=== PATIENT | male | born 1955 | race Caucasian/White ===

== ENCOUNTER 2024-01-09 15:38 | Emergency (ER) | payer MEDICARE, SELFPAY ==
[2024-01-09 15:48] VITALS: BP 173/91; PULSE 86; RESP 16; TEMP 36.6; O2SAT 95; BMI 34.7
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
[2024-01-09 16:01] VITALS: BP 124/60; PULSE 89; O2SAT 100
[2024-01-09] MEDS: MUPIROCIN 2% OINTMENT 22GM TUBE TP (16:15)
[2024-01-09] MEDS: cephALEXin 500MG CAPSULE 500 MG PO (16:15)
[2024-01-09 16:34] VITALS: BP 124/60; PULSE 80; RESP 16; TEMP 36.6; O2SAT 100
== END 2024-01-09 16:34 | disposition home or self-care (01) ==
PROVIDERS: Emergency Provider Emergency Medicine; PCP Nurse Practitioner
DX: T25.331A Burn of third degree of right toe(s) (nail), initial encounter (principal); T25.332A Burn of third degree of left toe(s) (nail), initial encounter; M79.674 Pain in right toe(s); M79.675 Pain in left toe(s); X16.XXXA Contact with hot heating appliances, radiators and pipes, initial encounter; Y93.89 Activity, other specified; Y92.009 Unspecified place in unspecified non-institutional (private) residence as the place of occurrence of the external cause
CPT/HCPCS: 99283

== ENCOUNTER 2024-01-15 15:09 | Outpatient (CLI) | payer MEDICARE, SELFPAY ==
--- NOTE | 2024-01-15 15:20 | XR_ITS ---
PROCEDURE INFORMATION: Exam: XR Left Foot Complete; Alignment Exam date and time: 01/15/2024 3:42 PM Age: 68 years old Clinical indication: Other: Ulcer; Additional info: Diabectic foot ulcer TECHNIQUE: Imaging protocol: Radiologic exam of the left foot. Views: 3 or more views. COMPARISON: No relevant prior studies available. FINDINGS: Bones/joints: No fractures or dislocations. No cortical bone destruction or periosteal reaction. Bone hypertrophy along the dorsum of the tarsal metatarsal joints. Small plantar and Achilles heel spurs, and bone hypertrophy in the tibiotalar joint. Soft tissues: Soft tissue swelling in the great toe. IMPRESSION: 1. No radiographic evidence of osteomyelitis in the great toe. Consider MRI of the left forefoot without and with contrast if clinically warranted. 2. 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
--- NOTE | 2024-01-15 15:20 | XR_ITS ---
PROCEDURE INFORMATION: Exam: XR Right Foot Complete; Alignment Exam date and time: 01/15/2024 3:42 PM Age: 68 years old Clinical indication: Other: Ulcer; Additional info: Diabetic foot ulcer TECHNIQUE: Imaging protocol: Radiologic exam of the right foot. Views: 3 or more views. COMPARISON: No relevant prior studies available. FINDINGS: Bones/joints: Distal Achilles tendon is slightly thickened and has calcifications. No fractures or dislocations. No cortical bone destruction or periosteal reaction. Mild degenerative changes in the midfoot and in the tibiotalar joint. Achilles heel spur. Soft tissues: Soft tissue swelling in the great toe. IMPRESSION: 1. No radiographic evidence of osteomyelitis in the right foot. MRI without and with contrast may be useful if clinically warranted. 2. Mild osteoarthritis in the right midfoot and ankle. 3. Right Achilles heel spur and evidence Achilles calcific tendinosis.
[2024-01-15 15:28] LABS: Basophils # 0.1 K/mm3 (0-0.2); Basophils % 1.2 % (0.1-2.0); Eosinophils # 0.7 K/mm3 (0.0-0.4); Hematocrit 39.9 % (42.0-52.0); Hemoglobin 13.8 g/dL (14.1-18.0); Lymphocytes # 2.7 K/mm3 (0.7-4.5); Lymphocytes % 27.5 % (10-50); Mean Corpuscular HGB Conc 34.6 g/dL (31.8-35.4); Mean Corpuscular Hemoglobin 31.9 pg (27.0-31.2); Mean Corpuscular Volume 92.1 fl (80-94); Mean Platelet Volume 7.8 fl (7.4-10.4); Monocytes # 0.6 K/mm3 (0.1-1.0); Monocytes % 5.7 % (1.7-9.3); Neutrophils # 5.7 K/mm3 (1.8-7.8); Neutrophils % 58.6 % (37.0-80.0); Platelet Count 264 K/mm3 (142-424); Red Blood Count 4.33 M/mm3 (4.60-6.20); Red Cell Distribution Width 13.7 % (11.5-17.5); White Blood Count 9.7 K/mm3 (4.8-10.8)
[2024-01-15 16:05] LABS: Alanine Aminotransferase 26 U/L (12-78); Albumin Level 4.2 g/dl (3.5-5.0); Albumin/Globulin Ratio 1.1 (1.1-1.8); Alkaline Phosphatase 99 U/L (38-126); Anion Gap 14.5 mEq/L (5-15); Aspartate Amino Transferase 34 U/L (17-59); Bilirubin,Total 0.7 mg/dl (0.2-1.3); Blood Urea Nitrogen 19 mg/dl (9-20); Calcium 9.4 mg/dl (8.4-10.2); Carbon Dioxide 24 mmol/L (22.0-30.0); Chloride 102 mmol/L (98-107); Estimated Glomerular Filt Rate 83 ml/min (>60); GFR (African American) 101 ML/MIN (>60); Globulin 3.7 g/dL (1.3-3.2); Glucose 231 mg/dl (74-100); Potassium 4.5 mmoL/L (3.5-5.1); Sodium 136 mmol/L (136-145); Total Protein,Serum 7.9 g/dl (6.3-8.2)
[2024-01-15 16:10] LABS: C-Reactive Protein 8.2 mg/L (0-4)
[2024-01-15 16:43] LABS: Erythrocyte Sedimentation Rate 67 mm/hr (0-20)
[2024-01-15 17:35] LABS: Hemoglobin A1C 7.6 % (4.0-6.0)
== END 2024-01-15 23:59 | disposition home or self-care (01) ==
PROVIDERS: PCP Nurse Practitioner; Visit Provider Podiatrist
DX: T25.331A Burn of third degree of right toe(s) (nail), initial encounter (principal); T25.332A Burn of third degree of left toe(s) (nail), initial encounter; L97.509 Non-pressure chronic ulcer of other part of unspecified foot with unspecified severity; E11.621 Type 2 diabetes mellitus with foot ulcer; M79.671 Pain in right foot; M79.672 Pain in left foot; E11.40 Type 2 diabetes mellitus with diabetic neuropathy, unspecified; Z79.4 Long term (current) use of insulin; E66.812 Obesity, class 2; Z68.34 Body mass index [BMI] 34.0-34.9, adult
CPT/HCPCS: 36415; 73630; 80053; 83036; 85025; 85651; 86140; 87070; 87077; 87186; 87205

== ENCOUNTER 2024-01-16 09:06 | Outpatient (CLI) | payer MEDICARE, SELFPAY | END 2024-01-16 23:59 | disposition home or self-care (01) | LOC: LAB.DROPOF 01-20 09:07 | PROVIDERS: PCP Nurse Practitioner; Visit Provider Podiatrist | DX: E11.621 Type 2 diabetes mellitus with foot ulcer (principal); L97.519 Non-pressure chronic ulcer of other part of right foot with unspecified severity; T25.332A Burn of third degree of left toe(s) (nail), initial encounter | CPT/HCPCS: 87070; 87077; 87186; 87205 ==

== ENCOUNTER 2024-01-26 10:54 | Outpatient (CLI) | payer MEDICARE, SELFPAY ==
--- NOTE | 2024-01-26 10:59 | US_ITS ---
FINAL REPORT CLINICAL HISTORY: Decreased Pedal Pulses, HLD, HTN, DM, ex smoker, claudication, ulcers bilateral FINDINGS: ANKLE-BRACHIAL PRESSURE INDICES Pressure indices are as follows: RIGHT LOWER EXTREMITY: Ankle-brachial pressure index: 1.1 Comments: Normal LEFT LOWER EXTREMITY: Ankle-brachial pressure index: 1.0 Comments: Normal IMPRESSION: No evidence of significant obstructive peripheral vascular disease of the lower extremities Reviewed, Interpreted and Dictated by Scott Clemons III, MD Transcribed by Peggy Hollis Authenticated and . [facility]
== END 2024-01-26 23:59 | disposition home or self-care (01) ==
LOC: RT 10:55
PROVIDERS: PCP Nurse Practitioner; Visit Provider Podiatrist
DX: R09.89 Other specified symptoms and signs involving the circulatory and respiratory systems (principal)
CPT/HCPCS: 93923

== ENCOUNTER 2024-01-29 08:57 | Outpatient (POV) | payer MEDICARE, SELFPAY ==
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
[2024-01-29 09:23] VITALS: BP 144/63; PULSE 86; RESP 18; O2SAT 95; BMI 33.7
== END 2024-01-29 23:59 | disposition home or self-care (01) ==
LOC: SC.PAIN 08:58
PROVIDERS: PCP Nurse Practitioner; Visit Provider Nurse Practitioner Family
DX: M54.2 Cervicalgia (principal); M54.50 Low back pain, unspecified; M54.16 Radiculopathy, lumbar region; M25.561 Pain in right knee; M25.562 Pain in left knee; M54.12 Radiculopathy, cervical region; Z73.89 Other problems related to life management difficulty; Z79.899 Other long term (current) drug therapy
CPT/HCPCS: 99202; G0463

== ENCOUNTER 2024-02-03 09:48 | Outpatient (CLI) | payer MEDICARE, SELFPAY ==
--- NOTE | 2024-02-03 10:01 | XR_ITS ---
PROCEDURE INFORMATION: Exam: XR Left Foot Complete; Alignment Exam date and time: 02/03/2024 10:02 AM Age: 68 years old Clinical indication: Pain; Foot; Left; Additional info: B/l foot ulcers TECHNIQUE: Imaging protocol: Radiologic exam of the left foot. Views: 3 or more views. COMPARISON: CR XR FOOT WT BEARING LT 3V 01/15/2024 3:42 PM FINDINGS: Bones/joints: Interval infiltration/cortical erosion of the great toe distal phalanx at the tuft. Heel spur Achilles tendon enthesophyte. Diffuse degenerative change of the visualized osseous structures. Soft tissues: Interval reduction in soft tissue swelling of the great toe. IMPRESSION: 1. Erosions of the great toe tuft, concerning for osteomyelitis. 2. Interval reduction yet residual soft tissue swelling of the great toe. 3. Degenerative changes of the foot.
--- NOTE | 2024-02-03 10:01 | XR_ITS ---
PROCEDURE INFORMATION: Exam: XR Right Foot Complete; Alignment Exam date and time: 02/03/2024 10:02 AM Age: 68 years old Clinical indication: Pain; Foot; Right; Additional info: B/l foot ulcers TECHNIQUE: Imaging protocol: Radiologic exam of the right foot. Views: 3 or more views. COMPARISON: CR XR FOOT WT BEARING RT 3V 02/03/2024 10:02 AM FINDINGS: Bones/joints: Stable degenerative changes of the foot. Stable Achilles tendon enthesophyte formation. Soft tissues: Mild right great toe swelling, stable. IMPRESSION: 1. No interval appearance of aggressive or acute osseous abnormality. 2. Stable right soft tissue swelling of the great toe. 3. Degenerative changes of the foot.
[2024-02-03 10:11] LABS: Basophils # 0.1 K/mm3 (0-0.2); Basophils % 0.9 % (0.1-2.0); Eosinophils # 0.8 K/mm3 (0.0-0.4); Hematocrit 39.4 % (42.0-52.0); Hemoglobin 13.9 g/dL (14.1-18.0); Lymphocytes # 2.6 K/mm3 (0.7-4.5); Mean Corpuscular HGB Conc 35.2 g/dL (31.8-35.4); Mean Corpuscular Hemoglobin 32.1 pg (27.0-31.2); Mean Platelet Volume 7.5 fl (7.4-10.4); Monocytes # 0.6 K/mm3 (0.1-1.0); Monocytes % 5.7 % (1.7-9.3); Neutrophils # 5.8 K/mm3 (1.8-7.8); Neutrophils % 59.5 % (37.0-80.0); Platelet Count 227 K/mm3 (142-424); Red Blood Count 4.33 M/mm3 (4.60-6.20); White Blood Count 9.8 K/mm3 (4.8-10.8)
[2024-02-03 10:34] LABS: Alanine Aminotransferase 24 U/L (12-78); Albumin Level 4.3 g/dl (3.5-5.0); Albumin/Globulin Ratio 1.1 (1.1-1.8); Alkaline Phosphatase 99 U/L (38-126); Aspartate Amino Transferase 31 U/L (17-59); Bilirubin,Total 0.8 mg/dl (0.2-1.3); Blood Urea Nitrogen 19 mg/dl (9-20); Calcium 9.3 mg/dl (8.4-10.2); Carbon Dioxide 25 mmol/L (22.0-30.0); Chloride 102 mmol/L (98-107); Estimated Glomerular Filt Rate 66 ml/min (>60); GFR (African American) 80 ML/MIN (>60); Globulin 3.8 g/dL (1.3-3.2); Glucose 189 mg/dl (74-100); Sodium 137 mmol/L (136-145); Total Protein,Serum 8.1 g/dl (6.3-8.2)
[2024-02-03 11:35] LABS: Erythrocyte Sedimentation Rate 42 mm/hr (0-20)
== END 2024-02-03 23:59 | disposition home or self-care (01) ==
LOC: LAB 09:49
PROVIDERS: PCP Nurse Practitioner; Visit Provider Podiatrist
DX: E11.621 Type 2 diabetes mellitus with foot ulcer (principal); L97.519 Non-pressure chronic ulcer of other part of right foot with unspecified severity; T25.331A Burn of third degree of right toe(s) (nail), initial encounter; E11.40 Type 2 diabetes mellitus with diabetic neuropathy, unspecified; Z79.4 Long term (current) use of insulin; L97.524 Non-pressure chronic ulcer of other part of left foot with necrosis of bone; E66.812 Obesity, class 2; Z68.35 Body mass index [BMI] 35.0-35.9, adult
CPT/HCPCS: 36415; 73630; 80053; 85025; 85651; 86140; 87070; 87077; 87186; 87205

== ENCOUNTER 2024-02-06 06:57 | Outpatient (CLI) | payer MEDICARE, SELFPAY ==
--- NOTE | 2024-02-06 07:02 | CT_ITS ---
FINAL REPORT TECHNIQUE: Thin section axial CT images of the left foot with coronal and sagittal reformats were performed. This study was performed with techniques to keep radiation doses as low as reasonably achievable (ALARA). Individualized dose reduction techniques using automated exposure control or adjustment of mA and/or kV according to the patient''s size were employed. CLINICAL HISTORY: Evaluate osteomyelitis FINDINGS: There is soft tissue ulceration and subcutaneous emphysema at the distal portion of the first digit of the left foot. There is underlying bony erosion and sclerosis consistent with osteomyelitis. There are hammertoe deformities of the 2nd through 5th digits. There is a large os perineum which is also sclerotic. IMPRESSION: Subcutaneous emphysema and bony destruction in the first digit phalange system with acute osteomyelitis. Reviewed, Interpreted and Dictated by Leon Solomon MD Transcribed by Peggy Hollis Authenticated and [facility]
== END 2024-02-06 23:59 | disposition home or self-care (01) ==
LOC: RAD 06:58
PROVIDERS: PCP Nurse Practitioner; Visit Provider Podiatrist
DX: E11.621 Type 2 diabetes mellitus with foot ulcer (principal); L97.529 Non-pressure chronic ulcer of other part of left foot with unspecified severity; T25.332A Burn of third degree of left toe(s) (nail), initial encounter
CPT/HCPCS: 73700

== ENCOUNTER 2024-02-10 17:12 | Outpatient (CLI) | payer MEDICARE, SELFPAY ==
--- NOTE | 2024-02-10 17:20 | XR_ITS ---
PROCEDURE INFORMATION: Exam: XR Chest Exam date and time: 02/10/2024 5:22 PM Age: 68 years old Clinical indication: Wheezing; Patient HX: Diabetic; Additional info: Preoperative testing, PT wheezing when doing xray TECHNIQUE: Imaging protocol: Radiologic exam of the chest. Views: 2 views. COMPARISON: No relevant prior studies available. FINDINGS: Lungs: There is increased interstitial opacity in the left mid and lower lung echavarria which may reflect developing infection. Pleural spaces: No large effusion or pneumothorax. Heart/Mediastinum: No evidence of mediastinal widening or cardiac silhouette enlargement; the mediastinum and heart appear within normal limits for contour and size. Bones/joints: No evidence of acute osseous abnormalities within the visualized portions of the thoracic spine and ribs. Osseous structures appear appropriate for patient age. IMPRESSION: There is increased interstitial opacity in the left mid and lower lung echavarria which may reflect developing infection.
--- NOTE | 2024-02-10 17:32 | ECG_ITS ---
APPROVED REPORT Exam: Resting ECG HR:82 bpm ECG Measurements Heart Rate 82 AXES AR 196 P 39 QRSd 107 QRS -29 QT 358 T 51 QTc 396 Conclusion SINUS RHYTHM BORDERLINE LEFT AXIS DEVIATION [QRS AXIS < -20] BORDERLINE ECG UNCONFIRMED REPORT Electronically signed by : Presley Garcia MD 02/10/2024 20:55:32
== END 2024-02-10 23:59 | disposition home or self-care (01) ==
LOC: RAD 17:15
PROVIDERS: PCP Nurse Practitioner; Visit Provider Podiatrist
DX: Z01.818 Encounter for other preprocedural examination (principal); E11.621 Type 2 diabetes mellitus with foot ulcer; L97.529 Non-pressure chronic ulcer of other part of left foot with unspecified severity; L97.519 Non-pressure chronic ulcer of other part of right foot with unspecified severity
CPT/HCPCS: 71046; 93005

== ENCOUNTER 2024-02-17 14:19 | Observation (INO) | payer MEDICARE, SELFPAY ==
[2024-02-17] VITALS (11 sets, daily range): BP systolic 125–154; BP diastolic 64–82; PULSE 69–78; RESP 16–18; TEMP 36.6–36.7; O2SAT 94–98; BMI 33.9; BMI 33.8
--- NOTE | 2024-02-17 14:38 | CT_ITS ---
PROCEDURE INFORMATION: Exam: CT Chest Without Contrast; Diagnostic Exam date and time: 02/17/2024 2:50 PM Age: 68 years old Clinical indication: Screening exam; Other screening; Patient HX: R/O pna vs other; Additional info: Xrays with equivocal findings, R/O pna vs other TECHNIQUE: Imaging protocol: Diagnostic computed tomography of the chest without contrast. Total images: 417 Radiation optimization: All CT scans at this facility use at least one of these dose optimization techniques: automated exposure control; mA and/or kV adjustment per patient size (includes targeted exams where dose is matched to clinical indication); or iterative reconstruction. COMPARISON: CR XR CHEST 2V 02/10/2024 5:22 PM FINDINGS: Limitations: Examination limited by the lack of IV contrast. Lungs: Granulomatous calcification noted bilaterally. Atelectatic changes noted within both lung bases. Bronchiectatic changes noted within both lung bases. Pleural spaces: Unremarkable. No pneumothorax. No pleural effusion. Heart: The heart is not enlarged. Coronary arteries: There is mild atherosclerotic calcification of the coronary arteries. Lymph nodes: No mediastinal or axillary lymphadenopathy. Vasculature: Unremarkable. No aortic aneurysm. Diaphragm: Small hiatal hernia. There is nonspecific elevation of the right hemidiaphragm. Bones/joints: Compression deformity of a midthoracic vertebrae present. Soft tissues: Unremarkable. Other findings: Sclerotic density overlies the gallbladder. IMPRESSION: 1. No mediastinal or axillary lymphadenopathy. 2. Atelectatic changes noted within both lung bases. 3. Bronchiectatic changes noted within both lung bases. 4. Compression deformity of a midthoracic vertebrae present.
--- NOTE | 2024-02-17 14:41 | HMH.EDGENADL ---
Discharge Plan Disposition Patient Disposition: Admitted Condition: Good Prescriptions Prescriptions: No Action amitriptyline 50 mg tablet 50 mg PO DAILY aspirin [Adult Low Dose Aspirin] 81 mg tablet,delayed release (DR/EC) 81 mg PO DAILY atenolol 25 mg tablet 25 mg PO DAILY atorvastatin 40 mg tablet 40 mg PO DAILY budesonide-formoterol [Symbicort] 160-4.5 mcg/actuation HFA aerosol inhaler 1 puff inhalation QID PRN (Reason: shortness of breath or wheezing) 90 Days Qty: 10.2 3RF fluticasone propionate [Flonase Allergy Relief] 50 mcg/actuation spray,suspension 2 spray intranasal DAILY 90 Days Qty: 16 2RF Rx Instructions: administer into each nostril gabapentin 600 mg tablet 600 mg PO TID glipizide 10 mg tablet 10 mg PO BID lisinopril 5 mg tablet 5 mg PO DAILY meloxicam 15 mg tablet 15 mg PO DAILY metformin 1,000 mg tablet 1,000 mg PO BID triamcinolone acetonide 0.1 % cream 1 applic topical TID Trulicity 4.5 mg/0.5 mL pen injector 4.5 mg SQ WEEKLY Mounjaro 5 mg/0.5 mL pen injector SQ Patient Comments: INJECT THE CONTENTS OF 1 PEN 1 TIME EACH WEEK UNDER THE SKIN gentamicin 0.1 % cream 1 applic topical DAILY 14 Days Qty: 30 2RF linezolid [Zyvox] 600 mg tablet 600 mg PO BID 14 Days Qty: 28 0RF levofloxacin 500 mg tablet 500 mg PO Q24H 14 Days Qty: 14 0RF mupirocin 2 % ointment 1 applic topical DAILY Qty: 22 0RF Referrals Follow up/Referrals: Taina Flores, WHEELCHAIR RENTAL CLERK [Primary Care Provider] - See instructions Clinical Impressions Clinical Impression: Bronchiectasis, Osteomyelitis of both feet Print Language Print Language: Slovenian Discharge ED Provider: Darrin Terry General Adult HPI <Darrin Terry MD - Last Filed: 02/17/24 15:10> General Chief complaint: Recheck/Abnormal Lab/Rx Stated complaint: congestion cough Time Seen by Provider: 02/17/24 14:32 Mode of Arrival: Ambulatory Source of Information: Patient Limitations: No Limitations Description of Symptoms (Recalled from ER Triage Doc. by RN): pt was seen by his PCP, Taina Flores yesterday, and had a chest xray. Stone called the pt today reporting he has bilateral PNA. Pt states he was told to come to the ER and get admitted for IV antibiotics. pt c/o a productive cough x1wk with a clear sputum. pt states he is SOA, but it is the same SOA that he has at baseline. pt reports he would not have came in had he not been called by his provider. pt is scheduled to have a partial L great toe amputation tomorrow by Dr. Loza. pt has been on antibiotics x2wks for his feet. History of Present Illness HPI narrative: Please note that above description of symptoms, in this electronic medical record under categorization of recalled from ER triage doctor by RN are reflective of an initial nursing assessment, however, is not reflective of my full history and physical exam that was personally taken and clarified. Consequentially, this preceding description of symptoms, which may include the patient's categorized chief complaint in the EMR, do not reflect my personal clinical impression, and the ultimate description of history of present illness and patient stated complaints should be deferred to this section of the note. Unless stated otherwise or congruent with this section of the note, additional signs, symptoms, or incongruence should be interpreted as inaccurate with my clinical impression. Related Data Home Medications ?Medication ?Instructions ?Recorded ?Confirmed amitriptyline 50 mg tablet 50 mg PO DAILY 07/23/22 02/10/24 aspirin 81 mg tablet,delayed 81 mg PO DAILY 07/23/22 02/10/24 release (Adult Low Dose Aspirin) atenolol 25 mg tablet 25 mg PO DAILY 07/23/22 02/10/24 atorvastatin 40 mg tablet 40 mg PO DAILY 07/23/22 02/10/24 dulaglutide 4.5 mg/0.5 mL 4.5 mg SQ WEEKLY 07/23/22 02/10/24 subcutaneous pen injector (Trulicity) gabapentin 600 mg tablet 600 mg PO TID 07/23/22 02/10/24 glipizide 10 mg tablet 10 mg PO BID 07/23/22 02/10/24 lisinopril 5 mg tablet 5 mg PO DAILY 07/23/22 02/10/24 meloxicam 15 mg tablet 15 mg PO DAILY 07/23/22 02/10/24 metformin 1,000 mg tablet 1,000 mg PO BID 07/23/22 02/10/24 triamcinolone acetonide 0.1 % 1 applic topical TID 07/23/22 02/10/24 topical cream tirzepatide 5 mg/0.5 mL mg SQ 02/03/24 02/10/24 subcutaneous pen injector (Tanika) Previous Rx's ?Medication ?Instructions ?Recorded budesonide-formoterol HFA 160 1 puff inhalation QID PRN 07/23/22 mcg-4.5 mcg/actuation aerosol shortness of breath or wheezing 90 inhaler (Symbicort) days #10.2 grams fluticasone propionate 50 2 spray intranasal DAILY 90 days 07/23/22 mcg/actuation nasal #16 grams spray,suspension (Flonase Allergy Relief) mupirocin 2 % topical ointment 1 applic topical DAILY #22 grams 01/09/24 gentamicin 0.1 % topical cream 1 applic topical DAILY MRSA, DFU 2 02/03/24 weeks #30 grams levofloxacin 500 mg tablet 500 mg PO Q24H infection 14 days 02/10/24 #14 tabs linezolid 600 mg tablet (Zyvox) 600 mg PO BID 14 days #28 tabs 02/10/24 Allergies Allergy/AdvReac Type Severity Reaction Status Date / Time No Known Allergies Allergy Verified 02/17/24 14:56 [facility] <Darrin Terry MD - Last Filed: 02/17/24 15:10> [facility] Disclaimer: The information contained in this section may have been updated after the patient was seen, as this information can be updated by other users. Medical History Allergic rhinitis Family history of asthma History of COPD Stopped smoking with greater than 30 pack year history Eosinophilia Dyspnea on exertion Surgical History History of pancreatic surgery History of cholecystectomy Family History Other Asthma COPD (chronic obstructive pulmonary disease) Diabetes Emphysema of lung Hypertension Social History Smoking Status: Never smoker smoking status stop date: 1994 alcohol intake: never current occupational status: retired Travel in the last 8 weeks: None Other Medical History Have you received the Flu Vaccine for this season: No Have you received the Pneumonia Vaccine: No <Darrin Terry MD - Last Filed: 02/17/24 15:10> ROS Obtained: Yes All systems reviewed & no additional complaints except as documented Physical Exam <Darrin Terry MD - Last Filed: 02/17/24 15:10> General General appearance: alert and in no apparent distress Head Head exam: atraumatic and normocephalic Eye Eye exam: Present normal appearance, PERRL and EOMI ENT ENT exam: Present other (edentulous) Neck Neck exam: Present normal inspection, full ROM and trachea midline Respiratory Respiratory exam: Present normal lung sounds bilaterally; Absent respiratory distress, wheezes, stridor, accessory muscle use or prolonged expiratory phase Cardiovascular Cardiovascular exam: Present regular rate, normal rhythm and other (Pulses equal symmetric in upper and lower extremities) Abdominal Exam Abdominal exam: Present soft; Absent distention, tenderness or pulsatile mass Extremities Exam Extremities exam: Absent edema Neurological Exam Neurological exam: Present alert, oriented X3 and CN II-XII intact; Absent motor sensory deficit Skin Skin exam: Present warm and dry; Absent diaphoresis or erythema Medical Decision Making <Darrin Terry MD - Last Filed: 02/17/24 15:10> Medical Records Medical records reviewed: Yes I reviewed the patient's medical records. Screening: Per USPSTF and CDC recommendations, given the prevalence of disease in our region, it is our hospital?s policy to screen for HIV and viral Hepatitis for all patients aged 18 and over and those with ongoing risk factors. Conner Inquiry Pt receiving controlled substance: No Conner was queried for this patient: No Vital Signs: 02/17/24 14:25 02/17/24 14:30 02/17/24 14:31 Temperature 97.8 F Temperature Source Oral Pulse Rate 78 78 Pulse Rate [Left] 78 Respiratory Rate 18 Blood Pressure 154/81 H 149/81 H Blood Pressure [Right Arm] 154/81 H Blood Pressure Mean [Right Arm] 105 Blood Pressure Source [Right Arm] Automatic Cuff Blood Pressure Position [Right Arm] Sitting 02 Sat by Pulse Oximetry 97 97 97 Oxygen Delivery Method Room Air 02/17/24 15:00 02/17/24 15:30 02/17/24 16:00 Temperature Temperature Source Pulse Rate 71 75 69 Pulse Rate [Left] Respiratory Rate Blood Pressure 137/71 126/71 125/64 Blood Pressure [Right Arm] Blood Pressure Mean [Right Arm] Blood Pressure Source [Right Arm] Blood Pressure Position [Right Arm] 02 Sat by Pulse Oximetry 96 97 96 Oxygen Delivery Method Room Air Room Air Room Air 02/17/24 16:30 Temperature Temperature Source Pulse Rate 74 Pulse Rate [Left] Respiratory Rate Blood Pressure 135/72 Blood Pressure [Right Arm] Blood Pressure Mean [Right Arm] Blood Pressure Source [Right Arm] Blood Pressure Position [Right Arm] 02 Sat by Pulse Oximetry 95 Oxygen Delivery Method Room Air Lab Data Lab Results 02/17/24 14:30: WBC 9.9, RBC 5.02, Hgb 15.5, Hct 46.3, MCV 92.3, MCH 30.8, MCHC 33.4, RDW 14.0, Plt Count 188, MPV 7.4, Neut % (Auto) 50.6, Lymph % (Auto) 35.0, [place] % (Auto) 5.2, Eos % (Auto) 7.7, Baso % (Auto) 1.4, Neut # (Auto) 5.0, Lymph # (Auto) 3.5, [place] # (Auto) 0.5, Eos # (Auto) 0.8 H, Baso # (Auto) 0.1, PT 10.9, INR 0.97, APTT 25.6, Sodium 138, Potassium 4.6, Chloride 101, Carbon Dioxide 32 H, Anion Gap 9.6, BUN 18, Creatinine 1.10, Estimated Creat Clear 100, Estimated GFR 66, Est GFR ( Amer) 80, Glucose 93, Calcium 9.6, Magnesium 1.6, Total Bilirubin 0.5, AST 42, ALT 32, Alkaline Phosphatase 94, Troponin I < 0.01, NT-Pro-B Natriuret Pep 36.4, Total Protein 9.1 H, Albumin 4.8, Globulin 4.3 H, Albumin/Globulin Ratio 1.1, Procalcitonin 0.080 02/17/24 14:58: VBG pH 7.35, VBG pCO2 48.1, VBG pO2 54.8 H, VBG HCO3 25.9, VBG Total CO2 27.4 H, VBG O2 Saturation 87.9 H, VBG Base Excess 0.3, VBG Lactic Acid 1.8 12/03/24 14:30 02/17/24 14:30 Orders (Tests/Meds): ED MEDICATIONS Generic Name Dose Route Start Last Admin Trade Name Flori PRN Reason Stop Dose Admin Cefepime HCl 2 gm/ Sodium 100 mls @ 200 mls/hr 02/17/24 17:00 Chloride IV 02/17/24 17:29 ONCE ONE Miscellaneous 1 each 02/17/24 17:00 Vancomycin Consult Request NOTAPPLIC 03/18/24 16:59 [facility] ORD[facility] Category Date Time Status CT chest wo con Stat Cat Scan 02/17/24 14:38 Completed Complete Blood Count Auto Diff Stat Lab 02/17/24 14:30 Completed Comprehensive Metabolic Panel Stat Lab 02/17/24 14:30 Completed Magnesium Stat Lab 02/17/24 14:30 Completed NT Pro Brain Natriuretic Pep. Stat Lab 02/17/24 14:30 Completed PT INR [Prothrombin Time INR] Stat Lab 02/17/24 14:30 Completed PTT [Activated Partial Thrombo Time] Stat Lab 02/17/24 14:30 Completed Procalcitonin Stat Lab 02/17/24 14:30 Completed Troponin I Q3H Lab 02/17/24 17:45 Ordered Troponin I Q3H Lab 02/17/24 20:45 Ordered Troponin I Stat Lab 02/17/24 14:30 Completed Venous Blood Gas Stat RT 02/17/24 14:58 Completed Medical Decision Narrative: This is a 68-year-old male history of hypertension, hyperlipidemia, diabetes with neuropathy, lower extremity infections including osteomyelitis currently on antibiotics presenting with concern for pneumonia. Patient states that he has been on antibiotics for about 4 weeks in order to treat osteomyelitis of his great toe. Was supposed to have surgery for partial amputation tomorrow, 02/17. Patient states that he had preoperative clearance labs and chest x-ray done yesterday, 02/15 and was called back telling him he has double pneumonia, and to go to the emergency department to be admitted for having failed outpatient therapy. Patient states that he would not of come to the emergency department if he had not been instructed to do so he is not having cough, fevers, chills, nausea, vomiting, chest pain, shortness of breath more than his typical, or any other concerning signs. Tolerating antibiotics without issue. History obtained the patient and family. On arrival, patient very well-appearing, GCS 15, neurologically intact. Cardiopulmonary exam within normal limits without wheezes or adventitious lung sounds. Differential includes typical versus atypical pneumonia, viral pneumonia, CHF, PE, pneumothorax, among others. Independent interpretation of workup no leukocytosis, nonactionable CBC, chemistry, troponin, BNP. CT of the chest without acute airspace disease concerning for pneumonia. Emphysematous change. Prior to workup and evaluation, care handed off to oncoming physician. Motion Study Engineer disclaimer Much of this encounter note is an electronic sales market leader spoken language to printed text. Electronic sales market leader of the spoken language may permit errors. Although I have reviewed the note, some errors may still exist. <Keesha Dobson, DO - Last Filed: 02/17/24 17:05> Vital Signs: 02/17/24 14:25 02/17/24 14:30 02/17/24 14:31 Temperature 97.8 F Temperature Source Oral Pulse Rate 78 78 Pulse Rate [Left] 78 Respiratory Rate 18 Blood Pressure 154/81 H 149/81 H Blood Pressure [Right Arm] 154/81 H Blood Pressure Mean [Right Arm] 105 Blood Pressure Source [Right Arm] Automatic Cuff Blood Pressure Position [Right Arm] Sitting 02 Sat by Pulse Oximetry 97 97 97 Oxygen Delivery Method Room Air 02/17/24 15:00 02/17/24 15:30 02/17/24 16:00 Temperature Temperature Source Pulse Rate 71 75 69 Pulse Rate [Left] Respiratory Rate Blood Pressure 137/71 126/71 125/64 Blood Pressure [Right Arm] Blood Pressure Mean [Right Arm] Blood Pressure Source [Right Arm] Blood Pressure Position [Right Arm] 02 Sat by Pulse Oximetry 96 97 96 Oxygen Delivery Method Room Air Room Air Room Air 02/17/24 16:30 Temperature Temperature Source Pulse Rate 74 Pulse Rate [Left] Respiratory Rate Blood Pressure 135/72 Blood Pressure [Right Arm] Blood Pressure Mean [Right Arm] Blood Pressure Source [Right Arm] Blood Pressure Position [Right Arm] 02 Sat by Pulse Oximetry 95 Oxygen Delivery Method Room Air Lab Data Lab Results 02/17/24 14:30: WBC 9.9, RBC 5.02, Hgb 15.5, Hct 46.3, MCV 92.3, MCH 30.8, MCHC 33.4, RDW 14.0, Plt Count 188, MPV 7.4, Neut % (Auto) 50.6, Lymph % (Auto) 35.0, [place] % (Auto) 5.2, Eos % (Auto) 7.7, Baso % (Auto) 1.4, Neut # (Auto) 5.0, Lymph # (Auto) 3.5, [place] # (Auto) 0.5, Eos # (Auto) 0.8 H, Baso # (Auto) 0.1, PT 10.9, INR 0.97, APTT 25.6, Sodium 138, Potassium 4.6, Chloride 101, Carbon Dioxide 32 H, Anion Gap 9.6, BUN 18, Creatinine 1.10, Estimated Creat Clear 100, Estimated GFR 66, Est GFR ( Amer) 80, Glucose 93, Calcium 9.6, Magnesium 1.6, Total Bilirubin 0.5, AST 42, ALT 32, Alkaline Phosphatase 94, Troponin I < 0.01, NT-Pro-B Natriuret Pep 36.4, Total Protein 9.1 H, Albumin 4.8, Globulin 4.3 H, Albumin/Globulin Ratio 1.1, Procalcitonin 0.080 02/17/24 14:58: VBG pH 7.35, VBG pCO2 48.1, VBG pO2 54.8 H, VBG HCO3 25.9, VBG Total CO2 27.4 H, VBG O2 Saturation 87.9 H, VBG Base Excess 0.3, VBG Lactic Acid 1.8 Orders (Tests/Meds): ED MEDICATIONS Generic Name Dose Route Start Last Admin Trade Name Freq PRN Reason Stop Dose Admin Cefepime HCl 2 gm/ Sodium 100 mls @ 200 mls/hr 02/17/24 17:00 Chloride IV 02/17/24 17:29 ONCE ONE Miscellaneous 1 each 02/17/24 17:00 Vancomycin Consult Request NOTAPPLIC 03/18/24 16:59 [facility] Category Date Time Status CT chest wo con Stat Cat Scan 02/17/24 14:38 Completed Complete Blood Count Auto Diff Stat Lab 02/17/24 14:30 Completed Comprehensive Metabolic Panel Stat Lab 02/17/24 14:30 Completed Magnesium Stat Lab 02/17/24 14:30 Completed NT Pro Brain Natriuretic Pep. Stat Lab 02/17/24 14:30 Completed PT INR [Prothrombin Time INR] Stat Lab 02/17/24 14:30 Completed PTT [Activated Partial Thrombo Time] Stat Lab 02/17/24 14:30 Completed Procalcitonin Stat Lab 02/17/24 14:30 Completed Troponin I Q3H Lab 02/17/24 17:45 Ordered Troponin I Q3H Lab 02/17/24 20:45 Ordered Troponin I Stat Lab 02/17/24 14:30 Completed Venous Blood Gas Stat RT 02/17/24 14:58 Completed Medical Decision Narrative: This is a 68-year-old male history of hypertension, hyperlipidemia, diabetes with neuropathy, lower extremity infections including osteomyelitis currently on antibiotics presenting with concern for pneumonia. Patient states that he has been on antibiotics for about 4 weeks in order to treat osteomyelitis of his great toe. Was supposed to have surgery for partial amputation tomorrow, 02/17. Patient states that he had preoperative clearance labs and chest x-ray done yesterday, 02/15 and was called back telling him he has double pneumonia, and to go to the emergency department to be admitted for having failed outpatient therapy. Patient states that he would not of come to the emergency department if he had not been instructed to do so he is not having cough, fevers, chills, nausea, vomiting, chest pain, shortness of breath more than his typical, or any other concerning signs. Tolerating antibiotics without issue. History obtained the patient and family. On arrival, patient very well-appearing, GCS 15, neurologically intact. Cardiopulmonary exam within normal limits without wheezes or adventitious lung sounds. Differential includes typical versus atypical pneumonia, viral pneumonia, CHF, PE, pneumothorax, among others. Independent interpretation of workup no leukocytosis, nonactionable CBC, chemistry, troponin, BNP. CT of the chest without acute airspace disease concerning for pneumonia. Emphysematous change. Prior to workup and evaluation, care handed off to oncoming physician. Motion Study Engineer disclaimer Much of this encounter note is an electronic sales market leader spoken language to printed text. Electronic sales market leader of the spoken language may permit errors. Although I have reviewed the note, some errors may still exist. DO Bronson: On my assessment of the patient, he is sitting upright in no acute distress. CT scan shows bronchiectatic and atelectatic changes with granulomatous changes as well, but I do not see acute infection. Labs reassuring. Vitals reassuring on cardiac telemetry. I had an interactive discussion with Dr. Loza with podiatry who advised that she would prefer the patient be admitted for IV antibiotics for treatment of osteomyelitis given unclear when he will be able to undergo surgery. I had an interactive discussion with the hospitalist who accepted patient for admission. Per recommendations from Dr. Loza, patient started on IV vancomycin and cefepime. Critical Care <Darrin Terry MD - Last Filed: 02/17/24 15:10> Critical Care Time Critical Care Time: No
[2024-02-17 14:45] LABS: Basophils # 0.1 K/mm3 (0-0.2); Basophils % 1.4 % (0.1-2.0); Eosinophils # 0.8 K/mm3 (0.0-0.4); Eosinophils % 7.7 % (0.1-12.0); Hematocrit 46.3 % (42.0-52.0); Hemoglobin 15.5 g/dL (14.1-18.0); Lymphocytes # 3.5 K/mm3 (0.7-4.5); Mean Corpuscular HGB Conc 33.4 g/dL (31.8-35.4); Mean Corpuscular Hemoglobin 30.8 pg (27.0-31.2); Mean Corpuscular Volume 92.3 fl (80-94); Mean Platelet Volume 7.4 fl (7.4-10.4); Monocytes # 0.5 K/mm3 (0.1-1.0); Monocytes % 5.2 % (1.7-9.3); Neutrophils % 50.6 % (37.0-80.0); Platelet Count 188 K/mm3 (142-424); Red Blood Count 5.02 M/mm3 (4.60-6.20); White Blood Count 9.9 K/mm3 (4.8-10.8)
[2024-02-17 14:48] LABS: Albumin Level 4.8 g/dl (3.5-5.0); Chloride 101 mmol/L (98-107); Sodium 138 mmol/L (136-145)
[2024-02-17 14:49] LABS: Potassium 4.6 mmoL/L (3.5-5.1)
[2024-02-17 14:51] LABS: Activated Partial Thrombo Time 25.6 seconds (22.8-30.6); Alanine Aminotransferase 32 U/L (12-78); Albumin/Globulin Ratio 1.1 (1.1-1.8); Alkaline Phosphatase 94 U/L (38-126); Anion Gap 9.6 mEq/L (5-15); Aspartate Amino Transferase 42 U/L (17-59); Bilirubin,Total 0.5 mg/dl (0.2-1.3); Blood Urea Nitrogen 18 mg/dl (9-20); Carbon Dioxide 32 mmol/L (22.0-30.0); Creatinine Clearance Estimated 100 mL/min (50-200); Estimated Glomerular Filt Rate 66 ml/min (>60); GFR (African American) 80 ML/MIN (>60); Globulin 4.3 g/dL (1.3-3.2); Total Protein,Serum 9.1 g/dl (6.3-8.2)
[2024-02-17 14:52] LABS: Calcium 9.6 mg/dl (8.4-10.2); Glucose 93 mg/dl (74-100); Magnesium 1.6 mg/dl (1.6-2.3)
[2024-02-17 15:01] LABS: INR 0.97 (0.9-1.1); NT Pro Brain Natriuretic Pep. 36.4 pg/mL (0-125); Prothrombin Time 10.9 seconds (10.1-12.5)
[2024-02-17 15:07] LABS: Troponin I < 0.01 ng/ml (0.00-0.034)
[2024-02-17 15:11] LABS: Lactate Venous 1.8 mmol/L (0.4-2.0); VBG Base Excess 0.3 mmol/L (-2.4-2.3); VBG HCO3 25.9 mmol/L (23-30); VBG Oxygen Saturation 87.9 % (50-70); VBG PCO2 48.1 mmol/L (35-51); VBG PH 7.35 mmol/L (7.31-7.41); VBG PO2 54.8 mmol/L (28-40); VBG Total CO2 27.4 mmol/L (23-27)
--- NOTE | 2024-02-17 16:04 | PC.NURSE ---
pt resting in bed no needs at this time, at bs and call light in reach
[2024-02-17] MEDS: VANCOMYCIN CONSULT REQUEST 1 EACH NOTAPPLIC (17:06)
--- NOTE | 2024-02-17 17:18 | XR_ITS ---
PROCEDURE INFORMATION: Exam: XR Left Foot Exam date and time: 02/17/2024 5:30 PM Age: 68 years old Clinical indication: Other: L hallux om, dfu TECHNIQUE: Imaging protocol: Radiologic exam of the left foot. Views: 3 or more views. COMPARISON: CT FOOT LT WO CON 02/06/2024 7:06 AM FINDINGS: Bones/joints: Bony destruction involving the distal tuft of the great toe. No acute fracture. Hammertoe deformity 2nd through 5th digits. Soft tissues: There is adjacent soft tissue swelling. Findings suspicious for osteomyelitis. IMPRESSION: 1. Bony destruction involving the distal tuft of the great toe. There is adjacent soft tissue swelling. Findings suspicious for osteomyelitis. 2. No evidence for acute fracture. 3. Hammertoe deformity 2nd through 5th digits.
--- NOTE | 2024-02-17 17:18 | XR_ITS ---
PROCEDURE INFORMATION: Exam: XR Right Foot Exam date and time: 02/17/2024 5:30 PM Age: 68 years old Clinical indication: Other: R hallux dfu TECHNIQUE: Imaging protocol: Radiologic exam of the right foot. Views: 3 or more views. COMPARISON: CR XR FOOT WT BEARING RT 3V 02/03/2024 10:02 AM FINDINGS: Bones/joints: No acute fracture. Soft tissues: Soft tissue swelling distal soft tissues of the great toe. IMPRESSION: 1. Soft tissue swelling distal soft tissues of the great toe. No evidence for soft tissue gas. 2. No evidence for bony destruction
[2024-02-17] MEDS: CEFEPIME HCL 2 GM in 0.9 % SODIUM CHLORIDE 100 ML IV (17:27)
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
--- NOTE | 2024-02-17 18:27 | PC.WOUNDNOTE ---
Left great toe
--- NOTE | 2024-02-17 18:29 | PC.WOUNDNOTE ---
Right great toe
--- NOTE | 2024-02-17 18:33 | PC.NURSE ---
called krystin abel) to verify the correct vanc dose. vanc dose changed to 2250mg in 500ml bag ns
[2024-02-17] MEDS: VANCOMYCIN HCL 2,250 MG in 0.9 % SODIUM CHLORIDE 500 ML 166 MG IV (19:03)
[2024-02-17 19:11] LABS: Troponin I < 0.01 ng/ml (0.00-0.034)
[2024-02-17] MEDS: ATORVASTATIN 40MG TABLET 40 MG PO (20:43)
[2024-02-17] MEDS: ATENOLOL 25MG TABLET 25 MG PO (20:43)
[2024-02-17] MEDS: GABAPENTIN 600MG TABLET 600 MG PO (20:43)
[2024-02-17] MEDS: GLIPIZIDE 10 MG 10 EACH PO (20:44)
[2024-02-17] MEDS: PATIENT'S OWN HOME MEDICATION (Metformin 1,000 mg tablet) 1000 EACH PO (20:45)
[2024-02-17] MEDS: AMITRIPTYLINE 50MG TABLET 50 MG PO (20:46)
[2024-02-17] MEDS: ACETAMINOPHEN 500MG TAB 1000 MG PO (20:53)
[2024-02-17] MEDS: NYSTATIN SUSP 500,000 UNITS/5ML UDC 500000 UNIT PO (20:53)
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
[2024-02-17 21:05] LABS: POC Glucose,Bedside 146 (70-110)
[2024-02-17 21:59] LABS: Troponin I < 0.01 ng/ml (0.00-0.034)
[2024-02-18] VITALS (19 sets, daily range): BP systolic 102–135; BP diastolic 52–70; PULSE 71–104; RESP 12–18; TEMP 36.1–36.8; O2SAT 94–98; BMI 34.0
[2024-02-18 06:20] LABS: Basophils # 0.1 K/mm3 (0-0.2); Eosinophils # 0.7 K/mm3 (0.0-0.4); Hematocrit 38.4 % (42.0-52.0); Lymphocytes # 2.8 K/mm3 (0.7-4.5); Lymphocytes % 36.3 % (10-50); Mean Corpuscular HGB Conc 34.5 g/dL (31.8-35.4); Mean Corpuscular Hemoglobin 31.8 pg (27.0-31.2); Mean Corpuscular Volume 92.1 fl (80-94); Mean Platelet Volume 7.4 fl (7.4-10.4); Monocytes # 0.5 K/mm3 (0.1-1.0); Neutrophils # 3.7 K/mm3 (1.8-7.8); Neutrophils % 47.8 % (37.0-80.0); Platelet Count 156 K/mm3 (142-424); Red Blood Count 4.17 M/mm3 (4.60-6.20); Red Cell Distribution Width 14.2 % (11.5-17.5); White Blood Count 7.7 K/mm3 (4.8-10.8)
[2024-02-18 06:20] LABS: POC Glucose,Bedside 79 (70-110)
[2024-02-18 06:27] LABS: Hemoglobin 13.4 g/dL (14.1-18.0)
[2024-02-18] MEDS: CEFEPIME HCL 2 GM in 0.9 % SODIUM CHLORIDE 100 ML IV ×2 (06:27→18:23)
[2024-02-18 06:29] LABS: Albumin Level 3.7 g/dl (3.5-5.0); Chloride 106 mmol/L (98-107); Potassium 4.1 mmoL/L (3.5-5.1); Sodium 138 mmol/L (136-145)
[2024-02-18 06:31] LABS: Blood Urea Nitrogen 19 mg/dl (9-20); Creatinine Clearance Estimated 111 mL/min (50-200); Estimated Glomerular Filt Rate 74 ml/min (>60); GFR (African American) 89 ML/MIN (>60)
[2024-02-18 06:32] LABS: Alanine Aminotransferase 27 U/L (12-78); Albumin/Globulin Ratio 1.1 (1.1-1.8); Alkaline Phosphatase 81 U/L (38-126); Anion Gap 7.1 mEq/L (5-15); Aspartate Amino Transferase 40 U/L (17-59); Bilirubin,Total 0.4 mg/dl (0.2-1.3); Calcium 8.7 mg/dl (8.4-10.2); Carbon Dioxide 29 mmol/L (22.0-30.0); Globulin 3.3 g/dL (1.3-3.2); Glucose 70 mg/dl (74-100); Magnesium 1.6 mg/dl (1.6-2.3)
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
[2024-02-18 07:43] LABS: C-Reactive Protein 3.3 mg/L (0-4)
[2024-02-18 08:02] LABS: Erythrocyte Sedimentation Rate 30 mm/hr (0-20)
[2024-02-18] MEDS: NYSTATIN SUSP 500,000 UNITS/5ML UDC 500000 UNIT PO ×3 (08:05→20:17)
[2024-02-18] MEDS: MAGNESIUM SULFATE IN WATER 2 GM/50 ML PIGGYBACK IV ×2 (08:05→08:48)
[2024-02-18] MEDS: METFORMIN 500MG TABLET 1000 MG PO ×2 (08:05→17:24)
[2024-02-18] MEDS: LISINOPRIL 5MG TABLET 5 MG PO (08:06)
[2024-02-18] MEDS: GABAPENTIN 600MG TABLET 600 MG PO ×3 (08:06→20:17)
[2024-02-18] MEDS: ATENOLOL 25MG TABLET 25 MG PO (08:06)
[2024-02-18] MEDS: ENOXAPARIN 40MG/0.4ML SYRINGE 40 MG SUBCUT (08:06)
--- NOTE | 2024-02-18 08:15 | HMH.PHAINT1 ---
Pharmacy Intervention Comments: HOME MEDICATIONS VERIFIED VIA OUTPATIENT PHARMACY AND PATIENT INTERVIEW
--- NOTE | 2024-02-18 09:38 | EXP.PULM.CON ---
History of Present Illness History of present illness: Mr. Hodges is a 76-year-old male greater than [id number] smoking/smoked around 1999 with reported history of diabetes COPD hypertension foot osteomyelitis managed as an outpatient basis with debridements presented to ER with questionable worsening respiratory distress and pneumonia and pulmonary was called for further evaluation and management. Patient denies minimal respiratory symptoms at baseline but using albuterol inhaler on as-needed basis, needing around 2-3 times per month. No recent exacerbations needing antibiotics or steroids. [facility] Disclaimer: The information contained in this section may have been updated after the patient was seen, as this information can be updated by other users. Medical History (Updated 02/18/24 @ 10:46 by Manpreet Bird MD) Pulmonary emphysema History of smoking 30 or more pack years Allergic rhinitis Family history of asthma History of COPD Stopped smoking with greater than 30 pack year history Eosinophilia Dyspnea on exertion Surgical History History of pancreatic surgery History of cholecystectomy Family History Other Asthma COPD (chronic obstructive pulmonary disease) Diabetes Emphysema of lung Hypertension Social History Smoking Status: Never smoker smoking status stop date: 1994 alcohol intake: never current occupational status: retired Travel in the last 8 weeks: None Review of Systems Constitutional Constitutional: Denies anorexia, Denies body ache(s) and Denies fatigue Eyes Eyes: Denies eye discharge, Denies dry eyes, Denies irritation and Denies itchy eyes ENT Ears, Nose, Mouth, and Throat: Denies epistaxis, Denies facial pain, Denies lip swelling and Denies throat swelling *Cardiovascular Cardiovascular: Denies dyspnea and Reports dyspnea on exertion *Respiratory Respiratory: Denies change in phlegm color, Reports chest congestion, Reports cough, Denies dyspnea, Reports dyspnea on exertion, Denies excessive phlegm production, Denies hemoptysis, Denies pain on inspiration, Denies pain with cough and Denies wheezing *Gastrointestinal Gastrointestinal: Denies abdominal pain, Denies belching and Denies cramping *Musculoskeletal Musculoskeletal: Reports back pain Comments: Foot pain *Neurologic Neurologic: Reports system reviewed and no additional complaints, except as documented and Reports paresthesias Psychiatric Psychiatric: Denies homicidal ideation and Denies suicidal ideation Endocrine Endocrine: Denies fatigue and Denies heat intolerance Hematologic/Lymphatic Hematologic/Lymphatic: Denies easy bleeding and Denies lymphadenopathy Allergic/Immunologic Allergic/Immunologic: Denies itchy eyes, Denies lip swelling, Denies throat swelling and Denies wheezing Pulmonology Exam Inpatient Vital signs and Labs for Last 24 Hours: Temp Pulse Resp BP Pulse Ox O2 Del Method 98.1 F 81 16 128/68 97 Room Air 02/18/24 08:00 02/18/24 08:00 02/18/24 08:00 02/18/24 08:00 02/18/24 08:00 02/18/24 09:00 Laboratory Results - last 24 hr 02/17/24 14:30: WBC 9.9, RBC 5.02, Hgb 15.5, Hct 46.3, MCV 92.3, MCH 30.8, MCHC 33.4, RDW 14.0, Plt Count 188, MPV 7.4, Neut % (Auto) 50.6, Lymph % (Auto) 35.0, Campbell % (Auto) 5.2, Eos % (Auto) 7.7, Baso % (Auto) 1.4, Neut # (Auto) 5.0, Lymph # (Auto) 3.5, Campbell # (Auto) 0.5, Eos # (Auto) 0.8 H, Baso # (Auto) 0.1, PT 10.9, INR 0.97, APTT 25.6, Sodium 138, Potassium 4.6, Chloride 101, Carbon Dioxide 32 H, Anion Gap 9.6, BUN 18, Creatinine 1.10, Estimated Creat Clear 100, Estimated GFR 66, Est GFR ( Amer) 80, Glucose 93, Calcium 9.6, Magnesium 1.6, Total Bilirubin 0.5, AST 42, ALT 32, Alkaline Phosphatase 94, Troponin I < 0.01, NT-Pro-B Natriuret Pep 36.4, Total Protein 9.1 H, Albumin 4.8, Globulin 4.3 H, Albumin/Globulin Ratio 1.1, Procalcitonin 0.080 02/17/24 14:58: VBG pH 7.35, VBG pCO2 48.1, VBG pO2 54.8 H, VBG HCO3 25.9, VBG Total CO2 27.4 H, VBG O2 Saturation 87.9 H, VBG Base Excess 0.3, VBG Lactic Acid 1.8 02/17/24 18:29: Troponin I < 0.01 02/17/24 20:42: POC Glucose 146 H 02/17/24 21:22: Troponin I < 0.01 02/18/24 05:38: WBC 7.7, RBC 4.17 L, Hgb 13.4 L D, Hct 38.4 L, MCV 92.1, MCH 31.8 H, MCHC 34.5, RDW 14.2, Plt Count 156, MPV 7.4, Neut % (Auto) 47.8, Lymph % (Auto) 36.3, Campbell % (Auto) 6.0, Eos % (Auto) 9.0, Baso % (Auto) 1.0, Neut # (Auto) 3.7, Lymph # (Auto) 2.8, Campbell # (Auto) 0.5, Eos # (Auto) 0.7 H, Baso # (Auto) 0.1, ESR 30 H, Sodium 138, Potassium 4.1, Chloride 106, Carbon Dioxide 29, Anion Gap 7.1, BUN 19, Creatinine 1.00, Estimated Creat Clear 111, Estimated GFR 74, Est GFR ( Amer) 89, Glucose 70 L D, Calcium 8.7, Magnesium 1.6, Total Bilirubin 0.4, AST 40, ALT 27, Alkaline Phosphatase 81, C-Reactive Protein 3.3, Total Protein 7.0, Albumin 3.7 D, Globulin 3.3 H, Albumin/Globulin Ratio 1.1 02/18/24 06:09: POC Glucose 79 I & O for Labs for Last 24 Hours: Intake & Output 02/15/24 02/16/24 02/17/24 02/18/24 23:59 23:59 23:59 23:59 Intake Total 400 / 1140 790 / 790 Output Total 0 / 0 Balance 400 / 1140 790 / 790 Weight 249 lb 15.997 oz 251 lb Constitutional: Present mild distress Head: Present normocephalic and atraumatic ENT: Present normal exam, normal oropharynx and mucous membranes moist Neck: Present normal inspection and full ROM Respiratory: Present normal respiratory effort and able to speak in complete sentences; Absent prolonged expiratory phase, respiratory distress, wheezes or diminished air movement Cardiac: Present S1/S2, Tachycardia and radial pulses present GI: Present soft and distention; Absent tenderness or guarding Skin: Present intact; Absent cyanosis or jaundice Neuro: Present alert, awake and oriented x 3 Extremities: Present normal inspection; Absent clubbing or cyanosis Psychiatric: Present normal affect and cooperative Meds Home Medications and Allergies Home Medications ?Medication ?Instructions ?Recorded ?Confirmed ?Type amitriptyline 50 mg tablet 50 mg PO HS 07/23/22 02/18/24 History aspirin 81 mg tablet,delayed 81 mg PO DAILY 07/23/22 02/17/24 History release (Adult Low Dose Aspirin) atorvastatin 40 mg tablet 40 mg PO DAILY 07/23/22 02/17/24 History fluticasone propionate 50 2 spray intranasal DAILY 90 days 07/23/22 02/18/24 Rx mcg/actuation nasal #16 grams spray,suspension (Flonase Allergy Relief) gabapentin 600 mg tablet 600 mg PO TID 07/23/22 02/18/24 History glipizide 10 mg tablet 10 mg PO BID 07/23/22 02/18/24 History meloxicam 15 mg tablet 15 mg PO DAILY 07/23/22 02/18/24 History metformin 1,000 mg tablet 1,000 mg PO BID 07/23/22 02/18/24 History tirzepatide 5 mg/0.5 mL 5 mg SQ WEEKLY 02/03/24 02/17/24 History subcutaneous pen injector (Tanika) levofloxacin 500 mg tablet 500 mg PO Q24H infection 14 days 02/10/24 02/17/24 Rx #14 tabs linezolid 600 mg tablet (Zyvox) 600 mg PO BID 14 days #28 tabs 02/10/24 02/17/24 Rx atenolol 50 mg tablet 25 mg PO DAILY 02/18/24 02/18/24 History blood sugar diagnostic (True 02/18/24 02/18/24 History Metrix Glucose Test Strip) blood-glucose meter (True Metrix 02/18/24 02/18/24 History Glucose Meter) lancets 33 gauge (TRUEplus Lancets) 02/18/24 02/18/24 History lisinopril 10 mg tablet 5 mg PO DAILY 02/18/24 02/18/24 History New Prescriptions to Start Prescriptions: Allergies Allergy/AdvReac Type Severity Reaction Status Date / Time No Known Allergies Allergy Verified 02/17/24 14:56 Results Laboratory Findings 02/18/24 05:38 02/18/24 05:38 PT/INR, D-dimer PT 10.9 seconds (10.1-12.5) 02/17/24 14:30 INR 0.97 (0.9-1.1) 02/17/24 14:30 Abnormal lab findings: Abnormal Labs 02/17/24 02/17/24 02/17/24 14:30 14:58 20:42 RBC Hgb Hct MCH Eos # (Auto) 0.8 H ESR VBG pO2 54.8 H VBG Total CO2 27.4 H VBG O2 Saturation 87.9 H Carbon Dioxide 32 H Glucose POC Glucose 146 H Total Protein 9.1 H Globulin 4.3 H 02/18/24 05:38 RBC 4.17 L Hgb 13.4 L D Hct 38.4 L MCH 31.8 H Eos # (Auto) 0.7 H ESR 30 H VBG pO2 VBG Total CO2 VBG O2 Saturation Carbon Dioxide Glucose 70 L D POC Glucose Total Protein Globulin 3.3 H Assessment and Plan *Assessment and plan (1) History of smoking 30 or more pack years: Status: Acute Category: Social Hx Code(s): Z87.891 - Personal history of nicotine dependence (2) Pulmonary emphysema: Status: Acute Category: Medical Code(s): J43.9 - Emphysema, unspecified (3) Dyspnea on exertion: Status: Acute Category: Medical Code(s): R06.09 - Other forms of dyspnea Plan Mr. Hodges is a 76-year-old male greater than [id number] smoking/smoked around 1999 with reported history of diabetes COPD hypertension foot osteomyelitis managed as an outpatient basis with debridements presented to ER with questionable worsening respiratory distress and pneumonia and pulmonary was called for further evaluation and management. Patient denies minimal respiratory symptoms at baseline but using albuterol inhaler on as-needed basis, needing around 2-3 times per month. No recent exacerbations needing antibiotics or steroids. Afebrile. Hemodynamically stable. No evidence of leukocytosis. Chest CT chest upon admission no dense airspace disease/consolidative changes noted. Bilateral subpleural interstitial changes with minimal lower lobe predominantly bronchiectasis noted, likely from traction. Upper lobe emphysematous changes noted. On initial examination patient does not appear to be in any respiratory distress. On room air saturating 95% and above. Plan: -Albuterol/DuoNebs 4 times daily as needed Follow as an outpatient basis with a full PFT and walk test No need for antibiotics or steroids from pulmonary standpoint for presumed pneumonia. Patient will be mild to intermediate risk for perioperative pulmonary complications for general anesthesia. No absolute contraindications from pulmonary standpoint. Thank you for involving pulmonary in this patient care. Will continue to follow.
[2024-02-18 10:55] LABS: POC Glucose,Bedside 95 (70-110)
--- OUTSIDE RECORDS SUMMARY | 2024-02-18 11:33 | XMS_ITS | Clinical Summary ---
Author Organization [facility] Address [address] [place] [address] Care Team Providers Care Port Cdl A Driver Name Role Phone Taina Flores BETHANY Primary Care Provider [phone] Allergies Active Allergy Reactions Criticality Noted Date Comments Cephalexin Other - please docum ent in the comment field Low 07/18/2022 Medications amitriptyline (Elavil) 50 MG tablet amitriptyline 50 mg tablet TAKE 1 TABLET 1 TIME EACH DAY AT BEDTIME Activ e aspirin 81 MG EC tablet aspirin 81 mg tablet,delayed release Take 1 tablet(s) by mouth daily 10/19/19 17 Active atenolol (Tenormin) 50 MG tablet atenolol 50 mg tablet TAKE 1 TABLET 1 TIME EACH DAY 10/19/19 17 Active Blood Glucose Monitoring Suppl (ONE TOUCH ULTRA 2) w/Device kit device kit USE TO TEST BLOOD SUGAR DIRECTED 12/22/19 22 Active atorvastatin (Lipitor) 40 MG tablet atorvastatin 40 mg tablet TAKE 1 TABLET 1 TIME EACH DAY AT BEDTIME 11/03/19 18 Active gabapentin (Neurontin) 600 MG tablet gabapentin 600 mg tablet TAKE 1 TABLET 3 TIMES EACH DAY Active hydroCHLOROth iazide (HYDRODiuril) 25 MG tablet hydrochlorothiazide 25 mg tablet TAKE 1 TABLET 1 TIME EACH DAY 11/14/19 17 Active BD Pen Needle Leila U/F 32G X 4 MM misc USE TO INJECT INSULIN IN THE MORNING AND IN THE EVENING 05/19/19 23 Active Lancets (OneTouch Delica Plus [id number]) misc USE TO TEST BLOOD SUGAR 3 TIMES EACH DAY 03/19/19 23 Active lisinopril 10 MG tablet lisinopril 10 mg tablet TAKE 1 TABLET 1 TIME EACH DAY 11/14/19 17 Active meloxicam (Mobic) 15 MG tablet meloxicam 15 mg tablet TAKE 1 TABLET 1 TIME EACH DAY NEEDED 11/14/19 17 Active metFORMIN (Glucophage) 1000 MG tabletIndicat ions:Type 2 diabetes mellitus with other specified complication, with long-term current use of insulin (CMS/HCC) Take 1 tablet (1,000 mg total) by mouth 2 (two) times a day with meals. 60 tablet 11 07/19/19 23 Active glipiZIDE (Glucotrol) 10 MG tabletIndicat ions:Type 2 diabetes mellitus with other specified complication, with long-term current use of insulin (CMS/HCC) Take 1 tablet (10 mg) by mouth 2 (two) times a day before meals. 60 tablet 11 11/07/19 23 Active glucose blood (Karisma Kidz Ultra) test stripIndicati ons:Type 2 diabetes mellitus with other specified complication, with long-term current use of insulin (CMS/HCC) USE TO CHECK BLOOD SUGAR 2 TIMES EACH DAY BEFORE MEALS 100 strip 2 10/22/19 24 Active Insulin Pen Needle (BD Pen Needle Leila U/F) 32G X 4 MM miscIndicatio ns:Type 2 diabetes mellitus with other specified complication, with long-term current use of insulin (CMS/HCC) USE TO INJECT INSULIN 2 TIMES EACH DAY BEFORE MEALS 100 each 2 10/22/19 24 Active insulin aspart protamine-ins ulin aspart (NovoLOG MIX 70/30 FLEXPEN) (70-30) 100 UNIT/ML injection penIndication s:Type 2 diabetes mellitus with other specified complication, with long-term current use of insulin (CMS/[facility]) INJECT 70 UNITS BEFORE BREAKFAST AND DINNER. INCREASE DOSE DIRECTED. DO NOT INJECT MORE THAN 160 UNITS EACH DAY. 60 mL 2 10/22/19 24 Active Active Problems Problem Noted Date Diagnosed Date Type 2 diabetes mellitus, wi th long-term current use of insulin 06/18/2021 Obesity with body mass index 30 or greater 03/16 Testicular hypofunction 09/18/2018 Primary insomnia 07/21/2018 Secondary diabetes mellitus 05/21/2018 Mixed hyperlipidemia 02/19/2018 Hypertension 01/22/2018 Thoracic compression fracture 04/08/2017 Mononeuropathy due to type 2 diabetes mellitus 0 10/17/2016 Family History Medical History Relation Name Comments Emphysema Other 1 Hypertension Other 2 Other cancer Other 3 Breast cancer Other 4 Relation Name Status Comments Other 1 Other 2 Other 3 Other 4 Social History Tobacco Use Types Packs/Day Years Used Date Smoking Tobacco: Former Cigarettes Q uit: 1992 Smokeless Tobacco: Never Tobacco Cessation:Counseling Given: Not Answered Alcohol Use Standard Drinks/Week Comments Not Currently 0 (1 standard drink = 0.6 oz pur e alcohol) PHQ-2 Answer Date Recorded Patient Health Questionnaire-2 Score 1 11/06/2022 PHQ-2A Answer Date Recorded Patient Health Questionnaire-2 Score 1 11/06/2022 Sex and Gender Information Value Date Recorded Sex Assigned at Male 07/17/2022 12:33 PM EDT Legal Sex Male 8:53 PM EDT Gender Identity Male 07/17/2022 12:33 PM EDT Sexual Orientation Not on file Last Filed Vital Signs Vital Sign Reading Time Taken Comments Blood Pressure 155/68 02/13/2023 3:48 PM EST Pulse 93 02/13/2023 3:48 PM EST Temperature - - Respiratory Rate - - Oxygen Saturation - - Inhaled Oxygen Concentration - - Weight 125 kg (276 lb 3.8 oz) 02/13/2023 3:48 PM EST Height 185.4 cm (6' 1 ) 11/06/2022 2:59 PM EDT Body Mass Index 36.44 11/06/2022 2:59 PM EDT Plan of Treatment Health Maintenance Due Date Last Done Comments [facility]-Hepatitis C Screening 1955 [facility] Annual Wellness (AWV) 1955 [facility]-/Child/Adol SDOH Screenings 1955 [id number] Vaccine (#1) 1958 [facility]-Pneumococcal Vaccine: 65+ Years (1 of 2 - PCV) 11/28/1959 Diabetes: Dental Exam 11/28/1963 [facility]- SDOH Screenings 11/28/1971 [facility]-Adult SDOH Screenings 11/28/1971 [facility]-DTaP,Tdap,and Td Vaccines (1 - Tdap) 1972 [facility]-Zoster Vaccines (1 of 2) 1972 CT Colonography 1998 Colonoscopy 1998 [facility]-DNA 1998 FIT 1998 FOBT 1998 Sigmoidoscopy 1998 [facility]-Colorectal Cancer Screening 1998 [facility]-RSV Vaccine: 60+ Years or (1 - Risk 60-74 years 1-dose series) 2013 [facility]-Diabetes: Hemoglobin A1C 08/13/2023, 11/06/2022, 07/18/2022 [facility]-Depression Screening 11/07/2023 11/06/2022 [facility]-Influenza Vaccine (#1) 2023 [facility]-Obesity Intervention Completed 023, 02/13/2023, 02/13/2023, Additional history exists [facility]-HIB Vaccines Aged Out No longer e ligible based on patient's age to complete this topic [facility]-HPV Vaccines Aged Out No longer e ligible based on patient's age to complete this topic [facility]-Hepatitis A Vaccines Aged Out No longer eligible based on patient's age to complete this topic [facility]-IPV Vaccines Aged Out No longer e ligible based on patient's age to complete this topic [facility]-Rotavirus Vaccines Aged Out No lo nger eligible based on patient's age to complete this topic Procedures Procedure Name Priority Date/Time Associated Diagnosis Comments POCT GLYCOSYLATED HEMOGLOBIN (HGB A1C) Routine 02/13/2023 3:56 PM EST Type 2 diabetes mellitus with other specified complication, with long-term current use of insulin ([facility]) from Last 3 Months or Most Recently Relevant to Health Maintenance Results * POCT glycosylated hemoglobin (Hb A1C) docked device (02/13/2023 3:56 PM EST) POCT Hemoglobin A1C 8.9 <5.7% Non-Diabet ic [facility] Kit Lot Number [id number] [facility] Kit Expiration Date 45354 [facility] Blood Venous blood specimen / Unknown 02/13/2023 3:56 PM EST Sara FERNANDEZ POINT OF CARE TEST EN TER/EDIT ORDERABLES Final Result [facility] [address] [place] [id number] from Last 3 Months or Most Recently Relevant to Health Maintenance Insurance [employer] Care Teams Port Cdl A Driver Relationship Specialty Start Date End Date Taina Flores, BETHANY [address] [place] [address] PCP - General 11/06/22
--- OUTSIDE RECORDS SUMMARY | 2024-02-18 11:34 | XMS_ITS | Encounter Summary ---
Author Organization Healthcare Address [address] [place] [address] Care Team Providers Care Program Schedule Clerk Name Role Phone Unavailable Primary Care Provider Unavailabl e Encounter Details Date Type Department Care Team (Late st Contact Info) Description 07/31/2017 [facility] Vitals Encounter [facility] OUTPATIENT CONVERSIONS [address] [place] [address] ProviderRavi MD [address] [place] [address] Social History Tobacco Use Types Packs/Day Years Used Date Smoking Tobacco: Never Assessed Sex and Gender Information Value Date Recorded Sex Assigned at Male 07/17/2022 12:33 PM EDT Legal Sex Male 8:53 PM EDT Gender Identity Male 07/17/2022 12:33 PM EDT Sexual Orientation Not on file documented as of this encounter Last Filed Vital Signs Vital Sign Reading Time Taken Comments Blood Pressure 145/86 07/31/2017 8:49 AM EDT Pulse 76 07/31/2017 8:49 AM EDT Temperature - - Respiratory Rate - - Oxygen Saturation - - Inhaled Oxygen Concentration - - Weight 117 kg (258 lb 13.1 oz) 07/31/2017 8:49 A M EDT Height 184.2 cm (6' 0.5 ) 07/31/2017 8:49 AM EDT Body Mass Index 34.62 07/31/2017 8:49 AM EDT documented in this encounter Plan of Treatment Not on file documented as of this encounter Visit Diagnoses Not on filedocumented in this encounter
--- OUTSIDE RECORDS SUMMARY | 2024-02-18 11:34 | XMS_ITS | Encounter Summary ---
Author Organization Healthcare Address [address] [place] [address] Care Team Providers Care Lead Level Designer Name Role Phone Taina Flores APRN Primary Care Provider [phone]- [phone] Reason for Visit * Reason Comments Med Refill Encounter Details Date Type Department Care Team (Late st Contact Info) Description 10/21/2023 Refill [facility] [address] [facility], [address] [place] [address] Sara Joe PA [address] [facility] [address] [place] [address] Type 2 diabetes mellitus with other specified complication, with long-term current use of insulin ([facility]) Social History Tobacco Use Types Packs/Day Years Used Date Smoking Tobacco: Former Cigarettes Q uit: 1992 Smokeless Tobacco: Never Alcohol Use Standard Drinks/Week Comments Not Currently [...] on file documented as of this encounter Miscellaneous Notes * Telephone Encounter - Nain Akers, PharmD - 10/22/2023 8:49 AM EDT 3 medication(s) has been approved per protocol. Patient must schedule an appointment and be seen in clinic for additional refills documented in this encounter Plan of Treatment Not on file documented as of this encounter Visit Diagnoses Diagnosis Type 2 diabetes mellitus with other specified complication, with long-term current use of insulin ([facility]) documented in this encounter Additional Health Concerns Assessment Noted Time A fall risk assessment has been complete d for the patient 02/13/2023 3:51 PM EST A Body Mass Index follow-up plan has been documented for the patient 02/13/2023 4:39 PM EST documented as of this encounter Care Teams Lead Level Designer Relationship Specialty Start Date End Date Taina Flores, LOCOMOTIVE SWITCH OPERATOR [address] [place] [address] PCP - General 11/06/22 documented as of this encounter
--- OUTSIDE RECORDS SUMMARY | 2024-02-18 11:34 | XMS_ITS | Encounter Summary ---
Author Organization [facility] Address [address] [place] [address] Care Team Providers Care Oracle Scm Consultant Name Role Phone Ashley March Janel OPTICIAN MANAGER Primary Care Provider [phone] Reason for Visit * Reason Comments Diabetes * Consultation (Routine) - Closed Specialty Diagnoses / Procedures Referred By Mohinder t Referred To Contact Endocrinology Diagnoses Diabetes mellitus without complication (CMS/HCC) Taina Flores, OPTICIAN MANAGER [address] [place] [address] Phone: tel: fax: [facility] [address], [address] [place] [address] Phone: tel: fax: Referral ID Status Reason Start Date Expiration Date V isits Requested Visits Authorized [id number] Closed Specialty Services Required 07/17/2022 01/16/2024 1 1 Encounter Details Date Type Department Care Team (Late st Contact Info) Description 07/18/2022 1:40 PM EDT Office Visit [facility] [address], [address] [place] [address] Sara Joe PA [address] [place] [address] Type 2 diabetes mellitus with other specified complication, with long-term current use of insulin (CMS/HCC) (Primary Dx); Class 2 severe obesity with serious comorbidity and body mass index (BMI) of 35.0 to 35.9 in adult, unspecified obesity type (CMS/HCC); Hypertension, unspecified type; Neuropathy; Mixed hyperlipidemia Social History Tobacco Use Types Packs/Day Years Used Date Smoking Tobacco: Former Smokeless Tobacco: Never Alcohol Use Standard Drinks/Week Comments Not Currently 0 (1 standard drink = 0.6 oz pur e alcohol) Sex and Gender Information Value Date Recorded Sex Assigned at Male 07/17/2022 12:33 PM EDT Legal Sex Male 8:53 PM EDT Gender Identity Male 07/17/2022 12:33 PM EDT Sexual Orientation Not on file documented as of this encounter Last Filed Vital Signs Vital Sign Reading Time Taken Comments Blood Pressure 136/71 07/18/2022 1:55 PM EDT Pulse 94 07/18/2022 1:55 PM EDT Temperature - - Respiratory Rate - - Oxygen Saturation - - Inhaled Oxygen Concentration - - Weight 122 kg (268 lb 4.8 oz) 07/18/2022 1:55 PM EDT Height 184.2 cm (6' 0.5 ) 07/18/2022 1:55 PM EDT Body Mass Index 35.89 07/18/2022 1:55 PM EDT documented in this encounter Miscellaneous Notes * Clinician Note - Sylvia Wong CDE, GRICEL - 07/18/2022 1:40 PM EDT initial evaluation for Endocrinology. 66 y.o. male with Diabetes Mellitus Type 2 . Current medication regimen includes trulcity, tresiba, glipizide, metformin patient indicates SMBG once or twice perday. Medication- Reviewed new insulin regimen with Stephen Hodges This regimen is Aspart mixture 70 units BID. Further reviewed titration instructions to separately increase morning and evening doses in 2unit increments every 3 days. Adjust morning dose based upon the evening blood glucose levels. Adjust the evening dose based upon the morning blood glucose level. Target blood glucose is < 150 mg/dl. Discussed the value of consistent meal and injection timing and testing of BG prior to the meal and injection. Provided [facility] logbook and recommended record pre breakfast and pre dinner BG levels. Stephen Hodges successfully taught back instructions with the assistance of the instructional handout provided. Provided CDE contact information and discussed procedure for leaving a message and expectations concerning phone call returns. * Patient Instructions - Sara Fair PA - 07/18/2022 1:40 PM EDT -Call the diabetes education team with any questions or concerns [phone] -Bring your blood glucose meter and readings to next visit * Progress Notes - Sara Fair PA - 07/18/2022 1:40 PM EDT Subjective Stephen Hodges is a 66 y.o. male who presents for an initial evaluation of Diabetes Mellitis Type 2. Patient was diagnosed >10 years ago. Current symptoms/problems include hyperglycemia. HPI Today A1C 8.2% Current treatment includes oral agents, insulin injections, and GLP1 -Tresiba U200 42 units twice daily, Metformin 1000 mg twice daily, glipizide 10 mg 1 tab twice daily, Trulicity 4.5 mg weekly Known diabetic complications: peripheral neuropathy Compliance at present is estimated to be good. Cardiovascular risk factors: advanced age (older than 55 for men, 65 for women), diabetes mellitus,dyslipidemia, hypertension, male gender, microalbuminuria, obesity (BMI >= 30 kg/m2), sedentary lifestyle, and smoking/ tobacco exposure Is he on CARA inhibitor or angiotensin II receptor devendra? Yes Is he on a StatinYes Current diet: {diet habits:on average, 2 meals per day breakfast and dinner, not usually lunch Current exercise: {exercise types:no regular exercise Home blood sugar records: none to review today, reports checking fasting every AM Date of Last Eye Exam: 2021 Date of Last Foot Exam: doesnt see dr for feet What current meter are you using?: doesnt recall What pump type do you have?: doesnt use What type of sensor do you have?: doesnt use When was your last flu shot?: doesnt take When did you have labs last?: none recent The following portions of the chart were reviewed this encounter and updated as appropriate: Tobacco Allergies Meds Problems Med Hx Surg Hx Fam Hx Review of Systems Constitutional: Negative. HENT: Negative. Eyes: Negative. Respiratory: Negative. Cardiovascular: Negative. Gastrointestinal: Negative. Endocrine: Positive for polydipsia. See hpi Musculoskeletal: Negative. Skin: Negative. Neurological: Positive for numbness (BLE paresthesias; BLE and bilateral hands radiculopathy). Psychiatric/Behavioral: Negative. Objective Physical Exam Constitutional: Appearance: Normal appearance. He is obese. HENT: Head: Normocephalic. Right Ear: External ear normal. Left Ear: External ear normal. Nose: Nose normal. Cardiovascular: Rate and Rhythm: Normal rate. Pulmonary: Effort: Pulmonary effort is normal. Musculoskeletal: General: Normal range of motion. Cervical back: Normal range of motion. Skin: General: Skin is warm and dry. Neurological: Mental Status: He is alert and oriented to person, place, and time. Psychiatric: Mood and Affect: Mood normal. Behavior: Behavior normal. Thought Content: Thought content normal. Judgment: Judgment normal. Lab Review Glucose, Plasma (mg/dL) Date Value 03/24/2017 259 (H) POCT Hemoglobin A1C (%) Date Value 07/18/2022 8.2 CO2, Plasma (mmol/L) Date Value 03/24/2017 21 (L) BUN, Plasma (mg/dL) Date Value 03/24/2017 18 Creatinine, Plasma (mg/dL) Date Value 03/24/2017 0.93 GFR and LFT's within normal limits Assessment/Plan Diabetes Mellitis Type 2, is uncontrolled. Rx changes: adjust to premixed insulin, Novolog 70/30 pen 70 units twice daily before meals with titration, consulted CDE to educate patient on new insulin regimen and titration with sheet provided ,discussed premix mechanism of action compared to current basal insulin, discussed need for three times daily if only snack mid-day to prevent hypoglycemia, patient understanding and agreeable -Continue Metformin 1000 mg twice daily, glipizide 10 mg twice daily, Trulicity 4.5 mg weekly -Start checking blood glucose twice daily before meals to inform titration and insulin dosing -Routine care up to date -Follow up 3 months The following Diabetes education was reviewed: [x]SBGM to evaluate dose needs [x]Insulin coverage with carbohydrate intake []Site rotation [x] Exercise impact on glucose levels []Driving safety related to diabetes []Sick day management []Ketone testing []Over treatment of hypoglycemia [x] Hypoglycemia management [x]Call-in line use []Insulin pump pros and cons []Sensor home use []Pump class offerings []Sandra phenomena []Somogyi effect [] Alcohol related to diabetes [x]Benefits of written records [x]Pre-meal Bolusing [x]Daily foot care [x] Healthy diet and regular exercise [x]Long-term complications related to poor diabetes management [] Injection timing related to changes in activity/exercise #Obesity, BMI>30 The patient received dietary education because they have an above normal BMI., The patient receiveda feeding regime because they have an above normal BMI., The patient received exercise education because they have an above normal BMI., and Pharmacotherapy was ordered because the patient hasan above normal BMI. #HTN - stable, controlled, today: 136/71 -continue antihypertensives per PCP #Neuropathy -recommend daily foot checks -reviewed at length with patient the impact that glycemic control has on neuropathy #HLD -Stable on statin, no myalgias, continue per PCP I personally spent a total of 40 minutes on this encounter. This time includes face to face with patient, counseling and discussion and/or coordination of care. Electronically signed by: JIM Dobson [facility] [address] [place] [address]. [address] [place]. [address] PHONE [phone] FAX: [phone] documented in this encounter Plan of Treatment Not on file documented as of this encounter Procedures Procedure Name Priority Date/Time Associated Diagnosis Comments POCT GLYCOSYLATED HEMOGLOBIN (HGB A1C) Routine 07/18/2022 2:13 PM EDT Type 2 diabetes mellitus with other specified complication, with long-term current use of insulin ([facility]) documented in this encounter Results * POCT glycosylated hemoglobin (Hb A1C) docked device (07/18/2022 2:13 PM EDT) POCT Hemoglobin A1C 8.2 4.4-6.6 % % [employer] [facility] Kit Lot Number na [facility] Kit Expiration Date na [employer] [facility] Blood Venous blood specimen / Unknown 07/18/2022 2:13 PM EDT us Sara FERNANDEZ POINT OF CARE TEST EN TER/EDIT ORDERABLES Final Result [facility] [address] [place] [address] documented in this encounter Visit Diagnoses Diagnosis Type 2 diabetes mellitus with other specified complication, with long-term current use of insulin (CMS/HCC)- Primary Class 2 severe obesity with serious comorbidity and body mass index (BMI) of 35.0 to 35.9 in adult, unspecified obesity type (CMS/HCC) Hypertension, unspecified type Neuropathy Mononeuritis of unspecified site Mixed hyperlipidemia documented in this encounter Additional Health Concerns Assessment Noted Time A Body Mass Index follow-up plan has been documented for the patient 07/18/2022 4:44 PM EDT documented as of this encounter Care Teams Oracle Scm Consultant Relationship Specialty Start Date End Date Ashley March APRN [address] [place] [address] PCP - General 07/28/20 11/05/22 documented as of this encounter
--- OUTSIDE RECORDS SUMMARY | 2024-02-18 11:34 | XMS_ITS | Clinical Summary ---
Author Organization [facility] Address [address] [place] [address] Care Team Providers Care Mountain Or Glacier Guide Name Role Phone Taina Flores Primary Care Provider + [phone] Allergies No known active allergies Medications atenolol (TENORMIN) 50 MG tablet Take 1 tablet by mouth Daily. 1 Active meloxicam (MOBIC) 15 MG tablet Take 1 tablet by mouth Daily. 1 Active hydroCHLOROthia zide (HYDRODIURIL) 25 MG tablet Take 1 tablet by mouth Every Night. 1 Active amitriptyline (ELAVIL) 50 MG tablet Take 1 tablet by mouth Every Night. 1 Active metFORMIN (GLUCOPHAGE) 1000 MG tablet Take 1 tablet by mouth 2 (two) times a day. 1 Active lisinopril (PRINIVIL,ZESTR IL) 10 MG tablet Take 1 tablet by mouth Every Morning. 1 Active gabapentin (NEURONTIN) 600 MG tablet Take 1 tablet by mouth 3 (Three) Times a Day. 1 Active atorvastatin (LIPITOR) 40 MG tablet Take 40 mg by mouth Daily. Active Dulaglutide (Trulicity) 4.5 MG/0.5ML solution pen-injector Inject 0.5 mL under the skin into the appropriate area as directed 1 (One) Time Per Week. 6 mL 1 2 Active glucose blood test strip Use to check glucose 3 times daily 200 each 5 2 Active Insulin Degludec (Tresiba FlexTouch) 200 UNIT/ML solution pen-injector pen injection Inject 42 Units under the skin into the appropriate area as directed 2 (Two) Times a Day. 90 mL 1 2 Active glipizide (GLUCOTROL) 10 MG tablet Take 2 tablets by mouth 2 (Two) Times a Day Before Meals. 120 tablet 5 Active Active Problems No known active problems Family History Medical History Relation Name Comments Cancer Father Cancer Mother Liver cancer Mother Relation Name Status Comments Father Mother Social History Tobacco Use Types Packs/Day Years Used Date Smoking Tobacco: Former Cigarettes 2 30 Smokeless Tobacco: Never Alcohol Use Standard Drinks/Week Comments Never 0 (1 standard drink = 0.6 oz pur e alcohol) AUDIT-C Answer Date Recorded Q1: How often do you have a drink containing alc ohol? Never 10/06/2020 Average Number of Drinks Not on file 021 Frequency of Binge Drinking Not on file 09/15 Abuse Screen Answer Date Recorded Unsafe at Home or Work/School Not on file Feels Threatened by Someone? Not on file 02/2023 Does Anyone Keep You from Co ntacting Others or Doint Things Outside the Home? Not on file 12/26/2022 Physical Sign of Abuse Present Not on file 1 Housing Stability Answer Date Recorded Current Living Arrangements Not on file 12/15 Potentially Unsafe Housing Conditions Not on chantal e 12/26/2022 Family and Community Support Answer Carlos e Recorded Help with Day-to-Day Activities Not on file 12/26/2022 Lonely or Isolated Not on file 12/26/2022 Employment Answer Date Recorded Do you want help finding or keeping work or a ana b? Not on file 12/26/2022 Disabilities Answer Date Recorded Concentrating, Remembering, or Making Decisions Difficulty Not on file 12/26/2022 Doing Errands Independently Difficulty Not on fi le 12/26/2022 Education Answer Date Recorded Help with school or training? Not on file Preferred Language Not on file 12/26/2022 Sex and Gender Information Value Date Recorded Sex Assigned at Not on file Legal Sex Male 4:29 PM EDT Gender Identity Not on file Sexual Orientation Not on file Last Filed Vital Signs Vital Sign Reading Time Taken Comments Blood Pressure 130/80 12/21/2021 10:46 AM EDT Pulse 80 12/21/2021 10:46 AM EDT Temperature - - Respiratory Rate - - Oxygen Saturation 98% 12/21/2021 10:46 AM EDT Inhaled Oxygen Concentration - - Weight 122 kg (268 lb) 12/21/2021 10:46 AM EDT Height 185.4 cm (6' 1 ) 12/21/2021 10:46 AM EDT Body Mass Index 35.36 12/21/2021 10:46 AM EDT Plan of Treatment Health Maintenance Due Date Last Done Comments COLOGUARD 1955 COLON CANCER SCREENING 5 YEA R SIGMOIDOSCOPY 1955 COLONOSCOPY 1953 COL[address]AL CANCER SCREENING [address] CT COLONOGRAPHY 1953 FECAL OCCULT BLOOD TEST 1953 FIT Testing (1 year) 1953 TDAP/TD VACCINES (1 - Tdap) 1972 ZOSTER VACCINE (1 of 2) 11/28/2003 Pneumococcal Vaccine 65+ (1 of 1 - PCV) 2018 ANNUAL WELLNESS VISIT 07/04/2020 HEPATITIS C SCREENING 07/04/2020 LIPID PANEL 12/21/2022 12/21/2021, 10/06/2020 INFLUENZA VACCINE 09/15/2023 COVID-19 Vaccine (1 - 2023-2 5 season) 2023 URINE MICROALBUMIN Discontinued 09/18/2021, 10/06/2020 HEMOGLOBIN A1C Discontinued 02/13/2023, 10/16, 12/21/2021, Additional history exists Procedures Procedure Name Priority Date/Time Associated Diagnosis Comments LIPID PANEL Routine 12/21/2021 11:20 AM EDT Type 2 diabetes mellitus with hyperglycemia, with long-term current use of insulin POCT GLYCOSYLATED HEMOGLOBIN (HGB A1C) Routine 12/21/2021 10:54 AM EDT Type 2 diabetes mellitus with hyperglycemia, with long-term current use of insulin MICROALBUMIN / CREATININE URINE RATIO Routine 09/18/2021 8:28 AM EDT Type 2 diabetes mellitus with hyperglycemia, with long-term current use of insulin from Last 3 Months or Most Recently Relevant to Health Maintenance Results * (ABNORMAL) Lipid Panel (12/21/2021 11:20 AM EDT) Total Cholesterol 157 0 - 200 mg/dL 12/21/2021 9:18 PM EDT [facility] Triglycerides 142 0 - 150 mg/dL 12/21/2021 9:18 PM EDT [facility] HDL Cholesterol 36(L) 40 - 60 mg/dL 12/21/2021 9:18 PM EDT [facility] LDL Cholesterol 96 0 - 100 mg/dL 12/21/2021 9:18 PM EDT [facility] VLDL Cholesterol 25 5 - 40 mg/dL 12/21/2021 9:18 PM T [facility] LDL/HDL Ratio 2.57 12/21/2021 9:18 PM T [facility] Blood Venipuncture / Unknown 12/21/2021 11:20 AM EDT 12/21/2021 11:20 AM EDT [facility] - 12/21/2021 9:18 PM EDT Cholesterol Reference Ranges (U.S. Department of Health and Human Services ATP III Classifications) Desirable ?<200 mg/dL Borderline High ?200-239 mg/dL High Risk ?>240 mg/dL Triglyceride Reference Ranges (U.S. Department of Health and Human Services ATP III Classifications) Normal ? <150 mg/dL Borderline High ??150-199 mg/dL High ? 200-499 mg/dL Very High ?>500 mg/dL HDL Reference Ranges (U.S. Department of Health and Human Services ATP III Classifications) Low ? <40 mg/dl (major risk factor for CHD) High ?>60 mg/dl ('negative' risk factor for CHD) LDL Reference Ranges (U.S. Department of Health and Human Services ATP III Classifications) Optimal ?<100 mg/dL Near Optimal ? 100-129 mg/dL Borderline High ??130-159 mg/dL High ? 160-189 mg/dL Very High ?>189 mg/dL us Cookie Fortune MD LAB BLOOD ORDERABLES Final Resu lt Performing Organization Address [facility]/ZIP Co de Phone Number [facility]
[address] [place] [address], [place] [phone] * POC Glycosylated Hemoglobin (Hb A1C) (12/21/2021 10:54 AM EDT) Hemoglobin A1C 8.6 % [facility] Lot Number [id number] [facility] Expiration Date 07-17-23 [facility] Blood 12/21/2021 10:5 4 AM EDT us Cookie Fortune MD POINT OF CARE TEST ORDERABLES F inal Result Performing Organization Address [facility] Co de Phone Number [facility]
[address] [place] [address], [place] [phone] * Microalbumin / Creatinine Urine Ratio - Urine, Clean Catch (09/18/2021 8:28 AM EDT) Microalbumin/C reatinine Ratio 10.3 mg/g 09/18/2021 6:54 PM EDT [facility] Creatinine, Urine 174.4 mg/dL 09/18/2021 6:54 PM EDT [facility] Microalbumin, Urine 1.8 mg/dL 09/18/2021 6:54 PM EDT [facility] Urine Urine specimen obtained by clean catch procedure / Unknown Collection / Unknown 09/18/2021 8:28 AM EDT 09/18/2021 8:28 AM EDT us Cookie Fortune MD URINE ORDERABLES Final Result Performing Organization Address [facility] Co de Phone Number [facility]
[address] [place] [address], [place] [phone] from Last 3 Months or Most Recently Relevant to Health Maintenance Insurance Care Teams Mountain Or Glacier Guide Relationship Specialty Start Date End Date Taina Flores [address] [place] [address] PCP - General Nurse Practitioner 01/16/21
--- OUTSIDE RECORDS SUMMARY | 2024-02-18 11:34 | XMS_ITS | Encounter Summary ---
Author Organization [facility] Address [address] [place] [address] Care Team Providers Care Cutting Tool Sharpener Name Role Phone Taina Flores Primary Care Provider + [phone] Reason for Visit * Reason Comments Diabetes Encounter Details Date Type Department Care Team (Late st Contact Info) Description 09/18/2021 8:00 AM EDT Office Visit [facility] END[facility]Y [address] [phone] Cookie Fortune MD [address] [phone] Type 2 diabetes mellitus with hyperglycemia, with long-term current use of insulin (Primary Dx); Hyperlipidemia, unspecified hyperlipidemia type Social History Tobacco Use Types Packs/Day Years [...] of Binge Drinking Not on file 09/15 Sex and Gender Information Value Date Recorded Sex Assigned at Not on file Legal Sex Male 4:29 PM EDT Gender Identity Not on file Sexual Orientation Not on file documented as of this encounter Last Filed Vital Signs Vital Sign Reading Time Taken Comments Blood Pressure 130/76 09/18/2021 8:06 AM EDT Pulse 84 09/18/2021 8:06 AM EDT Temperature - - Respiratory Rate - - Oxygen Saturation 98% 09/18/2021 8:06 AM EDT Inhaled Oxygen Concentration - - Weight 124 kg (273 lb) 09/18/2021 8:06 AM EDT Height 185.4 cm (6' 1 ) 09/18/2021 8:06 AM EDT Body Mass Index 36.02 09/18/2021 8:06 AM EDT documented in this encounter Progress Notes * Cookie Fortune MD - 09/18/2021 8:00 AM EDT Chief Complaint Patient presents with ??? Diabetes HPI Stephen Hodges is a 65 y.o. male had concerns including Diabetes. Patient presents for follow-up of diabetes, last seen April 2021. He is monitoring blood sugars approximately once daily. Values per download of glucometer ranging 118-239 fasting in the past week. Patient does report he had recent labs with primary care that revealed high triglycerides and low sodium. He reports no medication changes were made. He denies any issues since increasing dose of Trulicity. Denies hypoglycemia. He does report that he has been less active over the past several months. Current diabetes medications include the following: Tresiba 40 units twice daily Trulicity 3 mg weekly Glipizide 10 mg twice daily Metformin 1000 mg twice daily Patient continues on atorvastatin 40 mg daily for hyperlipidemia. He denies myalgias or abdominal pain. The following portions of the patient's history were reviewed and updated as appropriate: allergies, current medications and past social history. Review of Systems Gastrointestinal: Negative for nausea and vomiting. Endocrine: Negative for polydipsia and polyuria. Musculoskeletal: Negative for arthralgias and myalgias. BP 130/76 (BP Location: Right arm, Patient Position: Sitting, Cuff Size: Adult) Pulse 84 Ht 185.4 cm (73 ) Wt 124 kg (273 lb) SpO2 98% BMI 36.02 kg/m?? Physical Exam Constitutional: well developed; well nourished no acute distress obese - Body mass index is 36.02 kg/m??. ENT/Thyroid: not examined Eyes: Conjunctiva: clear Respiratory: breathing is unlabored clear to auscultation bilaterally Cardiovascular: regular rate and rhythm Chest: Not performed. Abdomen: soft, non-tender; no masses : Not performed. Musculoskeletal: Not performed Skin: dry and warm Neuro: mental status, speech normal Psych: mood and affect are within normal limits Labs/Imaging Latest Reference Range & Units 09/18/21 08:14 09/18/21 08:15 Glucose 70 - 130 mg/dL 234 ! Hemoglobin A1C % 9.8 !: Data is abnormal Diagnoses and all orders for this visit: 1. Type 2 diabetes mellitus with hyperglycemia, with long-term current use of insulin (HCC) (Primary) -Uncontrolled with hemoglobin A1c 9.8%, worsened from prior -Home glucose data reveals hyperglycemia -Plan to increase Tresiba to 44 units twice daily -Plan to increase Trulicity 1.5 mg weekly -Patient to continue glipizide 10 mg twice daily Patient to continue metformin 1000 mg twice daily Discussed that if glucose control does not improve on above regimen, will likely need to consider addition of mealtime insulin next visit. Patient was advised to monitor blood sugar 3 times daily. Patient was instructed to bring glucometer to all future appointments. Patient should contact the clinic between appointments with hypoglycemia or persistent hyperglycemia. Discussed signs and symptoms of hypoglycemia as well as hypoglycemia management via the rule of 15's. Discussed potential for long-term complications with uncontrolled diabetes including nephropathy, neuropathy, retinopathy, increased risk for cardiac disease. Discussed the role of diet and exercise in the management of diabetes. Patient reports recent screening labs with PCP, will request copy - POC Glucose, Blood - POC Glycosylated Hemoglobin (Hb A1C) - Microalbumin / Creatinine Urine Ratio - Urine, Clean Catch 2. Hyperlipidemia, unspecified hyperlipidemia type Patient reports recent lipid panel with PCP, requesting copy, continue atorvastatin Return in about 3 months (around 12/19/2021) for Next scheduled follow up. The patient was instructed to contact the clinic with any interval questions or concerns. Cookie Fortune MD Corporation Officer Dictated Utilizing Dragon Dictation documented in this encounter Plan of Treatment Not on file documented as of this encounter Procedures Procedure Name Priority Date/Time Associated Diagnosis Comments MICROALBUMIN / CREATININE URINE RATIO Routine 09/18/2021 8:28 AM EDT Type 2 diabetes mellitus with hyperglycemia, with long-term current use of insulin POCT GLYCOSYLATED HEMOGLOBIN (HGB A1C) Routine 09/18/2021 8:15 AM EDT Type 2 diabetes mellitus with hyperglycemia, with long-term current use of insulin POCT GLUCOSE, BLD (NON STRIP) Routine 09/18/2021 8:14 AM EDT Type 2 diabetes mellitus with hyperglycemia, with long-term current use of insulin documented in this encounter Results * Microalbumin / Creatinine Urine Ratio - Urine, Clean Catch (09/18/2021 8:28 AM EDT) Microalbumin/C reatinine Ratio 10.3 mg/g 09/18/2021 6:54 PM EDT [facility] Creatinine, Urine 174.4 mg/dL 09/18/2021 6:54 PM EDT [facility] Microalbumin, Urine 1.8 mg/dL 09/18/2021 6:54 PM EDT [facility] Urine Urine specimen obtained by clean catch procedure / Unknown Collection / Unknown 09/18/2021 8:28 AM EDT 09/18/2021 8:28 AM EDT us Cookie Fortune MD URINE ORDERABLES Final Result [facility]
[address] [place] [id number], [place] [phone] * POC Glycosylated Hemoglobin (Hb A1C) (09/18/2021 8:15 AM EDT) Pathologist [facility] Hemoglobin A1C 9.8 % [facility] Lot Number [id number] [facility] Expiration Date 05-16-23 [facility] Blood 09/18/2021 8:15 AM EDT us Cookie Fortune MD POINT OF CARE TEST ORDERABLES F inal Result [facility]
[address] [place] [address], [place] [phone] * (ABNORMAL) POC Glucose, Blood (09/18/2021 8:14 AM EDT) Glucose 234(A) 70 - 130 mg/dL Lot Number [id number] Expiration Date 03-29-22 Blood 09/18/2021 8:14 AM EDT Cookie Fortune MD POINT OF CARE TEST ORDERABLES F inal Result documented in this encounter Visit Diagnoses Diagnosis Type 2 diabetes mellitus with hyperglycemia, with long-term current use of insulin- Primary Hyperlipidemia, unspecified hyperlipidemia type documented in this encounter Care Teams Cutting Tool Sharpener Relationship Specialty Start Date End Date Taina Flores [address] [place] [address] PCP - General Nurse Practitioner 01/16/21 documented as of this encounter
--- OUTSIDE RECORDS SUMMARY | 2024-02-18 11:34 | XMS_ITS | Encounter Summary ---
Author Organization [facility] Address [address] [place] [address] Care Team Providers Care Manager Of Financial Name Role Phone Taina Flores Primary Care Provider [phone] Encounter Details Date Type Department Care Team (Late st Contact Info) Description 09/18/2021 Telephone [facility] [address] [facility] [address] [place] [address] Cookie Fortune MD [address] [facility] [address] [place] [address] Social History Tobacco Use Types Packs/Day Years [...] encounter Miscellaneous Notes * Telephone Encounter - Val Moseley MA - 09/20/2021 9:17 AM EDT Mailbox was full. Letter was mailed to the pt * Telephone Encounter - Val Moseley MA - 09/19/2021 8:13 AM EDT Mailbox full * Telephone Encounter - Val Moseley MA - 09/18/2021 1:59 PM EDT I called the office of Dr Flores and requested labs and they do not have a pt by that name. I attempted to contact pt and the mail box is full. I was needing to know who his PCP is. * Telephone Encounter - Val Moseley MA - 09/18/2021 1:55 PM EDT ----- Message from Cookie Fortune MD sent at 09/18/2021 8:28 AM EDT ----- Can you request recent CMP, Lipids from PCP? documented in this encounter Plan of Treatment Not on file documented as of this encounter Visit Diagnoses Not on filedocumented in this encounter Care Teams Manager Of Financial Relationship Specialty Start Date End Date Taina Flores [address] [place] [address] PCP - General Nurse Practitioner 01/16/21 documented as of this encounter
--- OUTSIDE RECORDS SUMMARY | 2024-02-18 11:34 | XMS_ITS | Encounter Summary ---
Author Organization Healthcare Address [address] [place] [address] Care Team Providers Care Stretcher And Drier Name Role Phone Ashley March APRN Primary Care Provider [phone] Encounter Details Date Type Department Care Team (Latest Contact Info) Description 07/18/2022 Travel Social History Tobacco Use Types Packs/Day Years [...] on file documented as of this encounter Plan of Treatment Not on file documented as of this encounter Visit Diagnoses Not on filedocumented in this encounter Additional Health Concerns Assessment Noted Time A Body Mass Index follow-up plan has been documented for the patient 07/18/2022 4:44 PM EDT documented as of this encounter Care Teams Stretcher And Drier Relationship Specialty Start Date End Date Ashley March APRN [address] [id number] PCP - General 07/28/20 11/05/22 documented as of this encounter
--- OUTSIDE RECORDS SUMMARY | 2024-02-18 11:34 | XMS_ITS | Encounter Summary ---
Author Organization Healthcare Address [address] [place] [address] Care Team Providers Care Field Mechanical Meter Tester Name Role Phone Taina Flores APRN Primary Care Provider [phone] Reason for Visit * Reason Comments Diabetes Encounter Details Date Type Department Care Team (Late st Contact Info) Description 02/13/2023 3:40 PM EST Office Visit [facility] [address], [address] [place] [address] Sara Joe PA [address] [facility] [address] [place] [address] Type 2 diabetes mellitus with other specified complication, with long-term current use of insulin (CMS/HCC) (Primary Dx); Obesity with body mass index 30 or greater; Hypertension, unspecified type; 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) Social History Tobacco Use Types Packs/Day Years [...] 3.8 oz) 02/13/2023 3:48 PM EST Height - - Body Mass Index 36.44 11/06/2022 2:59 PM EDT documented in this encounter Miscellaneous Notes * Patient Instructions - Sara Fair PA - 02/13/2023 3:40 PM EST -Please call the diabetes education team with any questions or concerns [phone] * Progress Notes - Sara Fair PA - 02/13/2023 3:40 PM EST Subjective Stephen Hodges is a 67 y.o. male who presents for an follow up evaluation of Diabetes Mellitis Type2. Patient was diagnosed >10 years ago. Current symptoms/problems include hyperglycemia. HPI Today A1C 8.9% from 7.4% last office visit from 8.2% 07/2022 Current treatment includes oral agents, insulin injections, and GLP1 -Novolog 70/30 insulin 70 units twice daily, splits injection 35/35 in two difference sites, still sometimes injecting after meals. -He notes more blood glucose variability since last office visit, often waking with FBG AM anywherebetween 80-250. -Metformin 1000 mg twice daily -glipizide 10 mg 1 tab twice daily -Trulicity 4.5 mg weekly Known diabetic complications: peripheral [...] 2 meals per day breakfast and dinner, light lunch Current exercise: {exercise types:no regular exercise Home blood sugar records: no data to review today, now checking twice daily but not always before meals, reports hypoglycemia occurring approx. 1x per week usually related to missed meal. Date of Last Eye Exam: 11/06 Date of Last Foot Exam: 11/06 What current meter are you using?: one touch When was your last flu shot?: na When did you have labs last?: 11/06 The following portions of the chart were reviewed this encounter and updated as appropriate: Tobacco Allergies Meds Problems Med Hx Surg Hx Fam Hx Review of Systems Constitutional: Positive for fatigue. HENT: Negative. Eyes: Negative. Respiratory: Negative. Cardiovascular: Negative. Gastrointestinal: Negative. Endocrine: Negative. See hpi Musculoskeletal: Negative. Skin: Negative. Neurological: [...] Value 03/24/2017 259 (H) POCT Hemoglobin A1C Date Value 02/13/2023 8.9 11/06/2022 7.4 07/18/2022 8.2 % CO2, Plasma (mmol/L) Date Value 03/24/2017 21 (L) BUN, Plasma (mg/dL) Date Value 03/24/2017 18 Creatinine, Plasma (mg/dL) Date Value 03/24/2017 0.93 GFR and LFT's within normal limits Assessment/Plan Diabetes Mellitis Type 2, is uncontrolled. Rx changes: none as he was near goal at last office visit and with reported lows and near lows. Unable to make significant changes to diabetes regimen with limited to no blood glucose data to review today. Discussed that his reported variability is most likely tied to diet choices, and would recommend thinking backward to his last meal when observing AM or pre-meal blood glucose readings that areelevated, patient understanding. Discussed impact of dinner postprandial hyperglycemia continuing overnight and how this alone can impact A1C. -Consulted CINTIAE Sylvia to discuss healthy diet and consistent CHO meals. -Continue current premix dosing, reviewed need for pre-meal bolusing for short acting benefit. -Continue checking blood glucose twice daily and always before meals. Recommended coupling his blood glucose check with insulin injection to form habit of doing both before meals, patient understanding and agreeable. -Discussed benefits and use of CGM, he defers at this time but agrees to reassess at next visit. -Continue Metformin 1000 mg twice daily, glipizide 10 mg twice daily -Continue Trulicity 4.5 mg weekly, will assess adjusting to another GLP1 at next visit for potentially better blood glucose and weight management results - Routine care up to date -Follow up 3 months The following Diabetes education was reviewed: [x]SBGM to evaluate dose needs [x]Insulin coverage with carbohydrate intake []Site rotation [] Exercise impact on glucose levels []Driving safety related to diabetes []Sick day management []Ketone testing [x]Over treatment of hypoglycemia [x] Hypoglycemia management [x]Call-in [...] hasan above normal BMI. #HTN - stable, uncontrolled, today: 155/68, last office visit 137/82. Asymptomatic, reports was anticipating elevated A1C today and was anxious. -continue antihypertensives/CARA per PCP #Neuropathy -stable on gabapentin and amitriptyline per PCP -recommend daily foot checks -reviewed at length with patient the impact that glycemic control has on neuropathy I personally spent a total of 20 minutes on this encounter. This time includes face to face with patient, counseling and discussion and/or coordination of care. Electronically signed by: JIM Dobson [facility] [address] [place]. [address] PHONE [phone] FAX: [phone] documented in this encounter Plan of Treatment Not on file documented as of this encounter Procedures Procedure Name Priority Date/Time Associated Diagnosis Comments POCT GLYCOSYLATED HEMOGLOBIN (HGB A1C) Routine 02/13/2023 3:56 PM EST Type 2 diabetes mellitus with other specified complication, with long-term current use of insulin (CMS/HCC) documented in this encounter Results * POCT glycosylated hemoglobin (Hb A1C) docked device (02/13/2023 3:56 PM EST) POCT Hemoglobin A1C 8.9 <5.7% Non-Diabet ic [facility] Kit Lot Number [id number] [facility] Kit Expiration Date [facility] Blood Venous blood specimen / Unknown 02/13/2023 3:56 PM EST us Sara Fair-Myron FERNANDEZ POINT OF CARE TEST EN TER/EDIT ORDERABLES Final Result [facility] [address] [place] [address] documented in this encounter Visit Diagnoses Diagnosis Type 2 diabetes mellitus with other specified complication, with long-term current use of insulin (CMS/HCC)- Primary Obesity with body mass index 30 or greater Hypertension, unspecified type 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
--- OUTSIDE RECORDS SUMMARY | 2024-02-18 11:34 | XMS_ITS | Encounter Summary ---
Author Organization [facility] Address [address] [place] [address] Care Team Providers Care Bellstand Attendant Name Role Phone Taina Flores Sandra Primary Care Provider [phone] Encounter Details Date Type Department Care Team (Late st Contact Info) Description 09/18/2021 8:30 AM EDT Lab [facility] [address] [facility] [address] [place] [address] Social History Tobacco Use Types Packs/Day Years [...] on filedocumented in this encounter Care Teams Bellstand Attendant Relationship Specialty Start Date End Date Taina Flores Sandra [address] [place] [address] PCP - General Nurse Practitioner 01/16/21 documented as of this encounter
--- OUTSIDE RECORDS SUMMARY | 2024-02-18 11:34 | XMS_ITS | Encounter Summary ---
Author Organization [facility] Address [address] [place] [address] Care Team Providers Care Memorial Adviser Name Role Phone Taina Flores Primary Care Provider + [phone] Reason for Visit * Reason Comments Diabetes Encounter Details Date Type Department Care Team (Late st Contact Info) Description 04/27/2021 3:30 PM EST Office Visit [facility] [address] [address] Cookie Fortune MD [address] [address] Type 2 diabetes mellitus with [...] Sign Reading Time Taken Comments Blood Pressure 130/84 04/27/2021 3:37 PM EST Pulse 90 04/27/2021 3:37 PM EST Temperature - - Respiratory Rate - - Oxygen Saturation 94% 04/27/2021 3:37 PM EST Inhaled Oxygen Concentration - - Weight 124 kg (273 lb) 04/27/2021 3:37 PM EST Height 185.4 cm (6' 1 ) 04/27/2021 3:37 PM EST Body Mass Index 36.02 04/27/2021 3:37 PM EST documented in this encounter Progress Notes * Cookie Fortune MD - 04/27/2021 3:30 PM EST Chief Complaint Patient presents with ??? Diabetes HPI Stephen Rich is a 65 y.o. male had concerns including Diabetes. Patient denies any significant health changes in the interim since his last visit. He denies any worsening GI side effects since increasing dose of Trulicity. He reports he has not been monitoring blood glucose routinely. He reports that he gets frustrated when he notices elevated values and this di scourages him from checking regularly. He denies any symptoms concerning for hypoglycemia. He denies any missed doses of medication. He does report he received documentation from his insurance that states Lantus is no longer covered on their formulary. Current diabetes medications include the following: Trulicity 1.5 mg weekly, Lantus 40 units in the morning, 30 units in the evening, glipizide 10 mg twice daily, Metformin 1000 mg twice daily Patient continues on atorvastatin 40 mg daily for hyperlipidemia. He denies myalgias or abdominal pain The following portions of the patient's history were reviewed and updated as appropriate: allergies, current medications and past social history. Review of Systems Gastrointestinal: Negative for abdominal pain, nausea and vomiting. Endocrine: Negative for polydipsia and polyuria. Musculoskeletal: Negative for myalgias. BP 130/84 (BP Location: Right arm, Patient Position: Sitting, Cuff Size: Adult) Pulse 90 Ht 185.4 cm (73 ) Wt 124 kg (273 lb) SpO2 94% BMI 36.02 kg/m?? Physical Exam Constitutional: well [...] and affect are within normal limits Labs/Imaging Results for STEPHEN RICH ( ) as of 04/27/2021 17:00 Ref. Range 04/27/2021 15:47 04/27/2021 15:47 Glucose Latest Ref Range: 70 - 130 mg/dL 160 (A) Hemoglobin A1C Latest Units: % 9.2 Diagnoses and all orders for this visit: 1. Type 2 diabetes mellitus with hyperglycemia, with long-term current use of insulin (HCC) (Primary) -uncontrolled with hemoglobin a1C 9.2 %, no home glycemic data available for review. Reviewed importance of routine glycemic monitoring -plan to increase basal insulin to 40 units twice daily -plan to increase Trulicity to 3 mg weekly -continue glipizide 10 mg twice -continue Metformin 1000 mg twice daily Patient was advised to monitor blood sugar [...] and exercise in the management of diabetes. Screening labs up-to-date from September 2020 - POC Glucose, Blood - POC Glycosylated Hemoglobin (Hb A1C) 2. Hyperlipidemia, unspecified hyperlipidemia type -continue atorvastatin 40 mg daily Other orders - Insulin Degludec (Tresiba FlexTouch) 200 UNIT/ML solution pen-injector pen injection; Inject 40 Units under the skin into the appropriate area as directed 2 (Two) Times a Day. Dispense: 45 mL; Refill: 1 - Dulaglutide (Trulicity) 3 MG/0.5ML solution pen-injector; Inject 0.5 mL under the skin into the appropriate area as directed 1 (One) Time Per Week. Dispense: 6 mL; Refill: 1 Return in about 3 months (around 07/25/2021) for Next scheduled follow up. The patient was instructed to contact the clinic with any interval questions or concerns. Cookie Fortune MD Air Traffic Systems Technician Dictated Utilizing [employer] Dictation documented in this encounter Plan of Treatment Not on file documented as of this encounter Procedures Procedure Name Priority Date/Time Associated Diagnosis Comments POCT GLUCOSE, BLD (NON STRIP) Routine 04/27/2021 3:47 PM EST Type 2 diabetes mellitus with hyperglycemia, with long-term current use of insulin POCT GLYCOSYLATED HEMOGLOBIN (HGB A1C) Routine 04/27/2021 3:47 PM EST Type 2 diabetes mellitus with hyperglycemia, with long-term current use of insulin documented in this encounter Results * POC Glycosylated Hemoglobin (Hb A1C) (04/27/2021 3:47 PM EST) Hemoglobin A1C 9.2 % [facility] Lot Number [id number] [facility] Expiration Date 12-12-22 [facility] Blood 04/27/2021 3:47 PM EST us Cookie Fortune MD POINT OF CARE TEST ORDERABLES F inal Result [facility]
[address] [place] [address], * (ABNORMAL) POC Glucose, Blood (04/27/2021 3:47 PM EST) Glucose 160(A) 70 - 130 mg/dL Lot Number [id number] Expiration Date 10-04-21 Blood 04/27/2021 3:47 PM EST us Cookie Fortune MD POINT OF CARE TEST ORDERABLES F inal Result documented in this encounter Visit Diagnoses Diagnosis Type 2 diabetes mellitus with hyperglycemia, with long-term current use of insulin- Primary Hyperlipidemia, unspecified hyperlipidemia type documented in this encounter Care Teams Memorial Adviser Relationship Specialty Start Date End Date Taina [place] [address] PCP - General Nurse Practitioner 01/16/21 documented as of this encounter
--- OUTSIDE RECORDS SUMMARY | 2024-02-18 11:34 | XMS_ITS | Encounter Summary ---
Author Organization [facility] Address [address] [place] [address] Care Team Providers Care Construction Teacher Name Role Phone Unavailable Primary Care Provider Unavailabl e Reason for Visit * Reason Onset Date Comments Request recent labs 10/06/2020 Left message for Medical Record to fax recent labs for pt, including A1C. [facility] Encounter Details Date Type Department Care Team (Late st Contact Info) Description 10/06/2020 Telephone [facility] [address] [address] Cookie Fortune MD [address] [address] Request recent labs (Left message for Medical Record to fax recent labs for pt, including A1C. [facility]) Social History Tobacco Use Types Packs/Day Years [...] encounter Miscellaneous Notes * Telephone Encounter - Clarisse Gomez MA - 10/09/2020 1:48 PM EDT Received A1C from [facility]. Forward record to Dr. Fortune for review. * Telephone Encounter - Clarisse Gomez MA - 10/06/2020 1:07 PM EDT Left message for Medical Record to fax recent labs for pt, including A1C. [facility] documented in this encounter Plan of Treatment Not on file documented as of this encounter Visit Diagnoses Not on filedocumented in this encounter
--- OUTSIDE RECORDS SUMMARY | 2024-02-18 11:34 | XMS_ITS | Encounter Summary ---
Author Organization [facility] Address [address] [place] [address] Care Team Providers Care International Operations Manager Name Role Phone Unavailable Primary Care Provider Unavailabl e Reason for Visit * Reason Comments Establish Care Diabetes A1C of 8.8 done at P CP. Patient did not bring meter * Consultation (Routine) - Closed Specialty Diagnoses / Procedures Referred By Contasher t Referred To Contact Endocrinology Diagnoses DM2 (diabetes mellitus, type 2) Taina Flores [address] [place] [address] Phone: tel: fax: [facility] [address] [address] Phone: tel: fax: Referral ID Status Reason Start Date Expiration Date Visits Re quested Visits Authorized [id number] Closed 06/26/2020 06/26/2021 1 1 Encounter Details Date Type Department Care Team (Late st Contact Info) Description 10/06/2020 1:00 PM EDT Office Visit [facility] [address] [facility] [place] [address] [place] [phone] Cookie Fortune MD [address] [facility] [address] [place] [phone] Type 2 diabetes mellitus with hyperglycemia, with long-term current use of insulin (Primary Dx) Social History Tobacco Use Types Packs/Day Years [...] Sign Reading Time Taken Comments Blood Pressure 142/68 10/06/2020 12:43 PM EDT Pulse 73 10/06/2020 12:43 PM EDT Temperature - - Respiratory Rate - - Oxygen Saturation 96% 10/06/2020 12:43 PM EDT Inhaled Oxygen Concentration - - Weight 126 kg (277 lb) 10/06/2020 12:43 PM EDT Height 185.4 cm (6' 1 ) 10/06/2020 12:43 PM EDT Body Mass Index 36.55 10/06/2020 12:43 PM EDT documented in this encounter Progress Notes * Cookie Fortune MD - 10/06/2020 1:00 PM EDTAddended by: COOKIE FORTUNE on: 10/09/2020 08:10 AM Modules accepted: Orders * Cookie Fortune MD - 10/06/2020 1:00 PM EDT Chief Complaint Patient presents with ??? Establish Care ??? Diabetes A1C of 8.8 done at PCP. Patient did not bring meter New patient who is being seen in consultation regarding type 2 diabetes at the request of Taina Flores A* HPI Stephen Rich is a 64 y.o. male who presents for evaluation of uncontrolled type 2 diabetes Patient has a history of type 2 diabetes. This was initially diagnosed in approximately 20 years ago. Patient was initially started on Metformin. Patient is currently taking Metformin 1000 mg twice daily, glipizide 10 mg twice daily, Lantus 40 units in the morning and 30 units in the evening. This regimen was last changed several weeks ago when patient self reduce Lantus to manager financial reporting hypoglycemia. Patient believes that glycemic control is variable. Patient reports most recent A1c was approximately 9. Patient reports good adherence to medications. Patient reports hypoglycemia awareness. Patient with manager financial reporting hypoglycemia to the sixties several weeks ago prompting reduction in insulin dose Patient monitors blood glucose generally 1-2 times daily. No home glycemic data available for review today. Patient reports glucose generally higher later in the day. Patient attempts to follow a diabetic diet. Patient does not exercise regularly. Patient denies foot related concerns such as numbness, tingling, or pain. History of dyslipidemia: Yes, taking atorvastatin History of renal dysfunction: No History of Hypertension: Yes, taking lisinopril Patient does report recent hospitalization for pancreatitis secondary to gallstones. He subsequently underwent cholecystectomy. Past Medical History: Diagnosis Date ??? Arthritis ??? Hypernatremia ??? Hypertension ??? Pancreatic abnormality ??? Type 2 diabetes mellitus (CMS/HCC) Past Surgical History: Procedure Laterality Date ??? CHOLECYSTECTOMY ??? TOOTH EXTRACTION Family History Problem Relation Age of Onset ??? Cancer Mother ??? Liver cancer Mother ??? Cancer Father Social History Socioeconomic History ??? Marital status: Spouse name: Not on file ??? Number of children: Not on file ??? Years of education: Not on file ??? Highest education level: Not on file Tobacco Use ??? Smoking status: Former Smoker Packs/day: 2.00 Years: 30.00 Pack years: 60.00 ??? Smokeless tobacco: Never Used Vaping Use ??? Vaping Use: Never used Substance and Sexual Activity ??? Alcohol use: Never ??? Drug use: Never ??? Sexual activity: Defer No Known Allergies Current Outpatient Medications on File Prior to Visit Medication Sig Dispense Refill ??? amitriptyline (ELAVIL) 50 MG tablet Take 1 tablet by mouth Every Night. ??? atenolol (TENORMIN) 50 MG tablet Take 1 tablet by mouth Daily. ??? gabapentin (NEURONTIN) 600 MG tablet Take 1 tablet by mouth 3 (Three) Times a Day. ??? glipizide (GLUCOTROL) 10 MG tablet Take 1 tablet by mouth 2 (two) times a day. ??? hydroCHLOROthiazide (HYDRODIURIL) 25 MG tablet Take 1 tablet by mouth Every Night. ??? Lantus SoloStar 100 UNIT/ML injection pen Inject 70 Units under the skin into the appropriate area as directed 2 (two) times a day. 40 units in the morning and 30 units at night. ??? lisinopril (PRINIVIL,ZESTRIL) 10 MG tablet Take 1 tablet by mouth Every Morning. ??? meloxicam (MOBIC) 15 MG tablet Take 1 tablet by mouth Daily. ??? metFORMIN (GLUCOPHAGE) 1000 MG tablet Take 1 tablet by mouth 2 (two) times a day. No current facility-administered medications on file prior to visit. Review of Systems Constitutional: Negative for unexpected weight gain and unexpected weight loss. HENT: Negative for trouble swallowing and voice change. Eyes: Negative for pain and visual disturbance. Respiratory: Negative for cough and shortness of breath. Cardiovascular: Negative for palpitations and leg swelling. Gastrointestinal: Negative for abdominal pain, nausea and vomiting. Endocrine: Negative for polydipsia and polyuria. Musculoskeletal: Positive for arthralgias. Negative for myalgias. Skin: Negative for dry skin and rash. Neurological: Negative for tremors and headache. Psychiatric/Behavioral: Negative for sleep disturbance. The patient is not nervous/anxious. Vitals: 10/06/20 1243 BP: 142/68 Pulse: 73 SpO2: 96% Weight: 126 kg (277 lb) Height: 185.4 cm (73 ) Body mass index is 36.55 kg/m??. Physical Exam Vitals reviewed. Constitutional: General: He is not in acute distress. HENT: Head: Normocephalic and atraumatic. Right Ear: Hearing normal. Left Ear: Hearing normal. Nose: Nose normal. Eyes: General: Lids are normal. Conjunctiva/sclera: Conjunctivae normal. Neck: Thyroid: No thyromegaly or thyroid tenderness. Cardiovascular: Rate and Rhythm: Normal rate and regular rhythm. Heart sounds: No murmur heard. Pulmonary: Effort: Pulmonary effort is normal. Breath sounds: Normal breath sounds and air entry. Abdominal: General: Bowel sounds are normal. Palpations: Abdomen is soft. Tenderness: There is no abdominal tenderness. Lymphadenopathy: Head: Right side of head: No submandibular adenopathy. Left side of head: No submandibular adenopathy. Cervical: No cervical adenopathy. Skin: General: Skin is warm and dry. Findings: No rash. Neurological: General: No focal deficit present. Mental Status: He is alert. Deep Tendon Reflexes: Reflexes are normal and symmetric. Psychiatric: Mood and Affect: Mood and affect normal. Behavior: Behavior is cooperative. Labs/Imaging Results for STEPHEN RICH ( ) as of 10/06/2020 13:01 Ref. Range 10/06/2020 12:59 Glucose Latest Ref Range: 70 - 130 mg/dL 120 Labs dated 06/23/2020 Hemoglobin A1c 9% Labs dated 08/24/2019 eGFR 50 AST 256 ALT 206 Alkaline phosphatase 121 Assessment and Plan Diagnoses and all orders for this visit: 1. Type 2 diabetes mellitus with hyperglycemia, with long-term current use of insulin ([facility]) (Primary) -Patient reports recent hemoglobin A1c 8.8%, requesting copy of result from PCP office -Patient reports he is generally hyperglycemic, glucose rising throughout the day -Patient on basal heavy regimen, suspects he needs improvement in prandial coverage -Discussed potential options for improving prandial coverage including SGLT2 inhibitor, GLP-1 receptor agonist, addition of prandial insulin. Patient does report desire for weight loss. Favor use of GLP-1 but given history of pancreatitis would like to check lipid panel and CMP prior to making decision. Discussed potential risks of pancreatitis, nausea, vomiting, abdominal pain as well as data regarding medullary thyroid cancer. If unable to start GLP-1, will plan for addition of SGLT2 inhibitor. Discussed risk of dehydration, infections. -Patient to continue Metformin 1000 mg twice -Patient to continue glipizide 10 mg twice daily -Patient continue Lantus 40 units in the morning, 30 units at night. -Patient was advised to monitor blood sugar 2 times daily. Patient was instructed to bring [...] and exercise in the management of diabetes. -Update screening labs today - POC Glucose, Blood - Comprehensive Metabolic Panel - Lipid Panel - Microalbumin / Creatinine Urine Ratio - Urine, Clean Catch Addendum dated 10/12/2020 Received results hemoglobin A1c is dated 09/22/2020, 8.8% Return in about 3 months (around 01/06/2021). The patient was instructed to contact the clinic withany interval questions or concerns. Cookie Fortune MD Please note that portions of this document were completed using a voice recognition program. Efforts were made to edit the dictations, but occasionally words are mis-transcribed. documented in this encounter Plan of Treatment Not on file documented as of this encounter Procedures Procedure Name Priority Date/Time Associated Diagnosis Comments MICROALBUMIN / CREATININE URINE RATIO Routine 10/06/2020 1:34 PM EDT Type 2 diabetes mellitus with hyperglycemia, with long-term current use of insulin LIPID PANEL Routine 10/06/2020 1:34 PM EDT Type 2 diabetes mellitus with hyperglycemia, with long-term current use of insulin COMPREHENSIVE METABOLIC PANEL Routine 10/06/2020 1:34 PM EDT Type 2 diabetes mellitus with hyperglycemia, with long-term current use of insulin POCT GLUCOSE, BLD (NON STRIP) Routine 10/06/2020 12:59 PM EDT Type 2 diabetes mellitus with hyperglycemia, with long-term current use of insulin documented in this encounter Results * Microalbumin / Creatinine Urine Ratio - Urine, Clean Catch (10/06/2020 1:34 PM EDT) Creatinine, Urine 211.1 Not Estab. mg/dL [facility] Microalbumin, Urine 19.7 Not Estab. ug/mL [facility] Microalbumin/Cre atinine Ratio 9 0 - 29 mg/g creat [facility] Comment: ? Normal: ?0 - ??29 ? Moderately increased: 30 - 300 ? Severely increased: ? >300 Urine Urine specimen collection, clean catch / Unknown 10/06/2020 1:34 PM EDT 10/07/2020 Comment:URINE RELEASE TO [facility] (AMBULATORY) - 10/07/2020 9:36 AM EDT Performed at: ??01 - [address] ??[id number] Typewriters Functional Tester: Mikie Hernandez PhD, Phone: ??[phone] us Cookie Fortune MD URINE ORDERABLES Final Result Performing Organization Address City/[facility]/ZIP Co de Phone Number [facility] (AMBULATORY) [address] [place] [address], [place] [phone] [facility] [address] [place] [address], [place] [phone] * (ABNORMAL) Lipid Panel (10/06/2020 1:34 PM EDT) Total Cholesterol 138 100 - 199 mg/dL [facility] Triglycerides 213(H) 0 - 149 mg/dL [facility] HDL Cholesterol 34(L) >39 mg/dL [facility] VLDL Cholesterol Bryant 35 5 - 40 mg/dL [facility] LDL Chol Calc (NIH) 69 0 - 99 mg/dL [facility] Blood 10/06/2020 1:34 PM EDT 10/07/2020 Comment:BLOOD RELEASE TO [facility] (AMBULATORY) - 10/07/2020 8:36 AM EDT Performed at: ??01 - [facility] [address] [place] [address] ??[id number] [employer] Functional Tester: Mikie Hernandez PhD, Phone: ??[phone] us Cookie Fortune MD LAB BLOOD ORDERABLES Final Resu lt Performing Organization Address City/[facility]/ZIP Co de Phone Number [facility] (AMBULATORY) [address] [place] [address], [place] [phone] [facility] [address] [place] [address], [place] [phone] * Comprehensive Metabolic Panel (10/06/2020 1:34 PM EDT) Glucose 95 65 - 99 mg/dL [facility] BUN 21 8 - 27 mg/dL [facility] Creatinine 1.00 0.76 - 1.27 mg/dL [facility] eGFR Non Am 78 >59 mL/min/1.7 3 [facility] eGFR Am 90 >59 mL/min/1.7 3 [facility] Comment: [facility] currently reports eGFR in compliance with the current ??recommendations of the National Kidney Foundation. [facility] will ??update reporting as new guidelines are published from the NKF-ASN ??Task force. BUN/Creatinine Ratio 21 10 - 24 [facility] Sodium 139 134 - 144 mmol/L [facility] Potassium 4.9 3.5 - 5.2 mmol/L [facility] Chloride 100 96 - 106 mmol/L [facility] Total CO2 21 20 - 29 mmol/L [facility] Calcium 9.6 8.6 - 10.2 mg/dL [facility] Total Protein 7.1 6.0 - 8.5 g/dL [facility] Albumin 4.3 3.8 - 4.8 g/dL [facility] Globulin 2.8 1.5 - 4.5 g/dL [facility] A/G Ratio 1.5 1.2 - 2.2 [facility] Total Bilirubin 0.5 0.0 - 1.2 mg/dL [facility] Alkaline Phosphatase 65 48 - 121 IU/L [facility] AST (SGOT) 34 0 - 40 IU/L [facility] ALT (SGPT) 33 0 - 44 IU/L [facility] Blood 10/06/2020 1:34 PM EDT 10/07/2020 Comment:BLOOD RELEASE TO [facility] W[facility] (AMBULATORY) - 10/07/2020 8:36 AM EDT Performed at: ??01 - [facility] [address] ??[id number] Typewriters Functional Tester: Mikie Hernandez PhD, Phone: ??[phone] us Cookie Fortune MD LAB BLOOD ORDERABLES Final Resu lt [facility] (AMBULATORY) [address] [place] [address], [place] [phone] [facility] [address] [place] [address], [place] [phone] * POC Glucose, Blood (10/06/2020 12:59 PM EDT) [facility] Signature Glucose 120 70 - 130 mg/dL Lot Number [id number] Expiration Date 07/16/21 Blood 10/06/2020 12:5 9 PM EDT us Cookie Fortune MD POINT OF CARE TEST ORDERABLES F inal Result documented in this encounter Visit Diagnoses Diagnosis Type 2 diabetes mellitus with hyperglycemia, with long-term current use of insulin- Primary documented in this encounter
--- OUTSIDE RECORDS SUMMARY | 2024-02-18 11:34 | XMS_ITS | Encounter Summary ---
Author Organization Healthcare Address [address] [place] [address] Care Team Providers Care Electrician Second Name Role Phone Taina Flores APRN Primary Care Provider [phone] Reason for Visit * Reason Comments Diabetes Encounter Details Date Type Department Care Team (Late st Contact Info) Description 11/06/2022 2:20 PM EDT Office Visit [facility] [address], [address] [place] [address] Sara Joe PA [address] [facility] [address] [place] [address] Type 2 diabetes mellitus with other specified complication, with long-term current use of insulin (CMS/HCC) (Primary Dx); Obesity with body mass index 30 or greater; Hypertension, unspecified type; 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); Mixed hyperlipidemia Social History Tobacco Use Types Packs/Day Years Used Date Smoking Tobacco: Former Cigarettes Smokeless Tobacco: Never Tobacco Cessation:Counseling Given: Not [...] Sign Reading Time Taken Comments Blood Pressure 137/82 11/06/2022 2:59 PM EDT Pulse 86 11/06/2022 2:59 PM EDT Temperature - - Respiratory Rate - - Oxygen Saturation - - Inhaled Oxygen Concentration - - Weight 127 kg (280 lb 10.3 oz) 11/06/2022 2:59 P M EDT Height 185.4 cm (6' 1 ) 11/06/2022 2:59 PM EDT Body Mass Index 37.03 11/06/2022 2:59 PM EDT documented in this encounter Miscellaneous Notes * Patient Instructions - Sara Fair PA - 11/06/2022 2:20 PM EDT -Please call the diabetes education team with any questions or concerns [phone] * Progress Notes - Sara Fair PA - 11/06/2022 2:20 PM EDT Subjective Stephen Hodges is a 66 y.o. male who presents for an follow up evaluation of Diabetes Mellitis Type2. Patient was diagnosed >10 years ago. Current symptoms/problems include hyperglycemia. HPI Today A1C 7.4% from 8.2% last office visit Current treatment includes oral agents, insulin injections, and GLP1 -Novolog 70/30 insulin 70 units twice daily, splits injection 35/35 in two difference sites, admitsPM shot is usually after dinner -Metformin 1000 mg twice daily, -glipizide 10 mg 1 tab twice daily [...] types:no regular exercise Home blood sugar records: has not been checking for past 2 months, denies hypoglycemia; has blood glucose log as started after last office visit up to September 08: AM range 100-209, PM range 122-164 . Log copy to be scanned into chart Date of Last Eye Exam: 10/06 Date of Last Foot Exam: 10/06 What current meter are you using?: onetouch When was your last flu shot?: n/a When did you have labs last?: 08/06 The following portions of the chart were [...] 259 (H) POCT Hemoglobin A1C Date Value 11/06/2022 7.4 07/18/2022 8.2 % CO2, Plasma (mmol/L) Date Value 03/24/2017 21 (L) BUN, Plasma (mg/dL) Date Value 03/24/2017 18 Creatinine, Plasma (mg/dL) Date Value 03/24/2017 0.93 GFR and LFT's within normal limits Assessment/Plan Diabetes Mellitis Type 2, is uncontrolled. A1C much improved since last office visit, near goal. Rx changes: none -Continue current premix dosing, start injecting PM dose before dinner -Restart checking blood glucose twice daily before meals to assess current blood glucose control and with adjusting timing of PM injection, patient understanding and agreeable. Reviewed blood glucosegoal average 150 with range 70-180. -Continue Metformin 1000 mg twice daily, reviewed mechanism of action and benefits of this medication -Continue glipizide 10 mg twice daily, if hypoglycemia occurs can decrease and/or discontinue -Continue Trulicity 4.5 mg weekly, will assess adjusting to another GLP1 at next visit for potentially better blood glucose and weight management results -Advised with continued blood glucose control, his fatigue may improved. 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 -Routine care up to date -Follow up [...] normal BMI. #HTN - stable, controlled, today: 137/82 -continue antihypertensives/CARA per PCP #Neuropathy -stable on gabapentin and amitriptyline per PCP -recommend daily foot checks -reviewed at length with patient the impact that glycemic control has on neuropathy #HLD -Stable on statin, no myalgias, continue per PCP I personally spent a total of 20 minutes on this encounter. This time includes face to face with patient, counseling and discussion and/or coordination of care. Electronically signed by: JIM Dobson [facility] [address] [place] [address]. [address] [place]. [address] PHONE [phone] FAX: [phone] documented in this encounter Plan of Treatment Not on file documented as of this encounter Procedures Procedure Name Priority Date/Time Associated Diagnosis Comments POCT GLYCOSYLATED HEMOGLOBIN (HGB A1C) Routine 11/06/2022 3:08 PM EDT Type 2 diabetes mellitus with other specified complication, with long-term current use of insulin (CMS/HCC) documented in this encounter Results * POCT glycosylated hemoglobin (Hb A1C) docked device (11/06/2022 3:08 PM EDT) POCT Hemoglobin A1C 7.4 <5.7% Non-Diabet ic [facility] Kit Lot Number [id number] [facility] Kit Expiration Date 09/13/24 [employer] 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
--- OUTSIDE RECORDS SUMMARY | 2024-02-18 11:34 | XMS_ITS | Encounter Summary ---
Author Organization Healthcare Address [address] [place] [address] Care Team Providers Care Equip Maint Eng Name Role Phone Taina Flores APRN Primary Care Provider [phone]- [phone] Encounter Details Date Type Department Care Team (Latest Contact Info) Description 11/06/2022 Travel Social History Tobacco Use Types Packs/Day Years Used Date Smoking Tobacco: Former Cigarettes Smokeless Tobacco: Never Alcohol Use Standard Drinks/Week [...] documented as of this encounter Care Teams Equip Maint Eng Relationship Specialty Start Date End Date Taina Flores APRN [address] [place] [id number] PCP - General 11/06/22 documented as of this encounter
--- OUTSIDE RECORDS SUMMARY | 2024-02-18 11:34 | XMS_ITS | Encounter Summary ---
Author Organization [facility] Address [address] [place] [address] Care Team Providers Care Process Developer Name Role Phone Ashley March APRN Primary Care Provider [phone] Taina Flores WIRE MACHINE CUTTER Primary Care Provider [phone]- [phone] Reason for Referral * Consultation (Routine) - Closed Specialty Diagnoses / Procedures Referred By Contac t Referred To Contact Endocrinology Diagnoses Diabetes mellitus without complication (CMS/HCC) Taina Flores, WIRE MACHINE CUTTER [address] [place] [address] Phone: tel: fax: [facility] [address], [address] [place] [address] Phone: tel: fax: Referral ID Status Reason Start Date Expiration Date V isits Requested Visits Authorized [id number] Closed Specialty Services Required 07/17/2022 01/16/2024 1 1 Encounter Details Date Type Department Care Team (Late st Contact Info) Description 07/17/2022 [facility] [address] [place] [address] Taina Flores, WIRE MACHINE CUTTER [address] [place], [place] [id number] Diabetes mellitus without complication (CMS/HCC) (Primary Dx) Social History Tobacco Use Types Packs/Day Years Used Date Smoking Tobacco: Former Sex and Gender Information Value Date Recorded Sex Assigned at Male 07/17/2022 12:33 PM EDT Legal Sex Male 8:53 PM EDT Gender Identity Male 07/17/2022 12:33 PM EDT Sexual Orientation Not on file documented as of this encounter Plan of Treatment Scheduled Referrals Name Type Priority Associated Diagnoses Orde r Schedule Ambulatory referral to Endocrinology Outpatient Referral Routine Diabetes mellitus without complication ([facility]) Expected: 08/17/2022, Expires: 01/18/2024 documented as of this encounter Visit Diagnoses Diagnosis Diabetes mellitus without complication ([facility])- Primary Type II or unspecified type diabetes mellitus without mention of complication, not stated as uncontrolled documented in this encounter Care Teams Process Developer Relationship Specialty Start Date End Date Ashley March, WIRE MACHINE CUTTER [address] [place] [id number] PCP - General 07/28/20 11/05/22 Taina Flores APRN [address] [place], [place] [id number] PCP - General 11/06/22 documented as of this encounter
--- OUTSIDE RECORDS SUMMARY | 2024-02-18 11:34 | XMS_ITS | Encounter Summary ---
Author Organization [facility] Address [address] [place] [address] Care Team Providers Care Plate Stacker Hand Name Role Phone Taina Flores Sandra Primary Care Provider Encounter Details Date Type Department Care Team (Late st Contact Info) Description 12/21/2021 11:20 AM EDT Lab [facility] [address] [facility] [address] [place] [address] Social History Tobacco Use Types Packs/Day Years [...] on filedocumented in this encounter Care Teams Plate Stacker Hand Relationship Specialty Start Date End Date Taina Flores Sandra [address] [place] [address] PCP - General Nurse Practitioner 01/16/21 documented as of this encounter
--- OUTSIDE RECORDS SUMMARY | 2024-02-18 11:34 | XMS_ITS | Encounter Summary ---
Author Organization Healthcare Address [address] [place] [address] Care Team Providers Care Excelsior Machine Operator Name Role Phone Taina Flores MINE PROMOTOR Primary Care Provider [phone]- [phone] Encounter Details Date Type Department Care Team (Latest Contact Info) Description 02/13/2023 Travel Social History Tobacco Use Types Packs/Day [...] documented as of this encounter Care Teams Excelsior Machine Operator Relationship Specialty Start Date End Date Taina Flores APRN [address] [place] [id number] PCP - General 11/06/22 documented as of this encounter
--- OUTSIDE RECORDS SUMMARY | 2024-02-18 11:34 | XMS_ITS | Encounter Summary ---
Author Organization [facility] Address [address] [place] [address] Care Team Providers Care Sample Sewer Name Role Phone Taina Flores Primary Care Provider + [phone] Reason for Visit * Reason Comments Diabetes Encounter Details Date Type Department Care Team (Late st Contact Info) Description 12/21/2021 10:45 AM EDT Office Visit [facility] ENDOCR[facility]OLOG[facility] [address] [address] Cookie Fortune MD [address] [id number] Type 2 diabetes mellitus with [...] Mass Index 35.36 12/21/2021 10:46 AM EDT documented in this encounter Progress Notes * Cookie Fortune MD - 12/21/2021 10:45 AM EDT Chief Complaint Patient presents with ??? Diabetes Pain HPI Stephen Hodges is a 66 y.o. male had concerns including Diabetes. Patient reports he has been doing generally well in the interim since last visit. He denies any notable adverse effects since increasing dose of Trulicity. He is monitoring glucose intermittently, values in the past 2 weeks ranging 85- 240. He rarely states that mild morning hypoglycemia with valuesin the 60s. He does report he is usually symptomatic when this occurs. Current medications include the following Metformin 1000 mg twice daily, Tresiba 44 units twice daily, glipizide 10 mg twice daily, Trulicity 4.5 mg weekly Patient continues on atorvastatin 40 mg daily for hyperlipidemia. He denies myalgias or abdominal pain. The following portions of the patient's history were reviewed and updated as appropriate: allergies, current medications and past social history. Review of Systems Constitutional: Negative for unexpected weight gain. Cardiovascular: Negative for palpitations. Gastrointestinal: Negative for constipation, diarrhea, nausea and vomiting. Endocrine: Negative for polyuria. Musculoskeletal: Negative for myalgias. BP 130/80 (BP Location: Left arm, Patient Position: Sitting, Cuff Size: Adult) Pulse 80 Ht 185.4 cm (73 ) Wt 122 kg (268 lb) SpO2 98% BMI 35.36 kg/m?? Physical Exam Constitutional: well developed; well nourished no acute distress ENT/Thyroid: not examined Eyes: Conjunctiva: clear Respiratory: breathing is unlabored clear to auscultation bilaterally Cardiovascular: regular rate and rhythm Chest: Not performed. Abdomen: soft, non-tender; no masses : Not performed. Musculoskeletal: Not performed Skin: not performed. Neuro: mental status, speech normal Psych: mood and affect are within normal limits Labs/Imaging Latest Reference Range & Units 09/18/21 08:28 12/21/21 10:54 Glucose 70 - 130 mg/dL 126 Hemoglobin A1C % 8.6 Creatinine, Urine mg/dL 174.4 Microalbumin, Urine mg/dL 1.8 Microalbumin/Creatinine Ratio mg/g 10.3 Diagnoses and all orders for this visit: 1. Type 2 diabetes mellitus with hyperglycemia, with long-term current use of insulin (HCC) (Primary) Uncontrolled with hemoglobin A1c 8.6%, improved from prior Patient with occasional mild fasting hyperglycemia, plan to reduce Tresiba to 42 units twice daily. Reviewed options for improving mealtime coverage. Increase glipizide to 20 mg twice daily Continue Trulicity 1.5 mg weekly Continue metformin 1000 mg twice daily Discussed importance of dietary changes Patient was advised to monitor blood sugar 2 [...] and exercise in the management of diabetes. Update screening labs today - POC Glucose, Blood - POC Glycosylated Hemoglobin (Hb A1C) - Lipid Panel - Comprehensive Metabolic Panel 2. Hyperlipidemia, unspecified hyperlipidemia type Updating lipid panel today Patient taking atorvastatin 40 mg daily Other orders - glucose blood test strip; Use to check glucose 3 times daily Dispense: 200 each; Refill: 5 Return in about 3 months (around 03/23/2022) for Labs before next appointment. The patient was instructed to contact the clinic with any interval questions or concerns. Cookie Fortune MD Music Composer Dictated Utilizing Ard[employer] Dictation documented in this encounter Plan of Treatment Not on file documented as of this encounter Procedures Procedure Name Priority Date/Time Associated Diagnosis Comments LIPID PANEL Routine 12/21/2021 11:20 AM EDT Type 2 diabetes mellitus with hyperglycemia, with long-term current use of insulin COMPREHENSIVE METABOLIC PANEL Routine 12/21/2021 11:20 AM EDT Type 2 diabetes mellitus with hyperglycemia, with long-term current use of insulin POCT GLUCOSE, BLD (NON STRIP) Routine 12/21/2021 10:54 AM EDT Type 2 diabetes mellitus with hyperglycemia, with long-term current use of insulin POCT GLYCOSYLATED HEMOGLOBIN (HGB A1C) Routine 12/21/2021 10:54 AM EDT Type 2 diabetes mellitus with hyperglycemia, with long-term current use of insulin documented in this encounter Results * (ABNORMAL) Comprehensive Metabolic Panel (12/21/2021 11:20 AM EDT) Glucose 126(H) 65 - 99 mg/dL 12/21/2021 9:18 PM EDT [facility] BUN 18 8 - 23 mg/dL 12/21/2021 9:18 PM T [facility] Creatinine 0.99 0.76 - 1.27 mg/dL 12/21/2021 9:18 PM EDT [facility] Sodium 136 136 - 145 mmol/L 12/21/2021 9:18 PM T [facility] Potassium 4.6 3.5 - 5.2 mmol/L 12/21/2021 9:18 PM EDT [facility] Chloride 101 98 - 107 mmol/L 12/21/2021 9:18 PM T [facility] CO2 26.6 22.0 - 29.0 mmol/L 12/21/2021 9:18 PM EDT [facility] Calcium 9.9 8.6 - 10.5 mg/dL 12/21/2021 9:18 PM T [facility] Total Protein 7.7 6.0 - 8.5 g/dL 12/21/2021 9:18 PM EDT [facility] Albumin 3.80 3.50 - 5.20 g/dL 12/21/2021 9:18 PM T [facility] ALT (SGPT) 32 1 - 41 U/L 12/21/2021 9:18 PM EDT [facility] AST (SGOT) 35 1 - 40 U/L 12/21/2021 9:18 PM EDT [facility] Alkaline Phosphatase 126(H) 39 - 117 U/L 12/21/2021 9:18 PM EDT [facility] Total Bilirubin 0.4 0.0 - 1.2 mg/dL 12/21/2021 9:18 PM EDT [facility] Globulin 3.9 gm/dL 12/21/2021 9:18 PM EDT [facility] A/G Ratio 1.0 g/dL 12/21/2021 9:18 PM EDT [facility] BUN/Creatinine Ratio 18.2 7.0 - 25.0 12/21/2021 9:18 PM EDT [facility] Anion Gap 8.4 5.0 - 15.0 mmol/L 12/21/2021 9:18 PM EDT [facility] eGFR 83.0 >60.0 mL/min/1. 73 12/21/2021 9:18 PM EDT [facility] Comment:National Kidney Foun dation and [place] Society of Nephrology (ASN) Task Force recommended calculation based on the Chronic Kidney Disease Epidemiology Collaboration (CKD-EPI) equation refit without adjustment for race. Blood Venipuncture / Unknown 12/21/2021 11:20 AM EDT 12/21/2021 11:20 AM EDT [facility] - 12/21/2021 9:18 PM EDT GFR Normal >60 Chronic Kidney Disease <60 Kidney Failure <15 us Cookie Fortune MD LAB BLOOD ORDERABLES Final Resu lt [facility]
[address] [place] [address], * (ABNORMAL) Lipid Panel (12/21/2021 11:20 AM EDT) Total Cholesterol 157 0 - 200 mg/dL 12/21/2021 9:18 PM EDT [facility] Triglycerides 142 0 - 150 mg/dL 12/21/2021 9:18 PM EDT [facility] HDL Cholesterol 36(L) 40 - 60 mg/dL 12/21/2021 9:18 PM EDT [facility] LDL Cholesterol 96 0 - 100 mg/dL 12/21/2021 9:18 PM EDT [facility] VLDL Cholesterol 25 5 - 40 mg/dL 12/21/2021 9:18 PM EDT [facility] LDL/HDL Ratio 2.57 12/21/2021 9:18 PM EDT [facility] Blood Venipuncture / Unknown 12/21/2021 11:20 AM EDT 12/21/2021 11:20 AM EDT Narrative [facility] - 12/21/2021 9:18 PM EDT Cholesterol [...] MD LAB BLOOD ORDERABLES Final Resu lt [facility]
[address] [place] [address], * POC Glycosylated Hemoglobin (Hb A1C) (12/21/2021 10:54 AM EDT) Hemoglobin A1C 8.6 % [facility] Lot Number [id number] [facility] Expiration Date 07-17-23 [facility] Blood 12/21/2021 10:5 4 AM EDT us Cookie Fortune MD POINT OF CARE TEST ORDERABLES F inal Result [facility]
[address] [place] [address], * POC Glucose, Blood (12/21/2021 10:54 AM EDT) Glucose 126 70 - 130 mg/dL Lot Number [id number] Expiration Date 06-12-22 Blood 12/21/2021 10:5 4 AM EDT us Cookie Fortune MD POINT OF CARE TEST ORDERABLES F inal Result documented in this encounter Visit Diagnoses Diagnosis Type 2 diabetes mellitus with hyperglycemia, with long-term current use of insulin- Primary Hyperlipidemia, unspecified hyperlipidemia type documented in this encounter Care Teams Sample Sewer Relationship Specialty Start Date End Date Taina Flores [place] [address] PCP - General Nurse Practitioner 01/16/21 documented as of this encounter
--- OUTSIDE RECORDS SUMMARY | 2024-02-18 11:34 | XMS_ITS | Encounter Summary ---
Author Organization [facility] Address [address] [place] [address] Care Team Providers Care Color Strainer Name Role Phone Taina Flores Primary Care Provider + [phone] Reason for Visit * Reason Comments Diabetes Encounter Details Date Type Department Care Team (Late st Contact Info) Description 01/16/2021 3:15 PM EDT Office Visit [facility]CR[facility] [address] [phone] Cookie Fortune MD [address] [phone] Type 2 diabetes mellitus with [...] Sign Reading Time Taken Comments Blood Pressure 136/74 01/16/2021 2:50 PM EDT Pulse 70 01/16/2021 2:50 PM EDT Temperature - - Respiratory Rate - - Oxygen Saturation 95% 01/16/2021 2:50 PM EDT Inhaled Oxygen Concentration - - Weight 128 kg (283 lb) 01/16/2021 2:50 PM EDT Height 185.4 cm (6' 1 ) 01/16/2021 2:50 PM EDT Body Mass Index 37.34 01/16/2021 2:50 PM EDT documented in this encounter Progress Notes * Cookie Fortune MD - 01/16/2021 3:15 PM EDT Chief Complaint Patient presents with ??? Diabetes HPI Stephen Rich is a 65 y.o. male had concerns including Diabetes. Patient reports no significant health changes in the interim since his last visit. He denies any issues since initiating Trulicity. Specifically, no nausea or vomiting. He does report concerns for numbness and tingling in his fingers and toes, he is taking gabapentin as prescribed by his PCP. He reports that his PCP is considering referring him to pain management clinic. He denies any known hypoglycemia. No home glucose data available for review during appointment. Current diabetes medications include the following: Metformin 1000 mg twice daily, glipizide 10 mg twice daily, Trulicity 0.75 mg weekly, Lantus 40 units in the morning and 30 units at night. Patientdenies missed doses of medications Note that atorvastatin is not listed on patient's medication list, he does report that he continueson cholesterol medication. He will confirm dosage. He denies any myalgias or abdominal pain. The following portions of the patient's history were reviewed and updated as appropriate: allergies, current medications and past social history. Review of Systems Gastrointestinal: Negative for abdominal pain, nausea and vomiting. Endocrine: Negative for polydipsia and polyuria. Musculoskeletal: Negative for myalgias. Neurological: Positive for numbness. BP 136/74 (BP Location: Left arm, Patient Position: Sitting, Cuff Size: Adult) Pulse 70 Ht 185.4 cm (73 ) Wt 128 kg (283 lb) SpO2 95% BMI 37.34 kg/m?? Physical Exam Constitutional: well developed; well nourished no acute distress obese - Body mass index is 37.34 kg/m??. ENT/Thyroid: not examined Eyes: Conjunctiva: clear Respiratory: breathing is unlabored clear to auscultation bilaterally Cardiovascular: regular rate and rhythm Chest: Not performed. Abdomen: soft, non-tender; no masses : Not performed. Musculoskeletal: Not performed Skin: dry and warm Neuro: mental status, speech normal Psych: mood and affect are within normal limits Labs/Imaging Results for STEPHEN RICH ( ) as of 01/16/2021 16:01 Ref. Range 01/16/2021 15:00 Glucose Latest Ref Range: 70 - 130 mg/dL 233 (A) Received hemoglobin A1c from PCP dated 12/21/2020, 8.4% Diagnoses and all orders for this visit: 1. Type 2 diabetes mellitus with hyperglycemia, with long-term current use of insulin (HCC) (Primary) -Uncontrolled with most recent hemoglobin A1c 8.4%, too soon to repeat -Hyperglycemic during office visit, no home glycemic data available for review -Plan to increase Trulicity to 1.5 mg weekly -Plan to continue Lantus 40 units in the morning, 30 units in the evening -Plan to continue glipizide 10 mg twice daily -Plan to continue Metformin 1000 mg twice daily -Patient was advised to monitor blood sugar [...] from September 2020 - POC Glucose, Blood 2. Hyperlipidemia, unspecified hyperlipidemia type Lipid panel up-to-date from September 2020, triglycerides 213, LDL 69 Plan to continue statin therapy Other orders - Dulaglutide (Trulicity) 1.5 MG/0.5ML solution pen-injector; Inject 1.5 mg under the skin into theappropriate area as directed 1 (One) Time Per Week. Dispense: 6 mL; Refill: 1 Return in about 3 months (around 04/18/2021) for Next scheduled follow up. The patient was instructedto contact the clinic with any interval questions or concerns. Cookie Fortune MD Mineral Wool Insulation Supervisor Please note that portions of this document were completed with a voice recognition program. Effortswere made to edit the dictations, but occasionally words are mis-transcribed. documented in this encounter Plan of Treatment Not on file documented as of this encounter Procedures Procedure Name Priority Date/Time Associated Diagnosis Comments POCT GLUCOSE, BLD (NON STRIP) Routine 01/16/2021 3:00 PM EDT Type 2 diabetes mellitus with hyperglycemia, with long-term current use of insulin documented in this encounter Results * (ABNORMAL) POC Glucose, Blood (01/16/2021 3:00 PM EDT) Glucose 233(A) 70 - 130 mg/dL Lot Number [id number] Expiration Date 06-21-21 Blood 01/16/2021 3:00 PM EDT Cookie Fortune MD POINT OF CARE TEST ORDERABLES F inal Result documented in this encounter Visit Diagnoses Diagnosis Type 2 diabetes mellitus with hyperglycemia, with long-term current use of insulin- Primary Hyperlipidemia, unspecified hyperlipidemia type documented in this encounter Care Teams Color Strainer Relationship Specialty Start Date End Date Taina Flores [address] [place] [address] PCP - General Nurse Practitioner 01/16/21 documented as of this encounter
--- OUTSIDE RECORDS SUMMARY | 2024-02-18 11:35 | XMS_ITS | Data Portability ---
Author Organization [employer] [facility] Address [address] [place] [address] Care Team Providers Care Jeep Mechanic Name Role Phone MARILEE FRANCE Community Action Worker Assessment Encounter Date Assessment Date Assessment LastModified by Organization Details LastModified Time 07/10/2023 07/10/2023 Patient presente d to office today for their Medicare Annual Wellness Visit. Education was provided on healthy nutrition, including a diet rich in fruits and vegetables, minimizing simple carbohydrates, salt, and saturated fats. Encouraged regular cardiovascular exercise such as walking at least 30 minutes daily, 5 times per week. Emphasized preventive health measures and educated pt on fall prevention and community-based lifestyle interventions to help reduce health risks and promote healthy living. Not available 07/10/2023 09:36:36 10/20/2023 10/20/2023 Patient presente d for medication refill. Patient tolerating medication well at current dose without adverse effects. Refilled as below. Discussed plan with patient and family, who expressed understanding. Follow up as noted below. [email or web address] Not available 10/20/2023 17:56:52 01/09/2024 01/09/[address] Phill Moore at [facility] ED regarding case. After discussion, he agrees further workup in emergency department would be warranted, I discussed this with patient and he is agreeable. I advised that I did speak with the physician at [facility], but that I would be happy to call the ED of his choice and provide report. He chooses to go to [facility] ER. He plans to drive himself. He is going to call his daughter to let her know he is proceeding to ER. I provided a sample as packaged per sales operations associate of diclofenac 1 % gel to patient to try on his hands for the pain at a later date. He will call back if he would like RX. Follow up with PCP after evaluation. [email or web address] Not available 01/09/2024 15:28:46 Plan of Treatment Reminders Order Date Submit Date Provider Last Modified By Organization Details Last Modified Time Details Appointments FOLLOW UP 15 2024 01:45P M SandhyaBilly Flores, BRAINER Not available Not available Not available Lab CBC w/ auto diff 2023 [email or web address] [facility], [address], [place], [address], 07/11/2023 05:05:33 CMP, serum or plasma 2023 [email or web address] [facility], [address], [place], [address], 07/11/2023 05:05:32 lipid panel, blood 2023 024 [email or web address] [facility], [address], [place], [address], 07/11/2023 05:05:32 HbA1c (hemoglob in A1c), blood [address], [address], 07/10/2023 17:24:36 microalbu min/creat inine, mass ratio, urine [address], [address], 07/10/2023 17:24:36 urinalysi s, dipstick [address], [address], 10/20/2023 18:11:42 noninvasi ve colorecta l cancer DNA + occult blood screening , QL, stool 2023 [facility] (Cologuard Orders Only), [address], [address], [place], [address], 11/22/2023 12:30:00 HbA1c (hemoglob in A1c), blood [address], [address], 10/20/2023 18:11:42 HbA1c (hemoglob in A1c), blood [address], [address] [place] [address], [address], 01/20/2024 18:13:22 Referral pain managemen t referral - first available appt 2023 [facility], [address], [address], [place], [address], 01/29/2024 09:40:41 Procedures None recorded. Surgeries None recorded. Imaging XR, chest, 2 view 2023 [facility], [address] [place] [address], [phone], 02/16/2024 17:06:24 Medication Orders fluticaso ne propionat e 50 mcg/actua tion nasal spray,juliet pension 2023 [facility], [address] [place] [address], [id number], 07/10/2023 16:54:03 metformin 1,000 mg tablet 2023 [facility] [facility], [address] [place] [address], [id number], 07/10/2023 16:54:04 amitripty line 50 mg tablet 2023 [place] [facility], [address] [place] [address], [id number], 07/10/2023 16:53:58 meloxicam 15 mg tablet 2023 [place] [facility], [address] [place] [address], [id number], 07/10/2023 16:54:02 budesonid e-formote rol HFA 160 mcg-4.5 mcg/actua tion aerosol inhaler 2023 [place] [facility], [address] [place] [address], [id number], 07/11/2023 11:56:09 atorvasta tin 40 mg tablet 2023 024 [place] [facility], [address] [place] [address], [id number], 07/10/2023 16:54:01 aspirin 81 mg tablet,de layed release 2023 024 [place] [facility], [address] [place] [address], [id number], 07/10/2023 10:57:58 atenolol 50 mg tablet 2023 024 [place] [facility], [address] [place] [address], [id number], 07/10/2023 16:53:58 hydrochlo rothiazid e 25 mg tablet 2023 024 [place] [facility], [address] [place] [address], [id number], 07/10/2023 16:54:02 lisinopri l 10 mg tablet 2023 024 [place] [facility], [address] [place] [address], [id number], 07/10/2023 16:54:00 Trulicity 0.75 mg/0.5 mL subcutane ous pen injector 2023 [place] [facility], [address] [place] [address], [id number], 01/09/2024 14:26:02 gabapenti n 600 mg tablet 2023 024 [place] [facility], [address] [place] [address], [id number], 09/13/2023 15:00:23 glipizide 10 mg tablet 2023 024 [place] [facility], [address] [place] [address], [id number], 07/10/2023 16:54:02 Bactrim DS 800 mg-160 mg tablet 2023 024 [place] [facility], [address] [place] [address], [id number], 01/09/2024 14:26:01 ceftriaxo ne 1 gram solution for injection 2023 Not available 01/20/2024 16:16:44 amitripty line 50 mg tablet 2023 [place] [facility], [address] [place] [address], [id number], 10/21/2023 16:18:47 metformin 1,000 mg tablet 2023 024 [place] [employer], [address] [place] [address], [id number], 10/21/2023 16:18:37 meloxicam 15 mg tablet 2023 024 [place] [employer], [address] [place] [address], [id number], 10/21/2023 16:18:44 Advair Diskus 250 mcg-50 mcg/dose powder for inhalatio n 2023 [place] [facility], [address] [place] [address], [id number], 11/04/2023 17:46:58 atorvasta tin 40 mg tablet 2023 [place] [facility], [address] [place] [address], [id number], 10/21/2023 16:18:47 aspirin 81 mg tablet,de layed release 2023 [place] [facility], [address] [place] [address], [id number], 10/20/2023 20:06:03 atenolol 50 mg tablet 2023 024 [place] [facility], [address] [place] [address], [id number], 10/21/2023 16:18:47 hydrochlo rothiazid e 25 mg tablet 2023 024 [place] [facility], [address] [place] [address], [id number], 10/21/2023 16:18:46 lisinopri l 10 mg tablet 2023 024 [place] [facility], [address] [place] [address], [id number], 10/21/2023 16:18:40 Mounjaro 2.5 mg/0.5 mL subcutane ous pen injector 2023 [place] [facility], [address] [place] [address], [id number], 12/08/2023 17:50:56 gabapenti n 600 mg tablet 2023 024 [place] [facility], [address] [place] [address], [id number], 12/22/2023 16:22:52 glipizide 10 mg tablet 2023 [place] [facility], [address] [place] [address], [id number], 10/21/2023 16:18:49 atorvasta tin 40 mg tablet 2023 [place] [facility], [address] [place] [address], [id number], 01/20/2024 18:43:05 fluticaso ne propionat e 50 mcg/actua tion nasal spray,juliet pension 2023 [place] [facility], [address] [place] [address], [id number], 01/20/2024 18:43:07 aspirin 81 mg tablet,de layed release 2023 [place] [facility], [address] [place] [address], [id number], 01/20/2024 18:43:05 atenolol 50 mg tablet 2023 [place] [facility], [address] [place] [address], [id number], 01/20/2024 18:43:05 hydrochlo rothiazid e 25 mg tablet 2023 [place] [facility], [address] [place] [address], [id number], 01/20/2024 18:43:00 lisinopri l 10 mg tablet 2023 [place] [facility], [address] [place] [address], [id number], 01/20/2024 18:43:01 metformin 1,000 mg tablet 2023 [facility], [address] [place] [address], [id number], 01/20/2024 18:43:06 amitripty line 50 mg tablet 2023 [facility], [address] [place] [address], [id number], 01/20/2024 18:43:00 meloxicam 15 mg tablet 2023 [facility] [facility], [address] [place] [address], [id number], 01/20/2024 18:43:07 Advair Diskus 250 mcg-50 mcg/dose powder for inhalatio n 2023 [facility] [facility], [address] [place] [address], [id number], 01/20/2024 18:43:06 Mounjaro 5 mg/0.5 mL subcutane ous pen injector 2023 [employer], [address] [place] [address], [id number], 01/22/2024 17:18:54 gabapenti n 600 mg tablet 2023 [facility], [address] [place] [address], [id number], 01/20/2024 18:43:07 glipizide 10 mg tablet 2023 [facility], [address] [place] [address], [id number], 01/20/2024 18:43:07 Patient TargetsNo targets recorded. Patient Instructions Encounter Date Encounter Id Patient Instructions Last Modified By Organization Details Last Modified Time 07/10/2023 [id number] advance care planning: care instructions [email or web address] Not available 07/10/2023 17:24:36 learning about colonoscopy [email or web address] Not available 07/10/2023 17:24:36 learning about colon cancer [email or web address] Not available 07/10/2023 17:24:36 Discussed and explained advance directives such as standard forms to the {{patient caregiv er patient and caregiver}}. Face to face discussion lasted for a duration of ___ minutes. Not available 07/10/2023 09:36:36 10/20/2023 [id number] diabetic foot exam* Not available 10/20/2023 17:57:03 diabetes foot health: care instructions Not available 10/20/2023 18:11:42 learning about healthy weight Not available 10/20/2023 18:11:42 Reason for Referral Pain Management Referral for Chronic pain first available appt Referring Physician: Taina Flores, Family Medicine, Encounter Date: 01/20/2024 Results Created Date Observation Date Name Description Value Unit Range Abnormal Flag Note LastModifiedBy Organization Detail LastModifiedTime 07/10/1907/11/2023 LIPID PANEL , NONFA STING W/O TRIGL YCERI JACQUELINE cholesterol, total 132 mg/dL <200 normal Not Available [facility] [place] [facility] [address] [place], [address], 07/11/2023 08:28:40 07/10/19 24 07/11/2023 LIPID PANEL , NONFA STING W/O TRIGL YCERI JACQUELINE HDL cholesterol 38 mg/dL > or = 40 low Not Available [facility] [place] [facility] [address] [facility] [place], [address], 07/11/2023 08:28:40 07/10/19 24 07/11/2023 LIPID PANEL , NONFA STING W/O TRIGL YCERI JACQUELINE chol/HDLC ratio 3.5 (calc ) <5.0 normal Not Available [facility] [place] [facility] [address] [employer], [place], [address], 07/11/2023 08:28:40 07/10/19 24 07/11/2023 LIPID PANEL , NONFA STING W/O TRIGL YCERI JACQUELINE non HDL cholesterol 94 mg/dL _(mg c) <130 normal For patie nts with diabe chapo plus 1 major ASCVD risk facto r, treat ing to a non-H DL-C goal of <100 mg/dL (LDL- C of <70 mg/dL ) is consi gina beck optio n. Not Available [facility] [place] [facility] [address] [place], [address], 07/11/2023 08:28:40 07/10/19 24 07/11/2023 COMPR EHENS PEDRO METAB OLIC PANEL glucose 128 mg/dL 65-99 high Fasti ng refer ence inter maria del carmen For someo ne witho ut known diabe chapo, a gluco se value >125 mg/dL indic ates that they may have diabe chapo and this shoul d be confi rmed with a follo w-up test. Not Available [facility] [place] [facility] [address] [place], [address], 07/11/2023 08:28:41 07/10/19 24 07/11/2023 COMPR EHENS PEDRO METAB OLIC PANEL urea nitrogen (BUN) 17 mg/dL 7-25 normal Not Available [facility] [place] [facility] [address] [place], [address], 07/11/2023 08:28:41 07/10/19 24 07/11/2023 COMPR EHENS PEDRO METAB OLIC PANEL creatinine 0.93 mg/dL 0.70-1 .35 normal Not Available [facility] [place] [facility] [address] [place], [address], 07/11/2023 08:28:41 07/10/19 24 07/11/2023 COMPR EHENS PEDRO METAB OLIC PANEL eGFR 89 mL/mi n/1.7 3m2 > or = 60 normal Not Available [facility] [place] [facility] [address] [place], [address], 07/11/2023 08:28:41 07/10/19 24 07/11/2023 COMPR EHENS PEDRO METAB OLIC PANEL BUN/creatini ne ratio SEE NOTE: (calc ) 6-22 Not Repor hugh: BUN and Creat inine are withi n refer ence range . Not Available [facility] [address] [facility] [place], [address], 07/11/2023 08:28:41 07/10/19 24 07/11/2023 COMPR EHENS EPDRO METAB OLIC PANEL sodium 136 mmol/ L 135-14 6 normal Not Available [facility] [address] [place], [address], 07/11/2023 08:28:41 07/10/19 24 07/11/2023 COMPR EHENS PEDRO METAB OLIC PANEL potassium 4.4 mmol/ L 3.5-5. 3 normal Not Available [facility] [address] [place], [address], 07/11/2023 08:28:41 07/10/19 24 07/11/2023 COMPR EHENS PEDRO METAB OLIC PANEL chloride 101 mmol/ L 98-110 normal Not Available [employer] [facility] [address] [place], [address], 07/11/2023 08:28:41 07/10/19 24 07/11/2023 COMPR EHENS PEDRO METAB OLIC PANEL carbon dioxide 29 mmol/ L 20-32 normal Not Available [facility] [address] [place], [address], 07/11/2023 08:28:41 07/10/19 24 07/11/2023 COMPR EHENS PEDRO METAB OLIC PANEL calcium 9.7 mg/dL 8.6-10 .3 normal Not Available [employer] [facility] [address] [place], [address], 07/11/2023 08:28:41 07/10/19 24 07/11/2023 COMPR EHENS PEDRO METAB OLIC PANEL protein, total 8.3 g/dL 6.1-8. 1 high Not Available [facility] [place] [facility] [address] [facility] [place], [address], 07/11/2023 08:28:41 07/10/19 24 07/11/2023 COMPR EHENS PEDRO METAB OLIC PANEL albumin 4.0 g/dL 3.6-5. 1 normal Not Available [facility] [address] [facility], [address], 07/11/2023 08:28:41 07/10/19 24 07/11/2023 COMPR EHENS PEDRO METAB OLIC PANEL globulin 4.3 g/dL_ (calc ) 1.9-3. 7 high Not Available [facility] [address] [facility] [place], [address], 07/11/2023 08:28:41 07/10/19 24 07/11/2023 COMPR EHENS PEDRO METAB OLIC PANEL albumin/glob ulin ratio 0.9 (calc ) 1.0-2. 5 low Not Available [employer] [facility] [address] [facility] [place], [address], 07/11/2023 08:28:41 07/10/19 24 07/11/2023 COMPR EHENS PEDRO METAB OLIC PANEL bilirubin, total 0.5 mg/dL 0.2-1. 2 normal Not Available [facility] [address] [facility] [place], [address], 07/11/2023 08:28:41 07/10/19 24 07/11/2023 COMPR EHENS PEDRO METAB OLIC PANEL alkaline phosphatase 139 U/L 35-144 normal Not Available [facility] [address] [place], [address], 07/11/2023 08:28:41 07/10/19 24 07/11/2023 COMPR EHENS PEDRO METAB OLIC PANEL AST 25 U/L 10-35 normal Not Available [facility] [place] [facility] [address] [place], [address], 07/11/2023 08:28:41 07/10/19 24 07/11/2023 COMPR EHENS PEDRO METAB OLIC PANEL ALT 17 U/L 9-46 normal Not Available [facility] [place] [facility] [address], [place], [address], 07/11/2023 08:28:41 07/10/19 24 07/11/2023 CBC (INCL UDES DIFF/ PLT) white blood cell count 7.7 thous and/u L 3.8-10 .8 normal Not Available [facility] [address], [place], [address], 07/11/2023 05:05:33 07/10/19 24 07/11/2023 CBC (INCL UDES DIFF/ PLT) red blood cell count 4.49 ralph on/uL 4.20-5 .80 normal Not Available [facility] [place] [facility] [address], [place], [address], 07/11/2023 05:05:33 07/10/19 24 07/11/2023 CBC (INCL UDES DIFF/ PLT) hemoglobin 13.3 g/dL 13.2-1 7.1 normal Not Available [facility] [place] [facility] [address], [place], [address], 07/11/2023 05:05:33 07/10/19 24 07/11/2023 CBC (INCL UDES DIFF/ PLT) hematocrit 41.0 % 38.5-5 0.0 normal Not Available [facility] [address], [place], [address], 07/11/2023 05:05:33 07/10/19 24 07/11/2023 CBC (INCL UDES DIFF/ PLT) MCV 91.3 fL 80.0-1 00.0 normal Not Available [facility] [place] [facility] [address] [facility] [place], [address], 07/11/2023 05:05:33 07/10/19 24 07/11/2023 CBC (INCL UDES DIFF/ PLT) MCH 29.6 pg 27.0-3 3.0 normal Not Available [facility] [place] [facility] [address] [facility] [place], [address], 07/11/2023 05:05:33 07/10/19 24 07/11/2023 CBC (INCL UDES DIFF/ PLT) MCHC 32.4 g/dL 32.0-3 6.0 normal Not Available [facility] [address] [facility] [place], [address], 07/11/2023 05:05:33 07/10/19 24 07/11/2023 CBC (INCL UDES DIFF/ PLT) RDW 13.6 % 11.0-1 5.0 normal Not Available [facility] [place] [facility] [address] [facility] [place], [address], 07/11/2023 05:05:33 07/10/19 24 07/11/2023 CBC (INCL UDES DIFF/ PLT) platelet count 218 thous and/u L 140-40 0 normal Not Available [facility] [address] [facility] [place], [address], 07/11/2023 05:05:33 07/10/19 24 07/11/2023 CBC (INCL UDES DIFF/ PLT) MPV 9.6 fL 7.5-12 .5 normal Not Available [facility] [address] [facility] [place], [address], 07/11/2023 05:05:33 07/10/19 24 07/11/2023 CBC (INCL UDES DIFF/ PLT) absolute neutrophils 4250 cells /uL 1500-7 800 normal Not Available [facility] [place] [facility] [address], [place], [address], 07/11/2023 05:05:33 07/10/19 24 07/11/2023 CBC (INCL UDES DIFF/ PLT) absolute lymphocytes 2156 cells /uL 850-39 00 normal Not Available [facility] [place] [facility] [address], [place], [address], 07/11/2023 05:05:33 07/10/19 24 07/11/2023 CBC (INCL UDES DIFF/ PLT) absolute monocytes 585 cells /uL 200-95 0 normal Not Available [facility] [place] [facility] [address], [place], [address], 07/11/2023 05:05:33 07/10/19 24 07/11/2023 CBC (INCL UDES DIFF/ PLT) absolute eosinophils 616 cells /uL 15-500 high Not Available [facility] [place] [facility] [address], [place], [address], 07/11/2023 05:05:33 07/10/19 24 07/11/2023 CBC (INCL UDES DIFF/ PLT) absolute basophils 92 cells /uL 0-200 normal Not Available [facility] [place] [facility] [address], [place], [address], 07/11/2023 05:05:33 07/10/19 24 07/11/2023 CBC (INCL UDES DIFF/ PLT) neutrophils 55.2 % normal Not Available [facility] [place] [facility] [address], [place], [address], 07/11/2023 05:05:33 07/10/19 24 07/11/2023 CBC (INCL UDES DIFF/ PLT) lymphocytes 28.0 % normal Not Available [facility] [place] [facility] [address], [place], [address], 07/11/2023 05:05:33 07/10/19 24 07/11/2023 CBC (INCL UDES DIFF/ PLT) monocytes 7.6 % normal Not Available [facility] [place] [facility] [address] [place], [address], 07/11/2023 05:05:33 07/10/19 24 07/11/2023 CBC (INCL UDES DIFF/ PLT) eosinophils 8.0 % normal Not Available [facility] [place] [facility] [address] [facility] [place], [address], 07/11/2023 05:05:33 07/10/19 24 07/11/2023 CBC (INCL UDES DIFF/ PLT) basophils 1.2 % normal Not Available [facility] [place] [facility] [address] [place], [address], 07/11/2023 05:05:33 07/10/19 24 07/10/2023 HbA1c (hemo globi n A1c), blood HbA1c 9.2 Not Available [address], [address], 07/10/2023 09:59:01 07/10/19 24 07/10/2023 micro album in/cr eatin ine, mass ratio , urine Microalbumin 150 Not Available [address], [address], 07/10/2023 09:59:02 07/10/19 24 07/10/2023 micro album in/cr eatin ine, mass ratio , urine Creatinine 200 Not Available [address], [address], 07/10/2023 09:59:02 07/10/19 24 07/10/2023 micro album in/cr eatin ine, mass ratio , urine Ratio 30-300 Not Available [address], [address], 07/10/2023 09:59:02 10/20/19 24 10/20/2023 urina lysis , dipst ick Leukocytes Large Not Available [address], [address], 10/20/2023 16:57:08 10/20/19 24 10/20/2023 urina lysis , dipst ick Nitrite positi ve Not Available [address], [address], 10/20/2023 16:57:08 10/20/19 24 10/20/2023 urina lysis , dipst ick Urobilinogen 1 Not Available [address], [address], 10/20/2023 16:57:08 10/20/19 24 10/20/2023 urina lysis , dipst ick Protein 2000+ Not Available [address], [address], 10/20/2023 16:57:08 10/20/19 24 10/20/2023 urina lysis , dipst ick pH 5.0 Not Available [address], [address], 10/20/2023 16:57:08 10/20/19 24 10/20/2023 urina lysis , dipst ick Blood Large Not Available [address], [address], 10/20/2023 16:57:08 10/20/19 24 10/20/2023 urina lysis , dipst ick Specific Pearsall 1.030 Not Available [facility] [address], [address], 10/20/2023 16:57:08 10/20/19 24 10/20/2023 urina lysis , dipst ick Ketone Small Not Available [address], [address], 10/20/2023 16:57:08 10/20/19 24 10/20/2023 urina lysis , dipst ick Bilirubin Modera te Not Available [address], [address], 10/20/2023 16:57:08 10/20/19 24 10/20/2023 urina lysis , dipst ick Glucose 100 Not Available [address], [address], 10/20/2023 16:57:08 10/20/19 24 10/20/2023 urina lysis , dipst ick Appearance Cloudy Not Available [address], [address], 10/20/2023 16:57:08 10/20/19 24 10/20/2023 urina lysis , dipst ick Color Dark Yellow Not Available [address], [address], 10/20/2023 16:57:08 10/20/19 24 10/20/2023 HbA1c (hemo globi n A1c), blood HbA1c 9.0 Not Available [address], [address], 10/20/2023 16:56:49 01/20/20 24 01/20/2024 HbA1c (hemo globi n A1c), blood HbA1c 8.0 Not Available [address] [place], [address], 01/20/2024 16:04:06 01/15/20 24 01/15/2024 imagi ng/di agnos tic resul t No observ ation record ed. [address], [place], [address], 01/15/2024 16:37:14 01/15/20 24 01/15/2024 imagi ng/di agnos tic resul t No observ ation record ed. [place] [id number], [place], [address], 01/15/2024 16:41:55 01/26/20 24 01/26/2024 imagi ng/di agnos tic resul t No observ ation record ed. [address], [place], [address], 01/26/2024 14:43:32 02/04/20 24 02/03/2024 imagi ng/di agnos tic resul t No observ ation record ed. [address], [place], [id number], 02/04/2024 08:17:04 02/04/20 24 02/03/2024 imagi ng/di agnos tic resul t No observ ation record ed. [place] [id number], [place], [id number], 02/04/2024 08:22:12 02/04/20 24 02/03/2024 imagi ng/di agnos tic resul t No observ ation record ed. [place] [id number], [place], [id number], 02/04/2024 08:50:15 02/06/20 24 02/06/2024 imagi ng/di agnos tic resul t No observ ation record ed. [place] [id number], [place], [address], 02/06/2024 09:53:10 02/10/20 24 02/10/2024 XR, chest , 2 view No observ ation record ed. [email or web address] [facility] [address], [place], [address], 02/16/2024 15:13:11 02/10/20 24 02/10/2024 imagi ng/di agnos tic resul t No observ ation record ed. [address], [place], [address], 02/10/2024 20:57:45 02/16/20 XR, chest , 2 view No observ ation record ed. [address], [place], [address], 02/17/2024 10:14:26 02/17/20 24 02/17/2024 imagi ng/di agnos tic resul t No observ ation record ed. [facility] [address], [place], [address], 02/17/2024 16:25:32 02/17/20 24 02/17/2024 imagi ng/di agnos tic resul t No observ ation record ed. [place] [id number], [place], [address], 02/17/2024 18:24:25 02/17/20 24 02/17/2024 imagi ng/di agnos tic resul t No observ ation record ed. [place] [id number], [place], [address], 02/17/2024 18:25:45 Result Notes None recorded. Problems Name Problem SNOMED Code Status Onset Date Resolution Date Notes Provider Name and Address Organization Details Recorded Time Full thicknes s burn of foot 04558517 Active 2023 JENIFFER LARES, EQUIPMENT VALIDATION SPECIALIST [address] [place], [address] , [employer] 4 15:26:03 Cellulit is of right foot [id number] 363271 Active 2023 JENIFFER LARES, EQUIPMENT VALIDATION SPECIALIST [address] [place], [address] , [employer] 4 15:26:18 Cellulit is of left foot 82416769903 743945 Active 2023 JENIFFER LARES, EQUIPMENT VALIDATION SPECIALIST [address] [place], [address] , [employer] 4 15:26:28 Pain of bilatera l hands 00132019616 546026 Active 2023 JENIFFER LARES, CLAUDIA [address] [place], [address] , [employer] 4 15:31:39 Benign neoplasm of skin of ear 12389573 Completed 201912/17/2021 JAMAL dwyer, [employer] 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 3 08:24:02 Uncontro lled type 2 diabetes mellitus 562743547 Completed 201711/25/2017 JAMAL dwyer, [employer] 2 13:43:02 Secondar y diabetes mellitus 9314125 Active 2018 Problem Code: E08.65; Problem Code Type: ICD-10; Not Available [facility] 3 08:24:02 Type 2 diabetes mellitus without complica tion 077108495 Active 2021 [facility] Available [facility] 3 08:24:01 Testicul ar hypofunc tion 898883450 Active 2018 Problem Code: E29.1; Problem Code Type: ICD-10; Not Available [facility] 3 08:24:01 Testicul ar hypofunc tion 403913403 Completed 201701/08/2018 Problem Code: E29.1; Problem Code Type: ICD-10; Not Available [facility] 2 22:40:20 Mixed hyperlip idemia 862503206 Active 2017 Problem Code: E78.2; Problem Code Type: ICD-10; Not Available [facility] 3 08:24:01 Uncontro lled type 2 diabetes mellitus 303278951 Completed 201912/17/2021 [employer]AMAL [employer] 2 13:43:02 Primary insomnia 1003075 Active 2018 Problem Code: F51.01; Problem Code Type: ICD-10; Not Available [facility] 3 08:24:01 Hypo-osm olality and or hyponatr emia 106759375 Active 2021 Problem Code: E87.1; Problem Code Type: ICD-10; Not Available [facility] 3 08:24:01 Hyperten sive disorder 08553763 Completed 201610/23/2017 Problem Code: I10; Problem Code Type: ICD-10; Not Available [facility] 2 22:40:21 Hyperten sive disorder 38498421 Active 2017 Problem Code: I10; Problem Code Type: ICD-10; Not Available [facility] 3 08:24:01 Acute pharyngi tis 243318814 Completed 201803/27/2020 Not Available [facility] 2 22:40:21 Acute pancreat itis 231984223 Completed 201912/17/2021 Problem Code: K85.90; Problem Code Type: ICD-10; JAMAL dwyer [employer] 2 13:43:02 Large prostate 467541412 Completed 201703/13/2018 Problem Code: N40.0; Problem Code Type: ICD-10; Not Available [facility] 2 22:40:21 Tingling of skin 337182245 Completed 201704/20/2018 Problem Code: R20.2; Problem Code Type: ICD-10; Not Available [facility] 2 22:40:22 Chronic fatigue syndrome 91902824 Active 2020 Problem Code: R53.82; Problem Code Type: ICD-10; Not Available [facility] 3 08:24:02 General examinat ion of patient Completed 202012/17/2021 JAMAL dwyer, [employer] 2 13:43:02 Screenin g for malignan t neoplasm of colon Completed 201812/17/2021 JAMAL dwyer, [employer] 2 13:43:02 Body mass index 30+ - obesity 899307193 Completed 201803/27/2020 Problem Code: Z68.35; Problem Code Type: ICD-10; Not Available [facility] 2 22:40:23 Body mass index 30+ - obesity 417003001 Active 2018 Problem Code: Z68.36; Problem Code Type: ICD-10; Not Available [facility] 3 08:24:01 Body mass index 30+ - obesity 516128418 Completed 201903/27/2020 Problem Code: Z68.37; Problem Code Type: ICD-10; Not Available [facility] 2 22:40:23 Current drug user 531406117 Active 2018 Problem Code: Z79.899; Problem Code Type: ICD-10; Not Available [facility] 3 08:24:01 Body mass index 30+ - obesity 173696205 Completed 201803/27/2020 Problem Code: Z68.36; Problem Code Type: ICD-10; Not Available [facility] 2 22:40:24 Body mass index 30+ - obesity 701621813 Completed 202009/22/2020 Problem Code: Z68.37; Problem Code Type: ICD-10; Not Available [facility] 2 22:40:24 Disorder of nervous system due to type 2 diabetes mellitus 983308361 Completed 201609/22/2020 Not Available [facility] 22:40:25 Disorder of anterior pituitar y 10385491 Completed 201709/22/2020 Problem Code: 253.4; Problem Code Type: ICD-9; Not Available [facility] 22:40:25 Mixed hyperlip idemia 848587489 Completed 201709/22/2020 Problem Code: 272.2; Problem Code Type: ICD-9; Not Available [facility] 22:40:26 Benign essentia l hyperten dixie 0255218 Active 2016 Problem Code: 401.1; Problem Code Type: ICD-9; Not Available [facility] 08:24:01 Benign essentia l hyperten dixie 0333246 Completed 201709/22/2020 Problem Code: 401.1; Problem Code Type: ICD-9; Not Available [facility] 2 22:40:26 Benign prostati c hyperpla lexi 586175299 Completed 201709/22/2020 Problem Code: 600.00; Problem Code Type: ICD-9; Not Available [facility] 22:40:26 Psoriasi s 4436737 Completed 201609/22/2020 Problem Code: 696.1; Problem Code Type: ICD-9; Not Available [facility] 2 22:40:26 Fracture of cervical spine 644141785 Completed 201712/22/2017 Problem Code: S12.9XXA ; Problem Code Type: ICD-10; Not Available [facility] 22:40:27 General examinat ion of patient Completed 201903/27/2020 JAMAL dwyer [employer] 13:43:02 Screenin g for malignan t neoplasm of colon Completed 201903/27/2020 JAMAL dwyer [employer] 13:43:02 Gastroin testinal tract excision Completed 201912/17/2021 Problem Code: Z90.49; Problem Code Type: ICD-10; JAMAL dwyer, [employer] 13:43:02 Uncontro lled type 2 diabetes mellitus 245772090 Completed 201709/22/2020 Problem Code: 250.02; Problem Code Type: ICD-9; JAMAL dwyer, [employer] 13:43:02 Skin sensatio n disturba nee 52196498 Completed 201704/20/2018 Problem Code: 782.0; Problem Code Type: ICD-9; Not Available [facility] 22:40:29 Closed fracture of cervical spine 902393528 Completed 201712/22/2017 Problem Code: 805.00; Problem Code Type: ICD-9; Not Available [facility] 22:40:29 Problem Notes None recorded. Procedures Surgical History Date Name Laterality Status Provider Name and Address Organization Details Recorded Time 09/03/19 20 cholecystectomy completed Not Available [facility] 11/20/2021 22:56:09 procedure on pancreas completed Johana Wang [employer] 07/15/2022 09:47:56 Imaging Results Imaging Date Name Status LastModified by Organiz ation Details LastModified Time 01/15/2024 imaging/diag nostic result active [facility] [address], [place], [address], 01/15/2024 16:37:14 01/15/2024 imaging/diag nostic result active [facility] [address], [place], [address], 01/15/2024 16:41:55 01/26/2024 imaging/diag nostic result active [facility] [address], [place], [address], 01/26/2024 14:43:32 02/03/2024 imaging/diag nostic result active [facility] [address], [place], [address], 02/04/2024 08:17:04 02/03/2024 imaging/diag nostic result active [facility] [address], [place], [address], 02/04/2024 08:22:12 02/03/2024 imaging/diag nostic result active [facility] [address], [place], [address], 02/04/2024 08:50:15 02/06/2024 imaging/diag nostic result active [facility] [address], [place], [address], 02/06/2024 09:53:10 02/10/2024 XR, chest, 2 view completed [address], [place], [address], 02/16/2024 15:13:11 02/10/2024 imaging/diag nostic result active [facility] [address], [place], [address], 02/10/2024 20:57:45 02/16/2024 XR, chest, 2 view completed [address], [place], [address], 02/17/2024 10:14:26 02/17/2024 imaging/diag nostic result active [facility] [address], [place], [address], 02/17/2024 16:25:32 02/17/2024 imaging/diag nostic result active [facility] [address], [place], [address], 02/17/2024 18:24:25 02/17/2024 imaging/diag nostic result active [facility] [address], [place], [address], 02/17/2024 18:25:45 Procedure Notes None recorded. Medical Equipment None Reported. Allergies Allergen ID Allergen Name Allergen Category Reaction Reaction Severity Criticality Documentation Date Start Date Code Code System Note Provider Name and Address Organization Details Recorded Time 71883 cephalexi n medicatio n Not available Not available Not available 11/20/20212230 RxNorm Not Available [facility] 22:57:00 Medications Name Sig Start Date Stop Date Status Note LastModified by Organization Details LastModified Time atorvasta tin 40 mg tablet TAKE 1 TABLET 1 TIME EACH DAY AT BEDTIME active Not Available Not Available No t Available silver sulfadiaz ine 1 % topical cream apply a 1/16 inch (1.5 mm) thick layer to entire burn area by topicalr oute 2 times per day 12/21 completed Not Available Not Available Not Available promethaz ine-DM 6.25 mg-15 mg/5 mL oral syrup Take 1 teaspoon by mouth q 4 to 6 hr 06/19 completed Not Available Not Available Not Available fluticaso ne 250 mcg-salme terol 50 mcg/dose blistr powdr for inhalatio n INHALE 1 DOSE 2 TIMES EACH DAY active Not Available Not Available No t Available gabapenti n 600 mg tablet TAKE 1 TABLET 3 TIMES EACH DAY active Not Available Not Available No t Available doxycycli ne hyclate 100 mg capsule TAKE 1 CAPSULE 2 TIMES EACH DAY FOR 10 DAYS 01/19 completed Not Available Not Available Not Available azithromy sallie 250 mg tablet TAKE 2 TABLETS ON THE FIRST DAY, THEN TAKE 1 TABLET EACH DAY ON THE NEXT 4 DAYS. 04/10 completed Not Available Not Available Not Available benzonata te 200 mg capsule TAKE 1 CAPSULE 3 TIMES EACH DAY NEEDED FOR COUGH 04/10 completed Not Available Not Available Not Available meloxicam 15 mg tablet TAKE 1 TABLET 1 TIME EACH DAY NEEDED active Not Available Not Available No t Available glipizide 10 mg tablet TAKE 1 TABLET 2 TIMES EACH DAY active Not Available Not Available No t Available prednison e 20 mg tablet TAKE 1 TABLET 3 TIMES EACH DAY FOR 3 DAYS 07/15 completed Not Available Not Available Not Available testoster one cypionate 100 mg/mL intramusc ular oil one ml IM monthly 12/17 completed Not Available Not Available Not Available gabapenti n 400 mg capsule 1 pill po TID 07/23 completed Not Available Not Available Not Available sulfameth oxazole 800 mg-trimet hoprim 160 mg tablet TAKE 1 TABLET 2 TIMES EACH DAY FOR 10 DAYS active Not Available Not Available No t Available aspirin 81 mg tablet,de layed release Take 1 tablet(s ) by mouth daily 2023 active Not Available Not Available Not Avai lable amitripty line 50 mg tablet TAKE 1 TABLET 1 TIME EACH DAY AT BEDTIME active Not Available Not Available No t Available triamcino lone acetonide 0.1 % topical cream Apply thin film to affected area tid 2020 active Not Available Not Available Not Avai lable ceftriaxo ne 1 gram solution for injection Take 1 g by injectio n route. 01/19 completed Not Available Not Available Not Available linezolid 600 mg tablet active Not Available Not Available Not Available doxycycli ne monohydra te 100 mg capsule TAKE 1 CAPSULE 2 TIMES EACH DAY FOR 10 DAYS 07/22 completed Not Available Not Available Not Available cephalexi n 500 mg capsule TAKE 1 CAPSULE 3 TIMES EACH DAY FOR 7 DAYS 01/19 completed Not Available Not Available Not Available metformin 1,000 mg tablet TAKE 1 TABLET 2 TIMES EACH DAY active Not Available Not Available No t Available lisinopri l 10 mg tablet TAKE 1 TABLET 1 TIME EACH DAY active Not Available Not Available No t Available gabapenti n 300 mg capsule 1 po TID 08/21 completed Not Available Not Available Not Available gentamici n 0.1 % topical cream active Not Available Not Available Not Available syringe with needle 3 mL 22 gauge x 1 Use with insulin in am and pm 2020 active Not Available Not Available Not Avai lable hydrochlo rothiazid e 25 mg tablet TAKE 1 TABLET 1 TIME EACH DAY active Not Available Not Available No t Available mupirocin 2 % topical ointment APPLY A THIN FILM TO THE AFFECTED AREA OF SKIN 1 TIME EACH DAY active Not Available Not Available No t Available gabapenti n 100 mg capsule 1 po bid 01/22 completed Not Available Not Available Not Available testoster one cypionate 200 mg/mL intramusc ular oil inject 1 ML (200 mg) by intramus cular route every month 12/17 completed Not Available Not Available Not Available cefuroxim e axetil 500 mg tablet TAKE 1 TABLET 2 TIMES EACH DAY FOR 10 DAYS 01/08 completed Not Available Not Available Not Available levofloxa sallie 500 mg tablet TAKE 1 TABLET 1 TIME EACH DAY FOR 10 DAYS active Not Available Not Available No t Available Actos 45 mg tablet Take 1 tablet(s ) by mouth daily 04/27 completed Not Available Not Available Not Available ondansetr on 4 mg disintegr ating tablet PLACE 1 TABLET UNDER THE TONGUE AND ALLOW TO DISSOLVE EVERY 6 HOURS NEEDED FOR NAUSEA 01/08 completed Not Available Not Available Not Available fluticaso ne propionat e 50 mcg/actua tion nasal spray,juliet pension SPRAY 2 TIMES IN EACH NOSTRIL 1 TIME EACH DAY active Not Available Not Available No t Available atenolol 50 mg tablet TAKE 1 TABLET 1 TIME EACH DAY active Not Available Not Available No t Available Actos 30 mg tablet Take 1 tablet(s ) by mouth daily 05/21 completed Not Available Not Available Not Available Novolog Mix 70-30 FlexPen U-100 Insulin 100 unit/mL subcutane ous pen INJECT 70 UNITS BEFORE BREAKFAS T AND DINNER. INCREASE DOSE DIRECTED . DO NOT INJECT MORE THAN 160 UNITS EACH DAY. 01/08 completed Not Available Not Available Not Available Janumet 50 mg-1,000 mg tablet Take 1 tablet(s ) by mouth bid with meals. 11/24 completed Not Available Not Available Not Available budesonid e-formote rol HFA 160 mcg-4.5 mcg/actua tion aerosol inhaler INHALE 1 PUFF 4 TIMES EACH DAY NEEDED FOR SHORTNES S OF BREATH OR WHEEZING 07/09 completed Not Available Not Available Not Available Lantus Solostar U-100 Insulin 100 unit/mL (3 mL) subcutane ous pen INJECT 40 UNITS UNDER THE SKIN IN THE MORNING AND 30 UNITS IN THE EVENING. 12/17 completed not using anymore Not Available Not Available Not Available BD Ultra-Fin e Leila Pen Needle 32 gauge x USE TO INJECT INSULIN 2 TIMES EACH DAY BEFORE MEALS active Not Available Not Available No t Available TRUEplus Lancets 33 gauge USE TO TEST BLOOD SUGAR 2 TIMES EACH DAY BEFORE MEALS DIRECTED active Not Available Not Available No t Available Bydureon 2 mg/0.65 mL subcutane ous pen injector Inject 2 mg subcutan eously q week 11/06 completed Not Available Not Available Not Available Jardiance 10 mg tablet Take 1 tablet daily by mouth 01/22 completed Not Available Not Available Not Available Jardiance 25 mg tablet Take 1 tablet(s ) by mouth qa 06/19 completed Not Available Not Available Not Available True Metrix Glucose Test Strip USE TO TEST BLOOD SUGAR 2 TIMES EACH DAY BEFORE MEALS active Not Available Not Available No t Available True Metrix Glucose Meter USE TO TEST BLOOD SUGAR DIRECTED active Not Available Not Available No t Available Trulicity 1.5 mg/0.5 mL subcutane ous pen injector INJECT THE CONTENTS OF 1 SYRINGE 1 TIME EACH WEEK DIRECTED 12/17 completed Not Available Not Available Not Available Trulicity 0.75 mg/0.5 mL subcutane ous pen injector INJECT CONTENTS OF 1 SYRINGE UNDER THE SKIN 1 TIME EACH WEEK DIRECTED 01/08 completed Not Available Not Available Not Available Tresiba FlexTouch U-200 insulin 200 unit/mL (3 mL) subcutane ous pen INJECT 44 UNITS UNDER THE SKIN DIRECTED 2 TIMES EACH DAY. 07/19 completed d/c by endo Not Available Not Available Not Available Dexcom G6 Sensor device active Not Available Not Available Not Available Dexcom G6 Transmitt er device active Not Available Not Available No t Available Novolin 70-30 FlexPen U-100 70 units sq BID before meals with titratio n 09/23 completed duplicat e Not Available Not Available Not Available Trulicity 3 mg/0.5 mL subcutane ous pen injector INJECT THE CONTENTS OF 1 SYRINGE UNDER THE SKIN 1 TIME EACH WEEK DIRECTED 12/17 completed Not Available Not Available Not Available Trulicity 4.5 mg/0.5 mL subcutane ous pen injector INJECT THE CONTENTS OF 1 SYRINGE UNDER THE SKIN 1 TIME EACH WEEK 07/09 completed endo Not Available Not Available Not Available Mounjaro 5 mg/0.5 mL subcutane ous pen injector INJECT THE CONTENTS OF 1 PEN 1 TIME EACH WEEK UNDER THE SKIN active Not Available Not Available No t Available Mounjaro 2.5 mg/0.5 mL subcutane ous pen injector INJECT THE CONTENTS OF 1 PEN 1 TIME EACH WEEK DIRECTED active Not Available Not Available No t Available Vitals Date Recorded Body height Body mass index (BMI) Body weight Heart rate Oxygen saturation Oxygen saturation in Arterial blood by Pulse oximetry Systolic blood pressure Diastolic blood pressure Provider Name and Address Organization Details Last Updated DateTime 4 182.88 cm 36.7 kg/m2 205726. 34 g 76 /min 97 % 97 % 132 mm[Hg] 77 mm[Hg] Johana Wang [employer] 4 09:43:23 Date Recorded Body height Body mass index (BMI) Body weight Heart rate Oxygen saturation Oxygen saturation in Arterial blood by Pulse oximetry Systolic blood pressure Diastolic blood pressure Provider Name and Address Organization Details Last Updated DateTime 4 182.88 cm 35.9 kg/m2 874915. 98 g 90 /min 94 % 94 % 119 mm[Hg] 67 mm[Hg] Paula [employer] 4 16:56:26 Date Recorded Body height Body mass index (BMI) Body weight Heart rate Oxygen saturation Oxygen saturation in Arterial blood by Pulse oximetry Systolic blood pressure Diastolic blood pressure Systolic blood pressure Diastolic blood pressure Systolic blood pressure Diastolic blood pressure Provider Name and Address Organization Details Last Updated DateTime 4 182.88 cm 34.9 kg/m2 426013. 24 g 76 /min 94 % 94 % 166 mm[Hg] 84 mm[Hg] 154 mm[Hg] 82 mm[Hg] 168 mm[Hg] 82 mm[Hg] Paula [employer] 4 14:24:29 Date Recorded Body height Body mass index (BMI) Body weight Heart rate Oxygen saturation Oxygen saturation in Arterial blood by Pulse oximetry Systolic blood pressure Diastolic blood pressure Provider Name and Address Organization Details Last Updated DateTime 4 182.88 cm 34.9 kg/m2 100244. 24 g 86 /min 94 % 94 % 133 mm[Hg] 79 mm[Hg] Johana Wang [employer] 4 16:16:40 Date Recorded Body height Body mass index (BMI) Body weight Heart rate Oxygen saturation Oxygen saturation in Arterial blood by Pulse oximetry Systolic blood pressure Diastolic blood pressure Provider Name and Address Organization Details Last Updated DateTime 4 182.88 cm 34.4 kg/m2 998314. 46 g 95 /min 96 % 96 % 135 mm[Hg] 83 mm[Hg] Johana [employer] 4 14:41:44 Social History Question Answer Notes LastModified by Organizat ion Details LastModified Time Tobacco Smoking Status Former Smoker JAMAL KAYLEN dwyer [employer] 12/17/2021 13:44:05 Do You Have An Advance Directive? No [email or web address] Information not available 12/17/2021 Is Your Home Air Conditioned? Yes Information not available 07/15/2022 What Is Your Level Of Alcohol Consumption? None Information not available 07/15/2022 Are You Blind Or Do You Have Difficulty Seeing? No [email or web address] Information not available 12/17/2021 What Is Your Level Of Caffeine Consumption? Moderate Information not available 07/15/2022 Are You A Caregiver? No [email or web address] Information not available 01/07/2023 In The 14 Days Before Symptom Onset, Have You Had Close Contact With A Laboratory-confir med COVID-19 While That Case Was Ill? No Information not available 07/15/2022 In The 14 Days Before Symptom Onset, Have You Had Close Contact With A Person Who Is Under Investigation For COVID-19 While That Person Was Ill? No Information not available 07/15/2022 Have You Been To An Area Known To Be High Risk For COVID-19? No Information not available 07/15/2022 Are You Currently Employed? No [email or web address] Information not available 01/07/2023 Are You Deaf Or Do You Have Serious Difficulty Hearing? No [email or web address] Information not available 12/17/2021 What Type Of Diet Are You Following? REGULAR [email or web address] Information not available 01/09/2024 Have There Been Any Changes To Your Family Or Social Situation? No Information no t available 01/07/2023 When Did You Quit Smoking? 16+yearssinc elastcigaret te [email or web address] Information not available 12/17/2021 Are There Any Guns Present In Your Home? No [email or web address] Information not available 01/07/2023 Do You Have A Medical Power Of Major Assembly Inspector? No [email or web address] Information not available 12/17/2021 What Was The Date Of Your Most Recent Tobacco Screening? 02/16/2024 Information not available 02/16/2024 What Is Your Current Pack Years? 10-19packyea rs [email or web address] Information not available 12/17/2021 What Is Your Relationship Status? [email or web address] Information not available 12/17/2021 Do You Use Your Seat Belt Or Car Seat Routinely? Yes Part Of The Time. Information not available 07/15/2022 Are You Sexually Active? No Information not available 01/09/2024 Do You Have Smoke And Carbon Monoxide Detectors In Your Home? Yes Information not available 07/15/2022 Are You Passively Exposed To Smoke? No [email or web address] Information no t available 01/07/2023 Are There Any Smokers In Your House? No [email or web address] Information not available 01/07/2023 How Much Tobacco Do You Smoke? No Information not available 01/20/2024 Do You Participate In Social Media? Yes Information not available 01/09/2024 Do You Feel Stressed (tense, Restless, Nervous, Or Anxious, Or Unable To Sleep At Night)? [id number] Information not available 01/09/2024 Do You Use Any Illicit Or Recreational Drugs? No [email or web address] Information not available 01/07/2023 Do You Use Sunscreen Routinely? Yes [email or web address] Information not available 01/07/2023 Has Tobacco Cessation Counseling Been Provided? Yes Information not available 07/22/2022 On What Date Was Tobacco Cessation Counseling Provided? 02/16/2024 Information not available 02/16/2024 Have You Recently Traveled Abroad? No Information not available 07/15/2022 Are You Currently In School? No [email or web address] Information not available 01/07/2023 Do You Have Any Dietary Restrictions? No [email or web address] Information not available 01/09/2024 Do You Or Have You Ever Used Any Other Forms Of Tobacco Or Nicotine? No Information not available 07/22/2022 Sex: Unknown Functional Status Question Answer Note LastModified by Organizat ion Details LastModified Time Do you have difficulty walking or climbing stairs? No [email or web address] Information not available 12/17/2021 Do you have transportation difficulties? No [email or web address] Information not available 12/17/2021 Are you able to walk? YESWOREST [email or web address] Information not available 12/17/2021 Do you have difficulty doing errands alone? No [email or web address] Information not available 12/17/2021 Are you able to care for yourself? Yes [email or web address] Information not available 12/17/2021 Do you have difficulty dressing or bathing? No [email or web address] Information not available 12/17/2021 Mental Status Question Answer Note LastModified by Organization D etails LastModified Time Do you have difficulty concentrating, remembering or making decisions? No [email or web address] Information no t available 12/17/2021 Family History Relationship Description Onset Age of this Age Resolved Age Notes LastModified by Organization Details LastModified Time Unspecified Relation Family history of malignant neoplasm [email or web address] Not available 12/17 13:43:14 Unspecified Relation Family history of Hypertension [email or web address] Not available 13:43:20 Unspecified Relation Family history of breast cancer [email or web address] Not available 12/17 13:43:26 Medical History Condition Response Hospitalizations N Emergency room visit since last appointm ent. N Diabetes Y Hypertension Y Immunizations Vaccine Type Date Status Provider Name and Address Organization Details Recorded Time zoster recombinant 07/10/2023 cancelled Taina Flores, BRAINER [address] [place], [address], [facility] [employer] 07/10/2023 18:10:09 Pneumococcal conjugate PCV 13 07/10/2023 cancelled Taina Flores, BRAINER [address] [place], [address], [facility] [employer] 07/10/2023 18:10:09 COVID-19, mRNA, LNP-S, PF, emilia-sucrose, 30 mcg/0.3 mL 01/20/2024 cancelled Johana dwyer [place] [employer] 01/20/2024 17:25:01 Influenza, high-dose, quadrivalent, PF 01/20/2024 cancelled Johana dwyer [place] [employer] 01/20/2024 17:25:01 Past Encounters Encounter ID Performer Location Encounter Start Date Encounter Closed Date Diagnosis/Indication Diagnosis SNOMED-CT Code Diagnosis ICD10 Code [id number] Taina Flores [address] [address] 12/17/2021 13:47:25 12/17/2021 14:19:47 Benign essential hypertension 7293224 I10 Long-term drug therapy 820870762 Z79.899 Hypertensive disorder 38 360363 I10 Mixed hyperlipidemia 267 823576 E78.2 Neuropathy due to type 2 diabetes mellitus 8150145365 90368 E11.40 Insomnia 702982016 G47.0 0 Low back pain 767046762 M54.50 [id number] Taina Flores [address] [address] 03/19/2022 14:11:28 03/19/2022 14:52:07 Lower respiratory tract infection 75773485 J22 Cough 05447761 R05.9 Insomnia 947104657 G47.0 0 Hypertensive disorder 38 488012 I10 Mixed hyperlipidemia 267 716588 E78.2 Neuropathy due to type 2 diabetes mellitus 4704419889 63805 E11.40 Low back pain 708839770 M54.50 Body mass index 30+ - obesity 236440225 Z68.36 [id number] [place] [address] 06/14/2022 13:02:56 06/14/2022 14:04:28 Adult health examination 325758465 Z00.00 Benign ess ential hypertension 9966624 I10 Mixed hyperlipidemia 267 826390 E78.2 Type 2 parmjit betes mellitus without complication 586151734 E11.9 Acute bronchitis 2427879 2 J20.9 Insomnia 161168714 G47.0 0 Hypertensive disorder 38 979396 I10 Neuropathy due to type 2 diabetes mellitus 8698563264 82626 E11.40 Low back pain 720448122 M54.50 Type 2 parmjit betes mellitus 08269704 E11.9 Body mass index 30+ - obesity 550660758 Z68.36 [id number] [place] [address] 07/15/2022 09:34:34 07/15/2022 10:00:59 Fatigue 81976385 R53.83 Vitamin B deficiency 479 55426 E53.9 Hypotensive episode 6776 3001 I95.9 Type 2 parmjit betes mellitus without complication 110415219 E11.9 Pain of bi lateral knee joints 0606674998 37672 M25.228 [id number] [place] [address] 07/22/2022 09:04:14 07/22/2022 09:37:55 Low blood pressure 53573923 I95.9 Body mass index 30+ - obesity 201795211 Z68.36 [id number] [place] [address] 0 09/23/2022 14:22:38 09/23/2022 15:18:49 Type 2 diabetes mellitus without complication 107591319 E11.9 Insomnia 525678585 G47.0 0 Hypertensive disorder 38 961222 I10 Mixed hyperlipidemia 267 820716 E78.2 Neuropathy due to type 2 diabetes mellitus 7088692372 45686 E11.40 Low back pain 194201490 M54.50 Type 2 parmjit betes mellitus 29610833 E11.9 Allergic rhinitis 536327 04 J30.9 Chronic ob structive pulmonary disease 40439481 J44.9 [id number] [place] [address] 01/07/2023 14:36:40 01/07/2023 15:24:37 Insomnia 337625231 G47.00 Hypertensive disorder 38 716703 I10 Mixed hyperlipidemia 267 941156 E78.2 Neuropathy due to type 2 diabetes mellitus 3655076313 82292 E11.40 Chronic ob structive pulmonary disease 74125038 J44.9 Lower resp iratory tract infection 05470810 J22 Body mass index 30+ - obesity 528419954 Z68.36 [id number] Taina [place] [address] 0 04/10/2023 13:54:57 04/10/2023 15:02:09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
--- OUTSIDE RECORDS SUMMARY | 2024-02-18 11:35 | XMS_ITS | Continuity of Care Document ---
Author Organization [place] - [place], Abim[facility] ([facility] Address [address] [place] [address] Care Team Providers Care Welfare Specialist Name Role Phone MARILEE FRANCE Associate Accountant Assessment Encounter Date Assessment Date Assessment LastModified by Organization Details LastModified Time 01/09/2024 01/09/[address] Phill Moore at [facility] ED regarding case. After discussion, he agrees further workup in emergency department would be warranted, I discussed this with patient and he is agreeable. I advised that I did speak with the physician at [facility], but that I would be happy to call the ED of his choice and provide report. He chooses to go to [facility] ER. He plans to drive himself. He is going to call his daughter to let her know he is proceeding to ER. I provided a sample as packaged per refractory repairer of diclofenac 1 % gel to patient to try on his hands for the pain at a later date. He will call back if he would like RX. Follow up with PCP after evaluation. [email or web address] Not available 01/09/2024 15:28:46 Plan of Treatment Reminders Order Date Submit Date Provider Last Modified By Organization Details Last Modified Time Details Appointments FOLLOW UP 15 2024 01:45P Sandhya Flores APRN Not available Not available Not available Lab None recorded . Referral None recorded . Procedures None recorded . Surgeries None recorded . Imaging None recorded . Medication Orders None recorded . Patient TargetsNo targets recorded. Patient InstructionsNo instructions recorded. Reason for Referral None Reported. Results Created Date Observation Date Name Description Value Unit Range Abnormal Flag Note LastModifiedBy Organization Detail LastModifiedTime 01/15/20 24 01/15/2024 imagi ng/di agnos tic resul t No observ ation record ed. DANIAL [facility] [address], [place], [address], 01/15/2024 16:37:14 01/15/20 24 01/15/2024 imagi ng/di agnos tic resul t No observ ation record ed. [facility] [address], [place], [address], 01/15/2024 16:41:55 01/26/20 24 01/26/2024 imagi ng/di agnos tic resul t No observ ation record ed. [facility] [address], [place], [address], 01/26/2024 14:43:32 02/04/20 24 02/03/2024 imagi ng/di agnos tic resul t No observ ation record ed. [facility] [address], [place], [address], 02/04/2024 08:17:04 02/04/20 24 02/03/2024 imagi ng/di agnos tic resul t No observ ation record ed. [facility] [address], [place], [address], 02/04/2024 08:22:12 02/04/20 24 02/03/2024 imagi ng/di agnos tic resul t No observ ation record ed. [facility] [address], [place], [address], 02/04/2024 08:50:15 02/06/20 24 02/06/2024 imagi ng/di agnos tic resul t No observ ation record ed. [facility] [address], [place], [address], 02/06/2024 09:53:10 02/10/20 24 02/10/2024 XR, chest , 2 view No observ ation record ed. [email or web address] [facility] [address], [place], [address], 02/16/2024 15:13:11 02/10/20 24 02/10/2024 imagi ng/di agnos tic resul t No observ ation record ed. [facility] [address], [place], [address], 02/10/2024 20:57:45 02/16/20 XR, chest , 2 view No observ ation record ed. [address], [place], [address], 02/17/2024 10:14:26 02/17/20 24 02/17/2024 imagi ng/di agnos tic resul t No observ ation record ed. [facility] [address], [place], [address], 02/17/2024 16:25:32 02/17/20 24 02/17/2024 imagi ng/di agnos tic resul t No observ ation record ed. [facility] [address], [place], [address], 02/17/2024 18:24:25 02/17/20 24 02/17/2024 imagi ng/di agnos tic resul t No observ ation record ed. [facility] [address], [place], [address], 02/17/2024 18:25:45 Result Notes None recorded. Problems Name Problem SNOMED Code Status Onset Date Resolution Date Notes Provider Name and Address Organization Details Recorded Time Full thicknes s burn of foot 95574386 Active 2023 JENIFFER LARES NP [address] [facility], [place], [address] , [facility] [email or web address] 15:26:03 Cellulit is of right foot 78480074098 828229 Active 2023 JENIFFER LARES, [employer]EM[employer] [address] [place], [address] , [place] [employer] 4 15:26:18 Cellulit is of left foot 74302910573 310235 Active 2023 JENIFFER LARES, [employer]INTER FOR[employer] [address] [place], [address] , [place] [employer] 4 15:26:28 Pain of bilatera l hands 77935707581 937564 Active 2023 JENIFFER LARES, [employer]INTER FOREM[employer] [address] [place], [address] , [place] [employer] 4 15:31:39 Benign neoplasm of skin of ear 86988083 Completed 201912/17/2021 JAMAL dwyer, [employer] 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 2 13:43:02 Secondar y diabetes mellitus 7075445 Active 2018 Problem Code: E08.65; Problem Code Type: ICD-10; Not Available [facility] 3 08:24:02 Type 2 diabetes mellitus without complica tion 884761521 Active 2021 Not Available [facility] 3 08:24:01 Testicul ar hypofunc tion 598505358 Active 2018 Problem Code: E29.1; Problem Code Type: ICD-10; Not Available [facility] 3 08:24:01 Testicul ar hypofunc tion 507491360 Completed 201701/08/2018 Problem Code: E29.1; Problem Code Type: ICD-10; Not Available [facility] 2 22:40:20 Mixed hyperlip idemia 168249589 Active 2017 Problem Code: E78.2; Problem Code Type: ICD-10; Not Available [facility] 3 08:24:01 Uncontro lled type 2 diabetes mellitus 501728413 Completed 201912/17/2021 [employer] 2 13:43:02 Primary insomnia 6720431 Active 2018 Problem Code: F51.01; Problem Code Type: ICD-10; Not Available [facility] 3 08:24:01 Hypo-osm olality and or hyponatr emia 449283202 Active 2021 Problem Code: E87.1; Problem Code Type: ICD-10; Not Available [facility] 3 08:24:01 Hyperten sive disorder 75557814 Completed 201610/23/2017 Problem Code: I10; Problem Code Type: ICD-10; Not Available [facility] 2 22:40:21 Hyperten sive disorder 01173330 Active 2017 Problem Code: I10; Problem Code Type: ICD-10; Not Available [facility] 3 08:24:01 Acute pharyngi tis 444468531 Completed 201803/27/2020 Not Available [facility] 2 22:40:21 Acute pancreat itis 839646132 Completed 201912/17/2021 Problem Code: K85.90; Problem Code Type: ICD-10; JAMAL dwyer [employer] 2 13:43:02 Large prostate 874614230 Completed 201703/13/2018 Problem Code: N40.0; Problem Code Type: ICD-10; Not Available [facility] 2 22:40:21 Tingling of skin 032198322 Completed 201704/20/2018 Problem Code: R20.2; Problem Code Type: ICD-10; Not Available [facility] 2 22:40:22 Chronic fatigue syndrome 67367195 Active 2020 Problem Code: R53.82; Problem Code Type: ICD-10; Not Available [facility] 3 08:24:02 General examinat ion of patient Completed 202012/17/2021 JAMALDORETHA ABDULLAHI [employer] 2 13:43:02 Screenin g for malignan t neoplasm of colon Completed 201812/17/2021 J[employer]ALDORETHA [employer] 2 13:43:02 Body mass index 30+ - obesity 949814828 Completed 201803/27/2020 Problem Code: Z68.35; Problem Code Type: ICD-10; Not Available [facility] 2 22:40:23 Body mass index 30+ - obesity 713873423 Active 2018 Problem Code: Z68.36; Problem Code Type: ICD-10; Not Available [facility] 3 08:24:01 Body mass index 30+ - obesity 347810419 Completed 201903/27/2020 Problem Code: Z68.37; Problem Code Type: ICD-10; Not Available [facility] 2 22:40:23 Current drug user 310734891 Active 2018 Problem Code: Z79.899; Problem Code Type: ICD-10; Not Available [facility] 3 08:24:01 Body mass index 30+ - obesity 345683355 Completed 201803/27/2020 Problem Code: Z68.36; Problem Code Type: ICD-10; Not Available [facility] 2 22:40:24 Body mass index 30+ - obesity 525310341 Completed 202009/22/2020 Problem Code: Z68.37; Problem Code Type: ICD-10; Not Available [facility] 2 22:40:24 Disorder of nervous system due to type 2 diabetes mellitus 170083375 Completed 201609/22/2020 Not Available [facility] 2 22:40:25 Disorder of anterior pituitar y 50518683 Completed 201709/22/2020 Problem Code: 253.4; Problem Code Type: ICD-9; Not Available [facility] 2 22:40:25 Mixed hyperlip idemia 132017220 Completed 201709/22/2020 Problem Code: 272.2; Problem Code Type: ICD-9; Not Available [facility] 2 22:40:26 Benign essentia l hyperten dixie 2515000 Active 2016 Problem Code: 401.1; Problem Code Type: ICD-9; Not Available [facility] 3 08:24:01 Benign essentia l hyperten dixie 8667020 Completed 201709/22/2020 Problem Code: 401.1; Problem Code Type: ICD-9; Not Available [facility] 2 22:40:26 Benign prostati c hyperpla lexi 382614985 Completed 201709/22/2020 Problem Code: 600.00; Problem Code Type: ICD-9; Not Available [facility] 2 22:40:26 Psoriasi s 9918563 Completed 201609/22/2020 Problem Code: 696.1; Problem Code Type: ICD-9; Not Available [facility] 2 22:40:26 Fracture of cervical spine 091274740 Completed 201712/22/2017 Problem Code: S12.9XXA ; Problem Code Type: ICD-10; Not Available [facility] 2 22:40:27 General examinat ion of patient Completed 201903/27/2020 JAMAL dwyer [employer] 2 13:43:02 Screenin g for malignan t neoplasm of colon Completed 201903/27/2020 JAMAL dwyer [employer] 2 13:43:02 Gastroin testinal tract excision Completed 201912/17/2021 Problem Code: Z90.49; Problem Code Type: ICD-10; JAMAL dwyer [employer] 13:43:02 Uncontro lled type 2 diabetes mellitus 374522088 Completed 201709/22/2020 Problem Code: 250.02; Problem Code Type: ICD-9; JAMALDORETHA dwyer [employer]. 13:43:02 Skin sensatio n disturba ohe 78821831 Completed 201704/20/2018 Problem Code: 782.0; Problem Code Type: ICD-9; Not Available [facility] 22:40:29 Closed fracture of cervical spine 884279744 Completed 201712/22/2017 Problem Code: 805.00; Problem Code Type: ICD-9; Not Available [facility] 22:40:29 Problem Notes None recorded. Procedures Surgical History Date Name Laterality Status Provider Name and Address Organization Details Recorded Time 09/03/19 cholecystectomy completed Not Available [facility] 11/20/2021 22:56:09 procedure on pancreas completed Loli Wang [employer] 07/15/2022 09:47:56 Imaging Results None recorded. Procedure Notes None recorded. Medical Equipment None Reported. Allergies Allergen ID Allergen Name Allergen Category Reaction Reaction Severity Criticality Documentation Date Start Date Code Code System Note Provider Name and Address Organization Details Recorded Time 72687 cephalexi n medicatio n Not available Not available Not available 11/20/20212230 RxNorm Not Available [facility] 22:57:00 Medications Name Sig Start Date Stop [...] e Leila Pen Needle 32 gauge x /32 USE TO INJECT INSULIN 2 TIMES EACH [...] Updated DateTime 4 182.88 cm 34.9 kg/m2 301788. 24 g 76 /min 94 % 94 % 166 mm[Hg] 84 mm[Hg] 154 mm[Hg] 82 mm[Hg] 168 mm[Hg] 82 mm[Hg] Paula Cordero [place] [employer] 4 14:24:29 Social History Question Answer Notes LastModified by Organizat ion Details LastModified Time Tobacco Smoking Status Former Smoker JAMAL ABDULLAHI [employer] [facility] [employer] 12/17/2021 13:44:05 Do You Have An Advance Directive? No Information not available 12/17/2021 Is Your Home Air Conditioned? Yes Information not available 07/15/2022 What Is Your Level Of Alcohol Consumption? None Information not available 07/15/2022 Are You Blind Or Do You Have Difficulty Seeing? No [email or web address] Information not available 12/17/2021 What Is Your Level Of Caffeine Consumption? Moderate Information not available 07/15/2022 Are You A Caregiver? No [email or web address] Information not available 01/07/2023 In The 14 [...] available 07/15/2022 Are You Currently Employed? No [email or web address] Information not available 01/07/2023 Are You Deaf Or Do You Have Serious Difficulty Hearing? No [email or web address] Information not available 12/17/2021 What Type Of Diet Are You Following? REGULAR Information not available 01/09/2024 Have There Been Any Changes To Your Family Or Social Situation? No Information no t available 01/07/2023 When Did You Quit Smoking? 16+yearssinc elastcigaret te [email or web address] Information not available 12/17/2021 Are There Any Guns Present In Your Home? No [email or web address] Information not available 01/07/2023 Do You Have A Medical Power Of Char Filter Operator Helper? No Information not available 12/17/2021 What Was The Date Of Your Most Recent Tobacco Screening? 02/16/2024 Information not available 02/16/2024 What Is Your Current Pack Years? 10-natan montelongo [email or web address] Information not available 12/17/2021 What Is Your Relationship Status? Information not available 12/17/2021 Do You Use Your Seat Belt Or Car Seat Routinely? Yes Part Of The Time. Information not available 07/15/2022 Are You Sexually Active? No Information not available 01/09/2024 Do You Have Smoke And Carbon Monoxide Detectors In Your Home? Yes Information not available 07/15/2022 Are You Passively Exposed To Smoke? No [email or web address] Information no t available 01/07/2023 Are There Any Smokers In Your House? No [email or web address] Information not available 01/07/2023 How Much Tobacco Do You Smoke? No Information not available 01/20/2024 Do You Participate In Social [employer]? Yes [email or web address] Information not available 01/09/2024 Do You Feel Stressed (tense, Restless, Nervous, Or Anxious, Or Unable To Sleep At Night)? [id number] Information not available 01/09/2024 Do You Use Any Illicit Or Recreational Drugs? No [email or web address] Information not available 01/07/2023 Do You Use Sunscreen Routinely? Yes [email or web address] Information not available 01/07/2023 Has Tobacco Cessation Counseling Been Provided? Yes Information not available 07/22/2022 On What Date Was Tobacco Cessation Counseling Provided? 02/16/2024 Information not available 02/16/2024 Have You Recently Traveled Abroad? No Information not available 07/15/2022 Are You Currently In School? No [email or web address] Information not available 01/07/2023 Do You Have Any Dietary Restrictions? No [email or web address] Information not available 01/09/2024 Do You Or Have You Ever Used Any Other Forms Of Tobacco Or Nicotine? No Information not available 07/22/2022 Sex: Unknown Functional Status Question Answer Note LastModified by Organizat ion Details LastModified Time Do you have difficulty walking or climbing stairs? No [email or web address] Information not available 12/17/2021 Do you have transportation difficulties? No [email or web address] Information not available 12/17/2021 Are you able to walk? YESWOREST [email or web address] Information not available 12/17/2021 Do you have difficulty doing errands alone? No Information not available 12/17/2021 Are you able to care for yourself? Yes [email or web address] Information not available 12/17/2021 Do you have difficulty dressing or bathing? No [email or web address] Information not available 12/17/2021 Mental Status Question Answer Note LastModified by Organization D etails LastModified Time Do you have difficulty concentrating, remembering or making decisions? No [email or web address] Information no t available 12/17/2021 Family History Relationship Description Onset Age of this Age Resolved Age Notes LastModified by Organization Details LastModified Time Unspecified Relation Family history of malignant neoplasm [email or web address] Not available 12/17 13:43:14 Unspecified Relation Family history of Hypertension [email or web address] Not available 13:43:20 Unspecified Relation Family history of breast cancer [email or web address] Not available 12/17 13:43:26 Medical History Condition Response Diabetes Y Hospitalizations N Emergency room visit since last appointm ent. N Hypertension Y Immunizations Vaccine Type Date Status Provider Name and Address Organization Details Recorded Time zoster recombinant 07/10/2023 cancelled Taina Flores APRN [address] [place], [address], [employer] 07/10/2023 18:10:09 Pneumococcal conjugate PCV 13 07/10/2023 cancelled Taina Flores APRN [address] [place], [address], [employer] 07/10/2023 18:10:09 COVID-19, mRNA, LNP-S, PF, emilia-sucrose, 30 mcg/0.3 mL 01/20/2024 cancelled Loli dwyer [employer] 01/20/2024 17:25:01 Influenza, high-dose, quadrivalent, PF 01/20/2024 cancelled Loli dwyer [employer] 01/20/2024 17:25:01 Past Encounters Encounter ID Performer Location Encounter Start Date Encounter Closed Date Diagnosis/Indication Diagnosis SNOMED-CT Code Diagnosis ICD10 Code [id number] JENIFFER ARNAUDCLAUDIA [address] [address] 01/09/2024 14:01:21 01/09/2024 15:07:51 Full thickness burn of foot 42281422 T25.321A T25.322A Cellulitis of right foot 6983793908 7328462 L03.115 Cellulitis of left foot 0068735350 9958443 L03.116 Hypertensive disorder 38 385101 I10 Mononeurop athy due to type 2 diabetes mellitus 456879696 E11.41 Pain of bi lateral hands 6187361940 0438813 M79.641 M79.642 Goals Section Goal Description Status Start Date LastModified by Organization Details LastModified Time Medication Regimen Follows medication regimen as per care team recommendation( s) Goal not achieved Lavinia James Information not available 06/24/2023 15:59:48 Lipid Levels Maintains normal lipid levels as defined by care team Goal not achieved Michael James Information not available 06/24/2023 15:59:48 Hemoglobin A1C Lowers or maintains hemoglobin A1C (HbA1c) as per care team recommendation( s) [TARGET: less than or equal to 7%] Goal not achieved 024 Lavinia James Information not available 06/24/2023 15:59:48 Blood Pressure Maintains blood pressure goal as defined by care team Goal not achieved 024 Lavinia James Information not available 06/24/2023 15:59:48 Follow-up [...] glucose within target range Goal not achieved Michael James Information not available 06/24/2023 15:59:48 Health [...] Active Lavinia James Not Available 06/24/2023 15:51:44 Payers Encounter Date Sequence Insurance Name Policy Number Policy Castellano Covered Member ID Castellano Member ID Guarantor Name 01/09/2024 1 [employer] CLAIM[employer] OFFICE Stephen Gabriel Carroll [id number] Stephen Hodges Notes Date Note Type Note Provider Name and Address Organization Details Recorded Time 01/09/2024 text/html Patient presents for evaluation of [...] is elevated today above his baseline. JENIFFER LARES NP [address] [facility], [place], [address], [facility] [email or web address] 01/09/2024 15:31:54
--- NOTE | 2024-02-18 12:19 | EXP.ANES.CKL ---
[facility] Disclaimer: The information contained in this section may have been updated after the patient was seen, as this information can be updated by other users. Medical History (Updated 02/18/24 @ 10:46 by Manpreet Bird MD) Pulmonary emphysema History of smoking 30 or more pack years Allergic rhinitis Family history of asthma History of COPD Stopped smoking with greater than 30 pack year history Eosinophilia Dyspnea on exertion Surgical History History of pancreatic surgery History of cholecystectomy Family History Other Asthma COPD (chronic obstructive pulmonary disease) Diabetes Emphysema of lung Hypertension Social History Smoking Status: Never smoker smoking status stop date: 1994 alcohol intake: never substance use type: denies use current occupational status: retired Travel in the last 8 weeks: None [facility] Anesthesia Checklist Patient Identification Patient Identification: Arm Band Structural Data Admitted From: Inpatient Planned Operative Procedure/s: Left foot wound debridement/amputation, Right foot wound debridement Consent for Planned Operative Procedure(s) Verified: Yes Verified Documents: Surgical Consent and History and Physical NPO Status Verified Time NPO: 00:00 Additional verifications Anesthesia Reactions: No Airway Assessment Mallampati Score:: Class II C-Spine Mobility Assessed: Yes TMJ Mobility Assessed: Yes Dentition: Edentulous Neurological Assessment Level of Consciousness: Awake, Alert and Appropriate Anesthesia Plan Anesthesia Risk discussed: Yes Anesthesia Plan: Verified ASA Class: II Anesthesia Type: General
[2024-02-18] MEDS: CLINDAMYCIN PHOSPHATE/D5W 900 MG/50 ML PIGGYBACK 100 MG IV (14:07)
[2024-02-18 14:08] LABS: POC Glucose,Bedside 71 (70-110)
--- NOTE | 2024-02-18 14:17 | XR_ITS ---
FINAL REPORT CLINICAL HISTORY: L Hallux amp COMPARISON: 02/17/2024 FINDINGS: Left foot Three views were obtained. There is no fracture or dislocation. Patient is status post amputation of the great toe at the level of the metatarsal phalangeal joint. Small calcaneal spurs are identified. There are mild degenerative changes. IMPRESSION: Status post amputation of the great toe. Reviewed, Interpreted and Dictated by Scott Clemons III, MD Transcribed by Cathy Chow Authenticated and . [facility]
--- NOTE | 2024-02-18 14:17 | EXP.ANES.I ---
[facility] Anesthesia Record Part I Anesthesia Record I Intake, IV Amount: 850 Hydration: Adequate Estimated blood loss (mL): 15 Urine output (mL): 0 Blood Products used (#): none Blood Pressure: 104/63 SaO2: 95 Pulse Rate: 83 Airway Patency: Patent Respiratory Rate: 12 Temperature: 97.3 F Patient is:: Stable Stable to PACU at:: 13:57 Comments:: Blood glucose 71,
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
[2024-02-18 15:13] LABS: POC Glucose,Bedside 133 (70-110)
[2024-02-18 16:47] LABS: POC Glucose,Bedside 195 (70-110)
--- NOTE | 2024-02-18 17:20 | PC.NURSE ---
pt resting supine in bed. RA. VSS. amputation to left great toe and debridement of right great toe today. pt tolerated well. feet wrapped in yocasta wrap and gauze that was placed post-surgery. to be redressed by podiatry tomorrow morning. no complaints of pain. call light within reach.
[2024-02-18] MEDS: ATORVASTATIN 40MG TABLET 40 MG PO (20:17)
[2024-02-18] MEDS: AMITRIPTYLINE 50MG TABLET 50 MG PO (20:17)
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
[2024-02-19] VITALS: BP 122/61; PULSE 103; RESP 20; TEMP 36.8; O2SAT 95
[2024-02-19] MEDS: KETOROLAC 30MG/ML VIAL 30 MG IV (00:25)
[2024-02-19 04:00] VITALS: BP 110/47; PULSE 93; RESP 16; TEMP 36.7; O2SAT 95; BMI 33.7
[2024-02-19] MEDS: CEFEPIME HCL 2 GM in 0.9 % SODIUM CHLORIDE 100 ML IV (05:20)
[2024-02-19 05:29] LABS: POC Glucose,Bedside 179 (70-110)
[2024-02-19 06:50] LABS: Basophils % 0.3 % (0.1-2.0); Eosinophils # 0.1 K/mm3 (0.0-0.4); Eosinophils % 0.5 % (0.1-12.0); Hematocrit 35.9 % (42.0-52.0); Hemoglobin 12.3 g/dL (14.1-18.0); Lymphocytes # 1.8 K/mm3 (0.7-4.5); Lymphocytes % 18.1 % (10-50); Mean Corpuscular HGB Conc 34.2 g/dL (31.8-35.4); Mean Corpuscular Hemoglobin 31.7 pg (27.0-31.2); Mean Corpuscular Volume 92.7 fl (80-94); Mean Platelet Volume 7.6 fl (7.4-10.4); Monocytes # 0.6 K/mm3 (0.1-1.0); Monocytes % 5.9 % (1.7-9.3); Neutrophils # 7.6 K/mm3 (1.8-7.8); Neutrophils % 75.2 % (37.0-80.0); Platelet Count 166 K/mm3 (142-424); Red Blood Count 3.87 M/mm3 (4.60-6.20); Red Cell Distribution Width 14.2 % (11.5-17.5); White Blood Count 10.2 K/mm3 (4.8-10.8)
[2024-02-19 06:51] LABS: Albumin Level 3.5 g/dl (3.5-5.0); Chloride 104 mmol/L (98-107); Sodium 136 mmol/L (136-145)
[2024-02-19 06:52] LABS: Potassium 4.6 mmoL/L (3.5-5.1)
[2024-02-19 06:54] LABS: Alanine Aminotransferase 31 U/L (12-78); Albumin/Globulin Ratio 1.2 (1.1-1.8); Alkaline Phosphatase 73 U/L (38-126); Anion Gap 11.6 mEq/L (5-15); Aspartate Amino Transferase 34 U/L (17-59); Bilirubin,Total 0.4 mg/dl (0.2-1.3); Blood Urea Nitrogen 27 mg/dl (9-20); Calcium 8.4 mg/dl (8.4-10.2); Carbon Dioxide 25 mmol/L (22.0-30.0); Creatinine Clearance Estimated 92 mL/min (50-200); Estimated Glomerular Filt Rate 60 ml/min (>60); GFR (African American) 72 ML/MIN (>60); Glucose 177 mg/dl (74-100); Total Protein,Serum 6.5 g/dl (6.3-8.2)
--- NOTE | 2024-02-19 06:54 | EXP.ORTH.PN ---
Subjective *Date: 02/19/24 *Time: 09:20 Interval history: Patient resting comfortably in bed. Reports tingling throbbing pain to the left great toe amp site. Denies nausea vomiting, fever/chills, shortness of breath/chest pain. Ready to go home. Ortho Exam (Inpt) Vital signs and Labs for Last 24 Hours: Temp Pulse Resp BP Pulse Ox O2 Del Method 98.1 F 93 H 16 110/47 L 95 Room Air 02/19/24 04:00 02/19/24 04:00 02/19/24 04:00 02/19/24 04:00 02/19/24 04:00 02/19/24 05:00 Laboratory Results - last 24 hr 02/18/24 05:38: ESR 30 H, C-Reactive Protein 3.3 02/18/24 10:49: POC Glucose 95 02/18/24 14:01: POC Glucose 71 02/18/24 15:04: POC Glucose 133 H 02/18/24 16:38: POC Glucose 195 H 02/19/24 05:19: POC Glucose 179 H I & O for Labs for Last 24 Hours: Intake & Output 02/16/24 02/17/24 02/18/24 02/19/24 23:59 23:59 23:59 23:59 Intake Total 400 / 400 1640 / 1640 240 / 240 Output Total 0 / 0 0 / 0 0 / 0 Balance 400 / 400 1640 / 1640 240 / 240 Weight 249 lb 15.997 oz 251 lb 249 lb 9.6 oz Microbiology Reports for the Last 24 Hours: Microbiology 02/18/24 13:30 Foot,Left Gram Stain - Final 02/18/24 13:30 Foot,Left Bone Culture - Preliminary 02/17/24 17:18 Blood Blood Culture - Preliminary NO GROWTH AFTER 24 HOURS 02/17/24 14:30 Blood Blood Culture - Preliminary NO GROWTH AFTER 24 HOURS Constitutional: Present no acute distress and cooperative Head: Present normocephalic Eyes: Present as per HPI Neck: Present trachea midline Respiratory: Present normal respiratory effort and able to speak in complete sentences Cardiac: Present posterior tibial pulses present and pedal pulses present Comments:: deferred Rectal (male): Present deferred (male): Present deferred Extremities: Present tenderness (s/p Left hallux amputation, ulcer excision, right hallux wound debridement) and normal capillary refill; Absent calf tenderness Skin: Present normal turgor and wounds Comment:: Left hallux s/p amputation with sutures clean dry and intact. Mild bleeding but no purulence or drainage. Right hallux diabetic foot ulcer noted to the medial distal great toe. Wound full-thickness through skin into subcutaneous tissue. No exposed deep fascia or bone. Wound base 90% granular, 10% fibrotic yellow tissue. Wound measured 2.8 x 1.9 x 0.2 cm. Neuro: Present Grossly Intact, oriented x 3, tone normal and moves all extremities Ankle: bilateral: normal inspection Feet/Toes: left: wound (S/p left hallux amputation/ulcer excision, right hallux ulcer debridement) and bilateral: nail abnormalities (Thickened, discolored nails) and bilateral: Ingrown Toenail (Incurvated nail) Assessment and Plan *Assessment and plan (1) Ulcer of left great toe due to diabetes mellitus: Status: Acute Category: Medical Code(s): E11.621 - Type 2 diabetes mellitus with foot ulcer; L97.529 - Non-pressure chronic ulcer of other part of left foot with unspecified severity (2) Diabetes mellitus with diabetic neuropathy: Status: Acute Qualifiers: Diabetes mellitus ferry terminal agent insulin use: with [facility] use Diabetes mellitus type: type 2 Qualified Code(s): E11.40 - Type 2 diabetes mellitus with diabetic neuropathy, unspecified; Z79.4 - intermodal customer service (current) use of insulin Category: Medical Code(s): E11.40 - Type 2 diabetes mellitus with diabetic neuropathy, unspecified (3) Ulcer of right great toe due to diabetes mellitus: Status: Acute Category: Medical Code(s): E11.621 - Type 2 diabetes mellitus with foot ulcer; L97.519 - Non-pressure chronic ulcer of other part of right foot with unspecified severity (4) Left hallux osteomyelitis: Status: Acute Category: Medical Code(s): M86.9 - Osteomyelitis, unspecified (5) Cellulitis of left foot: Status: Acute Category: Medical Code(s): L03.116 - Cellulitis of left lower limb (6) Bronchiectasis: Status: Acute Qualifiers: Bronchiectasis type: with acute lower respiratory infection Qualified Code(s): J47.0 - Bronchiectasis with acute lower respiratory infection Category: Medical Code(s): J47.9 - Bronchiectasis, uncomplicated (7) Class 1 obesity: Status: Acute Category: Medical Code(s): E66.811 - Obesity, class 1 Plan Surgery, 02/18/24: left hallux amp, right hallux wound debridement Intraop Specimens: Pending Left distal phalanx bone culture Left proximal phalanx bone culture Path: Left distal phalanx bone, proximal phalanx bone 02/19/24, labs: wbc 10.2, esr 38, crp 3.2, cr 1.2, gfr 60, glucose 177, albumin 3.5 02/19/24, POD #1 Skin/wound cleansed. New betadine soaked gauze, dry gauze, marti, yocasta applied. Dispense remaining supplies to patient. Daily dressing changes at home (daughter): betadine to wound/sutures, dry gauze, marti, secure with tape or yocasta. Discharge/Plan: Patient is to maintain dressing clean dry and intact. Partial weight bearing to the left lower extremity fracture boot with DME assistance (walker). Plan to continue IV Vanco, Cefepime while admitted. Clinic Pharmacy meds to bed: oral abx: Zyvox 600mg BID, Levo 750mg qd x7d (02/19-03/01/24). eRx Oxy 5mg, gabapentin 100mg x7d. Follow up in one week. Stand from Podiatry stand point for discharge home today.
[2024-02-19 07:01] LABS: C-Reactive Protein 3.2 mg/L (0-4)
[2024-02-19 07:46] LABS: Erythrocyte Sedimentation Rate 38 mm/hr (0-20)
[2024-02-19 08:00] VITALS: BP 121/46; PULSE 91; RESP 19; TEMP 36.6; O2SAT 95
[2024-02-19] MEDS: LISINOPRIL 5MG TABLET 5 MG PO (08:53)
[2024-02-19] MEDS: ATENOLOL 25MG TABLET 25 MG PO (08:53)
[2024-02-19] MEDS: NYSTATIN SUSP 500,000 UNITS/5ML UDC 500000 UNIT PO ×2 (08:53→12:06)
[2024-02-19] MEDS: GABAPENTIN 600MG TABLET 600 MG PO ×2 (08:53→12:06)
[2024-02-19] MEDS: METFORMIN 500MG TABLET 1000 MG PO (08:53)
[2024-02-19 09:04] LABS: Magnesium 1.9 mg/dl (1.6-2.3)
--- NOTE | 2024-02-19 09:39 | P.PN_ITS ---
Subjective *Date: 02/19/24 *Time: 10:07 Interval history: Denies any new respiratory complaints. Continue to remain on room air. Pulmonology Exam Inpatient Vital signs and Labs for Last 24 Hours: Temp Pulse Resp BP Pulse Ox O2 Del Method 97.9 F 91 H 19 121/46 L 95 Room Air 02/19/24 08:00 02/19/24 08:00 02/19/24 08:00 02/19/24 08:00 02/19/24 08:00 02/19/24 09:00 Laboratory Results - last 24 hr 02/18/24 10:49: POC Glucose 95 02/18/24 14:01: POC Glucose 71 02/18/24 15:04: POC Glucose 133 H 02/18/24 16:38: POC Glucose 195 H 02/19/24 05:19: POC Glucose 179 H 02/19/24 05:36: WBC 10.2 D, RBC 3.87 L, Hgb 12.3 L, Hct 35.9 L, MCV 92.7, MCH 31.7 H, MCHC 34.2, RDW 14.2, Plt Count 166, MPV 7.6, Neut % (Auto) 75.2, Lymph % (Auto) 18.1, [place] % (Auto) 5.9, Eos % (Auto) 0.5, Baso % (Auto) 0.3, Neut # (Auto) 7.6, Lymph # (Auto) 1.8, [place] # (Auto) 0.6, Eos # (Auto) 0.1, Baso # (Auto) 0.0, ESR 38 H, Sodium 136, Potassium 4.6, Chloride 104, Carbon Dioxide 25, Anion Gap 11.6, BUN 27 H D, Creatinine 1.20, Estimated Creat Clear 92, Estimated GFR 60, Est GFR ( Amer) 72, Glucose 177 H D, Calcium 8.4, Magnesium 2.0 D, Total Bilirubin 0.4, AST 34, ALT 31, Alkaline Phosphatase 73, C-Reactive Protein 3.2, Total Protein 6.5, Albumin 3.5, Globulin 3.0, Albumin/Globulin Ratio 1.2 Temp Pulse Resp BP Pulse Ox O2 Del Method 98.1 F 81 16 128/68 97 Room Air 02/18/24 08:00 02/18/24 08:00 02/18/24 08:00 02/18/24 08:00 02/18/24 08:00 02/18/24 09:00 Laboratory Results - last 24 hr 02/17/24 14:30: WBC 9.9, RBC 5.02, Hgb 15.5, Hct 46.3, MCV 92.3, MCH 30.8, MCHC 33.4, RDW 14.0, Plt Count 188, MPV 7.4, Neut % (Auto) 50.6, Lymph % (Auto) 35.0, [place] % (Auto) 5.2, Eos % (Auto) 7.7, Baso % (Auto) 1.4, Neut # (Auto) 5.0, Lymph # (Auto) 3.5, [place] # (Auto) 0.5, Eos # (Auto) 0.8 H, Baso # (Auto) 0.1, PT 10.9, INR 0.97, APTT 25.6, Sodium 138, Potassium 4.6, Chloride 101, Carbon Dioxide 32 H, Anion Gap 9.6, BUN 18, Creatinine 1.10, Estimated Creat Clear 100, Estimated GFR 66, Est GFR ( Amer) 80, Glucose 93, Calcium 9.6, Magnesium 1.6, Total Bilirubin 0.5, AST 42, ALT 32, Alkaline Phosphatase 94, Troponin I < 0.01, NT-Pro-B Natriuret Pep 36.4, Total Protein 9.1 H, Albumin 4.8, Globulin 4.3 H, Albumin/Globulin Ratio 1.1, Procalcitonin 0.080 02/17/24 14:58: VBG pH 7.35, VBG pCO2 48.1, VBG pO2 54.8 H, VBG HCO3 25.9, VBG Total CO2 27.4 H, VBG O2 Saturation 87.9 H, VBG Base Excess 0.3, VBG Lactic Acid 1.8 02/17/24 18:29: Troponin I < 0.01 02/17/24 20:42: POC Glucose 146 H 02/17/24 21:22: Troponin I < 0.01 02/18/24 05:38: WBC 7.7, RBC 4.17 L, Hgb 13.4 L D, Hct 38.4 L, MCV 92.1, MCH 31.8 H, MCHC 34.5, RDW 14.2, Plt Count 156, MPV 7.4, Neut % (Auto) 47.8, Lymph % (Auto) 36.3, [place] % (Auto) 6.0, Eos % (Auto) 9.0, Baso % (Auto) 1.0, Neut # (Auto) 3.7, Lymph # (Auto) 2.8, [place] # (Auto) 0.5, Eos # (Auto) 0.7 H, Baso # (Auto) 0.1, ESR 30 H, Sodium 138, Potassium 4.1, Chloride 106, Carbon Dioxide 29, Anion Gap 7.1, BUN 19, Creatinine 1.00, Estimated Creat Clear 111, Estimated GFR 74, Est GFR ( Amer) 89, Glucose 70 L D, Calcium 8.7, Magnesium 1.6, Total Bilirubin 0.4, AST 40, ALT 27, Alkaline Phosphatase 81, C-Reactive Protein 3.3, Total Protein 7.0, Albumin 3.7 D, Globulin 3.3 H, Albumin/Globulin Ratio 1.1 02/18/24 06:09: POC Glucose 79 I & O for Labs for Last 24 Hours: Intake & Output 02/16/24 02/17/24 02/18/24 02/19/24 23:59 23:59 23:59 23:59 Intake Total 400 / 1140 1640 / 1880 240 / 240 Output Total 0 / 0 0 / 0 0 / 0 Balance 400 / 1140 1640 / 1880 240 / 240 Weight 249 lb 15.997 oz 251 lb 249 lb 9.6 oz Intake & Output 02/15/24 02/16/24 02/17/24 02/18/24 23:59 23:59 23:59 23:59 Intake Total 400 / 1140 790 / 790 Output Total 0 / 0 Balance 400 / 1140 790 / 790 Weight 249 lb 15.997 oz 251 lb Microbiology Reports for the Last 24 Hours: Microbiology 02/18/24 13:30 Foot,Left Gram Stain - Final 02/18/24 13:30 Foot,Left Surgical Biopsy Culture - Preliminary 02/18/24 13:30 Foot,Left Bone Culture - Preliminary 02/17/24 17:18 Blood Blood Culture - Preliminary NO GROWTH AFTER 24 HOURS 02/17/24 14:30 Blood Blood Culture - Preliminary NO GROWTH AFTER 24 HOURS Constitutional: Present mild distress Head: Present normocephalic and atraumatic ENT: Present normal exam, normal oropharynx and mucous membranes moist Neck: Present normal inspection and full ROM Respiratory: Present normal respiratory effort and able to speak in complete sentences; Absent prolonged expiratory phase, respiratory distress, wheezes or diminished air movement Cardiac: Present S1/S2, Tachycardia and radial pulses present GI: Present soft and distention; Absent tenderness or guarding Skin: Present intact; Absent cyanosis or jaundice Neuro: Present alert, awake and oriented x 3 Extremities: Present normal inspection; Absent clubbing or cyanosis Psychiatric: Present normal affect and cooperative Assessment and Plan *Assessment and plan (1) History of smoking 30 or more pack years: Status: Acute Category: Social Hx Code(s): Z87.891 - Personal history of nicotine dependence (2) Pulmonary emphysema: Status: Acute Category: Medical Code(s): J43.9 - Emphysema, unspecified (3) Dyspnea on exertion: Status: Acute Category: Medical Code(s): R06.09 - Other forms of dyspnea Plan Mr. Hodges is a 76-year-old male greater than [id number] smoking/smoked around 1999 with reported history of diabetes COPD hypertension foot osteomyelitis managed as an outpatient basis with debridements presented to ER with questionable worsening respiratory distress and pneumonia and pulmonary was called for further evaluation and management. Patient denies minimal respiratory symptoms at baseline but using albuterol inhaler on as-needed basis, needing around 2-3 times per month. No recent exacerbations needing antibiotics or steroids. Afebrile. Hemodynamically stable. No evidence of leukocytosis. Chest CT chest upon admission no dense airspace disease/consolidative changes noted. Bilateral subpleural interstitial changes with minimal lower lobe predominantly bronchiectasis noted, likely from traction. Upper lobe emphysematous changes noted. On initial examination patient does not appear to be in any respiratory distress. On room air saturating 95% and above. Interval update: Status post debridement and ulcer excision. No acute respiratory events. Continue to remain on room air. Plan: -Albuterol/DuoNebs 4 times daily as needed -Follow as an outpatient basis with a full PFT and walk test No need for antibiotics or steroids from pulmonary standpoint for presumed pneumonia. Thank you for involving pulmonary in this patient care. Will follow the patient in pulmonary clinic 4 to 6 weeks with a full PFT and walk testing prior to clinic visit
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
--- NOTE | 2024-02-19 10:25 | SW/DCPLANNER ---
I spoke w/ this patient regarding plans once medically stable for discharge. PT/OT evaluated patient and recommended returning home w/ home health services. I discussed home health services w/ patient this AM. Patient expressed that he is not interested in services and will not be homebound. Patient stated that he also has appropriate DME at home including a walker and cane. I will continue to follow up w/ this patient to assist w/ any new needs/orders. Per patient he is expected to discharge home this afternoon.
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
[2024-02-19 12:00] VITALS: BP 124/58; PULSE 86; RESP 19; TEMP 36.4; O2SAT 96
--- NOTE | 2024-02-19 12:59 | P.PNANES_ITS ---
[facility] Anesthesia Record Part II Anesthesia Record Part II Discharge Time: 14:28 Destination: Surgical Day Care (OP Surgery) PACU nurse assessment reviewed?: Yes Patient Condition:: Good Anesthesia Complications:: None Swallowing reflex intact?: Yes Airway Patency: Patent Cyanosis?: No Blood Pressure: 123/67 SaO2: 96 Respiratory Rate: 16 Pulse Rate: 86 Temperature: 97 F Mental Status: Alert & Oriented Pain level:: 0 Nausea and/or vomitting:: None Intake, IV Amount: 0 Hydration: Adequate
[2024-02-19 13:01] VITALS: BP 123/67; PULSE 86; RESP 16; TEMP 36.1; O2SAT 96
--- NOTE | 2024-02-20 10:14 | SW/DCPLANNER ---
Spoke with patients daughter. Stated that things are going well and they are aware of his upcoming appointments. Patient's daughter stated they have no concerns or questions at this time. Oren [employer]
== END 2024-02-19 13:09 | disposition home or self-care (01) ==
LOC: ER 16:59 → 2ND 17:42
PROVIDERS: Podiatrist; Admitting Provider Student in an Organized Health Care Education/Training Program; Emergency Provider Emergency Medicine; PCP Nurse Practitioner; Visit Provider Student in an Organized Health Care Education/Training Program
PROC: (CPT 11042; principal; 2024-02-18 12:00)
DX: L97.526 Non-pressure chronic ulcer of other part of left foot with bone involvement without evidence of necrosis (principal); L97.511 Non-pressure chronic ulcer of other part of right foot limited to breakdown of skin; E11.621 Type 2 diabetes mellitus with foot ulcer; E11.40 Type 2 diabetes mellitus with diabetic neuropathy, unspecified; Z79.4 Long term (current) use of insulin; M86.9 Osteomyelitis, unspecified; L03.116 Cellulitis of left lower limb; J47.0 Bronchiectasis with acute lower respiratory infection; E66.811 Obesity, class 1; Z87.891 Personal history of nicotine dependence; J43.9 Emphysema, unspecified; R06.09 Other forms of dyspnea; Z68.33 Body mass index [BMI] 33.0-33.9, adult; E11.69 Type 2 diabetes mellitus with other specified complication; J44.9 Chronic obstructive pulmonary disease, unspecified; Z79.899 Other long term (current) drug therapy; Z79.84 Long term (current) use of oral hypoglycemic drugs
CPT/HCPCS: 11042; 28810; 36415; 71250; 73630; 80053; 82803; 82962; 83735; 83880; 84145; 84484; 85025; 85610; 85651; 85730; 86140; 87040; 87070; 87077; 87106; 87205; 88304; 88305; 88311; 97162; 99285; G0378; J0736; J1100; J1650; J1885; J2250; J2405; J3010; J3370; J3475

== ENCOUNTER 2024-03-15 09:05 | Outpatient (CLI) | payer MEDICARE, SELFPAY | END 2024-03-15 23:59 | disposition home or self-care (01) | LOC: LAB.DROPOF 03-16 09:05 | PROVIDERS: PCP Nurse Practitioner; Visit Provider Nurse Practitioner | DX: E11.621 Type 2 diabetes mellitus with foot ulcer (principal); L97.529 Non-pressure chronic ulcer of other part of left foot with unspecified severity; B95.7 Other staphylococcus as the cause of diseases classified elsewhere; Z79.84 Long term (current) use of oral hypoglycemic drugs; Z79.85 Long-term (current) use of injectable non-insulin antidiabetic drugs | CPT/HCPCS: 87070; 87077; 87186; 87205 ==

== ENCOUNTER 2024-04-08 09:15 | Outpatient (CLI) | payer MEDICARE, SELFPAY | END 2024-04-08 23:59 | disposition home or self-care (01) | LOC: LAB.DROPOF 04-09 10:40 | PROVIDERS: PCP Podiatrist; Visit Provider Podiatrist | DX: E11.621 Type 2 diabetes mellitus with foot ulcer (principal); L97.529 Non-pressure chronic ulcer of other part of left foot with unspecified severity; L03.116 Cellulitis of left lower limb | CPT/HCPCS: 87070; 87077; 87205 ==

== ENCOUNTER 2024-04-15 10:18 | Outpatient (CLI) | payer MEDICARE, SELFPAY ==
--- NOTE | 2024-04-15 10:27 | XR_ITS ---
FINAL REPORT CLINICAL HISTORY: Left foot DFU COMPARISON: 02/18/2024 FINDINGS: Left foot Three views were obtained. There is no fracture or dislocation. There has been amputation of the first digit. Small plantar spur is identified. There are moderate hypertrophic changes of the mortise. IMPRESSION: Degenerative and postsurgical changes as above. Reviewed, Interpreted and Dictated by Leon Solomon MD Transcribed by Cathy Chow Authenticated and [facility]
[2024-04-15 10:46] LABS: Basophils # 0.1 K/mm3 (0-0.2); Eosinophils # 0.5 K/mm3 (0.0-0.4); Eosinophils % 6.1 % (0.1-12.0); Hematocrit 42.2 % (42.0-52.0); Hemoglobin 14.1 g/dL (14.1-18.0); Lymphocytes # 2.5 K/mm3 (0.7-4.5); Lymphocytes % 29.4 % (10-50); Mean Corpuscular HGB Conc 33.4 g/dL (31.8-35.4); Mean Corpuscular Hemoglobin 30.5 pg (27.0-31.2); Mean Corpuscular Volume 91.1 fl (80-94); Mean Platelet Volume 9.4 fl (7.4-10.4); Monocytes # 0.6 K/mm3 (0.1-1.0); Monocytes % 7.3 % (1.7-9.3); Neutrophils # 4.7 K/mm3 (1.8-7.8); Platelet Count 251 K/mm3 (142-424); Red Blood Count 4.63 M/mm3 (4.60-6.20); Red Cell Distribution Width 13.9 % (11.5-17.5); White Blood Count 8.4 K/mm3 (4.8-10.8)
[2024-04-15 11:35] LABS: Chloride 101 mmol/L (98-107); Potassium 4.7 mmoL/L (3.5-5.1); Sodium 138 mmol/L (136-145)
[2024-04-15 11:37] LABS: Blood Urea Nitrogen 15 mg/dl (9-20); Estimated Glomerular Filt Rate 96 ml/min (>60); GFR (African American) 116 ML/MIN (>60)
[2024-04-15 11:38] LABS: Alanine Aminotransferase 22 U/L (12-78); Alkaline Phosphatase 103 U/L (38-126); Aspartate Amino Transferase 31 U/L (17-59); Bilirubin,Total 0.6 mg/dl (0.2-1.3); Calcium 9.5 mg/dl (8.4-10.2); Glucose 148 mg/dl (74-100); Total Protein,Serum 7.5 g/dl (6.3-8.2)
[2024-04-15 11:43] LABS: C-Reactive Protein 13.7 mg/L (0-4)
[2024-04-15 12:02] LABS: Hemoglobin A1C 7.8 % (4.0-6.0)
[2024-04-15 12:25] LABS: Erythrocyte Sedimentation Rate 40 mm/hr (0-20)
[2024-04-15 13:38] LABS: Albumin Level 4.2 g/dl (3.5-5.0); Albumin/Globulin Ratio 1.3 (1.1-1.8); Globulin 3.3 g/dL (1.3-3.2)
[2024-04-15 13:52] LABS: Anion Gap 12.7 mEq/L (5-15); Carbon Dioxide 29 mmol/L (22.0-30.0)
== END 2024-04-15 23:59 | disposition home or self-care (01) ==
LOC: LAB 13:07
PROVIDERS: PCP Nurse Practitioner; Visit Provider Podiatrist
DX: E11.621 Type 2 diabetes mellitus with foot ulcer (principal); L97.529 Non-pressure chronic ulcer of other part of left foot with unspecified severity; M79.672 Pain in left foot; L03.116 Cellulitis of left lower limb
CPT/HCPCS: 36415; 73630; 80053; 83036; 85025; 85651; 86140; 87070; 87205

== ENCOUNTER 2024-04-19 13:32 | Outpatient (CLI) | payer MEDICARE, SELFPAY ==
--- NOTE | 2024-04-19 13:36 | US_ITS ---
FINAL REPORT CLINICAL HISTORY: NON-HEALING WOUNDS BILATERAL FEET,DM,HTN,HLD,PRIOR GREAT TOE AMPUTATION LT FOOT COMPARISON: 01/26/2024 FINDINGS: ANKLE-BRACHIAL PRESSURE INDICES Pressure indices are as follows: RIGHT LOWER EXTREMITY: Ankle-brachial pressure index: 1.03 Comments: Normal LEFT LOWER EXTREMITY: Ankle-brachial pressure index: 1.04 Comments: Normal CONCLUSION: No evidence of significant obstructive peripheral vascular disease of the lower extremities Reviewed, Interpreted and Dictated by Leon Solomon MD Transcribed by Emily Sarmiento Authenticated and . [facility]
== END 2024-04-19 23:59 | disposition home or self-care (01) ==
LOC: RT 13:33
PROVIDERS: PCP Nurse Practitioner; Visit Provider Podiatrist
DX: R09.89 Other specified symptoms and signs involving the circulatory and respiratory systems (principal)
CPT/HCPCS: 93923

== ENCOUNTER 2024-05-06 11:58 | Outpatient (CLI) | payer MEDICARE, SELFPAY ==
[2024-05-06 13:16] LABS: Albumin Level 4.6 g/dl (3.5-5.0); Chloride 97 mmol/L (98-107); Sodium 137 mmol/L (136-145)
[2024-05-06 13:17] LABS: Potassium 4.8 mmoL/L (3.5-5.1)
[2024-05-06 13:19] LABS: Alanine Aminotransferase 25 U/L (12-78); Albumin/Globulin Ratio 1.2 (1.1-1.8); Alkaline Phosphatase 107 U/L (38-126); Anion Gap 13.8 mEq/L (5-15); Aspartate Amino Transferase 34 U/L (17-59); Bilirubin,Total 0.9 mg/dl (0.2-1.3); Blood Urea Nitrogen 18 mg/dl (9-20); Carbon Dioxide 31 mmol/L (22.0-30.0); Estimated Glomerular Filt Rate 83 ml/min (>60); GFR (African American) 101 ML/MIN (>60); Globulin 3.8 g/dL (1.3-3.2); Glucose 166 mg/dl (74-100); Total Protein,Serum 8.4 g/dl (6.3-8.2)
[2024-05-06 13:20] LABS: Calcium 9.6 mg/dl (8.4-10.2)
[2024-05-06 13:25] LABS: C-Reactive Protein 36.3 mg/L (0-4)
[2024-05-06 14:10] LABS: Basophils # 0.1 K/mm3 (0-0.2); Basophils % 0.9 % (0.1-2.0); Eosinophils # 0.8 K/mm3 (0.0-0.4); Eosinophils % 7.6 % (0.1-12.0); Hematocrit 44.3 % (42.0-52.0); Hemoglobin 14.5 g/dL (14.1-18.0); Lymphocytes % 18.1 % (10-50); Mean Corpuscular HGB Conc 32.7 g/dL (31.8-35.4); Mean Corpuscular Hemoglobin 30.5 pg (27.0-31.2); Mean Corpuscular Volume 93.3 fl (80-94); Monocytes # 0.8 K/mm3 (0.1-1.0); Monocytes % 7.5 % (1.7-9.3); Neutrophils # 7.1 K/mm3 (1.8-7.8); Neutrophils % 65.6 % (37.0-80.0); Platelet Count 257 K/mm3 (142-424); Red Blood Count 4.75 M/mm3 (4.60-6.20); Red Cell Distribution Width 13.7 % (11.5-17.5); White Blood Count 10.8 K/mm3 (4.8-10.8)
[2024-05-06 14:39] LABS: Erythrocyte Sedimentation Rate 17 mm/hr (0-20)
== END 2024-05-06 23:59 | disposition home or self-care (01) ==
PROVIDERS: PCP Nurse Practitioner; Visit Provider Podiatrist
DX: E11.621 Type 2 diabetes mellitus with foot ulcer (principal); L97.529 Non-pressure chronic ulcer of other part of left foot with unspecified severity
CPT/HCPCS: 36415; 80053; 85025; 85651; 86140; 87070; 87077; 87186; 87205

== ENCOUNTER 2024-05-17 13:38 | Outpatient (CLI) | payer MEDICARE, SELFPAY ==
--- NOTE | 2024-05-17 13:38 | MR_ITS ---
FINAL REPORT TECHNIQUE: Multiplanar MR of the foot without gadolinium enhancement. CLINICAL HISTORY: Foot Pain ulcers on the medial side of foot hx of 1st digit amputation last year COMPARISON: None FINDINGS: Marrow signal: There is extensive bone marrow edema and replacement in the first metatarsal, consistent with osteomyelitis. There is a rim of fluid surrounding the head of the first metatarsal worrisome for a soft tissue abscess, measuring up to 10 mm in thickness. There is also edema in the fifth metatarsal head, with adjacent soft tissue edema, also suspicious for early osteomyelitis. Joints: Otherwise unremarkable Tendons:Visualized tendons are unremarkable Ligaments:Major ligaments intact Plantar Fascia:No evidence of tear There is soft tissue edema in the medial forefoot, most likely changes of cellulitis. IMPRESSION: Extensive bone marrow edema and replacement in the first metatarsal consistent with osteomyelitis. A rim of fluid surrounding the first metatarsal head is worrisome for an abscess as described above. Cellulitis in the medial forefoot. Edema in the fifth metatarsal head, suspicious for early osteomyelitis. Reviewed, Interpreted and Dictated by Arnaldo Del Valle MD Transcribed by Emily Sarmiento Authenticated and [facility]
== END 2024-05-17 23:59 | disposition home or self-care (01) ==
LOC: RAD 13:38
PROVIDERS: PCP Nurse Practitioner; Visit Provider Podiatrist
DX: M79.672 Pain in left foot (principal)
CPT/HCPCS: 73718

== ENCOUNTER 2024-05-25 09:19 | Outpatient (CLI) | payer MEDICARE, SELFPAY ==
--- NOTE | 2024-05-25 09:20 | CT_ITS ---
FINAL REPORT CLINICAL HISTORY: nonhealing wounds COMPARISON: None FINDINGS: Thin section axial CT images of the abdomen, pelvis and lower extremities were obtained with contrast. Multiplanar reformatted images were also obtained and reviewed. ABDOMEN AND PELVIS: Mild calcified plaque is noted in the abdominal aorta. There is no abdominal aortic aneurysm or dissection. Mild vascular calcifications are noted at the origins of the celiac axis and superior mesenteric artery, without evidence of significant stenosis. Mild plaque is present at the origins of the renal arteries bilaterally, also without producing significant stenosis. The inferior mesenteric artery is patent. Calcified plaque is present in the distal aorta and iliac arteries, mild to moderate. There is no significant stenosis of the right common iliac artery or external right iliac artery. There is no significant stenosis of the left common iliac artery or external left iliac artery. The internal iliac arteries are patent. RIGHT LOWER EXTREMITY: There is no significant stenosis of the right common femoral or superficial femoral arteries. The right deep femoral artery is patent. The right popliteal artery is patent. There is three-vessel runoff to the distal lower leg. LEFT LOWER EXTREMITY: There is no significant stenosis of the left common femoral or superficial femoral arteries. The left deep femoral artery is patent. The left popliteal artery is patent. There is three-vessel runoff to the distal lower leg. Note is made of early and asymmetric venous return on the left side compared to the right, that may represent distal inflammatory change/hyperemia. OTHE R FINDINGS: There are mild chronic changes in the lung bases. Mild fatty infiltration of the liver is present. There is a gallstone and a partially contracted gallbladder. Moderate diverticulosis is present in the sigmoid colon. IMPRESSION: No significant arterial vascular disease. Early and asymmetric venous return in the left lower extremity, that may be secondary to distal inflammatory/hyperemic change. Reviewed, Interpreted and Dictated by Leon Solomon MD Transcribed by Emily Sarmiento Authenticated and [facility]
[2024-05-25] MEDS: 0.9 % SODIUM CHLORIDE 50 ML VIAL 100 ML IV (10:06)
[2024-05-25] MEDS: SODIUM CHLORIDE 0.9% 10ML SYR (RAD ONLY) 10 ML IV (10:06)
[2024-05-25] MEDS: IOPAMIDOL-370 (76%);100ML BOTTLE 120 ML IV (10:06)
== END 2024-05-25 23:59 | disposition home or self-care (01) ==
LOC: RAD 09:20
PROVIDERS: PCP Nurse Practitioner; Visit Provider Nurse Practitioner Family
DX: L97.529 Non-pressure chronic ulcer of other part of left foot with unspecified severity (principal); L03.116 Cellulitis of left lower limb; M86.9 Osteomyelitis, unspecified; E11.621 Type 2 diabetes mellitus with foot ulcer
CPT/HCPCS: 75635; Q9967

== ENCOUNTER 2024-05-25 11:29 | Inpatient (IN) | payer MEDICARE, SELFPAY ==
[2024-05-25] VITALS (10 sets, daily range): BP systolic 149–196; BP diastolic 76–122; PULSE 60–76; RESP 15–19; TEMP 36.4–36.7; O2SAT 97–100; BMI 33.3; BMI 32.3
--- NOTE | 2024-05-25 11:51 | ED_ITS ---
Discharge Plan Disposition Patient Disposition: Admitted Chief Complaint: Skin/Abscess/Foreign Body Prescriptions Prescriptions: No Action amitriptyline 50 mg tablet 50 mg PO HS aspirin [Adult Low Dose Aspirin] 81 mg tablet,delayed release (DR/EC) 81 mg PO DAILY atorvastatin 40 mg tablet 40 mg PO DAILY fluticasone propionate [Flonase Allergy Relief] 50 mcg/actuation spray,suspension 2 spray intranasal DAILY 90 Days Qty: 16 2RF Rx Instructions: administer into each nostril gabapentin 600 mg tablet 600 mg PO TID glipizide 10 mg tablet 10 mg PO BID meloxicam 15 mg tablet 15 mg PO DAILY Mounjaro 5 mg/0.5 mL pen injector 5 mg SQ WEEKLY Patient Comments: INJECT THE CONTENTS OF 1 PEN 1 TIME EACH WEEK UNDER THE SKIN Rx Instructions: take on mondays sulfamethoxazole-trimethoprim [Bactrim DS] 800-160 mg tablet 1 tab PO BID 10 Days Qty: 20 0RF gentamicin 0.1 % cream 1 applic topical DAILY 30 Days Qty: 30 0RF mupirocin 2 % ointment 1 applic topical BID 21 Days Qty: 22 0RF (DME) blood-glucose meter [True Metrix Glucose Meter] [facility] [place] MISCELLANEOUS Patient Comments: USE TO TEST BLOOD SUGAR DIRECTED (DME) True Metrix Glucose Test Strip Strip MISCELLANEOUS atenolol 50 mg tablet 25 mg PO DAILY (DME) lancets [TRUEplus Lancets] 33 gauge [facility] [place] Patient Comments: USE TO TEST BLOOD SUGAR 2 TIMES EACH DAY BEFORE MEALS DIRECTED Referrals Follow up/Referrals: Taina Flores APRN [Primary Care Provider] - See instructions Clinical Impressions Clinical Impression: Vasculitis, Diabetic foot infection Instructions Patient Instructions: DI for Skin Abscess Print Language Print Language: Citizen Of [place] Discharge ED Provider: Darrin Terry General Adult HPI General Chief complaint: Skin/Abscess/Foreign Body Stated complaint: sent from Dr. Norris rash on both legs Time Seen by Provider: 05/25/24 11:35 Mode of Arrival: Ambulatory Source of Information: Patient and Relative Description of Symptoms (Recalled from ER Triage Doc. by RN): pt presents to ED from dr menendez office. pt is having left foot surgery tomorrow. pt is diabetic with ulcers. pt developed rash approx [address] norris wanted pt worked up from ED then admitted for surgery tomorrow. History of Present Illness HPI narrative: Please note that above description of symptoms, in this electronic medical record under categorization of recalled from ER triage doctor by RN are reflective of an initial nursing assessment, however, is not reflective of my full history and physical exam that was personally taken and clarified. Consequentially, this preceding description of symptoms, which may include the patient's categorized chief complaint in the EMR, do not reflect my personal clinical impression, and the ultimate description of history of present illness and patient stated complaints should be deferred to this section of the note. Unless stated otherwise or congruent with this section of the note, additional signs, symptoms, or incongruence should be interpreted as inaccurate with my clinical impression. Related Data Home Medications ?Medication ?Instructions ?Recorded ?Confirmed amitriptyline 50 mg tablet 50 mg PO HS 07/23/22 05/25/24 aspirin 81 mg tablet,delayed 81 mg PO DAILY 07/23/22 05/25/24 release (Adult Low Dose Aspirin) atorvastatin 40 mg tablet 40 mg PO DAILY 07/23/22 05/25/24 gabapentin 600 mg tablet 600 mg PO TID 07/23/22 05/25/24 glipizide 10 mg tablet 10 mg PO BID 07/23/22 05/25/24 meloxicam 15 mg tablet 15 mg PO DAILY 07/23/22 05/25/24 tirzepatide 5 mg/0.5 mL 5 mg SQ WEEKLY 02/03/24 05/25/24 subcutaneous pen injector (Tanika) atenolol 50 mg tablet 25 mg PO DAILY 02/18/24 05/25/24 blood sugar diagnostic (True 02/18/24 05/25/24 Metrix Glucose Test Strip) blood-glucose meter (True Metrix 02/18/24 05/25/24 Glucose Meter) lancets 33 gauge (TRUEplus Lancets) 02/18/24 05/25/24 Previous Rx's ?Medication ?Instructions ?Recorded fluticasone propionate 50 2 spray intranasal DAILY 90 days 07/23/22 mcg/actuation nasal #16 grams spray,suspension (Flonase Allergy Relief) mupirocin 2 % topical ointment 1 applic topical BID 3 weeks #22 04/29/24 grams gentamicin 0.1 % topical cream 1 applic topical DAILY 30 days #30 05/06/24 grams sulfamethoxazole 800 1 tab PO BID cellulitis 10 days 05/20/24 mg-trimethoprim 160 mg tablet #20 tabs (Bactrim DS) Allergies Allergy/AdvReac Type Severity Reaction Status Date / Time No Known Allergies Allergy Verified 05/25/24 10:24 [facility] Disclaimer: The information contained in this section may have been updated after the patient was seen, as this information can be updated by other users. Medical History Former smoker Diabetes mellitus Hyperlipidemia Hypertension Cervical radiculopathy Bilateral knee pain Lumbar radiculopathy Low back pain Neck pain MRSA (methicillin resistant staph aureus) culture positive Obesity, Class II, BMI 35-39.9 Diabetes mellitus with diabetic neuropathy Lamellar nail dystrophy Ulcer of right foot due to type 2 diabetes mellitus Third degree burn of right toe Third degree burn of left toe Pulmonary emphysema History of smoking 30 or more pack years Allergic rhinitis Family history of asthma History of COPD Stopped smoking with greater than 30 pack year history Eosinophilia Dyspnea on exertion Surgical History History of pancreatic surgery History of cholecystectomy Family History Other Asthma COPD (chronic obstructive pulmonary disease) Diabetes Emphysema of lung Hypertension Social History Smoking Status: Current every day smoker smoking status stop date: 1994 alcohol intake: never substance use type: denies use current occupational status: retired Travel in the last 8 weeks: None Have you lived/traveled outside [place] in past 30 days?: No Contact w/someone who lives/traveled outside US past 30 days?: No Exposure to someone with infectious disease in past 14 days?: No Do you have a fever (greater than 100.4 F or 38 C)?: No Have you tested positive for COVID-19: No Exposed to someone with COVID-19 in past 14 days?: No Do you have a sore throat?: No Do you have a cough?: No Do you have any weakness?: No Do you have any diarrhea?: No Are you experiencing any unusual bleeding?: No Do you have any muscle aches/pain?: No Do you have any abdominal pain?: No Are you experiencing loss of taste or smell?: No Other Medical History Have you received the Flu Vaccine for this season: No Have you received the Pneumonia Vaccine: No ROS Obtained: Yes All systems reviewed & no additional complaints except as documented Physical Exam General General appearance: alert Head Head exam: atraumatic and normocephalic Eye Eye exam: Present normal appearance, PERRL and EOMI Neck Neck exam: Present normal inspection, full ROM and trachea midline Respiratory Respiratory exam: Absent respiratory distress, wheezes, stridor, accessory muscle use or prolonged expiratory phase Cardiovascular Cardiovascular exam: Present other (Pulses equal symmetric in upper and lower extremities) Abdominal Exam Abdominal exam: Present soft; Absent distention, tenderness or pulsatile mass Extremities Exam Extremities exam: Present other (Per MDM); Absent edema Neurological Exam Neurological exam: Present alert, oriented X3 and CN II-XII intact; Absent motor sensory deficit Skin Skin exam: Present warm, dry and rash; Absent diaphoresis or erythema Medical Decision Making Medical Records Medical records reviewed: Yes I reviewed the patient's medical records. Screening: Per USPSTF and CDC recommendations, given the prevalence of disease in our region, it is our hospital?s policy to screen for HIV and viral Hepatitis for all patients aged 18 and over and those with ongoing risk factors. Conner Inquiry Pt receiving controlled substance: No Conner was queried for this patient: No Vital Signs: 05/25/24 11:43 05/25/24 11:46 05/25/24 12:00 Temperature 98.0 F Temperature Source Oral Pulse Rate 63 63 Pulse Rate [Left Radial] 68 Respiratory Rate 15 Blood Pressure 178/86 H 167/122 H Blood Pressure [Right Arm] 188/87 H Blood Pressure Mean Blood Pressure Mean [Right Arm] 120 Blood Pressure Source [Right Arm] Automatic Cuff Blood Pressure Position [Right Arm] Supine 02 Sat by Pulse Oximetry 98 99 97 Oxygen Delivery Method Room Air Room Air 05/25/24 12:30 Temperature Temperature Source Pulse Rate 60 Pulse Rate [Left Radial] Respiratory Rate Blood Pressure 168/76 H Blood Pressure [Right Arm] Blood Pressure Mean 106 Blood Pressure Mean [Right Arm] Blood Pressure Source [Right Arm] Blood Pressure Position [Right Arm] 02 Sat by Pulse Oximetry 98 Oxygen Delivery Method Lab Data Lab Results 05/25/24 11:54: WBC 6.6, RBC 4.28 L, Hgb 13.1 L, Hct 39.1 L, MCV 91.4, MCH 30.6, MCHC 33.5, RDW 13.0, Plt Count 211, MPV 9.5, Neut % (Auto) 46.6, Lymph % (Auto) 34.6, Lyman % (Auto) 9.6 H, Eos % (Auto) 7.8, Baso % (Auto) 1.2, Neut # (Auto) 3.1, Lymph # (Auto) 2.3, Lyman # (Auto) 0.6, Eos # (Auto) 0.5 H, Baso # (Auto) 0.1, PT 11.1, INR 0.99, APTT 28.2, VBG pH 7.31, VBG pCO2 50.3, VBG pO2 48.0 H, VBG HCO3 24.6, VBG Total CO2 26.2, VBG O2 Saturation 81.1 H, VBG Base Excess - 1.6, VBG Lactic Acid 1.4, Sodium 135 L, Potassium 4.4, Chloride 103, Carbon Dioxide 27, Anion Gap 9.4, BUN 23 H, Creatinine 1.20, Estimated Creat Clear 90, Estimated GFR 60, Est GFR ( Amer) 72, Glucose 112 H, Calcium 9.3, Total Bilirubin 0.3, AST 32, ALT 19, Alkaline Phosphatase 113, C-Reactive Protein 18.8 H, Total Protein 8.1, Albumin 4.2, Globulin 3.9 H, Albumin/Globulin Ratio 1.1 05/25/24 11:54 05/25/24 11:54 Orders (Tests/Meds): ED MEDICATIONS Generic Name Dose Route Start Last Admin Trade Name Freq PRN Reason Stop Dose Admin Vancomycin/PEG/NADA/Lysine/Water 1.75 gm in 350 mls @ 175 mls/hr 05/25/24 12:00 05/25/24 12:10 Vancomycin 1.75gm/350ml (Peg) Premix IV 05/25/24 13:59 175 mls/hr ONCE ONE Administration Levofloxacin/Dextrose 750 mg in 150 mls @ 100 mls/hr 05/25/24 12:15 05/25/24 12:28 Levofloxacin 750mg/150ml Premix IV 05/25/24 13:44 100 mls/hr ONCE ONE Administration Discontinued Medications Generic Name Dose Route Start Last Admin Trade Name Freq PRN Reason Stop Dose Admin Miscellaneous 1 each 05/25/24 12:00 Vancomycin Consult Request NOTAPPLIC 06/24/24 11:59 CONSULT [facility] ORDERS Category Date Time Status CRP [C-Reactive Protein] Stat Lab 05/25/24 11:54 Completed Complete Blood Count Auto Diff Stat Lab 05/25/24 11:54 Results Comprehensive Metabolic Panel Stat Lab 05/25/24 11:54 Completed ESR [Erythrocyte Sedimentation Rate] Stat Lab 05/25/24 11:54 Results HIV Combo Stat Lab 05/25/24 11:54 Received Hepatitis C Ab Qual. W/ RFX Stat Lab 05/25/24 11:54 Received PT INR [Prothrombin Time INR] Stat Lab 05/25/24 11:54 Completed PTT [Activated Partial Thrombo Time] Stat Lab 05/25/24 11:54 Completed Blood Culture Stat Micro 05/25/24 11:54 Received Venous Blood Gas Stat RT 05/25/24 11:54 Completed Medical Decision Narrative: 68-year-old male history of hypertension, hyperlipidemia, CAD, type 2 diabetes/PAD with chronic diabetic foot wounds of both feet presenting with concern for new rash. Patient was seen by podiatry just prior to this visit. Podiatry called over saying that they consulted with dermatology, patient has vasculitis of the lower extremities, in the setting of having wound on the left foot with known associated osteomyelitis, sending him in for further evaluation, antibiotics, and admission for amputation of digits on the left foot. Patient states that he has no pain, discomfort, drainage, fevers, chills, or any other concerns. Came in at the behest of podiatry. History was obtained via conversation with patient, family, podiatry provider. On arrival, patient hemodynamically stable, alert, oriented x4, appropriate, GCS 15, moving all extremities spontaneously, pupils equal and reactive to light. Full physical exam performed and significant for well-appearing male no acute distress. Speaking in full sentences. He does have well-dressed diabetic foot wound left foot involving medial and lateral aspect of the foot. Good capillary refill. He does have purpuric rash scattered on right lower extremity of the foot as well as posterior aspect of left calf with central necrosis. In addition to this, has palpable vasculitis left lower extremity mid lower leg. Differential includes vasculitis inflammatory versus infectious, sepsis, acute renal failure, Slater spots versus Janeway lesions, endocarditis, among others. Patient placed on continuous cardiac monitoring and continuous pulse ox with initial blood pressure 188/87, heart rate 68, saturation 98% on room air. Patient was given vancomycin for symptomatic management and correction of underlying abnormalities. Workup independently interpreted and significant for nonactionable CBC or chemistry. CRP mildly elevated. On independent interpretation of imaging, patient has osteomyelitis of the left foot on MRI done on 05/17 just a few days prior to this. See radiology read for full review of final results. I spoke to Dr. Norris, recommended vancomycin, Levaquin, admission. All of these were ordered. I talked to hospitalist, agreeable to admission. Given patient presentation, workup, history, this most likely represents acute osteomyelitis and new onset vasculitis, could be related to recent medication changes, also could be related to infectious given necrotic center on some of the purpura. Because patient high risk for clinical decompensation, deemed appropriate for inpatient admission. Results were relayed to patient who voiced understanding and patient was agreeable to inpatient admission and management. Patient was admitted to the hospital for further definitive management. Health Unit Clerk disclaimer Much of this encounter note is an electronic drop press hand spoken language to printed text. Electronic drop press hand of the spoken language may permit errors. Although I have reviewed the note, some errors may still exist. Critical Care Critical Care Time Critical Care Time: No
--- NOTE | 2024-05-25 12:05 | PC.NURSE ---
respiratory aware of vbg
[2024-05-25 12:09] LABS: Basophils # 0.1 K/mm3 (0-0.2); Basophils % 1.2 % (0.1-2.0); Eosinophils # 0.5 K/mm3 (0.0-0.4); Eosinophils % 7.8 % (0.1-12.0); Hematocrit 39.1 % (42.0-52.0); Hemoglobin 13.1 g/dL (14.1-18.0); Lactate Venous 1.4 mmol/L (0.4-2.0); Lymphocytes # 2.3 K/mm3 (0.7-4.5); Lymphocytes % 34.6 % (10-50); Mean Corpuscular HGB Conc 33.5 g/dL (31.8-35.4); Mean Corpuscular Hemoglobin 30.6 pg (27.0-31.2); Mean Corpuscular Volume 91.4 fl (80-94); Mean Platelet Volume 9.5 fl (7.4-10.4); Monocytes # 0.6 K/mm3 (0.1-1.0); Monocytes % 9.6 % (1.7-9.3); Neutrophils # 3.1 K/mm3 (1.8-7.8); Neutrophils % 46.6 % (37.0-80.0); Platelet Count 211 K/mm3 (142-424); Red Blood Count 4.28 M/mm3 (4.60-6.20); VBG Base Excess -1.6 mmol/L (-2.4-2.3); VBG HCO3 24.6 mmol/L (23-30); VBG Oxygen Saturation 81.1 % (50-70); VBG PCO2 50.3 mmol/L (35-51); VBG PH 7.31 mmol/L (7.31-7.41); VBG Total CO2 26.2 mmol/L (23-27); White Blood Count 6.6 K/mm3 (4.8-10.8)
[2024-05-25] MEDS: VANCOMYCIN/WATER FOR INJ (PEG) 1.75 GM/350 ML PIGGYBACK IV (12:10)
[2024-05-25 12:17] LABS: Albumin Level 4.2 g/dl (3.5-5.0); Chloride 103 mmol/L (98-107)
[2024-05-25 12:18] LABS: Potassium 4.4 mmoL/L (3.5-5.1); Sodium 135 mmol/L (136-145)
[2024-05-25 12:20] LABS: Alanine Aminotransferase 19 U/L (12-78); Anion Gap 9.4 mEq/L (5-15); Aspartate Amino Transferase 32 U/L (17-59); Blood Urea Nitrogen 23 mg/dl (9-20); Carbon Dioxide 27 mmol/L (22.0-30.0); Creatinine Clearance Estimated 90 mL/min (50-200); Estimated Glomerular Filt Rate 60 ml/min (>60); GFR (African American) 72 ML/MIN (>60)
[2024-05-25 12:21] LABS: Albumin/Globulin Ratio 1.1 (1.1-1.8); Alkaline Phosphatase 113 U/L (38-126); Bilirubin,Total 0.3 mg/dl (0.2-1.3); Calcium 9.3 mg/dl (8.4-10.2); Globulin 3.9 g/dL (1.3-3.2); Glucose 112 mg/dl (74-100); Total Protein,Serum 8.1 g/dl (6.3-8.2)
[2024-05-25 12:26] LABS: C-Reactive Protein 18.8 mg/L (0-4)
[2024-05-25] MEDS: LEVOFLOXACIN/D5W 750 MG/150 ML 750 MG/150 ML PIGGYBACK 100 MG IV (12:28)
[2024-05-25 12:39] LABS: Activated Partial Thrombo Time 28.2 seconds (22.8-30.6); INR 0.99 (0.9-1.1); Prothrombin Time 11.1 seconds (10.1-12.5)
--- NOTE | 2024-05-25 12:57 | PC.NURSE ---
HS aware of admission
[2024-05-25 13:00] LABS: Erythrocyte Sedimentation Rate 44 mm/hr (0-20)
--- NOTE | 2024-05-25 13:24 | PC.NURSE ---
report called to ishaan on second floor
--- NOTE | 2024-05-25 13:36 | PC.NURSE ---
pt to 2nd floor via stretcher
--- NOTE | 2024-05-25 13:38 | PC.NURSE ---
arrived by stretcher from ED
[2024-05-25 14:03] LABS: HIV Combo NEGATIVE (Negative)
[2024-05-25 14:12] LABS: Hepatitis C Ab Qual. W/ RFX NEGATIVE (Negative)
[2024-05-25 16:31] LABS: POC Glucose,Bedside 134 (70-110)
--- NOTE | 2024-05-25 17:10 | PC.NURSE ---
a&ox4. tolerating ra with sats >90%. ambulates independently to the br. no complaints of pain. dressing to L foot c/d/i. surgery scheduled tomorrow @ 1300. consent is signed and in pre op per podiatry. abx given per may. no complaints at this time. call light within reach.
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
[2024-05-25] MEDS: humaLOG 100 UNITS/ML 10ML VIAL (SSI) SUBCUT (20:45)
[2024-05-25] MEDS: GABAPENTIN 600MG TABLET 600 MG PO (20:45)
[2024-05-25] MEDS: FLUTICASONE/SALMETEROL 250/50MCG DISKUS 1 PUFF IH (21:36)
[2024-05-26] VITALS (18 sets, daily range): BP systolic 124–164; BP diastolic 61–95; PULSE 80–94; RESP 10–18; TEMP 36.2–36.9; O2SAT 95–99; BMI 32.8
[2024-05-26 01:45] LABS: POC Glucose,Bedside 254 (70-110)
--- NOTE | 2024-05-26 04:21 | PC.NURSE ---
Pt A&OX4 and has tolerated room air. Lung sounds clear and bowel sounds active. Dressing over left foot has remained c/d/i. He has denied any pain. He has ambulated with standby assist. He has been NPO since midnight awaiting surgery today. No complaints at this time, call light within reach.
[2024-05-26 06:05] LABS: Basophils # 0.1 K/mm3 (0-0.2); Basophils % 1.2 % (0.1-2.0); Eosinophils # 0.5 K/mm3 (0.0-0.4); Eosinophils % 7.4 % (0.1-12.0); Hematocrit 34.5 % (42.0-52.0); Lymphocytes % 30.5 % (10-50); Mean Corpuscular HGB Conc 33.9 g/dL (31.8-35.4); Mean Corpuscular Hemoglobin 30.3 pg (27.0-31.2); Mean Corpuscular Volume 89.4 fl (80-94); Mean Platelet Volume 9.5 fl (7.4-10.4); Monocytes # 0.7 K/mm3 (0.1-1.0); Neutrophils # 3.3 K/mm3 (1.8-7.8); Neutrophils % 50.7 % (37.0-80.0); Platelet Count 188 K/mm3 (142-424); Red Blood Count 3.86 M/mm3 (4.60-6.20); Red Cell Distribution Width 12.8 % (11.5-17.5); White Blood Count 6.5 K/mm3 (4.8-10.8)
[2024-05-26 06:11] LABS: POC Glucose,Bedside 144 (70-110)
[2024-05-26 06:13] LABS: Hemoglobin 11.7 g/dL (14.1-18.0)
[2024-05-26 06:17] LABS: Alanine Aminotransferase 17 U/L (12-78); Albumin Level 3.4 g/dl (3.5-5.0); Alkaline Phosphatase 85 U/L (38-126); Anion Gap 8.7 mEq/L (5-15); Aspartate Amino Transferase 25 U/L (17-59); Bilirubin,Total 0.3 mg/dl (0.2-1.3); Blood Urea Nitrogen 20 mg/dl (9-20); Calcium 8.7 mg/dl (8.4-10.2); Carbon Dioxide 25 mmol/L (22.0-30.0); Chloride 105 mmol/L (98-107); Chol/HDL Ratio 4.8 (1-3.5); Cholesterol 119 mg/dl (140-200); Creatinine Clearance Estimated 107 mL/min (50-200); Estimated Glomerular Filt Rate 74 ml/min (>60); GFR (African American) 89 ML/MIN (>60); Globulin 3.4 g/dL (1.3-3.2); Glucose 134 mg/dl (74-100); HDL Cholesterol 25 mg/dl (40-60); Magnesium 1.4 mg/dl (1.6-2.3); Potassium 4.7 mmoL/L (3.5-5.1); Sodium 134 mmol/L (136-145); Total Protein,Serum 6.8 g/dl (6.3-8.2); Triglycerides 132 mg/dl (30-150); VLDL Cholesterol 26 mg/dL (0-40)
[2024-05-26 06:28] LABS: Direct LDL Cholesterol 51.37 mg/dL (100-129)
[2024-05-26] MEDS: FLUTICASONE/SALMETEROL 250/50MCG DISKUS 1 PUFF IH (06:49)
--- NOTE | 2024-05-26 07:22 | HMH.PHAINT1 ---
Pharmacy Intervention Comments: VERIFIED HOME MEDICATION LIST USING LIST FROM OUTPATIENT PHARMACY AND PT INTERVIEW
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
--- NOTE | 2024-05-26 07:39 | ECG_ITS ---
APPROVED REPORT Exam: Resting ECG HR:86 bpm ECG Measurements Heart Rate 86 AXES MS 187 P 39 QRSd 109 QRS -29 QT 369 T 13 QTc 412 Conclusion SINUS RHYTHM POSSIBLE ANTERIOR MYOCARDIAL INFARCTION , OF INDETERMINATE AGE [30 ms Q WAVE IN V3/V4, OR R < 0.2 mV IN V4] ABNORMAL ECG UNCONFIRMED REPORT Electronically signed by : Presley Garcia MD 05/31/2024 08:55:19
--- NOTE | 2024-05-26 08:07 | XR_ITS ---
FINAL REPORT CLINICAL HISTORY: Confirm PICC line placement COMPARISON: 02/16/2024 FINDINGS: SINGLE VIEW CHEST The heart is normal in size. The mediastinum is unremarkable. There has been interval placement of a right PICC line which terminates in the SVC. There is chronic scarring at the bases. There is no pneumothorax. IMPRESSION: Right PICC line in the SVC. Reviewed, Interpreted and Dictated by Leon Solomon MD Transcribed by Cathy Chow Authenticated and [facility]
--- NOTE | 2024-05-26 08:17 | SW/DCPLANNER ---
Addendum entered by Isabelle Pro 05/27/24 11:33: [facility] and [facility] have been updated regarding discharge today. Addendum entered by Isabelle Pro 05/27/24 10:23: Per PT patient could benefit from SNF level of care. Patient stated that he plans to return home and has family to assist him at home 07/10. Addendum entered by Janneth Dick 05/26/24 09:38: [facility] and [facility] got back with me and they are able to accept patient. [facility] stated that it will cost the patient 4.90 a week for his medicine. Both agencies stated that they would like for me to keep the posted on patient's D/C. Addendum entered by Janneth Dick 05/26/24 08:31: Faxed patients info to [facility] for iv medicine and [facility]. Will update once I hear back from each one of the companys to see if they can accept patient. Oren Quigley Original Note: I spoke w/ this patient regarding plans once medically stable for discharge. Per Dr Loza patient will need a PICC line and three weeks of IV Dapto Q24. Patient stated that he resides at home w/ his daughter and granddaughter. Patient prefers to return home w/ assistance from family and home health services (no agency preference). Patient is not interested in returning to [facility] outpatient. Patient is agreeable for information to be faxed to home health (no preference) will be faxed to [facility] due to location and insurance. Patient information will also be faxed to [facility]/ [facility]. CM will continue to follow up w/ MD emma, Dina and [facility]. Discharge date is unknown at this time. I will also call and update patient's daughter regarding discharge plans.
--- NOTE | 2024-05-26 08:19 | CARE MANAGER ---
Current Medications Acetaminophen (Acetaminophen 325mg Tab) 650 mg PO Q4HP PRN PRN Reason: Fever or Mild Pain (1-3) Stop: 06/24/24 13:04 Aspirin (Aspirin Ec 81mg Tablet) 81 mg PO DAILY [facility] Stop: 06/25/24 08:59 Atorvastatin Calcium (Atorvastatin 40mg Tablet) 40 mg PO HS [facility] Stop: 06/25/24 20:59 Enoxaparin Sodium (Enoxaparin 40mg/0.4ml Syringe) 40 mg SUBCUT DAILY [facility] Stop: 06/26/24 08:59 Gabapentin (Gabapentin 600mg Tablet) 600 mg PO TID [facility] Stop: 06/24/24 20:59 Last Admin: 05/25/24 20:45 Dose: 600 mg Lactated Ringer's (Lactated Ringer's 1000 Ml Bag) 1,000 mls @ 25 mls/hr IV .Q25H ONE Stop: 05/27/24 08:11 Daptomycin 1,000 mg/ Sodium (Chloride) 50 mls @ 100 mls/hr IV ONCE ONE Stop: 05/26/24 08:29 Insulin Human Lispro (Humalog 100 Units/Ml 10ml Vial (Ssi)) 0 unit SUBCUT [facility]; Protocol Stop: 06/24/24 16:29 Last Admin: 05/26/24 06:07 Dose: Not Given Ondansetron HCl (Ondansetron 4mg/2ml Vial) 4 mg IV Q8HP PRN PRN Reason: Nausea Stop: 06/24/24 13:04 Fluticasone/Salmeterol (Fluticasone/Salmeterol 250/50mcg Diskus) 1 puff IH BIDRT [facility] Stop: 06/25/24 08:59 Sodium Chloride (Sodium Chloride 0.9% 10ml Flush Syringe) 10 ml IV NEEDED PRN PRN Reason: Maintain IV Site Stop: 06/25/24 07:11 Sodium Chloride (Sodium Chloride 0.9% 10ml Flush Syringe) 10 ml IV NEEDED PRN PRN Reason: Maintain IV Site Stop: 06/25/24 07:11 Sodium Chloride (Sodium Chloride 0.9% 10ml Flush Syringe) 10 ml IV NEEDED PRN PRN Reason: Maintain IV Site Stop: 05/27/24 08:07
[2024-05-26] MEDS: GABAPENTIN 600MG TABLET 600 MG PO ×3 (09:31→20:01)
[2024-05-26] MEDS: ASPIRIN EC 81MG TABLET 81 MG PO (09:31)
[2024-05-26] MEDS: humaLOG 100 UNITS/ML 10ML VIAL (SSI) SUBCUT ×2 (11:22→20:01)
[2024-05-26] MEDS: MAGNESIUM SULFATE IN WATER 2 GM/50 ML PIGGYBACK IV ×3 (11:31→13:31)
[2024-05-26] MEDS: LEVOFLOXACIN/D5W 500 MG/100 ML PIGGYBACK 100 MG IV (11:53)
--- NOTE | 2024-05-26 14:17 | PC.WOUNDNOTE ---
Scabbed/open areas scattered on bilateral lower extremities that were present on admission
--- NOTE | 2024-05-26 14:37 | EXP.ANES.CKL ---
[facility] Disclaimer: The information contained in this section may have been updated after the patient was seen, as this information can be updated by other users. Medical History Former smoker Diabetes mellitus Hyperlipidemia Hypertension Cervical radiculopathy Bilateral knee pain Lumbar radiculopathy Low back pain Neck pain MRSA (methicillin resistant staph aureus) culture positive Obesity, Class II, BMI 35-39.9 Diabetes mellitus with diabetic neuropathy Lamellar nail dystrophy Ulcer of right foot due to type 2 diabetes mellitus Third degree burn of right toe Third degree burn of left toe Pulmonary emphysema History of smoking 30 or more pack years Allergic rhinitis Family history of asthma History of COPD Stopped smoking with greater than 30 pack year history Eosinophilia Dyspnea on exertion Surgical History History of pancreatic surgery History of cholecystectomy Family History Other Asthma COPD (chronic obstructive pulmonary disease) Diabetes Emphysema of lung Hypertension Social History Smoking Status: Current every day smoker smoking status stop date: 1994 alcohol intake: never substance use type: denies use current occupational status: retired Travel in the last 8 weeks: None [facility] Anesthesia Checklist Patient Identification Patient Identification: Arm Band Structural Data Admitted From: Inpatient Planned Operative Procedure/s: Left Transmetatarsal Amputation Consent for Planned Operative Procedure(s) Verified: Yes Verified Documents: Surgical Consent and History and Physical NPO Status Verified Time NPO: 00:00 Additional verifications Anesthesia Reactions: No Airway Assessment Mallampati Score:: Class II C-Spine Mobility Assessed: Yes TMJ Mobility Assessed: Yes Dentition: Edentulous Neurological Assessment Level of Consciousness: Awake, Alert and Appropriate Anesthesia Plan Anesthesia Risk discussed: Yes Anesthesia Plan: Verified ASA Class: III Anesthesia Type: General
[2024-05-26] MEDS: DAPTOmycin 1,000 MG in 0.9 % SODIUM CHLORIDE 50 ML 100 MG IV (16:28)
--- NOTE | 2024-05-26 17:46 | P.PN_ITS ---
Subjective *Date: 05/26/24 *Time: 17:46 Interval history: Patient is in good spirits today, no acute complaints. Will proceed with surgery today. PICC line will be placed prior to surgery. Will need 3 weeks of IV daptomycin, as well as levofloxacin. Exam Data for Last 24 hours Vital signs and Labs for Last 24 Hours: Temp Pulse Resp BP Pulse Ox O2 Del Method 98.0 F 85 16 142/70 H 95 Room Air 05/26/24 10:05/26/24 10:05/26/24 10:05/26/24 10:05/26/24 10:05/26/24 13:00 Laboratory Results - last 24 hr 05/25/24 20:10: POC Glucose 254 H 05/26/24 05:35: WBC 6.5, RBC 3.86 L, Hgb 11.7 L D, Hct 34.5 L, MCV 89.4, MCH 30.3, MCHC 33.9, RDW 12.8, Plt Count 188, MPV 9.5, Neut % (Auto) 50.7, Lymph % (Auto) 30.5, [place] % (Auto) 10.0 H, Eos % (Auto) 7.4, Baso % (Auto) 1.2, Neut # (Auto) 3.3, Lymph # (Auto) 2.0, [place] # (Auto) 0.7, Eos # (Auto) 0.5 H, Baso # (Auto) 0.1, Sodium 134 L, Potassium 4.7, Chloride 105, Carbon Dioxide 25, Anion Gap 8.7, BUN 20, Creatinine 1.00, Estimated Creat Clear 107, Estimated GFR 74, Est GFR ( Amer) 89 D, Glucose 134 H, Calcium 8.7, Magnesium 1.4 L, Total Bilirubin 0.3, AST 25, ALT 17, Alkaline Phosphatase 85, Total Protein 6.8, Albumin 3.4 L D, Globulin 3.4 H, Albumin/Globulin Ratio 1.0 L, Triglycerides 132, Cholesterol 119 L, LDL Cholesterol Direct 51.37 L, VLDL Cholesterol 26, HDL Cholesterol 25 L, Cholesterol/HDL Ratio 4.8 H 05/26/24 05:57: POC Glucose 144 H I & O for Last 24 hours: Intake & Output 05/24/24 05/24/24 05/25/2425 00:59 23:59 23:59 23:59 Intake Total 270 / 470 200 / 200 Output Total 975 / 975 Balance 270 / 470 -775 / -775 Weight 108.04 kg 109.996 kg Microbiology Reports for the Last 24 Hours: Microbiology 05/25/24 11:54 Blood Blood Culture - Preliminary NO GROWTH AFTER 24 HOURS 05/25/24 11:51 Blood Blood Culture - Preliminary NO GROWTH AFTER 24 HOURS Constitutional Constitutional: no acute distress *Routine HEENT Exam Head: Present normocephalic Eye: Present EOMI and PERRL ENT: Present mucous membranes moist *Routine Neck Exam Neck: Present supple; Absent lymphadenopathy *Routine Respiratory Exam Respiratory: Present CTA bilaterally *Routine Cardiovascular Exam Cardiovascular: Present RRR *Routine Abdominal Exam Abdominal: Present soft and normoactive bowel sounds; Absent tenderness *Routine Extremities Exam Extremities: Absent cyanosis, clubbing or edema Comments: Left foot are dressed and wrapped. *Routine Skin Exam Skin: Present warm; Absent rash *Routine Neurological Exam Neurological: Present alert and oriented X3 Assessment and Plan *Assessment and plan (1) Abscess of left foot: Status: Acute Category: Medical Code(s): L02.612 - Cutaneous abscess of left foot (2) Foot osteomyelitis, left: Status: Acute Qualifiers: Osteomyelitis type: other chronic Qualified Code(s): M86.672 - Other chronic osteomyelitis, left ankle and foot Category: Medical Code(s): M86.9 - Osteomyelitis, unspecified (3) Diabetic foot infection: Status: Acute Category: Medical Code(s): E11.628 - Type 2 diabetes mellitus with other skin complications; L08.9 - Local infection of the skin and subcutaneous tissue, unspecified (4) Vasculitis: Status: Acute Category: Medical Code(s): I77.6 - Arteritis, unspecified (5) Diabetes mellitus: Status: Acute Qualifiers: Diabetes mellitus type: type 2 Diabetes mellitus penitentiary insulin use: without penitentiary use Diabetes mellitus complication status: with circulatory complication Diabetes mellitus complication detail: with other circulatory complications Qualified Code(s): E11.59 - Type 2 diabetes mellitus with other circulatory complications Category: Medical Code(s): E11.9 - Type 2 diabetes mellitus without complications (6) Class 1 obesity: Status: Acute Category: Medical Code(s): E66.811 - Obesity, class 1 Plan Stephen Hodges is a 68-year-old male with a medical history significant for diabetic foot ulcers, COPD, bronchiectasis, type 2 diabetes, hypertension who presents from podiatry clinic for management of left foot osteomyelitis. Patient has a complex diabetic foot ulcer history, including amputation of the left hallux in February 2024. Patient noted to podiatry that his left foot was hurting more over the past weeks, foot MRI on 05/17/2024 revealed first and fifth metatarsal osteomyelitis. Of note, patient has also had a rash over the past 4 days which seems like leukocytoclastic vasculitis. Patient had been on Bactrim for about 10 days which is likely the trigger. No previous history of rash. He was sent by podiatry to the ED for further evaluation of this rash. No leukocytosis, inflammatory markers marginally elevated. No signs of sepsis. Case discussed with podiatry and ED provider and decision was made to admit patient for transmetatarsal amputation of left foot for definitive management of nonhealing ulcers, osteomyelitis. #Osteomyelitis left foot #Cellulitis, suspected abscess ? Foot MRI on 05/17/2024 revealed first and fifth metatarsal osteomyelitis, cellulitis, and fluid collection around first MTP, has also had nonhealing ulcers of left foot. ? CTA lower extremities with runoff 06/03/2024 did not show obstructive PAD. ? Podiatry planning for transmetatarsal amputation of left foot today. Will receive PICC line prior to the procedure. ? Daptomycin, levofloxacin day 1 per podiatry recommendations. Will need 3 weeks of IV antibiotics per podiatry. ? WBC 6.5 stable. No signs of sepsis. ? Follow-up morning CBC, ESR, CRP. 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 Began 4 days prior to admission, Bactrim was started about 6 days prior to onset. ? Will discontinue Bactrim, but hold off on treating with steroids given risk of hyperglycemia which may delay surgery and healing. ? Vasculitis may heal on its own, if not can consider steroids a week out from surgery if vasculitis significantly getting worse. #Type 2 diabetes ? Hemoglobin A1c 7.8 in March 2024. ? Follow-up repeat A1c. ? LDSSI, ACHS glucose checks. Hold home metformin pending surgery. #Hypertension ? Resume home medications once reconciled Full code DVT prophylaxis: Hold for surgery.
--- NOTE | 2024-05-26 18:07 | EXP.ANES.I ---
[facility] Anesthesia Record Part I Anesthesia Record I Intake, IV Amount: 1,100 Hydration: Adequate Estimated blood loss (mL): 19 Urine output (mL): 0 Blood Products used (#): none Blood Pressure: 124/66 SaO2: 95 Pulse Rate: 82 Airway Patency: Patent Respiratory Rate: 10 Temperature: 97.2 F Patient is:: Drowsy and Stable Stable to PACU at:: 18:00
--- NOTE | 2024-05-26 18:18 | XR_ITS ---
PROCEDURE INFORMATION: Exam: XR Left Foot Exam date and time: 05/26/2024 6:14 PM Age: 68 years old Clinical indication: Injury or trauma; Other: Sp SX; Other: Amputation; Prior surgery; Surgery date: Post-operative (0-2 days); Additional info: S/P L tma TECHNIQUE: Imaging protocol: Radiologic exam of the left foot. Views: 3 or more views. COMPARISON: MR FOOT LT WO CON 05/17/2024 1:54 PM FINDINGS: Bones/joints: Status post transmetatarsal amputation.. Degenerative changes in the medial and lateral malleolus Soft tissues: [place] in the skin and a drainage tube in the soft tissues consistent with recent surgery.. IMPRESSION: 1. Status post transmetatarsal amputation.. 2. Aletha in the skin and a drainage tube in the soft tissues consistent with recent surgery..
--- NOTE | 2024-05-26 18:57 | PC.NURSE ---
Pt back from surgery. Partial Left foot amp, Dressing C/D/I, Ryan drain in place . VSS.
--- NOTE | 2024-05-26 19:08 | EXP.OP.NOTE ---
Date of procedure: 05/26/24 Pre-op Diagnosis:: Left DFU Left foot cellulitis with abscess Left foot osteomyelitis Post-op Diagnosis:: Same Procedure performed:: Left foot TMA (transmetatarsal amputation) Derotational skin flap (adjacent soft tissue rearrangement) Left foot I&D Application of BURT drain Surgeon:: Caty Loza DPM [employer] APPRENTICE:: Gerry Freedman and Nasim Yin Anesthesia: LMA Estimated blood loss (mL): 30 Clinical Note:: See consult note for details. Operative findings:: Pre-op: Right hallux DFU healed. Left hallux amp. Dark eschar to distal incision site. Left hallux amputation site: 25% black eschar, 50% yellow fibrotic, 25% granular, thru skin into subq, 1.3 x 1.0 x 0.2cm. Left medial 1st MTPJ: thru skin into subq, 2.0 x 2.1 x 0.0cm, 40% brown eschar, 40% yellow fibrotic tissue, 20% granular, with haroldo wound erythema. Left fifth met MTPJ DFU: 25% brown eschar, 50% yellow fibrotic tissue, 25% granular, thru skin into subq, deep fascia, to bone, 4.1 x 2.7 x 0.8 cm. Callus left 2nd toe. Op findings: Multiple DFU including left hallux amp site, medial 1st MTPJ, 5th MTPJ were sharply excisionally debrided with 15 blade and forceps full-thickness through skin, subcutaneous tissue, deep fascia. 5th met DFU extends 1.5cm to bone. Left foot has edema and periwound erythema. Based on recent x-rays, MRI left foot and clinical findings, decision made to proceed with TMA to excise all non-viable tissue, bone and remove all ulcers. Both the first and fifth metatarsal heads were soft and crumbly. There was drainage from the first met head and surrounding tissue which correlated to abscess site. Wound culture taken. The surrounding 1-2nd MTPJ tissue had fibrotic slough with soft stringy muscle tissue. No sinus tracking or signs of necrotizing fasciitis noted. After excision of all wounds, I&D (irrigation and debridement) performed removing all nonviable soft tissue, there was a 6 x 3.5 cm defect laterally where ulcer was previously. A derotational flap was performed removing tissue from the plantar medial foot to the dorsal lateral foot in order to cover the defect. At the end of the case there was no soft tissue defect noted. Wounds closed after BURT drain inserted. Operative note:: On this date and time patient was deemed an appropriate surgical candidate. With informed consent signed, the patient was taken to the operating theater. The patient was positioned supine. LMA anesthesia was induced. Left mid calf tourniquet used @225mmHg. The left lower extremity was prepped and draped in normal sterile fashion. IV Dapto given on floor, IV Levo infused prior to incision. PICC line placed in pre-op. Left transmetatarsal amputation, irrigation and debridement: See op findings. Attention directed to left foot where previous hallux amputation was noted. A fish mouth incision was mapped out at the level of the MTPJs. Utilizing a 15 blade dissection was carried down sharply to the level of the bone around the proximal phalanx bases, which were disarticulated from the metatarsals. The toes were sent for gross path specimen. Attention was then directed to the metatarsals. The first and fifth mets had obvious cortical erosion, odor and changes consistent with osteomyelitis. Utilizing power resection the metatarsal heads 2-4 were transected, and sent for bone path. The 1, 5th metatarsal or transected and sent separately for bone culture and path. Next a piece of the 1, 5th metatarsals were sent to pathology for a clean proximal margin. The remaining metatarsals looked within normal limits, bone hard, no obvious signs of osteomyelitis noted. Next 3 L of gentamicin irrigation was used to flush the wound in a pulse lavage. The wound was reexplored and no further signs of infection noted. At this point the double-ended rasp was used to smooth down the edges of the bone so that there were no sharp prominences. Application of antibiotics, BURT drain: Vanco powder was inserted into the wound and against the metatarsal bones. Tourniquet deflated after 26 minutes. Immediate hyperemic response was noted to the digits. Vessels were tied or ligated with electrocautery. Bleeding controlled. Left foot derotational skin flap: Due to the amount of soft tissue that was removed from the DFU and open wound sites there was not enough tissue to close over the fifth ray. A longitudinal incision was then extended plantarly, see op findings. The skin and underlying subcutaneous tissue was then derotated in order to bring it from plantar medial to dorsal lateral in order to cover the defect left from the fifth ray defect. 7 flat UBRT drain inserted from the medial incision site. Aletha were used for skin closure. The wounds were cleansed. There was good soft tissue closure. Bleeding to the flap noted. No dusky skin at time of closure. No exposed bone noted or skin defect noted. Skin was cleansed. Vanco powder applied to incision. Xeroform, betadine soaked gauze followed by dry sterile dressing applied to the foot. The patient tolerated the procedure and anesthesia well, without complications. The patient was awoken from anesthesia and transferred to recovery with vital signs stable and neurovascular status intact before transfer back to floor. Materials: Skin aletha, 7 flat BURT drain, 1g Vanco powder Plan: Transfer back to floor. DM diet. Obtain post op films, left foot, 3 views. Patient is to maintain dressing clean dry and intact. BURT drain mgmt. Continue IV antibiotics: Dapto + Levo. PT eval. Discussed HHC vs SNF. Patient prefers to go home with [facility] (vs daily [facility] infusions). I am ok with whichever option Hospitalist/insurance agrees too. Plan for Podiatry dressing change tomorrow. Case mgmt: [facility] with 2x weekly dressing changes and PICC. Once IV abx arranged, patient is ok to be d/c from Podiatry stand point. [facility] orders: -PICC with IV abx (Dapto 1g q24h x3 wks) -IV abx: 05/27-06/17/24 -[facility] for 2x weekly dressing changes to left foot: betadine soaked gauze, dry gauze, kerlix, yocasta. -BURT drain mgmt (plan to pull in Podiatry office next week). -Check labs weekly: cbc, cmp, esr, crp, cpk (or total CK). -Minimize activity. PWB to left heel in short fx boot with walker (or wheelchair). -Plan for Podiatry follow up outpatient starting next week. Tourniquet time (min): 26 Condition: stable Disposition: floor Specimens:: Left foot WCx Left 1, 5th metatarsal bone culture Left 1, 5th metatarsal bone path Left 2-4th metatarsal bone path Left 1, 5th metatarsal bone proximal margin Complications:: None
[2024-05-26] MEDS: APAP/HYDROCODONE 325MG/7.5MG TAB 1 TAB PO (19:23)
[2024-05-26] MEDS: ATORVASTATIN 40MG TABLET 40 MG PO (20:01)
--- NOTE | 2024-05-26 20:59 | PC.NURSE ---
Addendum entered by Tej Bishop RN 05/27/24 03:17: 30ml of sanguineous drainage removed from BURT drain. Original Note: 35ml of sanguineous drainage removed from BURT drain.
[2024-05-26] MEDS: MORPHINE 2MG/ML SYRINGE 2 MG IV (22:00)
[2024-05-26 23:43] LABS: POC Glucose,Bedside 183 (70-110)
[2024-05-27 00:35] VITALS: BP 146/77; PULSE 95; RESP 16; O2SAT 99
[2024-05-27 01:35] VITALS: BP 145/65; PULSE 96; RESP 16; O2SAT 97
[2024-05-27 04:00] VITALS: BP 133/71; PULSE 105; RESP 16; TEMP 36.8; O2SAT 97; BMI 32.7
[2024-05-27] MEDS: MORPHINE 2MG/ML SYRINGE 2 MG IV (05:28)
[2024-05-27] MEDS: humaLOG 100 UNITS/ML 10ML VIAL (SSI) SUBCUT ×2 (05:28→10:27)
[2024-05-27 05:30] LABS: POC Glucose,Bedside 303 (70-110)
[2024-05-27] MEDS: FLUTICASONE/SALMETEROL 250/50MCG DISKUS 1 PUFF IH (06:03)
[2024-05-27 06:04] VITALS: O2SAT 94
[2024-05-27 06:47] LABS: Basophils % 0.5 % (0.1-2.0); Eosinophils % 0.3 % (0.1-12.0); Hematocrit 31.2 % (42.0-52.0); Lymphocytes # 1.1 K/mm3 (0.7-4.5); Lymphocytes % 13.9 % (10-50); Mean Corpuscular HGB Conc 32.7 g/dL (31.8-35.4); Mean Corpuscular Hemoglobin 30.1 pg (27.0-31.2); Mean Platelet Volume 9.8 fl (7.4-10.4); Monocytes # 0.6 K/mm3 (0.1-1.0); Monocytes % 7.3 % (1.7-9.3); Neutrophils % 77.7 % (37.0-80.0); Platelet Count 191 K/mm3 (142-424); Red Blood Count 3.39 M/mm3 (4.60-6.20); White Blood Count 7.7 K/mm3 (4.8-10.8)
[2024-05-27 06:54] LABS: Hemoglobin 10.1 g/dL (14.1-18.0)
--- NOTE | 2024-05-27 07:04 | P.PN_ITS ---
Subjective *Date: 05/27/24 *Time: 09:45 Interval history: Patient was resting in bed eating breakfast, denies any pain at the moment, He had some shooting pain up his left left last night but was medicated and it helped. Ortho Exam (Inpt) Vital signs and Labs for Last 24 Hours: Temp Pulse Resp BP Pulse Ox O2 Del Method 98.2 F 105 H 16 133/71 94 L Room Air 05/27/24 04:00 05/27/24 04:00 05/27/24 04:00 05/27/24 04:00 05/27/24 06:04 05/27/24 06:31 Laboratory Results - last 24 hr 05/26/24 19:56: POC Glucose 183 H 05/27/24 05:16: POC Glucose 303 H* 05/27/24 05:35: WBC 7.7, RBC 3.39 L, Hgb 10.1 L D, Hct 31.2 L, MCV 92.0, MCH 30.1, MCHC 32.7, RDW 13.0, Plt Count 191, MPV 9.8, Neut % (Auto) 77.7, Lymph % (Auto) 13.9, Greer % (Auto) 7.3, Eos % (Auto) 0.3, Baso % (Auto) 0.5, Neut # (Auto) 6.0, Lymph # (Auto) 1.1, Greer # (Auto) 0.6, Eos # (Auto) 0.0, Baso # (Auto) 0.0 I & O for Labs for Last 24 Hours: Intake & Output 05/24/24 05/25/24 05/26/24 05/27/24 23:59 23:59 23:59 23:59 Intake Total 270 / 270 1300 / 1300 480 / 480 Output Total 1010 / 1010 305 / 305 Balance 270 / 270 290 / 290 175 / 175 Weight 238 lb 3 oz 242 lb 8 oz 241 lb 14.4 oz Microbiology Reports for the Last 24 Hours: Microbiology 05/25/24 11:54 Blood Blood Culture - Preliminary NO GROWTH AFTER 24 HOURS 05/25/24 11:51 Blood Blood Culture - Preliminary NO GROWTH AFTER 24 HOURS Constitutional: Present no acute distress and cooperative Head: Present normocephalic Eyes: Present as per HPI Neck: Present trachea midline Respiratory: Present normal respiratory effort and able to speak in complete sentences Cardiac: Present posterior tibial pulses present and pedal pulses present Comments:: deferred Rectal (male): Present deferred (male): Present deferred Extremities: Present tenderness (S/P 05/26/24: Left foot TMA (transmetatarsal amputation) Derotational skin flap (adjacent soft tissue rearrangement) Left foot I&D Application of BURT drain) and normal capillary refill; Absent calf tenderness Skin: Present dry and wounds Comment:: 05/27/24: post op day 1, S/P 05/26/24: Left foot TMA (transmetatarsal amputation) Derotational skin flap (adjacent soft tissue rearrangement) Left foot I&D Application of BURT drain Neuro: Present Grossly Intact, oriented x 3, tone normal and moves all extremities; Absent Sensory Function Intact Ankle: bilateral: normal inspection Feet/Toes: left: swelling (Left foot wound ), left: tenderness (Left Foot wound DFU see above) and left: wound (S/P 05/26/24: Left foot TMA (transmetatarsal amputation) Derotational skin flap (adjacent soft tissue rearrangement) Left foot I&D Application of BURT draint) and bilateral: erythema (vasculitis bilateral LE, hands, L posterior calf), bilateral: hammer toe, bilateral: nail abnormal ities (Thickened, discolored nails), bilateral: Ingrown Toenail (Incurvated nail) and bilateral: onychomycosis Assessment and Plan *Assessment and plan (1) Abscess of left foot: Status: Acute Category: Medical Code(s): L02.612 - Cutaneous abscess of left foot (2) Foot osteomyelitis, left: Status: Acute Qualifiers: Osteomyelitis type: other chronic Qualified Code(s): M86.672 - Other chronic osteomyelitis, left ankle and foot Category: Medical Code(s): M86.9 - Osteomyelitis, unspecified (3) Diabetic foot infection: Status: Acute Category: Medical Code(s): E11.628 - Type 2 diabetes mellitus with other skin complications; L08.9 - Local infection of the skin and subcutaneous tissue, unspecified (4) Vasculitis: Status: Acute Category: Medical Code(s): I77.6 - Arteritis, unspecified (5) Diabetes mellitus: Status: Acute Qualifiers: Diabetes mellitus complication detail: with other circulatory complications Diabetes mellitus complication status: with circulatory comp lication Diabetes mellitus senior care insulin use: without commercial census taker use Diabetes mellitus type: type 2 Qualified Code(s): E11.59 - Type 2 diabetes mellitus with other circulatory complications Category: Medical Code(s): E11.9 - Type 2 diabetes mellitus without complications (6) Class 1 obesity: Status: Acute Category: Medical Code(s): E66.811 - Obesity, class 1 (7) S/P transmetatarsal amputation of foot: Status: Acute Qualifiers: Laterality: left Qualified Code(s): Z89.432 - Acquired absence of left foot Category: Surgical Code(s): Z89.439 - Acquired absence of unspecified foot Plan 05/25/24: POV#13, POD#12w, 6d -Surgery for left hallux amp, right hallux wound debridement on 02/18/24. -Reports some phantom left hallux pain. Increased pain to left 5th met. -Explained pain could be from vascular issues, infection-cellulitis, abscess or OM. -ABIs 04/19/24 compared to 01/26/24. Mild changes noted. Due to non-healing left foot DFU, eschar, gangrene -Daughter present today; reviewed wound plan, labs, ABIs with pt/family -Discussed right DFU is healing wo complication. -However, left foot is not improving, suspect recurrent infection. -MRI left foot reviewed independently by myself: Shows cellulitis, OM 1st met medially, OM 5th met laterally, some diffuse fluid collection around the 1st MTPJ. -eRx gentamicin ointment, Bactrim DS (05/10-05/17/24), refill Bactrim x10d (05/27/24). *CTA reviewed: 3 vessel run off below knee. Discussed with cardiology. 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 -Discussed with hospitalist. Patient sent to ER from clinic for workup and admission for IV abx. -Wounds debridement in office this am. Worsening infection. -Betadine soaked gauze, dry gauze, marti, yocasta applied. -WBaT in wide toe shoes to right foot, avoid rubbing. Pt declined post op shoes. -Continue short fx boot for LLE. Rec PWB with walker. -Discussed in detail surgery for I&D, bone and wound debridement vs TMA. Discussed TMA is more definitive option and we can excise the wounds and do a rotational flap to cover over the defects where the diabetic foot ulcers are. -Discussed possibility of physical therapy for gait training after wounds heal and he starts ambulating. Will need diabetic shoes with custom toe filler. -Discussed surgery with admission for PICC line, IV abx. -PT/daughter open to [facility] with IV abx vs daily infusions at [facility]. Will check with case mgmt about insurance benefits. Pre-op: Patient is a 68M who presents with continued/worsening left foot infection. 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 He underwent a left hallux amputation and right hallux wound debridement 03/09. The right hallux DFU is almost healed with no infection complication. However the left hallux amputation site still has not healed and he developed new wounds to the medial first met and lateral fifth metatarsal with a worsening infection. Labs, x-rays and MRI reviewed: shows cellulitis, OM 1st met medially, OM 5th met laterally, some diffuse fluid collection around the 1st MTPJ. 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 We discussed conservative versus surgical treatment options. Conservative treatment options include local wound care, oral and IV antibiotics, change in shoe wear, taping/padding, and off-loading. We discussed surgical intervention for transmetatarsal amputation. Patient understands that there is a chance that the foot may change shape after surgery or he will need PT for gait training. Patient also understands that they could have wound healing complications including delayed healing and infection. We discussed that if the wound does not heal, it is possible that they may need a more proximal amputation and could result in further loss of digits, loss of partial foot or loss of leg. We discussed the risks and benefits in great detail. Other surgical risks include: prolonged/permanent pain and swelling, further infection requiring oral or IV antibiotics, delay in healing of soft tissue or bone, nerve or blood vessel damage, CRPS/RSD, DVT, anesthesia complications, and even . All questions answered. Patient verbalized understanding. Written consent obtained. -Plan for admission per hospitalist team today -Podiatry consult -IV abx: Dapto/Vanco + Levo 500mg -PICC insertion, start IV abx (3wks IV Dapto 1g for MRSA coverage) -NPO after midnight Plan for surgery 05/26/24: DOS: Daptomycin 1g, Levo 500mg left transmetatarsal amputation/TMA (80265) w/ rotational flap (75743), possible left MEAGAN (84038), left foot open bone biopsy () possible right foot wound debridement (58223) 05/26/24: -Patient to remain n.p.o. until after surgery today -Surgical consent has been obtained and placed on patient's chart -The left lower extremity has been marked for surgery -Patient will need to have EKG prior to surgery today -Discussed with patient's nurse and patient he will need to obtain PICC order consent for placement -IV abx: Dapto/Vanco + Levo 500mg -PICC insertion, start IV abx (3wks IV Dapto 1g for MRSA coverage) -Discussed with patient that he will need either hospital infusion versus home health care and infusion for these antibiotics -No new dressing changes made to left foot this morning, dressing remains clean dry and intact awaiting surgery this afternoon tentatively 1300 -All orders and recommendations per Dr. Loza 05/27/24: Post OP Day #1 S/P 05/26/24: Left foot TMA (transmetatarsal amputation) Derotational skin flap (adjacent soft tissue rearrangement) Left foot I&D Application of BURT drain Plan: Patient is to maintain dressing clean dry and intact. BURT drain mgmt. Continue IV antibiotics: Dapto + Levo. PT eval. Discussed [facility] vs SNF. Patient prefers to go home with [facility] (vs daily [facility] infusions). I am ok with whichever option Hospitalist/insurance agrees too. Podiatry dressing change:Xeroform, betadine soaked gauze followed by dry sterile dressing applied to the foot. Case mgmt: [facility] with 2x weekly dressing changes and PICC. Once IV abx arranged, patient is ok to be d/c from Podiatry stand point. Specimens:: Pending Left foot WCx Left 1, 5th metatarsal bone culture Left 1, 5th metatarsal bone path Left 2-4th metatarsal bone path Left 1, 5th metatarsal bone proximal margin All orders and recommendations per Dr. Loza [facility] orders: -PICC with IV abx (Dapto 1g q24h x3 wks) -IV abx: 05/27-06/17/24 -[facility] for 2x weekly dressing changes to left foot: betadine soaked gauze, dry gauze, kerlix, yocasta. -BURT drain mgmt (plan to pull in Podiatry office next week). -Check labs weekly: cbc, cmp, esr, crp, cpk (or total CK). -Minimize activity. PWB to left heel in short fx boot with walker (or wheelchair). -Plan for Podiatry follow up outpatient starting next week.
[2024-05-27 07:46] LABS: Alanine Aminotransferase 22 U/L (12-78); Albumin Level 3.3 g/dl (3.5-5.0); Alkaline Phosphatase 85 U/L (38-126); Anion Gap 9.8 mEq/L (5-15); Aspartate Amino Transferase 27 U/L (17-59); Bilirubin,Total 0.3 mg/dl (0.2-1.3); Blood Urea Nitrogen 23 mg/dl (9-20); Calcium 8.5 mg/dl (8.4-10.2); Carbon Dioxide 25 mmol/L (22.0-30.0); Chloride 104 mmol/L (98-107); Creatinine Clearance Estimated 71 mL/min (50-200); Estimated Glomerular Filt Rate 46 ml/min (>60); GFR (African American) 56 ML/MIN (>60); Globulin 3.3 g/dL (1.3-3.2); Glucose 258 mg/dl (74-100); Magnesium 2.1 mg/dl (1.6-2.3); Potassium 4.8 mmoL/L (3.5-5.1); Sodium 134 mmol/L (136-145); Total Protein,Serum 6.6 g/dl (6.3-8.2)
[2024-05-27] MEDS: APAP/HYDROCODONE 325MG/7.5MG TAB 1 TAB PO (07:53)
[2024-05-27] MEDS: ENOXAPARIN 40MG/0.4ML SYRINGE 40 MG SUBCUT (07:53)
[2024-05-27] MEDS: GABAPENTIN 600MG TABLET 600 MG PO ×2 (07:53→12:19)
[2024-05-27 08:00] VITALS: BP 125/47; PULSE 106; RESP 16; TEMP 36.8; O2SAT 97
[2024-05-27] MEDS: ASPIRIN EC 81MG TABLET 81 MG PO (08:06)
--- NOTE | 2024-05-27 09:21 | EXP.ANES.II ---
[facility] Anesthesia Record Part II Anesthesia Record Part II Discharge Time: 18:30 Destination: Surgical Day Care (OP Surgery) PACU nurse assessment reviewed?: Yes Patient Condition:: Good Anesthesia Complications:: None Swallowing reflex intact?: Yes Airway Patency: Patent Cyanosis?: No Blood Pressure: 143/64 SaO2: 96 Respiratory Rate: 16 Pulse Rate: 85 Temperature: 97.2 F Mental Status: Alert & Oriented Pain level:: 0 Nausea and/or vomitting:: None Intake, IV Amount: 0 Hydration: Adequate
[2024-05-27 09:23] VITALS: BP 143/64; PULSE 85; RESP 16; TEMP 36.2; O2SAT 96
[2024-05-27 09:46] LABS: Hemoglobin A1C 7.1 % (4.0-6.0)
[2024-05-27] MEDS: levoFLOXacin 500MG TAB 500 MG PO (10:06)
[2024-05-27] MEDS: DAPTOmycin 1,000 MG in 0.9 % SODIUM CHLORIDE 50 ML 100 MG IV (10:06)
[2024-05-27 10:23] LABS: POC Glucose,Bedside 284 (70-110)
--- NOTE | 2024-05-27 11:37 | HMH.PTEV ---
Physical Therapy Evaluation Rehab PT IP Evaluation Start: 05/26/24 18:16 Freq: ONCE Status: Active Protocol: Document 05/27/24 11:16 LUIS EDUARDO (Rec: 05/27/24 11:36 LUIS EDUARDO [id number]) Subjective/History History History 68-year-old male with a medical history significant for diabetic foot ulcers, COPD , bronchiectasis, type 2 diabetes, hypertension who presents from podiatry clinic for management of left foot osteomyelitis. Patient has a complex diabetic foot ulcer history, including amputation of the left hallux in February 2024. Patient noted to podiatry that his left foot was hurting more over the past weeks, foot MRI on 05/17/2024 revealed first and fifth metatarsal osteomyelitis. Of note, patient has also had a rash over the past 4 days which seems like leukocytoclastic vasculitis. Patient had been on Bactrim for about 10 days which is likely the trigger. No previous history of rash. He was sent by podiatry to the ED for further evaluation of this rash. No leukocytosis, inflammatory markers marginally elevated. No signs of sepsis. Case discussed with podiatry and ED provider and decision was made to admit patient for transmetatarsal amputation of left foot for definitive management of nonhealing ulcers, osteomyelitis. He reports he lives with family, has 3 ELOISE the home, and he has a RW for ambulation that he uses at all times at baseline. Subjective Subjective Currently he reports no increased pain in the L foot. He does agree to mobility assessment, [facility] How much help from another person do you currently need... Turning from your back to your side None while in a flat bed without using bedrails? Moving from lying on back to sitting on None the side of a flat bed without using bedrails? Moving to and from a bed to a chair ( A little including a wheelchair)? Standing up from a chair using your arms A little ? (e.g., wheelchair, bedside chair) Walking in hospital room? A little Climbing 3-5 steps with a railing? A lot Mobility Score 19 Mobility Level [facility] Mobility Calculator Mobility 6 Walk 10 steps or more Rehab PT IP Eval Objective Appearance Patient Behavior Appropriate Patient Orientation Person,Place,Time Difficulty following instructions none Speech Pattern Clear Ambulation Patient Able to Ambulate Yes Ambulation Observation IP General Gait Pattern Observation Decrease Weight Bear (L) Ambulation Distance (feet) 3 Ambulation Assistive Device Rolling Walker Ambulation Ability Minimal x 1 (25% assist) Balance Ability to Arise Able, uses arms to help Sitting Balance Steady, safe Standing Balance Unsteady Dynamic Sitting Balance Ability Good Dynamic Standing Balance Ability Poor Transfers Bed Transfer Ability Supervision/Stand by Chair Transfer Ability Minimal x 1 (25% assist) Sit to Stand Bed Transfer Ability Minimal x 1 (25% assist) Sit to Stand Chair Transfer Ability Minimal x 1 (25% assist) Rehab PT IP prob,goals,plan Problems Date of Evaluation: 05/27/24 PT IP Problems Transfers,Gait Rehab Potential Rehab Potential Good Plan PT Intervention Plan Transfers,Gait,Therapeutic Exercise PT Plan Frequency Daily Duration LOS Discharge Goals Sit to Stand Chair Transfer Ability Contact Guard/Hand Hold Ambulation Assistive Device Rolling Walker Ambulation Distance (feet) 6 Discharge Plan PT Discharge Plan Pt is currently most appropriate for rehab placement once medically stable for d/c, however if he meets all of his goals he could return home with family assist. The main concern is that he will be unable to maintain NWB of the L LE independently fpc. Skilled inpatient acute therapy is indicated to improve transfers and mobility in order to return pt to [facility] . Eval Complexity Eval Charge Codes 62367 - High Complexity PHYSICIAN CERTIFICATION: I certify the specified therapy services for Stephen Junior Carroll are required, authorized, and reviewed every 30 days.
--- NOTE | 2024-05-27 12:56 | EXP.DC.SUM ---
General Admission date:: 05/25/24 HPI HPI HPI: Stephen Hodges is a 68-year-old male with a medical history significant for diabetic foot ulcers, COPD, bronchiectasis, type 2 diabetes, hypertension who presents from podiatry clinic for management of left foot osteomyelitis. Patient has a complex diabetic foot ulcer history, including amputation of the left hallux in February 2024. Patient noted to podiatry that his left foot was hurting more over the past weeks, foot MRI on 05/17/2024 revealed first and fifth metatarsal osteomyelitis. Of note, patient has also had a rash over the past 4 days which seems like leukocytoclastic vasculitis. Patient had been on Bactrim for about 10 days which is likely the trigger. No previous history of rash. He was sent by podiatry to the ED for further evaluation of this rash. No leukocytosis, inflammatory markers marginally elevated. No signs of sepsis. Case discussed with podiatry and ED provider and decision was made to admit patient for transmetatarsal amputation of left foot for definitive management of nonhealing ulcers, osteomyelitis. Hospital Course Hospital Course Hospital Course: Stephen Hodges is a 68-year-old male with a medical history significant for diabetic foot ulcers, COPD, bronchiectasis, type 2 diabetes, hypertension who presents from podiatry clinic for management of left foot osteomyelitis. Patient has a complex diabetic foot ulcer history, including amputation of the left hallux in February 2024. Patient noted to podiatry that his left foot was hurting more over the past weeks, foot MRI on 05/17/2024 revealed first and fifth metatarsal osteomyelitis. Of note, patient has also had a rash over the past 4 days which seems like leukocytoclastic vasculitis. Patient had been on Bactrim for about 10 days which is likely the trigger. No previous history of rash. He was sent by podiatry to the ED for further evaluation of this rash. No leukocytosis, inflammatory markers marginally elevated. No signs of sepsis. Case discussed with podiatry and ED provider and decision was made to admit patient for transmetatarsal amputation of left foot for definitive management of nonhealing ulcers, osteomyelitis. #Osteomyelitis left foot #Cellulitis, suspected abscess ? Foot MRI on 05/17/2024 revealed first and fifth metatarsal osteomyelitis, cellulitis, and fluid collection around first MTP, has also had nonhealing ulcers of left foot. ? CTA lower extremities with runoff 06/03/2024 did not show obstructive PAD. ?Podiatry consulted, 05/26/2024 s/p Left foot TMA (transmetatarsal amputation, Derotational skin flap (adjacent soft tissue rearrangement), Left foot I&D, Application of BURT drain. ? PICC line placed, IV daptomycin daily and oral levofloxacin 750 mg daily for 3 weeks. ? Case management and PT consulted, patient will be set up with home health. ? Will follow-up with podiatry within 2 weeks. 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 Began 4 days prior to admission, Bactrim was started about 6 days prior to onset. ? Will discontinue Bactrim, but hold off on treating with steroids given risk of hyperglycemia which may delay surgery and healing. ? Vasculitis may heal on its own, if not can consider steroids a week out from surgery if vasculitis significantly getting worse. #Type 2 diabetes ? Hemoglobin A1c 7.1. ? Continue home metformin, glipizide. #Hypertension ?Continue home regimen. Total time spent on discharge: 32 minutes on chart review, counseling, documentation, and direct care with patient. Exam Data for Last 24 hours Vital signs and Labs for Last 24 Hours: Temp Pulse Resp BP Pulse Ox O2 Del Method 98.2 F 106 H 16 125/47 L 97 Room Air 05/27/24 08:00 05/27/24 08:00 05/27/24 09:23 05/27/24 08:00 05/27/24 08:00 05/27/24 11:54 Laboratory Results - last 24 hr 05/26/24 19:56: POC Glucose 183 H 05/27/24 05:16: POC Glucose 303 H* 05/27/24 05:35: WBC 7.7, RBC 3.39 L, Hgb 10.1 L D, Hct 31.2 L, MCV 92.0, MCH 30.1, MCHC 32.7, RDW 13.0, Plt Count 191, MPV 9.8, Neut % (Auto) 77.7, Lymph % (Auto) 13.9, [place] % (Auto) 7.3, Eos % (Auto) 0.3, Baso % (Auto) 0.5, Neut # (Auto) 6.0, Lymph # (Auto) 1.1, [place] # (Auto) 0.6, Eos # (Auto) 0.0, Baso # (Auto) 0.0, Sodium 134 L, Potassium 4.8, Chloride 104, Carbon Dioxide 25, Anion Gap 9.8, BUN 23 H, Creatinine 1.50 H D, Estimated Creat Clear 71, Estimated GFR 46 L, Est GFR ( Amer) 56 L D, Glucose 258 H D, Hemoglobin A1c 7.1 H, Calcium 8.5, Magnesium 2.1 D, Total Bilirubin 0.3, AST 27, ALT 22 D, Alkaline Phosphatase 85, Total Protein 6.6, Albumin 3.3 L, Globulin 3.3 H, Albumin/Globulin Ratio 1.0 L 05/27/24 10:15: POC Glucose 284 H I & O for Last 24 hours: Intake & Output 05/24/24 05/25/24 05/26/24 05/27/24 23:59 23:59 23:59 23:59 Intake Total 270 / 470 1300 / 1780 1080 / 1080 Output Total 1010 / 1040 420 / 420 Balance 270 / 470 290 / 740 660 / 660 Weight 108.04 kg 109.996 kg 109.724 kg Microbiology Reports for the Last 24 Hours: Microbiology 05/25/24 11:54 Blood Blood Culture - Preliminary NO GROWTH AFTER 48 HOURS 05/25/24 11:51 Blood Blood Culture - Preliminary NO GROWTH AFTER 48 HOURS Constitutional Constitutional: no acute distress *Routine HEENT Exam Head: Present normocephalic Eye: Present EOMI and PERRL ENT: Present mucous membranes moist *Routine Neck Exam Neck: Present supple; Absent lymphadenopathy *Routine Respiratory Exam Respiratory: Present CTA bilaterally *Routine Cardiovascular Exam Cardiovascular: Present RRR *Routine Abdominal Exam Abdominal: Present soft and normoactive bowel sounds; Absent tenderness *Routine Extremities Exam Extremities: Absent cyanosis, clubbing or edema Comments: Left foot are dressed and wrapped. *Routine Skin Exam Skin: Present warm; Absent rash *Routine Neurological Exam Neurological: Present alert and oriented X3 Results Data Completed and Pending Labs on day of discharge: Labs from last 24 hours 05/27/24 05/27/24 05/27/24 10:15 05:35 05:16 WBC 7.7 RBC 3.39 L Hgb 10.1 L D Hct 31.2 L MCV 92.0 MCH 30.1 MCHC 32.7 RDW 13.0 Plt Count 191 MPV 9.8 Neut % (Auto) 77.7 Lymph % (Auto) 13.9 [place] % (Auto) 7.3 Eos % (Auto) 0.3 Baso % (Auto) 0.5 Neut # (Auto) 6.0 Lymph # (Auto) 1.1 [place] # (Auto) 0.6 Eos # (Auto) 0.0 Baso # (Auto) 0.0 Sodium 134 L Potassium 4.8 Chloride 104 Carbon Dioxide 25 Anion Gap 9.8 BUN 23 H Creatinine 1.50 H D Estimated Creat Clear 71 Estimated GFR 46 L Est GFR ( Amer) 56 L D Glucose 258 H D POC Glucose 284 H 303 H* Hemoglobin A1c 7.1 H Calcium 8.5 Magnesium 2.1 D Total Bilirubin 0.3 AST 27 ALT 22 D Alkaline Phosphatase 85 Total Protein 6.6 Albumin 3.3 L Globulin 3.3 H Albumin/Globulin Ratio 1.0 L 05/26/24 19:56 WBC RBC Hgb Hct MCV MCH MCHC RDW Plt Count MPV Neut % (Auto) Lymph % (Auto) [place] % (Auto) Eos % (Auto) Baso % (Auto) Neut # (Auto) Lymph # (Auto) [place] # (Auto) Eos # (Auto) Baso # (Auto) Sodium Potassium Chloride Carbon Dioxide Anion Gap BUN Creatinine Estimated Creat Clear Estimated GFR Est GFR ( Amer) Glucose POC Glucose 183 H Hemoglobin A1c Calcium Magnesium Total Bilirubin AST ALT Alkaline Phosphatase Total Protein Albumin Globulin Albumin/Globulin Ratio Preliminary micro results at discharge 05/25/24 11:54 Blood Culture - Preliminary Blood NO GROWTH AFTER 48 HOURS 05/25/24 11:51 Blood Culture - Preliminary Blood NO GROWTH AFTER 48 HOURS DS: Diagnosis Discharge Diagnosis (1) Abscess of left foot: Status: Acute Code(s): L02.612 - Cutaneous abscess of left foot (2) Foot osteomyelitis, left: Status: Acute Code(s): M86.9 - Osteomyelitis, unspecified Qualifiers: Osteomyelitis type: other chronic Qualified Code(s): M86.672 - Other chronic osteomyelitis, left ankle and foot (3) Diabetic foot infection: Status: Acute Code(s): E11.628 - Type 2 diabetes mellitus with other skin complications; L08.9 - Local infection of the skin and subcutaneous tissue, unspecified (4) Vasculitis: Status: Acute Code(s): I77.6 - Arteritis, unspecified (5) Diabetes mellitus: Status: Acute Code(s): E11.9 - Type 2 diabetes mellitus without complications Qualifiers: Diabetes mellitus complication detail: with other circulatory complications Diabetes mellitus complication status: with circulatory complication Diabetes mellitus adjunct faculty for medical terminology insulin use: without residential use Diabetes mellitus type: type 2 Qualified Code(s): E11.59 - Type 2 diabetes mellitus with other circulatory complications (6) Class 1 obesity: Status: Acute Code(s): E66.811 - Obesity, class 1 (7) S/P transmetatarsal amputation of foot: Status: Acute Code(s): Z89.439 - Acquired absence of unspecified foot Qualifiers: Laterality: left Qualified Code(s): Z89.432 - Acquired absence of left foot Problem details: 05/26/24- S/P L TMA Meds Home Medications and Allergies Home Medications ?Medication ?Instructions ?Recorded ?Confirmed ?Type amitriptyline 50 mg tablet 50 mg PO HS 07/23/22 06/16/24 History aspirin 81 mg tablet,delayed 81 mg PO DAILY 07/23/22 06/16/24 History release (Adult Low Dose Aspirin) atorvastatin 40 mg tablet 40 mg PO DAILY 07/23/22 06/16/24 History fluticasone propionate 50 2 spray intranasal DAILY 90 days 07/23/22 06/16/24 Rx mcg/actuation nasal #16 grams spray,suspension (Flonase Allergy Relief) gabapentin 600 mg tablet 600 mg PO TID 07/23/22 06/16/24 History glipizide 10 mg tablet 10 mg PO BID 07/23/22 06/16/24 History tirzepatide 5 mg/0.5 mL 5 mg SQ WEEKLY 02/03/24 06/16/24 History subcutaneous pen injector (Mounjaro) atenolol 50 mg tablet 50 mg PO DAILY 02/18/24 06/16/24 History blood sugar diagnostic (True 02/18/24 06/16/24 History Metrix Glucose Test Strip) blood-glucose meter (True Metrix 02/18/24 06/16/24 History Glucose Meter) lancets 33 gauge (TRUEplus Lancets) 02/18/24 06/16/24 History gentamicin 0.1 % topical cream 1 applic topical DAILY 30 days #30 05/06/24 06/16/24 Rx grams fluticasone 250 mcg-salmeterol 50 1 inh inhalation BID 05/25/24 06/16/24 History mcg/dose blistr powdr for inhalation (Advair Diskus) metformin 1,000 mg tablet 1,000 mg PO BID 05/25/24 06/16/24 History meloxicam 15 mg tablet 15 mg PO DAILY PRN pain 30 days #0 05/27/24 06/16/24 Rx tabs oxycodone-acetaminophen 5 mg-325 1 tab PO Q4-6H PRN pain 7 days #42 05/31/24 06/16/24 Rx mg tablet (Percocet) tabs fluconazole 200 mg tablet 200 mg PO Q24H Fungal infection 10 06/07/24 06/16/24 Rx days #10.0 tabs sulfamethoxazole 800 1 tab PO BID cellulitis 14 days 06/16/24 06/16/24 Rx mg-trimethoprim 160 mg tablet #28 tabs (Bactrim DS) New Prescriptions to Start Prescriptions: Allergies Allergy/AdvReac Type Severity Reaction Status Date / Time No Known Allergies Allergy Verified 06/16/24 13:40 Discharge Plan Disposition Patient Disposition: Home Health Service Condition: Fair Discharge Order Discharge Orders: Discharge Order (Routine); Ordered 05/27/24 Ordered By: Tim Corona Follow up Plan Follow up with: Caty Loza DPM [Staff Physician] - 06/03/24 8:00 am Prescriptions/Medication Reconciliation: Continued amitriptyline 50 mg tablet 50 mg PO HS aspirin [Adult Low Dose Aspirin] 81 mg tablet,delayed release (DR/EC) 81 mg PO DAILY atorvastatin 40 mg tablet 40 mg PO DAILY fluticasone propionate [Flonase Allergy Relief] 50 mcg/actuation spray,suspension 2 spray intranasal DAILY 90 Days Qty: 16 2RF Rx Instructions: administer into each nostril gabapentin 600 mg tablet 600 mg PO TID glipizide 10 mg tablet 10 mg PO BID Mounjaro 5 mg/0.5 mL pen injector 5 mg SQ WEEKLY Patient Comments: INJECT THE CONTENTS OF 1 PEN 1 TIME EACH WEEK UNDER THE SKIN Rx Instructions: take on mondays gentamicin 0.1 % cream 1 applic topical DAILY 30 Days Qty: 30 0RF fluticasone propion-salmeterol [Advair Diskus] 250-50 mcg/dose blister with device 1 inh INHALATION BID Patient Comments: INHALE 1 PUFF 2 TIMES EACH DAY metformin 1,000 mg tablet 1,000 mg PO BID Patient Comments: TAKE 1 TABLET 2 TIMES EACH DAY (DME) blood-glucose meter [True Metrix Glucose Meter] [facility] [place] MISCELLANEOUS Patient Comments: USE TO TEST BLOOD SUGAR DIRECTED (DME) True Metrix Glucose Test Strip Strip MISCELLANEOUS atenolol 50 mg tablet 50 mg PO DAILY (DME) lancets [TRUEplus Lancets] 33 gauge [facility] [place] MISCELLANEOUS Patient Comments: USE TO TEST BLOOD SUGAR 2 TIMES EACH DAY BEFORE MEALS DIRECTED Changed meloxicam 15 mg tablet 15 mg PO DAILY PRN (Reason: pain) 30 Days Qty: 0 0RF Discontinued sulfamethoxazole-trimethoprim [Bactrim DS] 800-160 mg tablet 1 tab PO BID 10 Days Qty: 20 0RF No Action sulfamethoxazole-trimethoprim [Bactrim DS] 800-160 mg tablet 1 tab PO BID 14 Days Qty: 28 0RF oxycodone-acetaminophen [Percocet] 5-325 mg tablet 1 tab PO Q4-6H PRN (Reason: pain) 7 Days Qty: 42 0RF fluconazole 200 mg tablet 200 mg PO Q24H 10 Days Qty: 10.0 0RF Problem Reconciliation Problems Reviewed?: Yes Patient Discharge Instructions Patient Instructions: DI for Osteomyelitis, DI for Diabetic Foot Ulcer, DI for Surgical Site Infection Print Language: Slovak Providers Primary Care Provider: Taina Flores Admit Provider: Tim Corona Attending Provider: Tim Corona
--- NOTE | 2024-05-27 13:07 | PC.WOUNDNOTE ---
Left arm iv removed.
--- NOTE | 2024-05-28 10:00 | SW/DCPLANNER ---
Spoke with patient on the phone. Patient stated that he is doing very well. Patient stated that he is aware of his upcoming appointment. Patient stated that he was able to scrap picker his medicine from clinic pharmacy. Patient stated that he has no concerns or questions at this time. Oren Quigley
== END 2024-05-27 15:36 | disposition home health service (06) | DRG 617 ==
LOC: ER 12:59 → 2ND 13:10
PROVIDERS: Podiatrist; Admitting Provider Student in an Organized Health Care Education/Training Program; Emergency Provider Emergency Medicine; PCP Nurse Practitioner; Visit Provider Student in an Organized Health Care Education/Training Program
PROC: 0Y6N0Z0 Detachment at Left Foot, Complete, Open Approach (ICD-10-PCS; CPT 28805; principal; 2024-05-26 13:00)
DX: E11.621 Type 2 diabetes mellitus with foot ulcer (principal); L02.612 Cutaneous abscess of left foot; M86.672 Other chronic osteomyelitis, left ankle and foot; Z79.84 Long term (current) use of oral hypoglycemic drugs; Z79.85 Long-term (current) use of injectable non-insulin antidiabetic drugs; J44.9 Chronic obstructive pulmonary disease, unspecified; I10 Essential (primary) hypertension; E66.811 Obesity, class 1; Z87.891 Personal history of nicotine dependence; M31.0 Hypersensitivity angiitis; E11.69 Type 2 diabetes mellitus with other specified complication; Z68.32 Body mass index [BMI] 32.0-32.9, adult; Z83.3 Family history of diabetes mellitus; Z83.6 Family history of other diseases of the respiratory system; Z82.49 Family history of ischemic heart disease and other diseases of the circulatory system
CPT/HCPCS: 36415; 71045; 73630; 80053; 80061; 82803; 82962; 83036; 83735; 85025; 85610; 85651; 85730; 86140; 86803; 87040; 87070; 87077; 87106; 87205; 87389; 88304; 93005; 94640; 97163; 99285; C1751; J0878; J1650; J1956; J2270; J3010; J3372; J3475

== ENCOUNTER 2024-06-03 09:26 | Outpatient (CLI) | payer MEDICARE, SELFPAY ==
[2024-06-03 09:58] LABS: Basophils # 0.1 K/mm3 (0-0.2); Basophils % 0.9 % (0.1-2.0); Eosinophils # 0.6 K/mm3 (0.0-0.4); Eosinophils % 8.6 % (0.1-12.0); Hematocrit 30.4 % (42.0-52.0); Hemoglobin 10.3 g/dL (14.1-18.0); Lymphocytes # 2.2 K/mm3 (0.7-4.5); Lymphocytes % 33.1 % (10-50); Mean Corpuscular HGB Conc 33.9 g/dL (31.8-35.4); Mean Corpuscular Volume 91.6 fl (80-94); Mean Platelet Volume 9.2 fl (7.4-10.4); Monocytes # 0.6 K/mm3 (0.1-1.0); Neutrophils # 3.3 K/mm3 (1.8-7.8); Neutrophils % 48.3 % (37.0-80.0); Platelet Count 185 K/mm3 (142-424); Red Blood Count 3.32 M/mm3 (4.60-6.20); Red Cell Distribution Width 12.9 % (11.5-17.5); White Blood Count 6.8 K/mm3 (4.8-10.8)
[2024-06-03 10:29] LABS: Alanine Aminotransferase 19 U/L (12-78); Albumin Level 3.1 g/dl (3.5-5.0); Alkaline Phosphatase 81 U/L (38-126); Anion Gap 6.3 mEq/L (5-15); Aspartate Amino Transferase 29 U/L (17-59); Bilirubin,Total 0.4 mg/dl (0.2-1.3); Blood Urea Nitrogen 20 mg/dl (9-20); Calcium 8.6 mg/dl (8.4-10.2); Carbon Dioxide 26 mmol/L (22.0-30.0); Chloride 107 mmol/L (98-107); Creatine Kinase 45 U/L (55-170); Estimated Glomerular Filt Rate 74 ml/min (>60); GFR (African American) 89 ML/MIN (>60); Glucose 135 mg/dl (74-100); Potassium 4.3 mmoL/L (3.5-5.1); Sodium 135 mmol/L (136-145); Total Protein,Serum 6.1 g/dl (6.3-8.2)
[2024-06-03 10:34] LABS: C-Reactive Protein 15.8 mg/L (0-4)
[2024-06-03 10:42] LABS: Erythrocyte Sedimentation Rate 101 mm/hr (0-20)
== END 2024-06-03 23:59 | disposition home or self-care (01) ==
LOC: LAB 09:27
PROVIDERS: PCP Nurse Practitioner; Visit Provider Podiatrist
DX: M86.672 Other chronic osteomyelitis, left ankle and foot (principal); Z89.432 Acquired absence of left foot
CPT/HCPCS: 36415; 80053; 82550; 85025; 85651; 86140

== ENCOUNTER 2024-06-16 13:18 | Outpatient (CLI) | payer MEDICARE, SELFPAY ==
[2024-06-16 13:52] LABS: Basophils # 0.1 K/mm3 (0-0.2); Basophils % 0.8 % (0.1-2.0); Eosinophils # 0.7 K/mm3 (0.0-0.4); Eosinophils % 8.5 % (0.1-12.0); Hematocrit 31.1 % (42.0-52.0); Hemoglobin 10.4 g/dL (14.1-18.0); Lymphocytes # 2.2 K/mm3 (0.7-4.5); Lymphocytes % 25.9 % (10-50); Mean Corpuscular HGB Conc 33.4 g/dL (31.8-35.4); Mean Corpuscular Hemoglobin 30.1 pg (27.0-31.2); Mean Corpuscular Volume 90.1 fl (80-94); Mean Platelet Volume 9.5 fl (7.4-10.4); Monocytes # 0.7 K/mm3 (0.1-1.0); Monocytes % 8.2 % (1.7-9.3); Neutrophils # 4.9 K/mm3 (1.8-7.8); Neutrophils % 56.4 % (37.0-80.0); Platelet Count 166 K/mm3 (142-424); Red Blood Count 3.45 M/mm3 (4.60-6.20); Red Cell Distribution Width 13.3 % (11.5-17.5); White Blood Count 8.6 K/mm3 (4.8-10.8)
[2024-06-16 14:23] LABS: Alanine Aminotransferase 18 U/L (12-78); Albumin Level 2.9 g/dl (3.5-5.0); Albumin/Globulin Ratio 0.9 (1.1-1.8); Alkaline Phosphatase 101 U/L (38-126); Anion Gap 6.6 mEq/L (5-15); Aspartate Amino Transferase 45 U/L (17-59); Bilirubin,Total 0.8 mg/dl (0.2-1.3); Blood Urea Nitrogen 21 mg/dl (9-20); Calcium 8.7 mg/dl (8.4-10.2); Carbon Dioxide 32 mmol/L (22.0-30.0); Chloride 101 mmol/L (98-107); Creatine Kinase 231 U/L (55-170); Estimated Glomerular Filt Rate 66 ml/min (>60); GFR (African American) 80 ML/MIN (>60); Globulin 3.4 g/dL (1.3-3.2); Glucose 149 mg/dl (74-100); Potassium 4.6 mmoL/L (3.5-5.1); Sodium 135 mmol/L (136-145); Total Protein,Serum 6.3 g/dl (6.3-8.2)
[2024-06-16 14:28] LABS: C-Reactive Protein 15.6 mg/L (0-4)
[2024-06-16] MEDS: NEOSPORIN OINTMENT 0.9GM UDP 1 EACH TP (14:35)
[2024-06-16 14:43] LABS: Erythrocyte Sedimentation Rate 134 mm/hr (0-20)
== END 2024-06-16 14:42 | disposition home or self-care (01) ==
LOC: LAB 13:18 → INF 14:30
PROVIDERS: PCP Nurse Practitioner; Visit Provider Nurse Practitioner
DX: Z89.432 Acquired absence of left foot (principal); E11.628 Type 2 diabetes mellitus with other skin complications; L08.9 Local infection of the skin and subcutaneous tissue, unspecified; M86.672 Other chronic osteomyelitis, left ankle and foot
CPT/HCPCS: 36415; 80053; 82550; 85025; 85651; 86140; G0463

== ENCOUNTER 2024-06-24 12:32 | Emergency (ER) | payer MEDICARE, SELFPAY ==
[2024-06-24] VITALS (12 sets, daily range): BP systolic 177–211; BP diastolic 83–145; PULSE 75–95; RESP 14–21; TEMP 36.6–36.7; O2SAT 92–98; BMI 32.5
--- NOTE | 2024-06-24 12:34 | ED_ITS ---
<Statement entered by Navneet Schuler MD - 06/24/24 15:44> I was consulted by the SULEIMAN, and we discussed the complexity of the problems being addressed. I approved the treatment and management plan for this patient's care in the emergency department, thus performing a substantive portion of the medical decision making. Patient presented with asymptomatic hypertension but had significantly elevated hypertension for which blood pressure medications were modified and consultation with cardiology and patient is appropriate for outpatient management at this time. Navneet Schuler MD Discharge Plan Disposition Patient Disposition: Home, Self-Care Condition: Good Prescriptions Prescriptions: No Action amitriptyline 50 mg tablet 50 mg PO HS aspirin [Adult Low Dose Aspirin] 81 mg tablet,delayed release (DR/EC) 81 mg PO DAILY atorvastatin 40 mg tablet 40 mg PO DAILY fluticasone propionate [Flonase Allergy Relief] 50 mcg/actuation spray,suspension 2 spray intranasal DAILY 90 Days Qty: 16 2RF Rx Instructions: administer into each nostril gabapentin 600 mg tablet 600 mg PO TID glipizide 10 mg tablet 10 mg PO BID Mounjaro 5 mg/0.5 mL pen injector 5 mg SQ WEEKLY Patient Comments: INJECT THE CONTENTS OF 1 PEN 1 TIME EACH WEEK UNDER THE SKIN Rx Instructions: take on mondays gentamicin 0.1 % cream 1 applic topical DAILY 30 Days Qty: 30 0RF sulfamethoxazole-trimethoprim [Bactrim DS] 800-160 mg tablet 1 tab PO BID 14 Days Qty: 28 0RF oxycodone-acetaminophen [Percocet] 5-325 mg tablet 1 tab PO Q4-6H PRN (Reason: pain) 7 Days Qty: 42 0RF fluconazole 200 mg tablet 200 mg PO Q24H 10 Days Qty: 10.0 0RF lisinopril 40 mg tablet 40 mg PO DAILY Qty: 30 2RF hydrochlorothiazide 25 mg tablet 25 mg PO DAILY Qty: 30 2RF fluticasone propion-salmeterol [Advair Diskus] 250-50 mcg/dose blister with device 1 inh INHALATION BID Patient Comments: INHALE 1 PUFF 2 TIMES EACH DAY metformin 1,000 mg tablet 1,000 mg PO BID Patient Comments: TAKE 1 TABLET 2 TIMES EACH DAY meloxicam 15 mg tablet 15 mg PO DAILY PRN (Reason: pain) 30 Days Qty: 0 0RF (DME) blood-glucose meter [True Metrix Glucose Meter[place] [facility] [place] Patient Comments: USE TO TEST BLOOD SUGAR DIRECTED (DME) True Metrix Glucose Test Strip Strip MISCELLANEOUS atenolol 50 mg tablet 50 mg PO DAILY (DME) lancets [TRUEplus Lancets] 33 gauge [facility] [place], [place] MISCELLANEOUS Patient Comments: USE TO TEST BLOOD SUGAR 2 TIMES EACH DAY BEFORE MEALS DIRECTED Referrals Follow up/Referrals: Taina Flores APRN [Primary Care Provider] - See instructions Activity Restrictions/Add. Instructions Additional Instructions/Restrictions: Cardiology is going to see you in clinic Friday at 10 AM. They have sent in a medication change to your pharmacy already. Please follow-up with your PCP next week for recheck. If you have continued new or worsening signs or symptoms return to the ER as needed. Clinical Impressions Clinical Impression: Hypertension, uncontrolled Print Language Print Language: Mauritian Discharge ED Provider: Navneet Schuler General Adult HPI General Chief complaint: Recheck/Abnormal Lab/Rx Stated complaint: high blood pressure Time Seen by Provider: 06/24/24 12:34 History of Present Illness HPI narrative: Patient presents for evaluation of elevated blood pressure. Patient states over the last 2 weeks he has noted that his blood pressures been high . He called his PCP who recommended that he come to the emergency department for evaluation. 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 Patient denies headache chest pain shortness of breath nausea vomiting diarrhea hemoptysis hematochezia melena hematemesis. He has had no new medication changes. Related Data Home Medications ?Medication ?Instructions ?Recorded ?Confirmed amitriptyline 50 mg tablet 50 mg PO HS 07/23/22 06/24/24 aspirin 81 mg tablet,delayed 81 mg PO DAILY 07/23/22 06/24/24 release (Adult Low Dose Aspirin) atorvastatin 40 mg tablet 40 mg PO DAILY 07/23/22 06/24/24 gabapentin 600 mg tablet 600 mg PO TID 07/23/22 06/24/24 glipizide 10 mg tablet 10 mg PO BID 07/23/22 06/24/24 tirzepatide 5 mg/0.5 mL 5 mg SQ WEEKLY 02/03/24 06/24/24 subcutaneous pen injector (Mounjaro) atenolol 50 mg tablet 50 mg PO DAILY 02/18/24 06/24/24 blood sugar diagnostic (True 02/18/24 06/24/24 Metrix Glucose Test Strip) blood-glucose meter (True Metrix 02/18/24 06/24/24 Glucose Meter) lancets 33 gauge (TRUEplus Lancets) 02/18/24 06/24/24 fluticasone 250 mcg-salmeterol 50 1 inh inhalation BID 05/25/24 06/24/24 mcg/dose blistr powdr for inhalation (Advair Diskus) metformin 1,000 mg tablet 1,000 mg PO BID 05/25/24 06/24/24 Previous Rx's ?Medication ?Instructions ?Recorded fluticasone propionate 50 2 spray intranasal DAILY 90 days 07/23/22 mcg/actuation nasal #16 grams spray,suspension (Flonase Allergy Relief) gentamicin 0.1 % topical cream 1 applic topical DAILY 30 days #30 05/06/24 grams meloxicam 15 mg tablet 15 mg PO DAILY PRN pain 30 days #0 05/27/24 tabs oxycodone-acetaminophen 5 mg-325 1 tab PO Q4-6H PRN pain 7 days #42 05/31/ mg tablet (Percocet) tabs fluconazole 200 mg tablet 200 mg PO Q24H Fungal infection 10 06/07/24 days #10.0 tabs sulfamethoxazole 800 1 tab PO BID cellulitis 14 days 06/16/24 mg-trimethoprim 160 mg tablet #28 tabs (Bactrim DS) hydrochlorothiazide 25 mg tablet 25 mg PO DAILY #30 tabs 06/24/24 lisinopril 40 mg tablet 40 mg PO DAILY #30 tabs 06/24/24 Allergies Allergy/AdvReac Type Severity Reaction Status Date / Time No Known Allergies Allergy Verified 06/24/24 11:34 [facility] Disclaimer: The information contained in this section may have been updated after the patient was seen, as this information can be updated by other users. Medical History Former smoker Diabetes mellitus Hyperlipidemia Hypertension Cervical radiculopathy Bilateral knee pain Lumbar radiculopathy Low back pain Neck pain MRSA (methicillin resistant staph aureus) culture positive Obesity, Class II, BMI 35-39.9 Diabetes mellitus with diabetic neuropathy Lamellar nail dystrophy Ulcer of right foot due to type 2 diabetes mellitus Third degree burn of right toe Third degree burn of left toe Pulmonary emphysema History of smoking 30 or more pack years Allergic rhinitis Family history of asthma History of COPD Stopped smoking with greater than 30 pack year history Eosinophilia Dyspnea on exertion Surgical History History of pancreatic surgery History of cholecystectomy Family History Other Asthma COPD (chronic obstructive pulmonary disease) Diabetes Emphysema of lung Hypertension Social History Smoking Status: Current every day smoker smoking status stop date: 1994 alcohol intake: never substance use type: denies use current occupational status: retired Travel in the last 8 weeks: None Other Medical History Have you received the Flu Vaccine for this season: No Have you received the Pneumonia Vaccine: No ROS Obtained: Yes Systems reviewed as appropriate & no additional complaints except as documented Physical Exam General General appearance: alert and in no apparent distress Respiratory Respiratory exam: Present normal lung sounds bilaterally Cardiovascular Cardiovascular exam: Present regular rate Neurological Exam Neurological exam: Present alert and oriented X3 Medical Decision Making Medical Records Medical records reviewed: Yes I reviewed the patient's medical records. Screening: Per USPSTF and CDC recommendations, given the prevalence of disease in our region, it is our hospital?s policy to screen for HIV and viral Hepatitis for all patients aged 18 and over and those with ongoing risk factors. Conner Inquiry Pt receiving controlled substance: No Vital Signs: 06/24/24 12:39 06/24/24 12:40 06/24/24 12:44 Temperature 97.8 F Temperature Source Oral Pulse Rate 82 80 Pulse Rate [Right] 82 Respiratory Rate 16 21 Blood Pressure 182/145 H 211/101 H Blood Pressure [Right Arm] 205/98 H Blood Pressure Mean Blood Pressure Mean [Right Arm] 133 Blood Pressure Source Blood Pressure Source [Right Arm] Automatic Cuff Blood Pressure Position 02 Sat by Pulse Oximetry 92 L 95 96 Oxygen Delivery Method Room Air 06/24/24 12:45 06/24/24 12:58 06/24/24 12:59 Temperature Temperature Source Pulse Rate 80 77 Pulse Rate [Right] Respiratory Rate 21 14 Blood Pressure 207/91 H 198/90 H Blood Pressure [Right Arm] Blood Pressure Mean Blood Pressure Mean [Right Arm] Blood Pressure Source Automatic Cuff Blood Pressure Source [Right Arm] Blood Pressure Position Sitting 02 Sat by Pulse Oximetry 96 94 L Oxygen Delivery Method 06/24/24 13:00 06/24/24 13:15 06/24/24 13:24 Temperature Temperature Source Pulse Rate 75 95 H Pulse Rate [Right] Respiratory Rate 14 16 Blood Pressure 202/88 H 206/88 H 208/88 H Blood Pressure [Right Arm] Blood Pressure Mean Blood Pressure Mean [Right Arm] Blood Pressure Source Blood Pressure Source [Right Arm] Blood Pressure Position 02 Sat by Pulse Oximetry 95 93 L Oxygen Delivery Method Room Air 06/24/24 13:30 06/24/24 13:49 Temperature Temperature Source Pulse Rate 79 82 Pulse Rate [Right] Respiratory Rate 20 14 Blood Pressure 191/89 H 188/86 H Blood Pressure [Right Arm] Blood Pressure Mean 118 Blood Pressure Mean [Right Arm] Blood Pressure Source Blood Pressure Source [Right Arm] Blood Pressure Position 02 Sat by Pulse Oximetry 94 L 93 L Oxygen Delivery Method Room Air Lab Data Lab results reviewed: Yes I reviewed the patient's lab results. Lab Results 06/24/24 12:49: WBC 11.4 H, RBC 4.11 L, Hgb 12.4 L, Hct 36.7 L, MCV 89.3, MCH 30.2, MCHC 33.8, RDW 13.8, Plt Count 174, MPV 9.2, Neut % (Auto) 63.5, Lymph % (Auto) 18.6, [place] % (Auto) 9.0, Eos % (Auto) 7.9, Baso % (Auto) 0.7, Neut # (Auto) 7.3, Lymph # (Auto) 2.1, [place] # (Auto) 1.0, Eos # (Auto) 0.9 H, Baso # (Auto) 0.1, ESR 75 H, Sodium 137, Potassium 4.4, Chloride 101, Carbon Dioxide 32 H, Anion Gap 8.4, BUN 19, Creatinine 1.00, Estimated Creat Clear 106, Estimated GFR 74, Est GFR ( Amer) 89, Glucose 164 H, Calcium 9.1, Total Bilirubin 0.9, AST 36, ALT 17, Alkaline Phosphatase 138 H, Troponin I < 0.01, C-Reactive Protein 9.3 H, NT-Pro-B Natriuret Pep 1410 H, Total Protein 8.0 D, Albumin 3.5, Globulin 4.5 H, Albumin/Globulin Ratio 0.8 L 06/24/24 12:49 06/24/24 12:49 Orders (Tests/Meds): ED MEDICATIONS Generic Name Dose Route Start Last Admin Trade Name Freq PRN Reason Stop Dose Admin Lisinopril 20 mg 06/24/24 13:40 06/24/24 13:49 Lisinopril 20mg Tablet PO 07/24/24 13:39 20 mg DAILY AVEL Administration Discontinued Medications Generic Name Dose Route Start Last Admin Trade Name Freq PRN Reason Stop Dose Admin Labetalol HCl 10 mg 06/24/24 13:01 06/24/24 13:24 Labetalol 20mg/4ml Syringe IV 06/24/24 13:02 10 mg ONCE ONE Administration ORDERS Category Date Time Status BNP [NT Pro Brain Natriuretic Pep.] Stat Lab 06/24/24 12:49 Completed CBC w/Auto Diff [Complete Blood Count Auto Diff] Stat Lab 06/24/24 12:49 Completed CMP [Comprehensive Metabolic Panel] Stat Lab 06/24/24 12:49 Completed CRP [C-Reactive Protein] Stat Lab 06/24/24 12:49 Completed ESR [Erythrocyte Sedimentation Rate] Stat Lab 06/24/24 12:49 Completed Trop I [Troponin I] Stat Lab 06/24/24 12:49 Completed Troponin I Q3H Lab 06/24/24 16:00 Ordered Troponin I Q3H Lab 06/24/24 19:00 Ordered CA venous doppler LE RT Routine Y 06/24/24 13:34 Completed Medical Decision Narrative: In summary patient is a 68-year-old male who presents to the emergency department for evaluation of uncontrolled hypertension. Patient is significantly hypertensive with a blood pressure of 211/101 upon arrival but otherwise hemodynamically stable with a heart rate of 90 with normal sinus rhythm on the bedside monitor, afebrile. Physical exam is remarkable for clear breath sounds with no increased work of breathing or adventitious sounds, S1-S2 regular rate and rhythm without dependent edema.. Differential diagnosis includes ACS versus CHF versus acute kidney injury versus electrolyte abnormality etc. Initial workup will be conducted with hematologic labs twelve- lead EKG. Initial interventions were considered including Cardene drip however will defer until workup is complete. Additionally will consult cardiology for review and recommendations patient management. Initial workup reviewed by me and his hematologic labs are significant for a white count of 11.4 hemoglobin hematocrit 12.4 and 36.7 respectively with no neutrophilic shift, patient's troponin is undetectable at less than 0.01 patient has an elevated NT proBNP of 1410. Patient also reported upon reevaluation that he had swelling of his right lower extremity. Cardiology ordered a DVT ultrasound the right lower extremity which was negative patient's blood pressure still remains elevated over 200 systolic thus we have given a dose of 10 mg IV push of labetalol. Upon repeat evaluation patient's blood pressure has come down to 188/86 after initial intervention. Cardiology recommended a change in his blood pressure medication which they have already called into his pharmacy with increase of his lisinopril. I have ordered an initial dose here.. They will follow-up with him on Friday at 10 AM.. Given this patient is appropriate for discharge with follow-up with cardiology at 10 AM as well as close follow-up with his PCP for reevaluation. Critical Care Critical Care Time Critical Care Time: Yes Attestation: On 06/24/24, the high probability of a clinically significant, sudden or life threatening deterioration of the following system(s) required my full and direct attention, intervention and personal management. The time I documented below is in addition to time spent performing reported procedures but includes the following listed in this critical care notation. Total Time Total Critical Care Time: 35
--- NOTE | 2024-06-24 12:40 | ECG_ITS ---
APPROVED REPORT Exam: Resting ECG HR:79 bpm ECG Measurements Heart Rate 79 AXES DC 179 P 21 QRSd 100 QRS -28 QT 379 T 29 QTc 413 Conclusion SINUS RHYTHM BORDERLINE LEFT AXIS DEVIATION [QRS AXIS < -20] BORDERLINE ECG Electronically signed by : HENNY TELLEZ, 06/25/2024 07:39:21
[2024-06-24 12:56] LABS: Basophils # 0.1 K/mm3 (0-0.2); Basophils % 0.7 % (0.1-2.0); Eosinophils # 0.9 K/mm3 (0.0-0.4); Eosinophils % 7.9 % (0.1-12.0); Hematocrit 36.7 % (42.0-52.0); Hemoglobin 12.4 g/dL (14.1-18.0); Lymphocytes # 2.1 K/mm3 (0.7-4.5); Lymphocytes % 18.6 % (10-50); Mean Corpuscular HGB Conc 33.8 g/dL (31.8-35.4); Mean Corpuscular Hemoglobin 30.2 pg (27.0-31.2); Mean Corpuscular Volume 89.3 fl (80-94); Mean Platelet Volume 9.2 fl (7.4-10.4); Neutrophils # 7.3 K/mm3 (1.8-7.8); Neutrophils % 63.5 % (37.0-80.0); Nucleated Red Blood Cells # 0 10^3/uL; Nucleated Red Blood Cells % 0 %; Platelet Count 174 K/mm3 (142-424); Red Blood Count 4.11 M/mm3 (4.60-6.20); Red Cell Distribution Width 13.8 % (11.5-17.5); Red Cell Distribution Width-SD 44.5 fL; White Blood Count 11.4 K/mm3 (4.8-10.8)
[2024-06-24 13:05] LABS: Albumin Level 3.5 g/dl (3.5-5.0); Chloride 101 mmol/L (98-107); Sodium 137 mmol/L (136-145)
[2024-06-24 13:06] LABS: Potassium 4.4 mmoL/L (3.5-5.1)
[2024-06-24 13:08] LABS: Alanine Aminotransferase 17 U/L (12-78); Albumin/Globulin Ratio 0.8 (1.1-1.8); Alkaline Phosphatase 138 U/L (38-126); Anion Gap 8.4 mEq/L (5-15); Aspartate Amino Transferase 36 U/L (17-59); Bilirubin,Total 0.9 mg/dl (0.2-1.3); Blood Urea Nitrogen 19 mg/dl (9-20); Carbon Dioxide 32 mmol/L (22.0-30.0); Creatinine Clearance Estimated 106 mL/min (50-200); Estimated Glomerular Filt Rate 74 ml/min (>60); GFR (African American) 89 ML/MIN (>60); Globulin 4.5 g/dL (1.3-3.2)
[2024-06-24 13:09] LABS: Calcium 9.1 mg/dl (8.4-10.2); Glucose 164 mg/dl (74-100)
[2024-06-24 13:13] LABS: C-Reactive Protein 9.3 mg/L (0-4)
[2024-06-24 13:19] LABS: NT Pro Brain Natriuretic Pep. 1410 pg/mL (0-125)
[2024-06-24 13:23] LABS: Troponin I < 0.01 ng/ml (0.00-0.034)
[2024-06-24] MEDS: LABETALOL 20MG/4ML SYRINGE 10 MG IV (13:24)
[2024-06-24 13:25] LABS: Erythrocyte Sedimentation Rate 75 mm/hr (0-20)
--- NOTE | 2024-06-24 13:34 | CA_ITS ---
FINAL REPORT TECHNIQUE: Compression champagne scale and Doppler evaluation CLINICAL HISTORY: DM, smoker, HTN, HLD, COPD. Recent transmetatarsal amputation of the left foot 05/26/24. Edema noted in RLE. FINDINGS: Femoral and popliteal veins show normal compressibility and flow. Visualized portion of the calf veins are patent by Doppler exam. IMPRESSION: No evidence of right lower extremity deep venous thrombosis Reviewed, Interpreted and Dictated by Arnaldo Del Valle MD Transcribed by Cathy Chow Authenticated and [facility]
[2024-06-24] MEDS: LISINOPRIL 20MG TABLET 20 MG PO (13:49)
--- NOTE | 2024-06-24 14:18 | EXP.CARD.CON ---
History of Present Illness History of Present Illness Consult date: 06/24/24 Requesting physician: Navneet Schuler Consult reason: hypertension Chief complaint: Elevated BP History of present illness: This is a 68-year-old white male with past medical history of hyperlipidemia, hypertension, diabetes mellitus and a recent left great toe amputation February 2024 who presents to emergency department with complaints of elevated blood pressure for 2 weeks. Patient reports he checks his blood pressure regularly and for the last 2 weeks his blood pressure has been running high. States he was advised per PCP to go to ER. Patient also reports swelling to right lower extremity for 2 weeks. Patient denies chest pain or shortness of breath. Left foot is in walking boot. He denies missing any medications. EKG upon presentation to emergency department shows sinus rhythm at a rate of 79 without acute ischemic changes noted. Labs as follow: WBC 11.4, hemoglobin 12.4, sodium 137, potassium 4.4, creatinine 1, troponin negative and proBNP 1410. [facility] Disclaimer: The information contained in this section may have been updated after the patient was seen, as this information can be updated by other users. Medical History Former smoker Diabetes mellitus Hyperlipidemia Hypertension Cervical radiculopathy Bilateral knee pain Lumbar radiculopathy Low back pain Neck pain MRSA (methicillin resistant staph aureus) culture positive Obesity, Class II, BMI 35-39.9 Diabetes mellitus with diabetic neuropathy Lamellar nail dystrophy Ulcer of right foot due to type 2 diabetes mellitus Third degree burn of right toe Third degree burn of left toe Pulmonary emphysema History of smoking 30 or more pack years Allergic rhinitis Family history of asthma History of COPD Stopped smoking with greater than 30 pack year history Eosinophilia Dyspnea on exertion Surgical History History of pancreatic surgery History of cholecystectomy Family History Other Asthma COPD (chronic obstructive pulmonary disease) Diabetes Emphysema of lung Hypertension Social History Smoking Status: Current every day smoker smoking status stop date: 1994 alcohol intake: never substance use type: denies use current occupational status: retired Travel in the last 8 weeks: None Review of Systems Review of Systems Review of systems:: pertinent systems reviewed and negative unless documented below *Musculoskeletal Comments: Swelling to right lower extremity Exam Data for Last 24 hours Vital signs and Labs for Last 24 Hours: Temp Pulse Resp BP Pulse Ox O2 Del Method 97.8 F 82 14 188/86 H 93 L Room Air 06/24/24 12:40 06/24/24 13:49 06/24/24 13:49 06/24/24 13:49 06/24/24 13:49 06/24/24 13:30 Laboratory Results - last 24 hr 06/24/24 12:49: WBC 11.4 H, RBC 4.11 L, Hgb 12.4 L, Hct 36.7 L, MCV 89.3, MCH 30.2, MCHC 33.8, RDW 13.8, Plt Count 174, MPV 9.2, Neut % (Auto) 63.5, Lymph % (Auto) 18.6, [place] % (Auto) 9.0, Eos % (Auto) 7.9, Baso % (Auto) 0.7, Neut # (Auto) 7.3, Lymph # (Auto) 2.1, [place] # (Auto) 1.0, Eos # (Auto) 0.9 H, Baso # (Auto) 0.1, ESR 75 H, Sodium 137, Potassium 4.4, Chloride 101, Carbon Dioxide 32 H, Anion Gap 8.4, BUN 19, Creatinine 1.00, Estimated Creat Clear 106, Estimated GFR 74, Est GFR ( Amer) 89, Glucose 164 H, Calcium 9.1, Total Bilirubin 0.9, AST 36, ALT 17, Alkaline Phosphatase 138 H, Troponin I < 0.01, C-Reactive Protein 9.3 H, NT-Pro-B Natriuret Pep 1410 H, Total Protein 8.0 D, Albumin 3.5, Globulin 4.5 H, Albumin/Globulin Ratio 0.8 L I & O for Last 24 hours: Intake & Output 06/21/24 06/22/24 06/23/24 06/24/24 23:59 23:59 23:59 23:59 Weight 240 lb Constitutional Constitutional: no acute distress *Routine Respiratory Exam Respiratory: Present CTA bilaterally and symmetric chest movement *Routine Cardiovascular Exam Cardiovascular: Present RRR, Normal S1 and Normal S2 *Routine Abdominal Exam Abdominal: Present soft and normoactive bowel sounds; Absent tenderness *Routine Extremities Exam Extremities: Present full ROM and normal capillary refill; Absent edema Comments: Left foot is in a walking boot. Edema noted to right lower extremity *Routine Skin Exam Skin: Present intact, dry and warm Detailed Neck Exam: Thyroids Thyroid: Absent bruit Meds Home Medications and Allergies Home Medications ?Medication ?Instructions ?Recorded ?Confirmed ?Type amitriptyline 50 mg tablet 50 mg PO HS 07/23/22 06/24/24 History aspirin 81 mg tablet,delayed 81 mg PO DAILY 07/23/22 06/24/24 History release (Adult Low Dose Aspirin) atorvastatin 40 mg tablet 40 mg PO DAILY 07/23/22 06/24/24 History fluticasone propionate 50 2 spray intranasal DAILY 90 days 07/23/22 06/24/24 Rx mcg/actuation nasal #16 grams spray,suspension (Flonase Allergy Relief) gabapentin 600 mg tablet 600 mg PO TID 07/23/22 06/24/24 History glipizide 10 mg tablet 10 mg PO BID 07/23/22 06/24/24 History tirzepatide 5 mg/0.5 mL 5 mg SQ WEEKLY 02/03/24 06/24/24 History subcutaneous pen injector (Mounjaro) atenolol 50 mg tablet 50 mg PO DAILY 02/18/24 06/24/24 History blood sugar diagnostic (True 02/18/24 06/24/24 History Metrix Glucose Test Strip) blood-glucose meter (True Metrix 02/18/24 06/24/24 History Glucose Meter) lancets 33 gauge (TRUEplus Lancets) 02/18/24 06/24/24 History gentamicin 0.1 % topical cream 1 applic topical DAILY 30 days #30 05/06/24 06/24/24 Rx grams fluticasone 250 mcg-salmeterol 50 1 inh inhalation BID 05/25/24 06/24/24 History mcg/dose blistr powdr for inhalation (Advair Diskus) metformin 1,000 mg tablet 1,000 mg PO BID 05/25/24 06/24/24 History meloxicam 15 mg tablet 15 mg PO DAILY PRN pain 30 days #0 05/27/24 06/24/24 Rx tabs oxycodone-acetaminophen 5 mg-325 1 tab PO Q4-6H PRN pain 7 days #42 05/31/24 06/24/24 Rx mg tablet (Percocet) tabs fluconazole 200 mg tablet 200 mg PO Q24H Fungal infection 10 06/07/24 06/24/24 Rx days #10.0 tabs sulfamethoxazole 800 1 tab PO BID cellulitis 14 days 06/16/24 06/24/24 Rx mg-trimethoprim 160 mg tablet #28 tabs (Bactrim DS) New Prescriptions to Start Prescriptions: Allergies Allergy/AdvReac Type Severity Reaction Status Date / Time No Known Allergies Allergy Verified 06/24/24 11:34 Assessment and Plan *Assessment and plan (1) Hypertension: Status: Acute Qualifiers: Hypertension type: primary hypertension Qualified Code(s): I10 - Essential (primary) hypertension Category: Medical Code(s): I10 - Essential (primary) hypertension (2) Right leg swelling: Status: Acute Category: Medical Code(s): M79.89 - Other specified soft tissue disorders Plan Hypertension Right lower extremity swelling Elevated proBNP Systolic blood pressure in the 200s Troponin negative EKG negative for acute ischemic changes proBNP elevated but no signs of volume overload at this time. Denies chest pain, shortness of breath, orthopnea. Has unilateral right lower extremity swelling noted. Elevated BNP could be secondary to htn creatinine 1 Patient given additional lisinopril 20 mg in the emergency department- BP 180s Preliminary ultrasound report of right lower extremity is negative for DVT CV summary 06/24/2024: Patient is CV stable for discharge home. Please have patient follow-up with cardiology clinic on Friday at 10 AM for re-evaluation of blood pressure and additional testing. Patient advised to monitor blood pressure twice a day and keep a blood pressure log and bring to clinic on Friday with him. He is agreeable to do so. Medication sent to [facility]. Cardiac meds for discharge Lisinopril 40 mg p.o. daily Hydrochlorothiazide 25 mg p.o. daily Atenolol 50 mg daily Aspirin 81 mg p.o. daily Atorvastatin 40 mg p.o. daily
== END 2024-06-24 15:14 | disposition home or self-care (01) ==
PROVIDERS: Physician Assistant; Podiatrist; Emergency Provider Emergency Medicine; PCP Nurse Practitioner
DX: R22.31 Localized swelling, mass and lump, right upper limb (principal); I10 Essential (primary) hypertension
CPT/HCPCS: 96374; 99284; 80053; 83880; 84484; 85025; 85651; 86140; 93005; 93971; J1920

== ENCOUNTER 2024-07-14 08:59 | Outpatient (CLI) | payer MEDICARE, SELFPAY ==
--- NOTE | 2024-07-14 09:00 | CA_ITS ---
FINAL REPORT TECHNIQUE: Grayscale, color Doppler and duplex Doppler ultrasound of the kidneys, aorta and renal arteries was performed. Multiple velocities were measured. CLINICAL HISTORY: HTN,HLD,DM FINDINGS: Aorta velocity: 97 cm/sec Right kidney: 12.2 cm. No evidence of hydronephrosis or mass. Right intrarenal RI: 0.52-0.71 Right renal artery velocity: 153 cm/sec. Right RAR (Renal artery-Aortic Ratio): 1.58 Left Kidney: 12.7 cm. No evidence of hydronephrosis or mass. Left intrarenal RI: 0.67-0.76 Left renal artery velocity: 129 cm/sec. Left RAR (Renal Artery-Aortic Ratio): 1.33 IMPRESSION: No evidence of significant renal artery stenosis. CT angiogram or postcontrast MR angiogram would be more sensitive for evaluation of possible renal artery stenosis. Reviewed, Interpreted and Dictated by Leon Solomon MD Transcribed by Carolyn Welsh Authenticated and [facility]
--- NOTE | 2024-07-14 10:15 | US_ITS ---
FINAL REPORT CLINICAL HISTORY: Hypertension COMPARISON: None FINDINGS: RENAL ULTRASOUND Ultrasound images of the kidneys were obtained. Limited images of the liver parenchyma demonstrates normal echogenicity. The right kidney measures 12.9 cm in length. The left kidney measures 13.1 cm in length. There are hyperechoic foci in the kidneys which may represent tiny nonobstructing stones. No hydronephrosis. Normal cortical echogenicity. IMPRESSION: Possible tiny nonobstructing stones bilaterally. Reviewed, Interpreted and Dictated by Leon Solomon MD Transcribed by Carolyn Welsh Authenticated and [facility]
== END 2024-07-14 23:59 | disposition home or self-care (01) ==
LOC: RT 09:00
PROVIDERS: PCP Nurse Practitioner; Visit Provider Nurse Practitioner
DX: I10 Essential (primary) hypertension (principal); R60.9 Edema, unspecified; R06.02 Shortness of breath
CPT/HCPCS: 76770; 93976

== ENCOUNTER 2024-07-21 12:14 | Outpatient (CLI) | payer MEDICARE, SELFPAY ==
--- NOTE | 2024-07-21 | CA_ITS ---
APPROVED REPORT Exam: Pharmacologic Technologist: Leslie Phelps Ht: 6 ft 0 in Wt: 238 lbs BSA: 2.29 m2 HR: 70 bpm BP: 185/97 mmHg Stress Test Details Test: Lexiscan HR Resting HR: 70 bpm Max Heart Rate (APMHR): 150 bpm Max HR Achieved: 83 bpm Target HR (85% APMHR): 128 bpm % of APMHR: 55 Recovery HR: 77 bpm BP Resting BP: 185.0/97.0 mmHg Max BP: 204.0/99.0 mmHg Recovery BP: 199.0/95.0 mmHg ECG Stress ECG Conclusion Patient advised to increase Atenolol to 100 mg. Symptoms: Shortness of air with Lexiscan infusion. Arrhythmias/Ectopy: PVCs in recovery ST-T Changes: Unremarkable with Lexiscan infusion. Electronically signed by : Olivia Tripp MD 07/22/2024 12:47:58
[2024-07-21] MEDS: SODIUM CHLORIDE 0.9% 10ML SYR (RAD ONLY) 10 ML IV ×2 (12:25→14:15)
--- NOTE | 2024-07-21 12:30 | NM_ITS ---
APPROVED REPORT Exam: Nuclear Stress Test Indication: htn, diabetes, hyperlipidemia, sob Patient Location: Outpatient Stress Tech: Leslie Phelps NC Tech:LUIS ALBERTO Byrd RT (R)(N)(M) Ht: 6 ft 1 in Wt: 238 lbs HR: 67 bpm BP: 185/97 mmHg BSA: 2.32 m2 TID: 1.09 BMI: 31.3 History: htn, diabetes, hyperlipidemia, sob patient could not lay on stomach for prone images Procedure: Patient received 0.0 mg of intravenous Lexiscan, resting heart rate 67 bpm, resting blood pressure 185/97 mmHg, with Lexiscan maximum heart rate achieved was 83 bpm which is % of the maximum predicted heart rate and blood pressure was 170/93 mmHg. With Lexiscan, patient denied any complaint of chest pain. Cardiac Stress and Resting SPECT Images: Cardiac Stress and Resting SPECT images were obtained using technetium 99m Myoview 30.5 mCi stress and 10.57 mCi at rest. The patient is unable to lie on his abdomen. Therefore, prone stress imaging could not be performed. This may affect diagnostic interpretation of the study findings. Resting and stress imaging in supine positions demonstrate no evidence of fixed or reversible perfusion defects. Gated imaging demonstrates mild reduction global LV systolic function. LVEF is calculated at 43%. Conclusion: No evidence of fixed or reversible perfusion defects. Gated imaging demonstrates mild reduction global LV systolic function. LVEF is calculated at 43%. Correlation of LVEF with new or recent TTE is suggested. Electronically signed by : Olivia Tripp MD 07/22/2024 12:45:32
[2024-07-21] MEDS: REGADENOSON 0.4MG/5ML SYRINGE 0.4 MG IV (14:15)
[2024-07-21] MEDS: ISOTOPE MYOVIEW (PER STUDY) 1 DOSE IV (14:58)
== END 2024-07-21 23:59 | disposition home or self-care (01) ==
LOC: RAD 12:14
PROVIDERS: PCP Nurse Practitioner; Visit Provider Nurse Practitioner
DX: R60.9 Edema, unspecified (principal); R06.02 Shortness of breath; I10 Essential (primary) hypertension
CPT/HCPCS: 78452; 93017; 93018; A9502; J2785

== ENCOUNTER 2024-08-12 12:50 | Outpatient (CLI) | payer MEDICARE, SELFPAY ==
--- NOTE | 2024-08-12 12:53 | CA_ITS ---
APPROVED REPORT EXAM: Comprehensive 2D, Doppler, and color-flow Echocardiogram Set Up Inspector: Carmen Hook CRT Ht: 6 ft 0 in Wt: 236lbs BSA: 2.29 BP: 161/80 mmHg Indications: Cardiomyopathy, COPD, HTN, HLD, CM EF 43% ON STRESS 2D Dimensions LA Volume 40.10 mL LA Volume Index 17.10 mL/m2 (M/F) 16-34 M-Mode Dimensions RVDd 2.58 cm (0.9-2.6) LA Diam 2.91 cm (1.9-4.0) LVDd 5.28 cm (3.5-5.7) LVDs 3.83 cm (3.5-5.7) IVSd 1.37 cm (0.6-1.1) PWd 0.68 cm (0.6-1.1) EF (Teich) 53.00% FS 27.50% EDV (Teich) 134.20 mL TAPSE 2.39 (<1.7) ESV (Teich) 63.10 mL LV Diastology E Decel Time 150 (160-240 msec) E/A Ratio 0.67 MED A' 10.30 cm/s LAT A' 10.80 cm/s Aortic Valve AI PHT 581.00 ms AO Peak GR. 7.90 mmHg Mitral Valve MV E Max Reilly. 54.0 (40-130 cm/s) MV A Velocity 79.0 (40-130 cm/s) E/A Ratio 0.67 MV PHT 44.0 ms Pulmonary Valve PV Peak Velocity 106.0 (50-150 cm/s) Tricuspid Valve TR P. Velocity 204.00 cm/s RAP Estimate 10.00 mmHg RVSP 26.70 mmHg Left Ventricle The left ventricle is normal size. The left ventricular systolic function is mildly reduced. There is increased LV wall thickness. The septum is asynchronous. Transmitral Doppler flow pattern suggests impaired LV relaxation. LVEF is 45-50%. Right Ventricle The right ventricle is normal size. The right ventricular systolic function is normal. Atria Left atrium is mildly dilated. The right atrium size is normal. There is no Doppler evidence of interatrial shunt. Aortic Valve Aortic valve is mildly thickened. There is no aortic valvular stenosis. Trace aortic regurgitation. Mitral Valve The mitral valve is normal in structure. No evidence of mitral valve stenosis. Trace mitral regurgitation. Tricuspid Valve Tricuspid valve is grossly normal in structure and function. Trace tricuspid regurgitation. There is insufficient TR jet to estimate RVSP. Pulmonic Valve The pulmonary valve is normal in structure. Trace pulmonic regurgitation. Great Vessels The aortic root is normal in size. The ascending aorta is mildly dilated, measuring 3.8 cm in diameter. IVC is normal in size and collapses >50% with inspiration. Pericardium There is no pericardial effusion. Other Information Study Quality: Fair Conclusion Mildly reduced LV systolic function (LVEF 45-50%). Mild LA dilation. No significant valvular stenosis or regurgitation. The ascending aorta is mildly dilated, measuring 3.8 cm in diameter. Correlation with your recent CTA chest is suggested. In the setting of mild cardiomyopathy, further evaluation with cardiac MRI (cardiomyopathy protocol) may be suggested to evaluate for etiologies of cardiomyopathy. Electronically signed by : Olivia Tripp MD 08/22/2024 18:56:32
--- OUTSIDE RECORDS SUMMARY | 2024-08-12 12:53 | XMS_ITS | Data Portability ---
Author Organization [facility] G[facility] ADMIN Address [address] [place] [id number] Care Team Providers Care [employer] Officer Name Role Phone KVNG FLORES Referring Provider KVNG FLORES Primary Care Provider Assessment Encounter Date Assessment Date Assessment LastModified by Organization Details LastModified Time 04/26/2024 04/26/2024 No Images review ed Plan 04/26/2024 Today, I discussed with the patient about my current findings based on their history and/or physical exam. They have multiple pain generators, however I will treat their pain in a stepwise plan as outlined below. 1. #b/l Knee Pain,Chronic worsening #Knee Osteoarthritis - Patient has not performed physical therapy in the past 6 months to a year, however I do not believe the patient would be able to perform physical therapy due to the increasing pain that they are having. They would benefit from having an injection and then starting therapy after. The patient also may need several injections while undergoing physical therapy - knee x-rays ordered today -Will trial a b/l intraarticular knee injection with steroid -If fails, consider genicular nerve block vs referral for knee replacement - f/u in 2-4 weeks 2. #Neuropathy #DM Induced-Neuropathy -The patient presents with complaints of chronic neuropathic pain, primarily characterized by burning, tingling, and numbness in the b/lfeet, hands, legs The symptoms have been ongoing for approximately >6 months and are progressively worsening. The patient rates the pain as [provide pain scale rating, e.g., 7/10] in severity, with intermittent flare-ups during periods of activity. - The neuropathy is likely related to poorly controlled diabetes mellitus and the current pain symptoms have failed to respond to conservative treatments including NSAIDs, gabapentin, amitriptyline, cymbalta - PE: Reduced sensation to light touch and pinprick to b/lfeet, hands, legs. Hyperalgesia, muscle atrophy, reflex changes appreciated - Strength in the affected limbs is WNL -Plan --- We will obtain x-rays today to evaluate for degenerative disc disease and lumbar spondylosis. Patient will probably need a lumbar MRI future if he is going to consider SCS / neuromodulation as a potential therapy. Think he would be a great candidate given the fact his chronic worsening neuropathy. 3.#Lumbar spinal stenosis without neurogenic claudication, Chronic worsening #Lumbar DDD #Axial Low Back Pain, Chronic worsening #Lumbar Spondylosis #Facetogenic pain -Symptoms in the bilateral LE -+ shopping cart sign - We will obtain x-rays today to evaluate for degenerative disc disease and lumbar spondylosis. Can focus on his arthritis and facetogenic pain after treating his knees and neuropathy 4. #Axial Neck Pain, Chronic worsening #Cervical Spondylosis #Facetogenic pain - patient with a history of cervical spine fracture that needed surgery that the patient reported today. Order cervical x-rays and follow up on the 5. # Diabeteus mellitus Diabetes Mellitus Type 2 -Need to be judicious with steroid injections given risk of potential hyperglycemia - Complicates care since patient may require steroid injections which will require close monitoring and follow up. Poor glucose control can result in increased risk of infection and poor wound healing Not available 04/26/2024 12:22:57 Plan of Treatment Reminders Order Date Submit Date Provider Last Modified By Organization Details Last Modified Time Details Appointments None recorded. Lab None recorded. Referral None recorded. Procedures intra-ralph cular injection, knee (PROC) - 12921-17, 35299 b/l knee injection 2024 025 [email or web address] Elias Meraz DO, [address], [address], [place], [address], 08:30:25 Surgeries None recorded. Imaging XR, knee 2024 025 [email or web address] 9 [facility], [address], [address], [place], [address], 13:59:21 XR, cervical spine, 2 or 3 view 2024 025 [email or web address] 9 [facility] (Scheduling), [address] [place], [address], 5 13:59:20 XR, lumbar spine, 2 view - please evaluate for spondyloth esis, b/l pars defect and angular stability 2024 025 [email or web address] 9 [facility] (Scheduling), [address] [place], [address], 5 13:33:07 Medication Orders None recorded. Patient TargetsNo targets recorded. Patient InstructionsNo instructions recorded. Reason for Referral None Reported. Problems Name Problem SNOMED Code Status Onset Date Resolution Date Notes Provider Name and Address Organization Details Recorded Time Neuropathy due to diabetes mellitus 024921366 Active 2024 EL[address]AZ [address], [address], [place] - [facility] & [place] 5 10:18:17 Lumbar spondylosis 298143800 Active 2024 ELIAS MERAZ [address], [address], [place] - [facility] & [place] 5 10:18:19 Low back pain 110084258 Active 2024 ELIAS MERAZ [address], [address], [place] - [facility] & [place] 5 10:18:27 Cervical spondylosis 132962961 Active 2024 ELIAS MERAZ [address], [address], [place] - [facility] - [facility] & [place] 5 10:32:32 Pain of knee region 3107061484 Active 2024 ELIAS MERAZ [address], [address], [place] - [facility] & [place] 5 10:34:55 Chronic low back pain 534970098 Active 2024 ELIAS MERAZ [address], [address], [facility] & [place] 12:23:03 Type 2 diabetes mellitus 29106063 Active 2024 ELIAS MERAZ DO [address] [place], [address], [facility] & [place] 12:23:17 Problem Notes None recorded. Procedures Surgical History Date Name Laterality Status Provider Name and Address Organization Details Recorded Time 03/17/19 24 Other completed [facility] & [place] 04/26/2024 10:06:02 03/17/19 21 cholecystectomy completed [facility] & [place] 04/26/2024 10:48:41 Imaging Results None recorded. Procedure Notes None recorded. Medical Equipment None Reported. Allergies No known drug allergies Medications Name Sig Start Date Stop Date Status Note LastModified by Organization Details LastModified Time atorvastati n 40 mg tablet TAKE 1 TABLET 1 TIME EACH DAY AT BEDTIME 04/26 completed Not Available Not Available Not Available fluticasone 250 mcg-salmete rol 50 mcg/dose blistr powdr for inhalation INHALE 1 DOSE 2 TIMES EACH DAY 04/26 completed Not Available Not Available Not Available gabapentin 600 mg tablet TAKE 1 TABLET 3 TIMES EACH DAY active Not Available Not Available No t Available doxycycline hyclate 100 mg capsule TAKE 1 CAPSULE 2 TIMES EACH DAY FOR 10 DAYS 04/26 completed Not Available Not Available Not Available clindamycin HCl 300 mg capsule TAKE 1 CAPSULE 3 TIMES EACH DAY FOR INFECTION FOR 10 DAYS TAKE WITH A LARGE GLASS OF WATER 04/26 completed Not Available Not Available Not Available minocycline 100 mg capsule TAKE 1 CAPSULE 2 TIMES EACH DAY FOR 7 DAYS FOR CELLULITI S 04/26 completed Not Available Not Available Not Available fluconazole 200 mg tablet TAKE 1 TABLET 1 TIME EACH DAY FOR 7 DAYS 04/26 completed Not Available Not Available Not Available meloxicam 15 mg tablet TAKE 1 TABLET 1 TIME EACH DAY NEEDED active Not Available Not Available No t Available glipizide 10 mg tablet TAKE 1 TABLET 2 TIMES EACH DAY active Not Available Not Available No t Available prednisone 20 mg tablet TAKE 1 TABLET 3 TIMES EACH DAY FOR 3 DAYS 04/26 completed Not Available Not Available Not Available sulfamethox azole 800 mg-trimetho prim 160 mg tablet TAKE 1 TABLET 2 TIMES EACH DAY FOR 10 DAYS 04/26 completed Not Available Not Available Not Available linezolid 600 mg tablet TAKE 1 TABLET 2 TIMES EACH DAY FOR 10 DAYS 04/26 completed Not Available Not Available Not Available cephalexin 500 mg capsule TAKE 1 CAPSULE 3 TIMES EACH DAY FOR 7 DAYS 04/26 completed Not Available Not Available Not Available metformin 1,000 mg tablet TAKE 1 TABLET 2 TIMES EACH DAY active Not Available Not Available No t Available lisinopril 10 mg tablet TAKE 1 TABLET 1 TIME EACH DAY 04/26 completed Not Available Not Available Not Available gentamicin 0.1 % topical cream APPLY A THIN FILM TO THE AFFECTED AREA OF SKIN ONE TIME EACH DAY FOR 2 WEEKS 04/26 completed Not Available Not Available Not Available Elavil 50 mg tablet Take 1 tablet every day by oral route. active Not Available Not Available No t Available hydrochloro thiazide 25 mg tablet TAKE 1 TABLET 1 TIME EACH DAY 04/26 completed Not Available Not Available Not Available mupirocin 2 % topical ointment APPLY A THIN FILM TO THE AFFECTED AREA OF SKIN 2 TIMES EACH DAY FOR 3 WEEKS 04/26 completed Not Available Not Available Not Available gabapentin 100 mg capsule TAKE ONE CAPSULE BY MOUTH THREE TIMES DAILY NEEDED FOR post op nerve pain MAY CAUSE DROWSINES S 04/26 completed Not Available Not Available Not Available cefuroxime axetil 500 mg tablet TAKE 1 TABLET 2 TIMES EACH DAY FOR 10 DAYS 04/26 completed Not Available Not Available Not Available levofloxaci n 500 mg tablet TAKE 1 TABLET 1 TIME EACH DAY FOR 10 DAYS 04/26 completed Not Available Not Available Not Available ondansetron 4 mg disintegrat ing tablet PLACE 1 TABLET UNDER THE TONGUE AND ALLOW TO DISSOLVE EVERY 6 HOURS NEEDED FOR NAUSEA 04/26 completed Not Available Not Available Not Available fluticasone propionate 50 mcg/actuati on nasal spray,suspe nsion SPRAY 2 TIMES IN EACH NOSTRIL 1 TIME EACH DAY 04/26 completed Not Available Not Available Not Available atenolol 50 mg tablet TAKE 1 TABLET 1 TIME EACH DAY active Not Available Not Available No t Available oxycodone 5 mg tablet TAKE ONE TABLET BY MOUTH EVERY 6 HOURS FOR post op pain MAY CAUSE DROWSINES S 04/26 completed Not Available Not Available Not Available Asprin Ec Low Dose 81 mg tablet,silvano yed release Take 1 tablet every day by oral route. active Not Available Not Available No t Available Novolog Mix 70-30 FlexPen U-100 Insulin 100 unit/mL subcutaneou s pen INJECT 70 UNITS BEFORE BREAKFAST AND DINNER. INCREASE DOSE DIRECTED. DO NOT INJECT MORE THAN 160 UNITS EACH DAY. 04/26 completed Not Available Not Available Not Available BD Ultra-Fine Leila Pen Needle 32 gauge x /32 USE TO INJECT INSULIN 2 TIMES EACH DAY BEFORE MEALS active Not Available Not Available No t Available TRUEplus Lancets 33 gauge USE TO TEST BLOOD SUGAR 2 TIMES EACH DAY BEFORE MEALS DIRECTED 04/26 completed Not Available Not Available Not Available True Metrix Glucose Test Strip USE TO TEST BLOOD SUGAR 2 TIMES EACH DAY BEFORE MEALS 04/26 completed Not Available Not Available Not Available True Metrix Glucose Meter USE TO TEST BLOOD SUGAR DIRECTED 04/26 completed Not Available Not Available Not Available Trulicity 0.75 mg/0.5 mL subcutaneou s pen injector INJECT CONTENTS OF 1 SYRINGE UNDER THE SKIN 1 TIME EACH WEEK DIRECTED 04/26 completed Not Available Not Available Not Available Mounjaro 7.5 mg/0.5 mL subcutaneou s pen injector 04/26 completed Not Available Not Available Not Available Mounjaro 5 mg/0.5 mL subcutaneou s pen injector INJECT THE CONTENTS OF 1 PEN 1 TIME EACH WEEK UNDER THE SKIN 04/26 completed Not Available Not Available Not Available Mounjaro 2.5 mg/0.5 mL subcutaneou s pen injector INJECT THE CONTENTS OF 1 PEN 1 TIME EACH WEEK DIRECTED 04/26 completed Not Available Not Available Not Available Vitals Date Recorded Body weight Body temperature Oxygen saturation Oxygen saturation in Arterial blood by Pulse oximetry Heart rate Systolic blood pressure Diastolic blood pressure Provider Name and Address Organization Details Last Updated DateTime 5 259278. 13 g 97.3 [degF] 99 % 99 % 68 /min 167 mm[Hg] 64 mm[Hg] Rosalie RAYO - [facility] - [place] & [place] 10:05:37 Social History Question Answer Notes LastModified by Organizat ion Details LastModified Time Tobacco Smoking Status Former Smoker Rosalie Phelps [facility], [place] - [facility] - [place] & [place] 04/26/2024 10:05:58 Do You Have An Advance Directive? No [email or web address] Information not available 04/26/2024 Are You Blind Or Do You Have Difficulty Seeing? No [email or web address] Information not available 04/26/2024 What Was The Date Of Your Most Recent Tobacco Screening? 04/21/2024 [email or web address] Information not available 04/26/2024 Are You Passively Exposed To Smoke? Yes [email or web address] Information not available 04/26/2024 How Much Tobacco Do You Smoke? No [email or web address] Information not available 04/26/2024 Sex: Unknown Functional Status Question Answer Note LastModified by Organizat ion Details LastModified Time Do you use any illicit or recreational drugs? No [email or web address] Information not available 04/26/2024 What is your level of alcohol consumption? None [email or web address] Information not available 04/26/2024 Do you or have you ever used smokeless tobacco? Never used [email or web address] tobacco Information not available 04/26/2024 What is your exercise level? None [email or web address] Information not available 04/26/2024 Mental Status Question Answer Note LastModified by Organization D etails LastModified Time Do you feel stressed (tense, restless, nervous, or anxious, or unable to sleep at night)? [id number] [email or web address] Information not available 04/26/2024 Family History Nothing Reported. Medical History Condition Response GI Problems Y Diabetes Y Arthritis Y Eczema Y Back Problems Y High Cholesterol Y Hypertension Y Past Encounters Encounter ID Performer Location Encounter Start Date Encounter Closed Date Diagnosis/Indication Diagnosis SNOMED-CT Code Diagnosis ICD10 Code Diagnosis Note [id number] ELIAS MERAZ DO [facility]- [address] [place] [address] 04/26/2024 09:43:16 04/26/2024 10:41:04 Lumbar spondylosis 802639521 M47.896 Neuropathy due to diabetes mellitus 272487790 E11.40 G60.9 Low back pain 645843323 M54.50 Cervical spondylosis 387 312424 M47.812 Pain of knee region 1003 734527 M25.569 M25.561 M25.562 M17.9 Chronic low back pain 27 0066531 M54.50 Type 2 parmjit devonte mellitus 02926512 E11.42 Health Concerns Section Related Observation LastModified by Organization Detai ls LastModified Time None Recorded Concern Status LastModified by Organization Details LastModified Time None Recorded Advance Directives Directive N: Payers Insurance Date Sequence Insurance Name Policy Number Policy Castellano Covered Member ID Castellano Member ID Guarantor Name 05/29/2024 1 [facility] [place] [facility]VANT[facility] - HMO) Stephen Hodges [id number] Stephen Hodges Notes Date Note Type Note Provider Name and Address Organization Details Recorded Time 04/26/2024 text/html Patient presente d with b/l neuropathic pain of the hands and feet. He has a hx of T2D and neuropathy for which he takes gabapentin 600mg TID. He reports progressively worsening symptoms. Last A1c 8 04/2024. Was seen by orthopedic surgery in 2018 for cervical spine and thoracic spine fractures. He declined surgical intervention at that time. [facility], HTN 04/26/2024: Initial complaint: ongoing chronic neuropathy pain localized to the their feet.Onset: >3 yearsPain Location: b/l LE s and feetCourse: progressing over several yearsPain Quality: sharp and dull, superficial, tingling, numbness, throbbing, achyPain Intensity: 8 / 10Aggravating Factors: Cold temperature, sitting, standing from seatedAlleviating Factors: rest and nothingAssociated Symptoms: numbness referring to b/l feet, legs, hands-Patient currently denies saddle anesthesia, bowel/bladder incontinence, worsening/progressive weakness.-Functional Goals of Treatment: Reduce the pain level by 50% or more and restore function/mobility/qual ity of life. Current Medication:Opioids: NoneNSAIDS: MeloxicamMuscle Relaxers:NoneOthers: Gabapentin Previous Pain Medications:Opioids: NoneNSAIDS: NoneMuscle Relaxers:NoneOthers: None Previous Non-Interventional Treatment:- Ice, heat, HEP, Lidocaine patches Interventions/Consults :-Neurosurgery: none-Orthopedics: none-Interventional pain: none-Podiatry: foot surgery Left hallux amputationOther Surgeries: Smoking: quite >10 years agoDiabetes: DM2A1C: >8 Anticoagulation: NoneAntiplatelets: ASA Work Status: retired ELIAS MERAZ, DO [address] [facility], [place], [address], [facility] 04/26/2024 12:25:15
== END 2024-08-12 23:59 | disposition home or self-care (01) ==
LOC: RT 12:51
PROVIDERS: PCP Nurse Practitioner; Visit Provider Nurse Practitioner Family
DX: I11.9 Hypertensive heart disease without heart failure (principal); I77.810 Thoracic aortic ectasia; J44.9 Chronic obstructive pulmonary disease, unspecified; E78.5 Hyperlipidemia, unspecified; I42.9 Cardiomyopathy, unspecified
CPT/HCPCS: 93306